=== PATIENT | female | born 1985 | race African-American/Black ===

== ENCOUNTER 2020-02-13 15:55 | Outpatient (REF) | payer BC, SELFPAY | END 2020-02-13 15:56 | disposition home or self-care (01) | LOC: HO.LAB 15:55 | PROVIDERS: Visit Provider Internal Medicine | DX: Z20.828 Contact with and (suspected) exposure to other viral communicable diseases (principal) | CPT/HCPCS: C9803; U0003 ==

== ENCOUNTER 2020-09-21 18:53 | Emergency (ER) | payer BC, SELFPAY ==
[2020-09-21 18:55] VITALS: BP 145/87; PULSE 104; RESP 18; TEMP 36.9; O2SAT 98; BMI 28.7
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
== END 2020-09-21 21:15 | disposition left against medical advice (07) ==
PROVIDERS: Emergency Provider Emergency Medicine; PCP Internal Medicine
DX: T78.40XA Allergy, unspecified, initial encounter (principal); X58.XXXA Exposure to other specified factors, initial encounter
CPT/HCPCS: 99281; 99284

== ENCOUNTER 2021-01-03 14:56 | Outpatient (REF) | payer BC, SELFPAY ==
[2021-01-03 15:38] LABS: COVID-19 Test Negative (Negative)
== END 2021-01-03 14:57 | disposition home or self-care (01) ==
LOC: HO.LAB 14:56
PROVIDERS: Visit Provider Internal Medicine
DX: Z20.822 Contact with and (suspected) exposure to COVID-19 (principal)
CPT/HCPCS: 36415; 87635; C9803

== ENCOUNTER 2021-01-09 11:21 | Outpatient (REF) | payer OTHER, BC, SELFPAY ==
--- NOTE | ~2021-01-09 | XR_ITS ---
EXAMINATION: XR LUMBOSACRAL SPINE CLINICAL INFORMATION: Lower back pain. COMPARISON: None TECHNIQUE: AP and lateral views of the lumbar spine and lateral view of the lumbosacral junction. FINDINGS: Vertebral body heights are normal. There is a mild thoracolumbar levoscoliosis. At L2-3, there is mild disc space narrowing. At L3-4, there is mild disc space narrowing and a 5 mm retrolisthesis. The remaining disc spaces are relatively well-maintained. No acute fracture or spondylolisthesis is seen. There is multi-level lumbar spondylosis. The posterior elements are intact. The paravertebral soft tissues are unremarkable. XR/XR lumbar spine 2-3V IMPRESSION: 1. There is mild degenerative disc disease at L2-3 and L3-4. 2. There is multi-level lumbar spondylosis. 3. There is a mild thoracolumbar levoscoliosis.
--- NOTE | ~2021-01-09 | XR_ITS ---
EXAMINATION: CERVICAL SPINE 3 VIEWS CLINICAL INFORMATION: Cervicalgia. COMPARISON: None. TECHNIQUE: Frontal, odontoid, bilateral oblique and lateral views of the cervical spine are obtained. FINDINGS: Vertebral body heights and alignment are normal. The disc spaces are well-maintained. No acute fracture or spondylolisthesis is seen. The posterior elements are intact. The bilateral neural foramina appear patent on the oblique views. There is no prevertebral soft tissue swelling. The dens and C7-T1 interface are normal. XR/XR cervical spine min 6V IMPRESSION: Negative examination.
== END 2021-01-09 11:22 | disposition home or self-care (01) ==
LOC: HO.XRAY 11:21
PROVIDERS: PCP Internal Medicine; Visit Provider Internal Medicine Geriatric Medicine
DX: M54.2 Cervicalgia (principal); M54.50 Low back pain, unspecified
CPT/HCPCS: 72052; 72100

== ENCOUNTER 2021-01-17 10:26 | Emergency (ER) | payer OTHER, BC, SELFPAY ==
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
[2021-01-17 10:57] VITALS: BP 131/74; PULSE 89; RESP 18; TEMP 36.6; O2SAT 98; BMI 30.7
== END 2021-01-17 12:22 | disposition home or self-care (01) ==
PROVIDERS: Emergency Provider Emergency Medicine; PCP Internal Medicine
DX: M54.32 Sciatica, left side (principal); M25.552 Pain in left hip
CPT/HCPCS: 73502; 99283

== ENCOUNTER 2021-04-12 07:33 | Outpatient (REF) | payer OTHER, BC, SELFPAY | END 2021-04-12 07:34 | disposition home or self-care (01) | LOC: HO.HOSX 07:33 | PROVIDERS: Visit Provider Physician Assistant | DX: Z13.89 Encounter for screening for other disorder (principal) ==

== ENCOUNTER 2021-07-15 08:01 | Inpatient (IN) | payer BC, SELFPAY ==
[2021-07-15] VITALS (7 sets, daily range): BP systolic 99–130; BP diastolic 37–76; PULSE 57–109; RESP 14–20; TEMP 36.8–37.1; O2SAT 98–100; BMI 29.2
--- NOTE | ~2021-07-15 | CT_ITS ---
EXAMINATION: CT GI BLEED ABDOMEN PELVIS WITHOUT AND WITH CONTRAST. CLINICAL INFORMATION: Hematochezia. Abdominal pain. History of Marfan's COMPARISON: None TECHNIQUE: 3 minutes thin axial images of abdomen pelvis were obtained without contrast. Subsequently 80 mL Omnipaque 350 was injected intravenously and repeat imaging of abdomen pelvis were obtained with 5 mm thin axial cuts. DLP 1274 FINDINGS: There is dependent left basilar atelectasis. The heart size is normal. There are median sternotomy sutures from previous intervention. The liver is homogeneous in density without focal lesions or intrahepatic ductal dilatation. It is normal size and contour. The gallbladder appears unremarkable. Visualized spleen, pancreas and bilateral adrenal glands unremarkable. Both kidneys are normal size, shape and position postcontrast there is normal symmetrical cortical nephrograms. No radiopaque renal calculi or hydronephrosis seen. The abdominal aorta is of normal caliber. No aneurysm or dissection seen. No retrobulbar lymph nodes or mass seen. There is scattered stool and gas seen throughout the colon without distention. There is mild mural thickening involving the ascending colon with mild pericolic fat stranding. The transverse and ascending colon appears unremarkable. However the ascending colon is in midline and cecum lies in the lower pelvis appendix is not visualized with certainty however no inflammatory changes seen in the right lower quadrant. There are a few scattered diverticula in the sigmoid colon. No free air or free fluid seen. There is no extravasation of contrast to suspect any source of GI bleed. The abdominal wall appears unremarkable. Imaging to the pelvis reveals mild mural thickening involving the sigmoid colon.. No abnormal pelvic or inguinal lymphadenopathy. The uterus is to the left of midline minutes several at least 3 hypodense lesions in the fundal fibroid suggestive of fibroid disease. The largest lesion is left fundus measuring approximately 4.4 x 4.5 cm. Bone windows reveal mild posterior listhesis L3 over L4 and L4-L5. No aggressive lytic or sclerotic process seen. CT/CT gi bleed abd pel wo/w con IMPRESSION: Malpositioned ascending colon and cecum with cecum lying in the right lower pelvis. There is diffuse mural thickening involving descending and sigmoid colon suggestive colitis. Acute scattered diverticula are seen in the sigmoid colon. There is mild pericolic fat stranding. No obstruction seen.
[2021-07-15 08:23] LABS: MANUAL DIFF FLAG NO
--- NOTE | 2021-07-15 08:25 | ED_ITS ---
HPI - GI Bleed General Chief complaint: Abdominal Pain Stated complaint: blood in stools and vomiting blood Time Seen by Provider: 07/15/21 08:02 Source: patient Mode of arrival: ambulatory Limitations: no limitations History of Present Illness MD complaint: gross hematemesis and gross hematochezia Onset (ago): day(s) (last night) Pain Consistency: constant Severity: moderate Relieving factors: none Exacerbating factors: eating Context: history of GI bleed and other (hx of colitis in the past, notes she was treated for sinusitis a few weeks ago since then poor appetite, family hx of rectal cancer) Associated symptoms: abdominal pain, nausea, vomiting, loss of appetite, malaise, easy bruising and rash (noted some scant hives on her forearms) Treatments Prior to Arrival: none Related Data Previous Rx's Medication Instructions Recorded cyclobenzaprine 10 mg tablet 10 mg PO DAILY PRN #10 tab 01/17/21 diazepam 5 mg tablet (Valium) 5 mg PO BEDTIME PRN #5 tab 01/17/21 Allergies Allergy/AdvReac Type Severity Reaction Status Date / Time No Known Allergies Allergy Unverified 12/22/19 15:45 [No Known Allergies*] Review of Systems Review of Systems: Constitutional : No Weight loss, No Fever, No Chills ENT/Mouth : No sore throat, No Rhinorrhea Eyes: No Swelling, No Redness Cardiovascular : No Chest Pain, No SOB, NoEdema Respiratory : No Cough, No Sputum, No Wheezing Gastrointestinal : Positive Nausea, Positive Vomiting, positive Diarrhea, positive abdominal Pain, pos Hematochezia, No Melena, pos hematemesis Genitourinary : No Dysuria, No Urinary Frequency, No Hematuria, No Urgency Musculoskeletal : No joint pain, No Myalgias, No Joint Swelling Skin : No Skin Lesions, No rash Neuro : No Weakness, No Numbness, No Dizziness, No Headache Psych : No Anxiety/Panic, No Depression Heme/Lymph: No Bruising, No Lymphadenopathy Endocrine : No Polyuria, No Polydipsia All other systems reviewed and are negative. [facility] Past Medical History Attestation statement: The following information was validated with the patient. Medical History Colitis GERD (gastroesophageal reflux disease) Marfan syndrome Sinusitis Social History Social History (Updated 07/15/21 @ 08:33 by Ene Swartz DO) Patient Tobacco Use Status: Current everyday Tobacco user Advance Directives: No Advance Directives Information Provided: No Patient : No Physical Exam Vital Signs: Vital Signs: Last Vital Signs Temp 98.3 F 07/15/21 08:10 Pulse 95 07/15/21 10:02 Resp 18 07/15/21 10:02 BP 124/76 07/15/21 09:45 Pulse Ox 99 07/15/21 08:10 BMI result Body Mass Index 29.2 Appearance: Alert. Oriented X3. No acute distress. Eyes: Pupils equal, round and reactive to light. ENT: Pharynx normal. Neck: Normal inspection. Neck supple. CVS: tachycardic heart rate and rhythm. Pulses normal. Respiratory: No respiratory distress. Breath sounds normal. Abdomen: Soft and mild diffuse ttp Rectal: brown stool Skin: Skin warm and dry. Normal skin color. Normal skin turgor. Extremities: No lower extremity edema. No calf ttp Neuro: Oriented X 3. No motor deficit. No sensory deficit. Course Course Course Narrative: no aspirin or NSAID use stool blood negative, H/H stable Dr. Epperson to see patient - given colitis infection suspected 1201pm will order antibiotics and likely keep overnight MDM - GI Bleed MDM Narrative Medical decision making narrative: 35 yo female with hx of Marfans, colitis, GERD (not treated) no NSAID, AC therapy use - at this time c/o having abdominal pain diffuse, n/v/d noted after 4th bout hematemesis that then became darker and then brb per rectum. At this time will need labs type and screen, IV morphine for pain, IV protonix. Given her marfan status and hx of colitis and recent abx use will obtain CT scan GI bleed protocol. Dispo per results and findings. Lab Data Result diagrams: 07/15/21 08:19 07/15/21 08:19 Labs: Lab Results 07/15/21 07/15/21 07/15/21 Range/Units 08:19 08:19 08:51 WBC 13.4 H (4.8-10.8) X10*3/uL RBC 4.90 (4.20-5.50) X10*6/uL Hgb 15.0 (12.0-16.0) g/dl Hct 43.6 (37.0-47.0) % MCV 89.0 (80.0-98.0) fL MCH 30.6 (27.0-33.0) pg MCHC 34.4 (31.0-35.0) g/dl RDW 13.3 (11.0-16.0) % Plt Count 367 (160-400) X10*3/uL MPV 9.5 (9.4-12.3) fL Immature Gran % (Auto) 0.4 (0.0-0.4) % Neut % (Auto) 76.6 H (45-73) % Lymph % (Auto) 15.5 L (20-40) % Haakon % (Auto) 6.4 (2-11) % Eos % (Auto) 1.0 (0-4) % Baso % (Auto) 0.1 (0-2) % Lymph # (Auto) 2.1 (1.2-4.9) X10*3/uL Haakon # (Auto) 0.9 (0.1-1.2) X10*3/uL Eos # (Auto) 0.1 (0.0-0.4) X10*3/uL Baso # (Auto) 0.0 (0.0-0.2) X10*3/uL Abs Immat Gran (auto) 0.05 H (0.00-0.03) X10*3/uL Absolute Neuts (auto) 10.2 H (2.0-8.3) x10*3/uL Absolute Nucleated RBC 0.000 (0.0-0.012) X10*3/uL Nucleated RBC % (auto) 0.0 (0.0-0.2) /100WBC Sodium 138 (135-145) mmol/L Potassium 4.4 (3.3-5.1) mmol/L Chloride 107 (96-108) mmol/L Carbon Dioxide 21 L (22-29) mmol/L Anion Gap 14 (12-20) BUN 7 L (9-16) mg/dL Creatinine 0.73 (0.5-1.4) mg/dL Estim Creat Clear Calc 138.1 Estimated GFR > 60 Random Glucose 100 (60-115) mg/dL Lactic Acid 1.5 (0.5-2.0) mmol/L Calcium 9.4 (8.4-10.2) mg/dL Total Bilirubin 0.6 (0.0-1.0) mg/dL AST 20 (5-31) U/L ALT 23 (0-31) U/L Alkaline Phosphatase 68 (39-117) U/L Total Protein 6.9 (6.5-8.0) g/dL Albumin 4.2 (3.5-5.0) g/dL Lipase 20 (8-78) U/L Urine Color Urine Appearance Urine pH (5.0-8.0) Ur Specific [place] (1.005-1.025) Urine Protein (NEG-TRACE) MG/DL Urine Glucose (UA) (NEG) MG/DL Urine Ketones (NEG) MG/DL Urine Blood (NEG) Urine Nitrite (NEG) Ur Leukocyte Esterase (NEG) Urine RBC (0) /HPF Urine WBC (0-4) /HPF Ur Squamous Epith Cells /LPF Urine Bacteria /LPF Urine Mucus /LPF Urine Test (NEGATIVE) Stool Occult Blood (NEGATIVE) Blood Type Antibody Screen 07/15/21 07/15/21 07/15/21 Range/Units 09:32 09:46 10:28 WBC (4.8-10.8) X10*3/uL RBC (4.20-5.50) X10*6/uL Hgb (12.0-16.0) g/dl Hct (37.0-47.0) % MCV (80.0-98.0) fL MCH (27.0-33.0) pg MCHC (31.0-35.0) g/dl RDW (11.0-16.0) % Plt Count (160-400) X10*3/uL MPV (9.4-12.3) fL Immature Gran % (Auto) (0.0-0.4) % Neut % (Auto) (45-73) % Lymph % (Auto) (20-40) % Haakon % (Auto) (2-11) % Eos % (Auto) (0-4) % Baso % (Auto) (0-2) % Lymph # (Auto) (1.2-4.9) X10*3/uL Haakon # (Auto) (0.1-1.2) X10*3/uL Eos # (Auto) (0.0-0.4) X10*3/uL Baso # (Auto) (0.0-0.2) X10*3/uL Abs Immat Gran (auto) (0.00-0.03) X10*3/uL Absolute Neuts (auto) (2.0-8.3) x10*3/uL Absolute Nucleated RBC (0.0-0.012) X10*3/uL Nucleated RBC % (auto) (0.0-0.2) /100WBC Sodium (135-145) mmol/L Potassium (3.3-5.1) mmol/L Chloride (96-108) mmol/L Carbon Dioxide (22-29) mmol/L Anion Gap (12-20) BUN (9-16) mg/dL Creatinine (0.5-1.4) mg/dL Estim Creat Clear Calc Estimated GFR Random Glucose (60-115) mg/dL Lactic Acid (0.5-2.0) mmol/L Calcium (8.4-10.2) mg/dL Total Bilirubin (0.0-1.0) mg/dL AST (5-31) U/L ALT (0-31) U/L Alkaline Phosphatase (39-117) U/L Total Protein (6.5-8.0) g/dL Albumin (3.5-5.0) g/dL Lipase (8-78) U/L Urine Color YELLOW Urine Appearance HAZY Urine pH 6.0 (5.0-8.0) Ur Specific [place] 1.025 (1.005-1.025) Urine Protein TRACE (NEG-TRACE) MG/DL Urine Glucose (UA) NEG (NEG) MG/DL Urine Ketones NEG (NEG) MG/DL Urine Blood TRACE (NEG) Urine Nitrite NEG (NEG) Ur Leukocyte Esterase NEG (NEG) Urine RBC 1-4 (0) /HPF Urine WBC 0-2 (0-4) /HPF Ur Squamous Epith Cells 2+ /LPF Urine Bacteria 1+ /LPF Urine Mucus 2+ /LPF Urine Test (NEGATIVE) Stool Occult Blood NEGATIVE (NEGATIVE) Blood Type O Positive Antibody Screen NEGATIVE 07/15/21 Range/Units 10:28 WBC (4.8-10.8) X10*3/uL RBC (4.20-5.50) X10*6/uL Hgb (12.0-16.0) g/dl Hct (37.0-47.0) % MCV (80.0-98.0) fL MCH (27.0-33.0) pg MCHC (31.0-35.0) g/dl RDW (11.0-16.0) % Plt Count (160-400) X10*3/uL MPV (9.4-12.3) fL Immature Gran % (Auto) (0.0-0.4) % Neut % (Auto) (45-73) % Lymph % (Auto) (20-40) % Haak[place] % (Auto) (2-11) % Eos % (Auto) (0-4) % Baso % (Auto) (0-2) % Lymph # (Auto) (1.2-4.9) X10*3/uL Haakon # (Auto) (0.1-1.2) X10*3/uL Eos # (Auto) (0.0-0.4) X10*3/uL Baso # (Auto) (0.0-0.2) X10*3/uL Abs Immat Gran (auto) (0.00-0.03) X10*3/uL Absolute Neuts (auto) (2.0-8.3) x10*3/uL Absolute Nucleated RBC (0.0-0.012) X10*3/uL Nucleated RBC % (auto) (0.0-0.2) /100WBC Sodium (135-145) mmol/L Potassium (3.3-5.1) mmol/L Chloride (96-108) mmol/L Carbon Dioxide (22-29) mmol/L Anion Gap (12-20) BUN (9-16) mg/dL Creatinine (0.5-1.4) mg/dL Estim Creat Clear Calc Estimated GFR Random Glucose (60-115) mg/dL Lactic Acid (0.5-2.0) mmol/L Calcium (8.4-10.2) mg/dL Total Bilirubin (0.0-1.0) mg/dL AST (5-31) U/L ALT (0-31) U/L Alkaline Phosphatase (39-117) U/L Total Protein (6.5-8.0) g/dL Albumin (3.5-5.0) g/dL Lipase (8-78) U/L Urine Color Urine Appearance Urine pH (5.0-8.0) Ur Specific [place] (1.005-1.025) Urine Protein (NEG-TRACE) MG/DL Urine Glucose (UA) (NEG) MG/DL Urine Ketones (NEG) MG/DL Urine Blood (NEG) Urine Nitrite (NEG) Ur Leukocyte Esterase (NEG) Urine RBC (0) /HPF Urine WBC (0-4) /HPF Ur Squamous Epith Cells /LPF Urine Bacteria /LPF Urine Mucus /LPF Urine Test NEGATIVE (NEGATIVE) Stool Occult Blood (NEGATIVE) Blood Type Antibody Screen Discharge Plan Discharge Clinical Impression: Abdominal pain, Colitis, Bright red rectal bleeding, Nausea Patient Disposition: Admitted As Inpatient
[2021-07-15 08:29] LABS: Basophils Percent Auto 0.1 % (0-2); Eosinophils Absolute Auto 0.1 X10*3/uL (0.0-0.4); Hematocrit 43.6 % (37.0-47.0); Imm Gran Abs Auto 0.05 X10*3/uL (0.00-0.03); Imm Gran Pct Auto 0.4 % (0.0-0.4); Lymphocytes Absolute Auto 2.1 X10*3/uL (1.2-4.9); Lymphocytes Percent Auto 15.5 % (20-40); Mean Corpuscular HGB Conc 34.4 g/dl (31.0-35.0); Mean Corpuscular Hemoglobin 30.6 pg (27.0-33.0); Mean Platelet Volume 9.5 fL (9.4-12.3); Monocytes Absolute Auto 0.9 X10*3/uL (0.1-1.2); Monocytes Percent Auto 6.4 % (2-11); Neutrophils Absolute Auto 10.2 x10*3/uL (2.0-8.3); Neutrophils Percent Auto 76.6 % (45-73); Platelet Count 367 X10*3/uL (160-400); Red Cell Distribution Width 13.3 % (11.0-16.0); White Blood Count 13.4 X10*3/uL (4.8-10.8)
[2021-07-15 08:47] LABS: Anion Gap 14 (12-20); Blood Urea Nitrogen 7 mg/dL (9-16); Carbon Dioxide 21 mmol/L (22-29); Chloride 107 mmol/L (96-108); Potassium 4.4 mmol/L (3.3-5.1); Sodium 138 mmol/L (135-145)
[2021-07-15 08:48] LABS: Alanine Aminotransferase 23 U/L (0-31); Albumin Level 4.2 g/dL (3.5-5.0); Alkaline Phosphatase 68 U/L (39-117); Aspartate Amino Transferase 20 U/L (5-31); Bilirubin Total 0.6 mg/dL (0.0-1.0); Calcium 9.4 mg/dL (8.4-10.2); Creatinine Clr Calc Pharmacy 138.1; Estimated Glomerular Filt Rate > 60; Glucose Random 100 mg/dL (60-115); Lipase 20 U/L (8-78); Total Protein 6.9 g/dL (6.5-8.0)
[2021-07-15] MEDS: 0.9 % Sodium Chloride 1,000 ML 999 ML IV (08:58)
[2021-07-15] MEDS: Pantoprazole Sodium 40 MG/10 ML VIAL IVPUSH ×2 (08:59→17:38)
[2021-07-15] MEDS: Morphine Sulfate 4 MG/ML CARTRIDGE IVPUSH (08:59)
[2021-07-15] MEDS: ondansetron HCL 4 MG/2 ML VIAL IVPUSH ×2 (08:59→23:50)
[2021-07-15 09:05] LABS: Lactic Acid 1.5 mmol/L (0.5-2.0)
[2021-07-15 09:58] LABS: OBS Int Ctl Valid YES; OBS1 NEGATIVE (NEGATIVE)
[2021-07-15 10:34] LABS: Appearance Urine HAZY; Color Urine YELLOW; Glucose Urine UA NEG (NEG); Leukocyte Esterase Urine NEG (NEG); Nitrite Urine NEG (NEG); Specific Gravity - Urine 1.025 (1.005-1.025); UACC Culture Trigger NO; Urine Blood TRACE (NEG); Urine Ketones NEG (NEG); Urine Protein TRACE MG/DL (NEG-TRACE)
[2021-07-15 10:38] LABS: UPreg QC Valid YES; Urine Pregnancy NEGATIVE (NEGATIVE)
[2021-07-15 11:00] LABS: Squamous Epithelial Cell Urine 2+ /LPF; WBC Urine 0-2 /HPF (0-4)
[2021-07-15] MEDS: iohexoL 350 MG/ML 100 ML INFUS..BTL 80 ML IV (11:00)
[2021-07-15 11:01] LABS: Bacteria Urine 1+ /LPF; Mucus Urine 2+ /LPF
[2021-07-15] MEDS: diphenhydrAMINE HCL 50 MG/ML VIAL 25 MG IVPUSH (12:22)
[2021-07-15] MEDS: Metoclopramide HCl 10 MG/2 ML VIAL 5 MG IVPUSH (12:24)
[2021-07-15 12:36] LABS: IDNOW Serial# 55D5AD1C
[2021-07-15 12:37] LABS: COVID-19 Test Negative (Negative)
[2021-07-15] MEDS: Piperacillin Sodium/Tazobactam 3.375 GM in 0.9 % Sodium Chloride 50 ML IV (12:46)
--- NOTE | 2021-07-15 13:08 | PHA.MEDREC ---
Pharmacy Consult ? Medication Reconciliation Pharmacy has completed the medication reconciliation. Patient only takes an allergy medication, which she ran out of about a week ago. Patient also states she is allergic to Ibuprofen, her reaction was hives and itching.
--- NOTE | 2021-07-15 14:19 | P.HPGS_ITS ---
History of Present Illness History of Present Illness Date of Service: 07/15/21 <Sweetie Darling PA-C - Last Filed: 07/15/21 15:00> 07/15/21 <Amando Epperson MD - Last Filed: 07/15/21 16:02> Chief complaint: COLITIS <Sweetie Darling PA-C - Last Filed: 07/15/21 15:00> Narrative: Mayra Alonzo is a 35 year old female who presented to the ED with complaints of diffuse abdominal pain and BRBPR. She reports she developed diffuse abdominal pain yesterday. It was most significant periumbilically but now more severe in the lower abdomen. She had multiple episodes of loose stool with bright red blood. Prior to this, she was having dark tarry stools for about a week. She was seen at this time for cold symptoms as well and was diagnosed with a sinus infection and treated with Augmentin. She also reports nausea and vomiting. After a few episodes of emesis, she began to notice bright red blood in the vomit as well. She denies taking NSAIDs, significant ETOH use. She denies fever, chills, recent travel, sick contacts. She does endorse a 15lb intentional weight loss over the past two months. Work up in the ED included CT scan which showed diffuse mural thickening involving descending and sigmoid colon suggestive colitis with mild pericolic fat stranding. She had a mild leukocytosis of 13.4. H/H was WNL. Patient reports this has happened multiple times prior dating back to a few years after her aortic root surgery. She also has a history of GERD/gastritis which she saw a GI doctor for once and was told to make lifestyle modifications. <Sweetie Darling PA-C - Last Filed: 07/15/21 15:00> Review of Systems Constitutional: Constitutional: Denies fever(s) and Denies malaise <Sweetie Darling PA-C - Last Filed: 07/15/21 15:00> Cardiovascular: Cardiovascular: Denies chest pain and Denies dyspnea <Sweetie Darling PA-C - Last Filed: 07/15/21 15:00> Respiratory: Respiratory: Denies dyspnea <Sweetie Darling PA-C - Last Filed: 07/15/21 15:00> Gastrointestinal: Gastrointestinal: Reports as per HPI <Sweetie Darling PA-C - Last Filed: 07/15/21 15:00> Genitourinary: Genitourinary: Denies hematuria and Denies dysuria <Sweetie Darling PA-C - Last Filed: 07/15/21 15:00> Integumentary/Breasts: Skin/Breast: Denies rash <Sweetie Darling PA-C - Last Filed: 07/15/21 15:00> Neurologic: Denies focal weakness <KALLIE Lawson Last Filed: 07/15/21 15:00> [facility] Past Medical History Medical History: Medical History (Updated 07/15/21 @ 12:05 by Ene Swartz DO) Colitis GERD (gastroesophageal reflux disease) Marfan syndrome Sinusitis <KALLIE Lawson Last Filed: 07/15/21 15:00> Surgical History Surgical History: Surgical History (Updated 07/15/21 @ 14:28 by Sweetie Darling PA-C) H/O aortic root repair <Sweetie Darling PA-C - Last Filed: 07/15/21 15:00> Social History Social History: Social History (Updated 07/15/21 @ 08:33 by Ene Swartz DO) Patient Tobacco Use Status: Current everyday Tobacco user Advance Directives: No Advance Directives Information Provided: No Patient : No <Sweetie Darling PA-C - Last Filed: 07/15/21 15:00> Meds Allergies/Adverse reactions: Allergies Allergy/AdvReac Type Severity Reaction Status Date / Time ibuprofen Allergy Hives Verified 07/15/21 13:13 <KALLIE Lawson Last Filed: 07/15/21 15:00> Active Medications: Current Medications Sodium Chloride (Ns) 1,000 mls @ 100 mls/hr IVCONT .Q10H [facility] Metronidazole (Flagyl) 500 mg in 100 mls @ 100 mls/hr IV Q6H [facility] Morphine Sulfate (Morphine Sulfate 2 Mg/Ml Cartridge) 2 mg IVPUSH Q3H PRN; Protocol PRN Reason: Pain, Moderate (Pain Scale 4-6 Ondansetron HCl (Ondansetron Hcl 4 Mg/2 Ml Vial) 4 mg IVPUSH Q8H PRN PRN Reason: nausea Pharmacy Consult (Consult Rx Perform Med Rec) 1 each MISCELLANE ONCE PRN PRN Reason: Consult order Sodium Chloride (0.9 % Sodium Chloride Flush 3 Ml Syringe) 3 ml IVFLUSH QSHIFT [facility] <KALLIE Lawson Last Filed: 07/15/21 15:00> Home medications: Home Medications Medication Instructions Recorded Confirmed Last Taken Type levocetirizine 5 mg tablet 1 tab PO BID 07/15/21 07/15/21 07/08/21 History <KALLIE Lawson Last Filed: 07/15/21 15:00> Physical Exam Vital Signs: Vital Signs: Last Vital Signs Temp 98.3 F 07/15/21 12:11 Pulse 71 07/15/21 12:11 Resp 14 07/15/21 12:11 BP 112/61 07/15/21 12:11 Pulse Ox 100 07/15/21 12:11 BMI result Body Mass Index 29.2 <KALLIE Lawson Last Filed: 07/15/21 15:00> Const: General: comfortable, no acute distress, well developed and alert <KALLIE Lawson Last Filed: 07/15/21 15:00> Orientation/consciousness: patient oriented x3 <KALLIE Lawson Last Filed: 07/15/21 15:00> Resp: Effort & Inspection: normal respiratory effort <KALLIE Lawson Last Filed: 07/15/21 15:00> GI: Inspection: No distended and Yes scar (midline 3-4cm above umbilicus) <KALLIE Lawson Last Filed: 07/15/21 15:00> Palpation (GI): Soft to palpation and Tenderness to palpation present (GI) in the LLQ and in the LUQ <KALLIE Lawson Last Filed: 07/15/21 15:00> Percussion: Yes normal to percussion <KALLIE Lawson Last Filed: 07/15/21 15:00> Abdomen image: 1. 2. 3. <Sweetie Darling PA-C - Last Filed: 07/15/21 15:00> Skin: General skin exam: no rashes or lesions noted <Sweetie Darling PA-C - Last Filed: 07/15/21 15:00> Neuro: General: patient oriented x3 <KALLIE Lawson Last Filed: 07/15/21 15:00> Extrem: General: Yes no clubbing, cyanosis or edema <KALLIE Lawson Last Filed: 07/15/21 15:00> Results Results Labs: Short CBC 07/15/21 Range/Units 08:19 WBC 13.4 H (4.8-10.8) X10*3/uL Hgb 15.0 (12.0-16.0) g/dl Hct 43.6 (37.0-47.0) % Plt Count 367 (160-400) X10*3/uL BMP 07/15/21 08:19 Sodium 138 Potassium 4.4 Chloride 107 Carbon Dioxide 21 L BUN 7 L Creatinine 0.73 Calcium 9.4 Liver Function 07/15/21 Range/Units 08:19 Total Bilirubin 0.6 (0.0-1.0) mg/dL AST 20 (5-31) U/L ALT 23 (0-31) U/L Alkaline Phosphatase 68 (39-117) U/L Albumin 4.2 (3.5-5.0) g/dL Urine 07/15/21 07/15/21 Range/Units 10:28 10:28 Urine Color YELLOW Urine Appearance HAZY Urine pH 6.0 (5.0-8.0) Ur Specific [place] 1.025 (1.005-1.025) Urine Protein TRACE (NEG-TRACE) MG/DL Urine Glucose (UA) NEG (NEG) MG/DL Urine Test NEGATIVE (NEGATIVE) <KALLIE Lawson Last Filed: 07/15/21 15:00> Assessment and Plan (1) Colitis: Status: Acute <KALLIE Lawson Last Filed: 07/15/21 15:00> She was admitted for lower abdominal pain Her CAT scan shows being of the sigmoid colon consistent with colitis Etiology uncertain Incidental finding of mild position of the right colon No obstructive symptoms Treat for colitis for now Clear liquids Start Flagyl Exam otherwise soft, benign and distended Seen and examined independently - agree with RIC Darling <Amando Epperson MD - Last Filed: 07/15/21 16:02> Plan 35 year old female admitted with c/o abdominal pain and BRBPR for [address] scan demonstrating wall thickening of the descending and sigmoid colon. She is being admitted for treatment of the sigmoid colitis. Her abdominal exam is very benign at this time. Will start on IVF and IV flagyl given leukocytosis. Can begin clear liquids, analgesics as needed for pain. If she does not improve fairly quickly, will obtain GI consult. Plan discussed with patient. Repeat labs in morning. Hematemesis likely from gastritis vs small shahram barber tear from vomiting. Started on protonix. 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 <Sweetie Darling PA-C - Last Filed: 07/15/21 15:00> Quality Stroke Does the patient have a stroke diagnosis?: No <Sweetie Darling PA-C - Last Filed: 07/15/21 15:00> VTE Prior VTE?: No <Sweetie Darling PA-C - Last Filed: 07/15/21 15:00> VTE Risk Level:: Medical - low <Sweetie Darling PA-C - Last Filed: 07/15/21 15:00> VTE Device Contraindication: N/A - Device Ordered <Sweetie Darling PA-C - Last Filed: 07/15/21 15: 00> VTE Drug Contraindication: Treatment Not Indicated <Sweetie Darling PA-C - Last Filed: 07/15/21 15:00> Procedures Date of Service Date of Service: 07/15/21 <Sweetie Darling PA-C - Last Filed: 07/15/21 15:00>
[2021-07-15] MEDS: metroNIDAZOLE/NS 500 MG/100 ML PIGGYBACK 100 MG IV (14:48)
--- NOTE | 2021-07-15 15:13 | PC.NURSE ---
Assumed care of patient in overflow at this time
[2021-07-15] MEDS: 0.9 % Sodium Chloride 1,000 ML 100 ML IVCONT (15:27)
[2021-07-15] MEDS: Morphine Sulfate 2 MG/ML CARTRIDGE IVPUSH ×2 (17:53→23:50)
[2021-07-15] MEDS: metroNIDAZOLE/NS 500 MG/100 ML PIGGYBACK IV (20:54)
[2021-07-15] MEDS: Acetaminophen 325 MG TABLET 650 MG PO (22:15)
[2021-07-15] MEDS: 0.9 % Sodium Chloride Flush 3 ML SYRINGE IVFLUSH (23:51)
[2021-07-16] MEDS: 0.9 % Sodium Chloride 1,000 ML 100 ML IVCONT (01:30)
[2021-07-16] MEDS: metroNIDAZOLE/NS 500 MG/100 ML PIGGYBACK 100 MG IV ×2 (02:26→09:19)
[2021-07-16] MEDS: Pantoprazole Sodium 40 MG/10 ML VIAL IVPUSH (05:45)
[2021-07-16 06:17] LABS: MANUAL DIFF FLAG NO
[2021-07-16 06:19] LABS: Basophils Percent Auto 0.1 % (0-2); Eosinophils Absolute Auto 0.3 X10*3/uL (0.0-0.4); Eosinophils Percent Auto 3.3 % (0-4); Hematocrit 37.1 % (37.0-47.0); Hemoglobin 12.5 g/dl (12.0-16.0); Imm Gran Abs Auto 0.03 X10*3/uL (0.00-0.03); Imm Gran Pct Auto 0.4 % (0.0-0.4); Lymphocytes Absolute Auto 2.9 X10*3/uL (1.2-4.9); Lymphocytes Percent Auto 37.8 % (20-40); Mean Corpuscular HGB Conc 33.7 g/dl (31.0-35.0); Mean Corpuscular Hemoglobin 30.5 pg (27.0-33.0); Mean Corpuscular Volume 90.5 fL (80.0-98.0); Mean Platelet Volume 9.7 fL (9.4-12.3); Monocytes Absolute Auto 0.7 X10*3/uL (0.1-1.2); Monocytes Percent Auto 9.3 % (2-11); Neutrophils Absolute Auto 3.8 x10*3/uL (2.0-8.3); Neutrophils Percent Auto 49.1 % (45-73); Platelet Count 297 X10*3/uL (160-400); Red Cell Distribution Width 13.3 % (11.0-16.0); White Blood Count 7.7 X10*3/uL (4.8-10.8)
[2021-07-16 06:42] LABS: Anion Gap 11 (12-20); Blood Urea Nitrogen 5 mg/dL (9-16); Calcium 8.4 mg/dL (8.4-10.2); Carbon Dioxide 20 mmol/L (22-29); Chloride 111 mmol/L (96-108); Creatinine Clr Calc Pharmacy 162.6; Estimated Glomerular Filt Rate > 60; Glucose Random 85 mg/dL (60-115); Potassium 3.8 mmol/L (3.3-5.1); Sodium 138 mmol/L (135-145)
[2021-07-16 08:00] VITALS: BP 129/63; PULSE 68; RESP 20; TEMP 36.6; O2SAT 98
--- NOTE | 2021-07-16 08:43 | P.PNGS_ITS ---
Subjective Subjective Date of Service: 07/16/21 <Sweetie Darling PA-C - Last Filed: 07/16/21 09:34> 07/16/21 <Amando Epperson MD - Last Filed: 07/16/21 12:13> Interval history: Feels well this morning. Denies any abdominal pain. She did start her menses and is having some mild cramping. Tolerating clear liquids. Denies further nausea or vomiting or loose stools. No further BRBPR or hematemesis. Wants to eat and go home. <Sweetie Darling PA-C - Last Filed: 07/16/21 09:34> Physical Exam Vital Signs: Vital Signs: Last Vital Signs Temp 97.8 F 07/16/21 08:00 Pulse 68 07/16/21 08:00 Resp 20 07/16/21 08:00 BP 129/63 07/16/21 08:00 Pulse Ox 98 07/16/21 08:00 BMI result Body Mass Index 29.2 <Sweetie Darling PA-C - Last Filed: 07/16/21 09:34> Const: General: no acute distress and alert <Sweetie Darling PA-C - Last Filed: 07/16/21 09:34> Orientation/consciousness: patient oriented x3 <KALLIE Lawson Last Filed: 07/16/21 09:34> Resp: Effort & Inspection: normal respiratory effort <Sweetie Darling PA-C - Last Filed: 07/16/21 09:34> GI: Inspection: No distended <KALLIE Lawson Last Filed: 07/16/21 09:34> Palpation (GI): Soft to palpation and Tenderness to palpation present (GI) (very mild LLQ tenderness) <KALLIE Lawson Last Filed: 07/16/21 09:34> Percussion: Yes normal to percussion <KALLIE Lawson Last Filed: 07/16/21 09:34> Skin: General skin exam: no rashes or lesions noted <KALLIE Lawson Last Filed: 07/16/21 09:34> Neuro: General: patient oriented x3 <Sweetie Darling PA-C - Last Filed: 07/16/21 09:34> Extrem: General: Yes no clubbing, cyanosis or edema <Sweetie Darling PA-C - Last Filed: 07/16/21 09:34> Objective Data Active Medications Sodium Chloride (Ns) 1,000 mls @ 100 mls/hr IVCONT .Q10H [facility] Last Admin: 07/16/21 01:30 Dose: 100 mls/hr Documented by: CHELSIE Metronidazole (Flagyl) 500 mg in 100 mls @ 100 mls/hr IV Q6H [facility] Last Infusion: 07/16/21 03:27 Dose: 0 mls/hr Documented by: CHELSIE Morphine Sulfate (Morphine Sulfate 2 Mg/Ml Cartridge) 2 mg IVPUSH Q3H PRN; Protocol PRN Reason: Pain, Moderate (Pain Scale 4-6 Last Admin: 07/15/21 23:50 Dose: 2 mg Documented by: HARSHIL Ondansetron HCl (Ondansetron Hcl 4 Mg/2 Ml Vial) 4 mg IVPUSH Q8H PRN PRN Reason: nausea Last Admin: 07/15/21 23:50 Dose: 4 mg Documented by: HARSHIL Pantoprazole Sodium (Pantoprazole Sodium 40 Mg/10 Ml Vial) 40 mg IVPUSH BID@0630,1630 [facility] Last Admin: 07/16/21 05:45 Dose: 40 mg Documented by: CHELSIE Pharmacy Consult (Consult Rx Perform Med Rec) 1 each MISCELLANE ONCE PRN PRN Reason: Consult order Sodium Chloride (0.9 % Sodium Chloride Flush 3 Ml Syringe) 3 ml IVFLUSH QSHIFT [facility] Last Admin: 07/15/21 23:51 Dose: 3 ml Documented by: HARSHIL <Sweetie Darling PA-C - Last Filed: 07/16/21 09:34> Labs CBC & Chem 7: : 07/16/21 06:01 07/16/21 06:01 <Sweetie Darling PA-C - Last Filed: 07/16/21 09:34> Labs: Laboratory Results - last 24 hr 07/15/21 07/15/21 07/15/21 08:19 08:51 09:32 MCV MCH MCHC RDW Plt Count MPV Immature Gran % (Auto) Neut % (Auto) Lymph % (Auto) Jay % (Auto) Eos % (Auto) Baso % (Auto) Lymph # (Auto) Jay # (Auto) Eos # (Auto) Baso # (Auto) Abs Immat Gran (auto) Absolute Neuts (auto) Absolute Nucleated RBC Nucleated RBC % (auto) Anion Gap 14 Estim Creat Clear Calc 138.1 Estimated GFR > 60 Random Glucose 100 Lactic Acid 1.5 Calcium 9.4 Total Bilirubin 0.6 AST 20 ALT 23 Alkaline Phosphatase 68 Total Protein 6.9 Albumin 4.2 Lipase 20 Urine Color Urine Appearance Urine pH Ur Specific [place] Urine Protein Urine Glucose (UA) Urine Ketones Urine Blood Urine Nitrite Ur Leukocyte Esterase Urine RBC Urine WBC Ur Squamous Epith Cells Urine Bacteria Urine Mucus Urine Test Stool Occult Blood NEGATIVE COVID-19 ([facility]) COVID-[facility] Com Blood Type Antibody Screen 07/15/21 07/15/21 07/15/21 09:46 10:28 10:28 MCV MCH MCHC RDW Plt Count MPV Immature Gran % (Auto) Neut % (Auto) Lymph % (Auto) Jay % (Auto) Eos % (Auto) Baso % (Auto) Lymph # (Auto) Jay # (Auto) Eos # (Auto) Baso # (Auto) Abs Immat Gran (auto) Absolute Neuts (auto) Absolute Nucleated RBC Nucleated RBC % (auto) Anion Gap Estim Creat Clear Calc Estimated GFR Random Glucose Lactic Acid Calcium Total Bilirubin AST ALT Alkaline Phosphatase Total Protein Albumin Lipase Urine Color YELLOW Urine Appearance HAZY Urine pH 6.0 Ur Specific [place] 1.025 Urine Protein TRACE Urine Glucose (UA) NEG Urine Ketones NEG Urine Blood TRACE Urine Nitrite NEG Ur Leukocyte Esterase NEG Urine RBC 1-4 Urine WBC 0-2 Ur Squamous Epith Cells 2+ Urine Bacteria 1+ Urine Mucus 2+ Urine Test NEGATIVE Stool Occult Blood COVID-19 ([facility]) COVID-[facility] Com Blood Type O Positive Antibody Screen NEGATIVE 07/15/21 07/16/21 07/16/21 12:10 06:01 06:01 MCV 90.5 MCH 30.5 MCHC 33.7 RDW 13.3 Plt Count 297 MPV 9.7 Immature Gran % (Auto) 0.4 Neut % (Auto) 49.1 Lymph % (Auto) 37.8 Jay % (Auto) 9.3 Eos % (Auto) 3.3 Baso % (Auto) 0.1 Lymph # (Auto) 2.9 Jay # (Auto) 0.7 Eos # (Auto) 0.3 Baso # (Auto) 0.0 Abs Immat Gran (auto) 0.03 Absolute Neuts (auto) 3.8 Absolute Nucleated RBC 0.000 Nucleated RBC % (auto) 0.0 Anion Gap 11 L Estim Creat Clear Calc 162.6 Estimated GFR > 60 Random Glucose 85 Lactic Acid Calcium 8.4 D Total Bilirubin AST ALT Alkaline Phosphatase Total Protein Albumin Lipase Urine Color Urine Appearance Urine pH Ur Specific [place] Urine Protein Urine Glucose (UA) Urine Ketones Urine Blood Urine Nitrite Ur Leukocyte Esterase Urine RBC Urine WBC Ur Squamous Epith Cells Urine Bacteria Urine Mucus Urine Test Stool Occult Blood COVID-19 ([facility]) Negative COVID-19 Clin Com See Note Blood Type Antibody Screen <Sweetie Darling PA-C - Last Filed: 07/16/21 09:34> Procedures Date of Service Date of Service: 07/16/21 <Sweetie Darling PA-C - Last Filed: 07/16/21 09:34> Progress Note: A&P Assessment and plan (1) Colitis: Status: Acute <Sweetie Darling PA-C - Last Filed: 07/16/21 09:34> Assessment and Plan: feels much better denies diarrhea no rectal bleed abd soft, nontender ok to advance diet she is extremely anxious and wants to go home will reevaluate later today seen and examined independently - agree with RIC Darling <Amando Epperson MD - Last Filed: 07/16/21 12:13> Plan 35 year old female who presented with abdominal pain and BRBPR found to have sigmoid colitis on CT scan. She is improving with supportive measures. WBC count now normal. Drift in H/H but no evidence of ongoing bleed. Will advance to solid diet. Cont IV flagyl for now, IVF. <Sweetie Darling PA-C - Last Filed: 07/16/21 09:34> Fall Risk Details Current Medications: Current Medications Sodium Chloride (Ns) 1,000 mls @ 100 mls/hr IVCONT .Q10H [facility] Last Admin: 07/16/21 01:30 Dose: 100 mls/hr Documented by: Metronidazole (Flagyl) 500 mg in 100 mls @ 100 mls/hr IV Q6H [facility] Last Infusion: 07/16/21 03:27 Dose: Infused Documented by: Morphine Sulfate (Morphine Sulfate 2 Mg/Ml Cartridge) 2 mg IVPUSH Q3H PRN; Protocol PRN Reason: Pain, Moderate (Pain Scale 4-6 Last Admin: 07/15/21 23:50 Dose: 2 mg Documented by: Ondansetron HCl (Ondansetron Hcl 4 Mg/2 Ml Vial) 4 mg IVPUSH Q8H PRN PRN Reason: nausea Last Admin: 07/15/21 23:50 Dose: 4 mg Documented by: Pantoprazole Sodium (Pantoprazole Sodium 40 Mg/10 Ml Vial) 40 mg IVPUSH BID@0630,1630 [facility] Last Admin: 07/16/21 05:45 Dose: 40 mg Documented by: Pharmacy Consult (Consult Rx Perform Med Rec) 1 each MISCELLANE ONCE PRN PRN Reason: Consult order Sodium Chloride (0.9 % Sodium Chloride Flush 3 Ml Syringe) 3 ml IVFLUSH QSHIFT [facility] Last Admin: 07/15/21 23:51 Dose: 3 ml Documented by: <Sweetie Darling PA-C - Last Filed: 07/16/21 09:34> Time Spent With Patient Time: Total time spent is greater than 50% in coordination of care (as documented) at patient's floor/unit and/or counseling patient: <Sweetie Darling PA-C - Last Filed: 07/16/21 09:34> Quality Stroke Does the patient have a stroke diagnosis?: No <Sweetie Darling PA-C - Last Filed: 07/16/21 09:34> VTE Prior VTE?: No <Sweetie Darling PA-C - Last Filed: 07/16/21 09:34> VTE Risk Level:: Medical - low <Sweetie Darling PA-C - Last Filed: 07/16/21 09:34> VTE Device Contraindication: N/A - Device Ordered <Sweetie Darling PA-C - Last Filed: 07/16/21 09:34> VTE Drug Contraindication: Treatment Not Indicated <Sweetie Darling PA-C - Last Filed: 07/16/21 09:34>
[2021-07-16] MEDS: 0.9 % Sodium Chloride Flush 3 ML SYRINGE IVFLUSH (09:19)
--- NOTE | 2021-07-16 10:18 | MHC.CM.PN ---
EMR REVIEWED, PT ADMITTED W/COLITIS, PT REPORTS SHE LIVES IN [place] W/HER SISTER MARIE, PT IS INDEPENDENT W/ALL CARE, DENIES USE OF DME AND HOME SERVICES, PT VERIFIES PCP IS [facility], HER SISTER MARIE IS HER HCP AND COPY HAS BEEN REQUESTED, PT REPORTS SHE RECEIVED [facility] VACCINE X2. PT MAY NEED RETURN TO WORK NOTE AND IS ANXIOUS TO LEAVE TODAY HOWEVER WILL NOT LEAVE AMA. D/C PLAN: HOME SELF-CARE, PT'S [facility] AND SHE WILL SELF TRANSPORT
--- NOTE | 2021-07-16 12:09 | P.PNGS_ITS ---
Subjective Subjective Date of Service: 07/16/21 Interval history: feels much better says pain had resolved no more diarrhea extremely anxious and wants to go home Physical Exam Vital Signs: Vital Signs: Last Vital Signs Temp 97.8 F 07/16/21 08:00 Pulse 68 07/16/21 08:00 Resp 20 07/16/21 08:00 BP 129/63 07/16/21 08:00 Pulse Ox 98 07/16/21 08:00 BMI result Body Mass Index 29.2 Objective Data Active Medications Sodium Chloride (Ns) 1,000 mls @ 100 mls/hr IVCONT .Q10H [facility] Last Admin: 07/16/21 01:30 Dose: 100 mls/hr Documented by: CHELSIE Metronidazole (Flagyl) 500 mg in 100 mls @ 100 mls/hr IV Q6H [facility] Last Infusion: 07/16/21 10:42 Dose: 0 mls/hr Documented by: VIKTORIYA Morphine Sulfate (Morphine Sulfate 2 Mg/Ml Cartridge) 2 mg IVPUSH Q3H PRN; Protocol PRN Reason: Pain, Moderate (Pain Scale 4-6 Last Admin: 07/15/21 23:50 Dose: 2 mg Documented by: HARSHIL Ondansetron HCl (Ondansetron Hcl 4 Mg/2 Ml Vial) 4 mg IVPUSH Q8H PRN PRN Reason: nausea Last Admin: 07/15/21 23:50 Dose: 4 mg Documented by: HARSHIL Pantoprazole Sodium (Pantoprazole Sodium 40 Mg/10 Ml Vial) 40 mg IVPUSH BID@0630,1630 [facility] Last Admin: 07/16/21 05:45 Dose: 40 mg Documented by: CHELSIE Pharmacy Consult (Consult Rx Perform Med Rec) 1 each MISCELLANE ONCE PRN PRN Reason: Consult order Sodium Chloride (0.9 % Sodium Chloride Flush 3 Ml Syringe) 3 ml IVFLUSH QSHIFT [facility] Last Admin: 07/16/21 09:19 Dose: 3 ml Documented by: VIKTORIYA Labs CBC & Chem 7: 07/16/21 06:01 07/16/21 06:01 Labs: Laboratory Results - last 24 hr 07/15/21 07/16/21 07/16/21 12:10 06:01 06:01 MCV 90.5 MCH 30.5 MCHC 33.7 RDW 13.3 Plt Count 297 MPV 9.7 Immature Gran % (Auto) 0.4 Neut % (Auto) 49.1 Lymph % (Auto) 37.8 [place] % (Auto) 9.3 Eos % (Auto) 3.3 Baso % (Auto) 0.1 Lymph # (Auto) 2.9 [place] # (Auto) 0.7 Eos # (Auto) 0.3 Baso # (Auto) 0.0 Abs Immat Gran (auto) 0.03 Absolute Neuts (auto) 3.8 Absolute Nucleated RBC 0.000 Nucleated RBC % (auto) 0.0 Anion Gap 11 L Estim Creat Clear Calc 162.6 Estimated GFR > 60 Random Glucose 85 Calcium 8.4 D COVID-19 ([facility]) Negative COVID-19 Clin Com See Note Microbiology Microbiology Results: Microbiology 07/15/21 09:46 Blood Culture - Preliminary Blood - Venous No growth after 24 hours. 07/15/21 08:51 Blood Culture - Preliminary Blood - Venous No growth after 24 hours. Progress Note: A&P Fall Risk Details Current Medications: Current Medications Sodium Chloride (Ns) 1,000 mls @ 100 mls/hr IVCONT .Q10H [facility] Last Admin: 07/16/21 01:30 Dose: 100 mls/hr Documented by: Metronidazole (Flagyl) 500 mg in 100 mls @ 100 mls/hr IV Q6H [facility] Last Infusion: 07/16/21 10:42 Dose: Infused Documented by: Morphine Sulfate (Morphine Sulfate 2 Mg/Ml Cartridge) 2 mg IVPUSH Q3H PRN; Protocol PRN Reason: Pain, Moderate (Pain Scale 4-6 Last Admin: 07/15/21 23:50 Dose: 2 mg Documented by: Ondansetron HCl (Ondansetron Hcl 4 Mg/2 Ml Vial) 4 mg IVPUSH Q8H PRN PRN Reason: nausea Last Admin: 07/15/21 23:50 Dose: 4 mg Documented by: Pantoprazole Sodium (Pantoprazole Sodium 40 Mg/10 Ml Vial) 40 mg IVPUSH BID@0630,1630 [facility] Last Admin: 07/16/21 05:45 Dose: 40 mg Documented by: Pharmacy Consult (Consult Rx Perform Med Rec) 1 each MISCELLANE ONCE PRN PRN Reason: Consult order Sodium Chloride (0.9 % Sodium Chloride Flush 3 Ml Syringe) 3 ml IVFLUSH QSHIFT [facility] Last Admin: 07/16/21 09:19 Dose: 3 ml Documented by: Time Spent With Patient Time: Total time spent is greater than 50% in coordination of care (as documented) at patient's floor/unit and/or counseling patient: Quality Stroke Does the patient have a stroke diagnosis?: No VTE Prior VTE?: No VTE Risk Level:: Medical - low VTE Device Contraindication: N/A - Device Ordered VTE Drug Contraindication: Treatment Not Indicated
--- NOTE | 2021-07-16 14:55 | PM.EVENT ---
Event Note Date of Service: 07/16/21 Event Note: Patient insisting that she is ready to go home Tolerated lunch Denies abdominal pain Denies diarrhea Abdomen remains soft, nondistended, no tenderness at this time She says she gets extremely anxious in the hospital and says she is going home now Clinically looks well Will DC home on Flagyl Advised her to discuss colonoscopy down the line with primary care physician
--- NOTE | 2021-07-16 15:58 | MHC.CM.PN ---
PT MEDICALLY CLEARED FOR D/C HOME SELF-CARE, PT'S CAR IN [facility] [place] [facility] AND SHE WILL SELF TRANSPORT
--- NOTE | 2021-07-18 15:51 | PM.DS ---
DS: Providers Provider Date of Service: 07/16/21 Date of admission: 07/15/21 13:10 Date of discharge: 07/16/21 Primary care physician: Nayely Quiros MD Admitting clinician: Amando Epperson Consults: 07/15/21 12:03 Consult to General Surgery Routine Consulting Provider: Amando Epperson Reason for consultation: colitis Has provider been notified: Yes DS: Diagnosis Discharge Diagnosis (1) Colitis: Start date: 07/15/21 Status: Acute DS: Summary Hospital Course Hospital Course: [age] year old female with severe anxiety, admitted for lower abdominal pain and blood per rectum on 07/15/2021. She had some leukocytosis. A CT scan showed thickening of the sigmoid colon with mild yenni colonic stranding consistent with colitis. 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 She was not obstructed from this. She was kept on clear liquids. Her white count improved significantly on her 2nd hospital day. She says that her pain had resolved. She said that she initially had diarrhea but this had resolved as well and she did not have any passage of blood per rectum. She insisted on being discharged. I did advise her diet and she continued tolerate this. She was therefore discharged on July 16, 2021. Status at Discharge Functional status at discharge: independent ambulation Time Spent with Patient Time attestation: Total time spent providing and/or coordinating discharge services: Discharge coordination time: Less than 30 minutes Quality: Safe Use of Opioids Does Pt have an Active Cancer Diagnosis on the Problem List?: No Quality: Stroke Does the patient have a stroke diagnosis?: No Physical Exam Vital Signs: Vital Signs: Last Vital Signs Temp 97.8 F 07/16/21 08:00 Pulse 68 07/16/21 08:00 Resp 20 07/16/21 08:00 BP 129/63 07/16/21 08:00 Pulse Ox 98 07/16/21 08:00 BMI result Body Mass Index 29.2 Const: General: comfortable and no acute distress Orientation/consciousness: patient oriented x3 Neck: Neck: Yes no lymphadenopathy Resp: Auscultation: clear to auscultation bilaterally Cardio: Rhythm: regular rhythm GI: Palpation (GI): Soft to palpation, nontender and no guarding Neuro: General: patient oriented x3 DS: Data Data Completed and Pending Completed studies during hospitalization [Text1]: Laboratory Results WBC 7.7 X10*3/uL (4.8-10.8) 07/16/21 06:01 RBC 4.10 X10*6/uL (4.20-5.50) L 07/16/21 06:01 Hgb 12.5 g/dl (12.0-16.0) 07/16/21 06:01 Hct 37.1 % (37.0-47.0) 07/16/21 06:01 MCV 90.5 fL (80.0-98.0) 07/16/21 06:01 MCH 30.5 pg (27.0-33.0) 07/16/21 06:01 MCHC 33.7 g/dl (31.0-35.0) 07/16/21 06:01 RDW 13.3 % (11.0-16.0) 07/16/21 06:01 Plt Count 297 X10*3/uL (160-400) 07/16/21 06:01 MPV 9.7 fL (9.4-12.3) 07/16/21 06:01 Immature Gran % (Auto) 0.4 % (0.0-0.4) 07/16/21 06:01 Neut % (Auto) 49.1 % (45-73) 07/16/21 06:01 Lymph % (Auto) 37.8 % (20-40) 07/16/21 06:01 [place] % (Auto) 9.3 % (2-11) 07/16/21 06:01 Eos % (Auto) 3.3 % (0-4) 07/16/21 06:01 Baso % (Auto) 0.1 % (0-2) 07/16/21 06:01 Lymph # (Auto) 2.9 X10*3/uL (1.2-4.9) 07/16/21 06:01 [place] # (Auto) 0.7 X10*3/uL (0.1-1.2) 07/16/21 06:01 Eos # (Auto) 0.3 X10*3/uL (0.0-0.4) 07/16/21 06:01 Baso # (Auto) 0.0 X10*3/uL (0.0-0.2) 07/16/21 06:01 Abs Immat Gran (auto) 0.03 X10*3/uL (0.00-0.03) 07/16/21 06:01 Absolute Neuts (auto) 3.8 x10*3/uL (2.0-8.3) 07/16/21 06:01 Absolute Nucleated RBC 0.000 X10*3/uL (0.0-0.012) 07/16/21 06:01 Nucleated RBC % (auto) 0.0 /100WBC (0.0-0.2) 07/16/21 06:01 Sodium 138 mmol/L (135-145) 07/16/21 06:01 Potassium 3.8 mmol/L (3.3-5.1) 07/16/21 06:01 Chloride 111 mmol/L (96-108) H 07/16/21 06:01 Carbon Dioxide 20 mmol/L (22-29) L 07/16/21 06:01 Anion Gap 11 (12-20) L 07/16/21 06:01 BUN 5 mg/dL (9-16) L 07/16/21 06:01 Creatinine 0.62 mg/dL (0.5-1.4) 07/16/21 06:01 Estim Creat Clear Calc 162.6 07/16/21 06:01 Estimated GFR > 60 07/16/21 06:01 Random Glucose 85 mg/dL (60-115) 07/16/21 06:01 Lactic Acid 1.5 mmol/L (0.5-2.0) 07/15/21 08:51 Calcium 8.4 mg/dL (8.4-10.2) D 07/16/21 06:01 Total Bilirubin 0.6 mg/dL (0.0-1.0) 07/15/21 08:19 AST 20 U/L (5-31) 07/15/21 08:19 ALT 23 U/L (0-31) 07/15/21 08:19 Alkaline Phosphatase 68 U/L (39-117) 07/15/21 08:19 Total Protein 6.9 g/dL (6.5-8.0) 07/15/21 08:19 Albumin 4.2 g/dL (3.5-5.0) 07/15/21 08:19 Lipase 20 U/L (8-78) 07/15/21 08:19 Urine Color YELLOW 07/15/21 10:28 Urine Appearance HAZY 07/15/21 10:28 Urine pH 6.0 (5.0-8.0) 07/15/21 10:28 Ur Specific Longs 1.025 (1.005-1.025) 07/15/21 10:28 Urine Protein TRACE MG/DL (NEG-TRACE) 07/15/21 10:28 Urine Glucose (UA) NEG MG/DL (NEG) 07/15/21 10:28 Urine Ketones NEG MG/DL (NEG) 07/15/21 10:28 Urine Blood TRACE (NEG) 07/15/21 10:28 Urine Nitrite NEG (NEG) 07/15/21 10:28 Ur Leukocyte Esterase NEG (NEG) 07/15/21 10:28 Urine RBC 1-4 /HPF (0) 07/15/21 10:28 Urine WBC 0-2 /HPF (0-4) 07/15/21 10:28 Ur Squamous Epith Cells 2+ /LPF 07/15/21 10:28 Urine Bacteria 1+ /LPF 07/15/21 10:28 Urine Mucus 2+ /LPF 07/15/21 10:28 Urine Test NEGATIVE (NEGATIVE) 07/15/21 10:28 Stool Occult Blood NEGATIVE (NEGATIVE) 07/15/21 09:32 COVID-19 ([facility]) Negative (Negative) 07/15/21 12:10 COVID-19 Clin Com See Note 07/15/21 12:10 Blood Type O Positive 07/15/21 09:46 Antibody Screen NEGATIVE 07/15/21 09:46 Impressions Abdomen/Pelvis CT 07/15/21 11:06 IMPRESSION: Malpositioned ascending colon and cecum with cecum lying in the right lower pelvis. There is diffuse mural thickening involving descending and sigmoid colon suggestive colitis. Acute scattered diverticula are seen in the sigmoid colon. There is mild pericolic fat stranding. No obstruction seen. Labs on day of discharge: Preliminary micro results at discharge 07/15/21 09:46 Blood Culture - Preliminary Blood - Venous No growth after 48 hours. 07/15/21 08:51 Blood Culture - Preliminary Blood - Venous No growth after 48 hours. Discharge Plan Discharge Patient Disposition: Home, Self-Care Discharge Diagnosis: colitis Referrals: Nayely Coffman MD [Primary Care Provider] - 1 Week Discharge Medications: New metronidazole 500 mg tablet 500 mg PO BID Qty: 10 0RF Continued levocetirizine 5 mg tablet 1 tab PO BID 0RF Discharge Orders: Discharge Order (Routine); Ordered 07/16/21 Ordered By: Amando Epperson Diet: advance to usual diet Activity on Discharge: As tolerated Stand Alone Forms: Patient Portal Discharge page Activity Restrictions/Additional Instructions: Call Your Doctor If: ? ? -Your temperature exceeds 101.5? F? ? ? -You experience excessive pain or swelling ? ? -You have an unexpected reaction to medication ? ? -You experience continued vomiting/nausea, recurrent abdominal pain Care Plan Goals: Return to baseline health and gradual return to activity. Health Concerns: Colitis Plan of Treatment: Supportive measures, antibiotics Assessment: Improved Discharge Date/Time: 07/16/21 15:55
== END 2021-07-16 15:55 | disposition home or self-care (01) | DRG 249 ==
LOC: HO.ED 12:05 → HO.EDOVER 14:12 → HO.IMC 22:27
PROVIDERS: Admitting Provider Surgery; Emergency Provider Emergency Medicine; PCP Internal Medicine; Visit Provider Surgery
DX: K52.9 Noninfective gastroenteritis and colitis, unspecified (principal); Q87.40 Marfan syndrome, unspecified; K62.5 Hemorrhage of anus and rectum; D72.829 Elevated white blood cell count, unspecified; K21.9 Gastro-esophageal reflux disease without esophagitis; Z20.822 Contact with and (suspected) exposure to COVID-19; F17.219 Nicotine dependence, cigarettes, with unspecified nicotine-induced disorders; Z71.6 Tobacco abuse counseling; Z88.6 Allergy status to analgesic agent; Z79.899 Other long term (current) drug therapy
CPT/HCPCS: 36415; 74178; 80048; 80053; 81001; 81025; 82272; 83605; 83690; 85025; 85027; 86850; 86900; 86901; 87040; 87635; 96361; 96365; 96375; 99285; J1200; J2270; J2405; J2543; J2765; Q9967

== ENCOUNTER 2021-10-02 14:46 | Emergency (ER) | payer BC, SELFPAY ==
[2021-10-02 15:36] VITALS: BP 130/88; PULSE 73; RESP 20; TEMP 36.1; O2SAT 99; BMI 25.1
[2021-10-02 17:09] LABS: MANUAL DIFF FLAG NO
[2021-10-02 17:14] LABS: Appearance Urine CLEAR; Color Urine YELLOW; Glucose Urine UA NEG (NEG); Leukocyte Esterase Urine NEG (NEG); Nitrite Urine NEG (NEG); PH 5.5 (5.0-8.0); Specific Gravity - Urine >= 1.030 (1.005-1.025); Urine Blood TRACE (NEG); Urine Ketones NEG (NEG); Urine Protein TRACE MG/DL (NEG-TRACE)
[2021-10-02 17:15] LABS: Basophils Percent Auto 0.1 % (0-2); Eosinophils Absolute Auto 0.1 X10*3/uL (0.0-0.4); Eosinophils Percent Auto 1.1 % (0-4); Hematocrit 38.2 % (37.0-47.0); Hemoglobin 13.2 g/dl (12.0-16.0); Imm Gran Abs Auto 0.04 X10*3/uL (0.00-0.03); Imm Gran Pct Auto 0.4 % (0.0-0.4); Lymphocytes Absolute Auto 2.6 X10*3/uL (1.2-4.9); Lymphocytes Percent Auto 25.8 % (20-40); Mean Corpuscular HGB Conc 34.6 g/dl (31.0-35.0); Mean Corpuscular Volume 89.7 fL (80.0-98.0); Mean Platelet Volume 9.6 fL (9.4-12.3); Monocytes Absolute Auto 0.5 X10*3/uL (0.1-1.2); Monocytes Percent Auto 5.2 % (2-11); Neutrophils Absolute Auto 6.8 x10*3/uL (2.0-8.3); Neutrophils Percent Auto 67.4 % (45-73); Platelet Count 367 X10*3/uL (160-400); Red Blood Count 4.26 X10*6/uL (4.20-5.50); Red Cell Distribution Width 13.7 % (11.0-16.0); White Blood Count 10.1 X10*3/uL (4.8-10.8)
[2021-10-02 17:22] LABS: UPreg QC Valid YES; Urine Pregnancy NEGATIVE (NEGATIVE)
[2021-10-02 17:36] LABS: Alanine Aminotransferase 10 U/L (0-31); Albumin Level 4.3 g/dL (3.5-5.0); Alkaline Phosphatase 71 U/L (39-117); Anion Gap 12 (12-20); Aspartate Amino Transferase 9 U/L (5-31); Bilirubin Total 0.4 mg/dL (0.0-1.0); Blood Urea Nitrogen 6 mg/dL (9-16); Calcium 9.4 mg/dL (8.4-10.2); Carbon Dioxide 22 mmol/L (22-29); Chloride 108 mmol/L (96-108); Estimated Glomerular Filt Rate > 60; Glucose Random 118 mg/dL (60-115); Potassium 3.7 mmol/L (3.3-5.1); Sodium 138 mmol/L (135-145); Total Protein 6.6 g/dL (6.5-8.0)
[2021-10-02 17:41] LABS: Bacteria Urine TRACE /LPF; Mucus Urine 2+ /LPF; Squamous Epithelial Cell Urine TRACE /LPF
[2021-10-02 18:30] LABS: UACC Culture Trigger NO
== END 2021-10-02 23:31 | disposition left against medical advice (07) ==
LOC: HO.ED 23:25
PROVIDERS: Emergency Provider Emergency Medicine; PCP Internal Medicine
DX: N94.6 Dysmenorrhea, unspecified (principal); R20.0 Anesthesia of skin; F17.200 Nicotine dependence, unspecified, uncomplicated; F12.90 Cannabis use, unspecified, uncomplicated
CPT/HCPCS: 36415; 80053; 81001; 81025; 85025; 99282; 99283

== ENCOUNTER 2022-02-15 12:25 | Emergency (ER) | payer BC, SELFPAY ==
--- NOTE | ~2022-02-15 | CT_ITS ---
EXAMINATION: CT ABDOMEN AND PELVIS WITHOUT CONTRAST CLINICAL INFORMATION: 36-year-old female with lower abdominal pain, nausea and diarrhea for 4 days COMPARISON: 07/15/2021 TECHNIQUE: Multidetector volumetric imaging was performed from the superior aspect of the liver through the pubic symphysis. Sagittal and coronal reformatted images were obtained on the technologist's workstation. This CT examination was performed using dose optimization techniques as appropriate, variously including the following: *Automated exposure control *Adjustment of mA and/or kV according to patient size (this includes techniques or standardized protocols for targeted exams where dose is matched to indication/reason for exam; i.e. extremities or head) *Use of iterative reconstruction technique DLP: 629 mGy-cm FINDINGS: LUNG BASES: The visualized lung bases are unremarkable. LIVER, GALLBLADDER, AND BILIARY TREE: The liver is normal in size, shape, and attenuation. No focal hepatic lesion or biliary ductal dilatation is present. The gallbladder is unremarkable with no evidence of radiopaque gallstones, gallbladder wall thickening, or obvious pericholecystic inflammatory changes. PANCREAS: Unremarkable. SPLEEN: Unremarkable. ADRENAL GLANDS: Unremarkable. KIDNEYS AND URETERS: The kidneys are normal in size, shape, and attenuation. No hydronephrosis, hydroureter, or calculi seen. No perinephric stranding. BLADDER: Unremarkable. GASTROINTESTINAL TRACT: The small and large bowel are unremarkable. Cecum is malpositioned in the pelvis, limited for evaluation due to noncontrast study. The appendix is not identified. There are changes of sigmoid colon diverticulosis without diverticulitis. ABDOMINAL WALL: No significant hernia is appreciated. LYMPH NODES: Normal. VASCULAR: Unremarkable. PELVIC VISCERA: Uterus is bulky and enlarged due to uterine fibroids. OSSEOUS STRUCTURES: Unremarkable. CT/CT abdomen pelvis wo IV con IMPRESSION: 1. No explanation for abdominal pain. 2. Fibroid uterus. 3. Diverticulosis without diverticulitis. Fleischner guidelines were followed.
[2022-02-15 13:43] VITALS: BP 127/60; PULSE 64; RESP 16; TEMP 36.6; O2SAT 100; BMI 24.4
--- NOTE | 2022-02-15 13:49 | ED.ABDPAIN ---
HPI - Abdominal Pain General Chief Complaint: Abdominal Pain <RIC Newton - Last Filed: 02/15/22 13:50> Stated Complaint: Abd pain <RIC Newton - Last Filed: 02/15/22 13:50> Time Seen by Provider: 02/15/22 14:31 <RIC Newton Last Filed: 02/15/22 13:50> Source: patient <RIC Finnegan Last Filed: 02/15/22 17:15> Mode of arrival: ambulatory <RIC Finnegan Last Filed: 02/15/22 17:15> Limitations: no limitations <RIC Finnegan Last Filed: 02/15/22 17:15> History of Present Illness HPI narrative: 36-year-old female with history of Marfan syndrome, AAA s/p open repair 10 years ago, and colitis who presents to the ER for evaluation of lower abdominal pain and nausea for the last 4 days. He states pain came on gradually and is located in her lower belly, left more than right. She states that often radiates into her upper abdomen and sometimes sore left lower back. She has had decreased p.o. intake and ongoing nausea. She has not vomited. She did have loose stool this morning. It was nonbloody. No fevers but she does have chills and is cold which is abnormal for her. She denies any urinary symptoms or vaginal discharge. She has the urge to urinate but has not been able to go due to her decreased p.o. intake. She feels dehydrated. <RIC Finnegan - Last Filed: 02/15/22 17:15> MD elicited complaint: abdominal pain <RIC Finnegan Last Filed: 02/15/22 17:15> Pertinent past history: other ( History of colitis) <RIC Finnegan Last Filed: 02/15/22 17:15> Onset (ago): day(s) (4) <RIC Finnegan Last Filed: 02/15/22 17:15> Pain Consistency: constant <RIC Finnegan Last Filed: 02/15/22 17:15> Location: RLQ and LLQ <RIC Finnegan Last Filed: 02/15/22 17:15> Severity: moderate <RIC Finnegan Last Filed: 02/15/22 17:15> Quality: aching <RIC Finnegan Last Filed: 02/15/22 17:15> Radiation: epigastric, L flank and back <RIC Finnegan Last Filed: 02/15/22 17:15> Exacerbating factors: nothing <RIC Finnegan Last Filed: 02/15/22 17:15> Relieving factors: nothing <RIC Finnegan Last Filed: 02/15/22 17:15> Associated symptoms: nausea and chills <RIC Finnegan Last Filed: 02/15/22 17:15> Related Data Home Medications: Home Medications Medication Instructions Recorded Confirmed levocetirizine 5 mg tablet 1 tab PO BID allergies 07/15/21 07/15/21 Previous Rx's Medication Instructions Recorded metronidazole 500 mg tablet 500 mg PO BID #10 tabs 07/16/21 ondansetron 4 mg disintegrating 4 mg PO Q8H PRN nausea and 02/15/22 tablet vomiting #10 tabs <RIC Newton Last Filed: 02/15/22 13:50> Allergies/Adverse Reactions: Allergies Allergy/AdvReac Type Severity Reaction Status Date / Time ibuprofen Allergy Hives Verified 02/15/22 13:47 <RIC Newton Last Filed: 02/15/22 13:50> Review of Systems Review of Systems Constitutional: No Fever, No Chills ENT/Mouth: No sore throat, No Rhinorrhea, No Swallowing Difficulty Eyes: No Eye Pain, No Swelling, No Redness Cardiovascular: No Chest Pain, No SOB, No Orthopnea, No Edema Respiratory: No Cough, No Sputum, No Wheezing, No dyspnea Gastrointestinal: + Nausea, No Vomiting, + Diarrhea, + abdominal Pain, No Hematochezia, No Melena Genitourinary: No Dysuria, No Urinary Frequency, +Urinary urgency, No Hematuria Musculoskeletal: No joint pain, No Myalgias Skin: No Skin Lesions, No rash Neuro: + Weakness, No Numbness, No Dizziness, + Headache Psych: No Anxiety/Panic, No Depression Heme/Lymph: No Bruising, No Lymphadenopathy Endocrine: No Polyuria, No Polydipsia <RIC Finnegan - Last Filed: 02/15/22 17:15> [facility] Past Medical History Medical History: Medical History (Updated 02/15/22 @ 17:11 by RIC Finnegan) Colitis GERD (gastroesophageal reflux disease) Marfan syndrome Sinusitis <RIC Newton - Last Filed: 02/15/22 13:50> Surgical History: Surgical History (Updated 07/15/21 @ 14:28 by Sweetie Darling PA-C) H/O aortic root repair <RIC Newton - Last Filed: 02/15/22 13:50> Social History Social History: Social History (Updated 07/15/21 @ 08:33 by Sherrell Swartz DO) Household Members: Family Housing: Apartment Do you presently have visiting nurse or other home services: No Patient Tobacco Use Status: Current everyday Tobacco user Tobacco use type: Cigarette Cigarettes Per Day: 3 Years Smoked: 20 Smoked in Last 30 Days: Yes Use of substances other than those prescribed or required for medical reasons: No Substance Use Type: Marijuana Advance Directives: No Advance Directives Information Provided: No Patient : No service: No Current occupational status: employed <RIC Newton - Last Filed: 02/15/22 13:50> Physical Exam ED Vital Signs: Vital Signs - 24 hr 02/15/22 13:43 02/15/22 16:00 Temperature 97.8 F 98.1 F Pulse Rate 64 51 Respiratory Rate 16 16 Blood Pressure 127/60 105/60 Pulse Oximetry 100 98 Oxygen Delivery Method Room Air Room Air BMI result Body Mass Index 24.4 <RIC Newton - Last Filed: 02/15/22 13:50> Vital Signs - 24 hr 02/15/22 13:43 02/15/22 16:00 Temperature 97.8 F 98.1 F Pulse Rate 64 51 Respiratory Rate 16 16 Blood Pressure 127/60 105/60 Pulse Oximetry 100 98 Oxygen Delivery Method Room Air Room Air BMI result Body Mass Index 24.4 <RIC Finnegan - Last Filed: 02/15/22 17:15> Appearance: Alert. Oriented X3. No acute distress. marfanoid appearance. Eyes: Pupils equal, round and reactive to light. ENT: Pharynx normal. Neck: Normal inspection. Neck supple. CVS: Normal heart rate and rhythm. Pulses normal. Respiratory: No respiratory distress. Breath sounds normal. Abdomen: Well-healed longitudinal surgical scar of the chest and abdomen consistent with previous AAA repair. Soft With left lower quadrant tenderness without rebound or guarding. Normal +BS x4 Skin: Skin warm and dry. Normal skin color. Normal skin turgor. No rashes. Extremities: No lower extremity edema. Neuro: Oriented X 3. No motor deficit. No sensory deficit. grossly normal, nonfocal. Cranial nerves intact. <RIC Finnegan - Last Filed: 02/15/22 17:15> Course Reevaluation(s) Reevaluation #1: 36yoF presenting c c/o of Nausea, lower abd pain and 2 episodes of diarrhea x 4 days. Plan: labs, UA and dry CT abd/pelvis ordered at this ttime. Pt back to . She is stable. <RIC Newton - Last Filed: 02/15/22 13:50> Time: 13:49 <RIC Newton - Last Filed: 02/15/22 13:50> Reevaluation #2: Patient seen and examined. She has left lower quadrant tenderness and some left lower back and left flank tenderness. she feels dehydrated. She has the urge to urinate but has decreased p.o. intake and is unable to provide a urine sample. She reports ongoing lower abdominal discomfort. Her beta hCG is negative. Will place an IV, hydrate with IV fluids, give dose of morphine and Zofran while awaiting CT scan results. The rest of her lab work is unremarkable, no leukocytosis. Will reassess. <RIC Finnegan - Last Filed: 02/15/22 17:15> Time: 15:38 <RIC Finnegan - Last Filed: 02/15/22 17:15> Reevaluation #3: CT scan is unremarkable. UA negative. Patient feeling much better. She is tolerating PO. She is stable for d/c home with PRN zofran, bland diet, advance as tolerated. Patient agrees with plan. <RIC Finnegan - Last Filed: 02/15/22 17:15> Time: 17:12 <Janessa Renschler, PA - Last Filed: 02/15/22 17:15> Medications Administered Discontinued Medications Generic Name Dose Route Start Last Admin Trade Name Freq PRN Reason Stop Dose Admin Sodium Chloride 1,000 mls @ 999 mls/hr 02/15/22 15:45 02/15/22 15:57 Ns IVCONT 02/15/22 16:45 999 mls/hr .Q1H1M GIFTY Administration Morphine Sulfate 4 mg 02/15/22 15:33 02/15/22 15:57 Morphine Sulfate 4 Mg/Ml Cartridge IVPUSH 02/15/22 15:34 4 mg ONCE ONE Administration Protocol Ondansetron HCl 4 mg 02/15/22 15:33 02/15/22 15:57 Ondansetron Hcl 4 Mg/2 Ml Vial IVPUSH 02/15/22 15:34 4 mg ONCE ONE Administration <RIC Newton - Last Filed: 02/15/22 13:50> Medications Administered Discontinued Medications Generic Name Dose Route Start Last Admin Trade Name Freq PRN Reason Stop Dose Admin Sodium Chloride 1,000 mls @ 999 mls/hr 02/15/22 15:45 02/15/22 15:57 Ns IVCONT 02/15/22 16:45 999 mls/hr .Q1H1M GIFTY Administration Morphine Sulfate 4 mg 02/15/22 15:33 02/15/22 15:57 Morphine Sulfate 4 Mg/Ml Cartridge IVPUSH 02/15/22 15:34 4 mg ONCE ONE Administration Protocol Ondansetron HCl 4 mg 02/15/22 15:33 02/15/22 15:57 Ondansetron Hcl 4 Mg/2 Ml Vial IVPUSH 02/15/22 15:34 4 mg ONCE ONE Administration <RIC Finnegan - Last Filed: 02/15/22 17:15> MDM - Abdominal Pain Lab Data Result diagrams: : 02/15/22 14:00 02/15/22 14:00 <RIC Newton - Last Filed: 02/15/22 13:50> Labs: Lab Results 02/15/22 02/15/22 02/15/22 Range/Units 14:00 14:00 14:00 WBC 9.3 (4.8-10.8) X10*3/uL RBC 4.71 (4.20-5.50) X10*6/uL Hgb 14.5 (12.0-16.0) g/dl Hct 42.5 (37.0-47.0) % MCV 90.2 (80.0-98.0) fL MCH 30.8 (27.0-33.0) pg MCHC 34.1 (31.0-35.0) g/dl RDW 13.1 (11.0-16.0) % Plt Count 390 (160-400) X10*3/uL MPV 9.6 (9.4-12.3) fL Immature Gran % (Auto) 0.2 (0.0-0.4) % Neut % (Auto) 60.6 (45-73) % Lymph % (Auto) 31.3 (20-40) % [place] % (Auto) 6.2 (2-11) % Eos % (Auto) 1.6 (0-4) % Baso % (Auto) 0.1 (0-2) % Lymph # (Auto) 2.9 (1.2-4.9) X10*3/uL [place] # (Auto) 0.6 (0.1-1.2) X10*3/uL Eos # (Auto) 0.2 (0.0-0.4) X10*3/uL Baso # (Auto) 0.0 (0.0-0.2) X10*3/uL Abs Immat Gran (auto) 0.02 (0.00-0.03) X10*3/uL Absolute Neuts (auto) 5.6 (2.0-8.3) x10*3/uL Absolute Nucleated RBC 0.000 (0.0-0.012) X10*3/uL Nucleated RBC % (auto) 0.0 (0.0-0.2) /100WBC PT 12.4 (10.0-13.1) SEC INR 1.1 (0.9-1.1) Sodium 139 (135-145) mmol/L Potassium 4.0 (3.3-5.1) mmol/L Chloride 107 (96-108) mmol/L Carbon Dioxide 19 L (22-29) mmol/L Anion Gap 17 (12-20) BUN 7 L (9-16) mg/dL Creatinine 0.61 (0.5-1.4) mg/dL Estim Creat Clear Calc 143.8 Estimated GFR > 60 Random Glucose 83 (60-115) mg/dL Calcium 9.7 (8.4-10.2) mg/dL Magnesium 1.8 (1.6-2.6) mg/dL Total Bilirubin 0.4 (0.0-1.0) mg/dL AST 10 (5-31) U/L ALT 10 (0-31) U/L Alkaline Phosphatase 60 (39-117) U/L Total Protein 7.1 (6.5-8.0) g/dL Albumin 4.4 (3.5-5.0) g/dL Beta HCG, Quant mIU/mL Urine Color Urine Appearance Urine pH (5.0-9.0) Ur Specific [place] (1.005-1.025) Urine Protein (Neg-Trace) mg/dL Urine Glucose (UA) (Negative) mg/dL Urine Ketones (Negative) mg/dL Urine Blood (Negative) Urine Nitrite (Negative) Ur Leukocyte Esterase (Negative) COVID-19 (PAOOL) (Negative) COVID-19 Clin Com Influenza Type A (PREMA) (Negative) Influenza Type B (PREMA) (Negative) Influenza A & B Note 02/15/22 02/15/22 02/15/22 Range/Units 14:00 14:00 15:59 WBC (4.8-10.8) X10*3/uL RBC (4.20-5.50) X10*6/uL Hgb (12.0-16.0) g/dl Hct (37.0-47.0) % MCV (80.0-98.0) fL MCH (27.0-33.0) pg MCHC (31.0-35.0) g/dl RDW (11.0-16.0) % Plt Count (160-400) X10*3/uL MPV (9.4-12.3) fL Immature Gran % (Auto) (0.0-0.4) % Neut % (Auto) (45-73) % Lymph % (Auto) (20-40) % [place] % (Auto) (2-11) % Eos % (Auto) (0-4) % Baso % (Auto) (0-2) % Lymph # (Auto) (1.2-4.9) X10*3/uL [place] # (Auto) (0.1-1.2) X10*3/uL Eos # (Auto) (0.0-0.4) X10*3/uL Baso # (Auto) (0.0-0.2) X10*3/uL Abs Immat Gran (auto) (0.00-0.03) X10*3/uL Absolute Neuts (auto) (2.0-8.3) x10*3/uL Absolute Nucleated RBC (0.0-0.012) X10*3/uL Nucleated RBC % (auto) (0.0-0.2) /100WBC PT (10.0-13.1) SEC INR (0.9-1.1) Sodium (135-145) mmol/L Potassium (3.3-5.1) mmol/L Chloride (96-108) mmol/L Carbon Dioxide (22-29) mmol/L Anion Gap (12-20) BUN (9-16) mg/dL Creatinine (0.5-1.4) mg/dL Estim Creat Clear Calc Estimated GFR Random Glucose (60-115) mg/dL Calcium (8.4-10.2) mg/dL Magnesium (1.6-2.6) mg/dL Total Bilirubin (0.0-1.0) mg/dL AST (5-31) U/L ALT (0-31) U/L Alkaline Phosphatase (39-117) U/L Total Protein (6.5-8.0) g/dL Albumin (3.5-5.0) g/dL Beta HCG, Quant < 2 mIU/mL Urine Color Yellow Urine Appearance Clear Urine pH 6.0 (5.0-9.0) Ur Specific [place] 1.025 (1.005-1.025) Urine Protein Negative (Neg-Trace) mg/dL Urine Glucose (UA) Negative (Negative) mg/dL Urine Ketones Trace (Negative) mg/dL Urine Blood Negative (Negative) Urine Nitrite Negative (Negative) Ur Leukocyte Esterase Negative (Negative) COVID-19 (PAOLO) Negative (Negative) COVID-19 Clin Com See Note Influenza Type A (PREMA) (Negative) Influenza Type B (PREMA) (Negative) Influenza A & B Note 02/15/22 Range/Units 16:06 WBC (4.8-10.8) X10*3/uL RBC (4.20-5.50) X10*6/uL Hgb (12.0-16.0) g/dl Hct (37.0-47.0) % MCV (80.0-98.0) fL MCH (27.0-33.0) pg MCHC (31.0-35.0) g/dl RDW (11.0-16.0) % Plt Count (160-400) X10*3/uL MPV (9.4-12.3) fL Immature Gran % (Auto) (0.0-0.4) % Neut % (Auto) (45-73) % Lymph % (Auto) (20-40) % [place] % (Auto) (2-11) % Eos % (Auto) (0-4) % Baso % (Auto) (0-2) % Lymph # (Auto) (1.2-4.9) X10*3/uL [place] # (Auto) (0.1-1.2) X10*3/uL Eos # (Auto) (0.0-0.4) X10*3/uL Baso # (Auto) (0.0-0.2) X10*3/uL Abs Immat Gran (auto) (0.00-0.03) X10*3/uL Absolute Neuts (auto) (2.0-8.3) x10*3/uL Absolute Nucleated RBC (0.0-0.012) X10*3/uL Nucleated RBC % (auto) (0.0-0.2) /100WBC PT (10.0-13.1) SEC INR (0.9-1.1) Sodium (135-145) mmol/L Potassium (3.3-5.1) mmol/L Chloride (96-108) mmol/L Carbon Dioxide (22-29) mmol/L Anion Gap (12-20) BUN (9-16) mg/dL Creatinine (0.5-1.4) mg/dL Estim Creat Clear Calc Estimated GFR Random Glucose (60-115) mg/dL Calcium (8.4-10.2) mg/dL Magnesium (1.6-2.6) mg/dL Total Bilirubin (0.0-1.0) mg/dL AST (5-31) U/L ALT (0-31) U/L Alkaline Phosphatase (39-117) U/L Total Protein (6.5-8.0) g/dL Albumin (3.5-5.0) g/dL Beta HCG, Quant mIU/mL Urine Color Urine Appearance Urine pH (5.0-9.0) Ur Specific [place] (1.005-1.025) Urine Protein (Neg-Trace) mg/dL Urine Glucose (UA) (Negative) mg/dL Urine Ketones (Negative) mg/dL Urine Blood (Negative) Urine Nitrite (Negative) Ur Leukocyte Esterase (Negative) COVID-19 (PAOLO) (Negative) COVID-19 Clin Com Influenza Type A (PREMA) Negative (Negative) Influenza Type B (PREMA) Negative (Negative) Influenza A & B Note See Note <RIC eNwton - Last Filed: 02/15/22 13:50> Lab Results 02/15/22 02/15/22 02/15/22 Range/Units 14:00 14:00 14:00 WBC 9.3 (4.8-10.8) X10*3/uL RBC 4.71 (4.20-5.50) X10*6/uL Hgb 14.5 (12.0-16.0) g/dl Hct 42.5 (37.0-47.0) % MCV 90.2 (80.0-98.0) fL MCH 30.8 (27.0-33.0) pg MCHC 34.1 (31.0-35.0) g/dl RDW 13.1 (11.0-16.0) % Plt Count 390 (160-400) X10*3/uL MPV 9.6 (9.4-12.3) fL Immature Gran % (Auto) 0.2 (0.0-0.4) % Neut % (Auto) 60.6 (45-73) % Lymph % (Auto) 31.3 (20-40) % [place] % (Auto) 6.2 (2-11) % Eos % (Auto) 1.6 (0-4) % Baso % (Auto) 0.1 (0-2) % Lymph # (Auto) 2.9 (1.2-4.9) X10*3/uL [place] # (Auto) 0.6 (0.1-1.2) X10*3/uL Eos # (Auto) 0.2 (0.0-0.4) X10*3/uL Baso # (Auto) 0.0 (0.0-0.2) X10*3/uL Abs Immat Gran (auto) 0.02 (0.00-0.03) X10*3/uL Absolute Neuts (auto) 5.6 (2.0-8.3) x10*3/uL Absolute Nucleated RBC 0.000 (0.0-0.012) X10*3/uL Nucleated RBC % (auto) 0.0 (0.0-0.2) /100WBC PT 12.4 (10.0-13.1) SEC INR 1.1 (0.9-1.1) Sodium 139 (135-145) mmol/L Potassium 4.0 (3.3-5.1) mmol/L Chloride 107 (96-108) mmol/L Carbon Dioxide 19 L (22-29) mmol/L Anion Gap 17 (12-20) BUN 7 L (9-16) mg/dL Creatinine 0.61 (0.5-1.4) mg/dL Estim Creat Clear Calc 143.8 Estimated GFR > 60 Random Glucose 83 (60-115) mg/dL Calcium 9.7 (8.4-10.2) mg/dL Magnesium 1.8 (1.6-2.6) mg/dL Total Bilirubin 0.4 (0.0-1.0) mg/dL AST 10 (5-31) U/L ALT 10 (0-31) U/L Alkaline Phosphatase 60 (39-117) U/L Total Protein 7.1 (6.5-8.0) g/dL Albumin 4.4 (3.5-5.0) g/dL Beta HCG, Quant mIU/mL Urine Color Urine Appearance Urine pH (5.0-9.0) Ur Specific [place] (1.005-1.025) Urine Protein (Neg-Trace) mg/dL Urine Glucose (UA) (Negative) mg/dL Urine Ketones (Negative) mg/dL Urine Blood (Negative) Urine Nitrite (Negative) Ur Leukocyte Esterase (Negative) COVID-19 (PAOLO) (Negative) COVID-19 Clin Com Influenza Type A (PREMA) (Negative) Influenza Type B (PREMA) (Negative) Influenza A & B Note 02/15/22 02/15/22 02/15/22 Range/Units 14:00 14:00 15:59 WBC (4.8-10.8) X10*3/uL RBC (4.20-5.50) X10*6/uL Hgb (12.0-16.0) g/dl Hct (37.0-47.0) % MCV (80.0-98.0) fL MCH (27.0-33.0) pg MCHC (31.0-35.0) g/dl RDW (11.0-16.0) % Plt Count (160-400) X10*3/uL MPV (9.4-12.3) fL Immature Gran % (Auto) (0.0-0.4) % Neut % (Auto) (45-73) % Lymph % (Auto) (20-40) % [place] % (Auto) (2-11) % Eos % (Auto) (0-4) % Baso % (Auto) (0-2) % Lymph # (Auto) (1.2-4.9) X10*3/uL [place] # (Auto) (0.1-1.2) X10*3/uL Eos # (Auto) (0.0-0.4) X10*3/uL Baso # (Auto) (0.0-0.2) X10*3/uL Abs Immat Gran (auto) (0.00-0.03) X10*3/uL Absolute Neuts (auto) (2.0-8.3) x10*3/uL Absolute Nucleated RBC (0.0-0.012) X10*3/uL Nucleated RBC % (auto) (0.0-0.2) /100WBC PT (10.0-13.1) SEC INR (0.9-1.1) Sodium (135-145) mmol/L Potassium (3.3-5.1) mmol/L Chloride (96-108) mmol/L Carbon Dioxide (22-29) mmol/L Anion Gap (12-20) BUN (9-16) mg/dL Creatinine (0.5-1.4) mg/dL Estim Creat Clear Calc Estimated GFR Random Glucose (60-115) mg/dL Calcium (8.4-10.2) mg/dL Magnesium (1.6-2.6) mg/dL Total Bilirubin (0.0-1.0) mg/dL AST (5-31) U/L ALT (0-31) U/L Alkaline Phosphatase (39-117) U/L Total Protein (6.5-8.0) g/dL Albumin (3.5-5.0) g/dL Beta HCG, Quant < 2 mIU/mL Urine Color Yellow Urine Appearance Clear Urine pH 6.0 (5.0-9.0) Ur Specific [place] 1.025 (1.005-1.025) Urine Protein Negative (Neg-Trace) mg/dL Urine Glucose (UA) Negative (Negative) mg/dL Urine Ketones Trace (Negative) mg/dL Urine Blood Negative (Negative) Urine Nitrite Negative (Negative) Ur Leukocyte Esterase Negative (Negative) COVID-19 (PAOLO) Negative (Negative) COVID-19 Clin Com See Note Influenza Type A (PREMA) (Negative) Influenza Type B (PREMA) (Negative) Influenza A & B Note 02/15/22 Range/Units 16:06 WBC (4.8-10.8) X10*3/uL RBC (4.20-5.50) X10*6/uL Hgb (12.0-16.0) g/dl Hct (37.0-47.0) % MCV (80.0-98.0) fL MCH (27.0-33.0) pg MCHC (31.0-35.0) g/dl RDW (11.0-16.0) % Plt Count (160-400) X10*3/uL MPV (9.4-12.3) fL Immature Gran % (Auto) (0.0-0.4) % Neut % (Auto) (45-73) % Lymph % (Auto) (20-40) % [place] % (Auto) (2-11) % Eos % (Auto) (0-4) % Baso % (Auto) (0-2) % Lymph # (Auto) (1.2-4.9) X10*3/uL [place] # (Auto) (0.1-1.2) X10*3/uL Eos # (Auto) (0.0-0.4) X10*3/uL Baso # (Auto) (0.0-0.2) X10*3/uL Abs Immat Gran (auto) (0.00-0.03) X10*3/uL Absolute Neuts (auto) (2.0-8.3) x10*3/uL Absolute Nucleated RBC (0.0-0.012) X10*3/uL Nucleated RBC % (auto) (0.0-0.2) /100WBC PT (10.0-13.1) SEC INR (0.9-1.1) Sodium (135-145) mmol/L Potassium (3.3-5.1) mmol/L Chloride (96-108) mmol/L Carbon Dioxide (22-29) mmol/L Anion Gap (12-20) BUN (9-16) mg/dL Creatinine (0.5-1.4) mg/dL Estim Creat Clear Calc Estimated GFR Random Glucose (60-115) mg/dL Calcium (8.4-10.2) mg/dL Magnesium (1.6-2.6) mg/dL Total Bilirubin (0.0-1.0) mg/dL AST (5-31) U/L ALT (0-31) U/L Alkaline Phosphatase (39-117) U/L Total Protein (6.5-8.0) g/dL Albumin (3.5-5.0) g/dL Beta HCG, Quant mIU/mL Urine Color Urine Appearance Urine pH (5.0-9.0) Ur Specific [place] (1.005-1.025) Urine Protein (Neg-Trace) mg/dL Urine Glucose (UA) (Negative) mg/dL Urine Ketones (Negative) mg/dL Urine Blood (Negative) Urine Nitrite (Negative) Ur Leukocyte Esterase (Negative) COVID-19 (PAOLO) (Negative) COVID-19 Clin Com Influenza Type A (PREMA) Negative (Negative) Influenza Type B (PREMA) Negative (Negative) Influenza A & B Note See Note <RIC Finnegan - Last Filed: 02/15/22 17:15> Discharge Plan Discharge Clinical Impression: Gastroenteritis <RIC Newton - Last Filed: 02/15/22 13:50> Patient Disposition: Home, Self-Care <RIC Newton - Last Filed: 02/15/22 13:50> Instructions: Gastroenteritis (ED) <RIC Newton - Last Filed: 02/15/22 13:50> Additional Instructions: You lab workup today was unremarkable. Your urine test was negative for infection and . You most likely have a viral GI bug also known as gastroenteritis. Treatment is supportive care, symptoms usually resolve on their own in 48-72 hours. Recommend rest and plenty of oral hydration. Stick to a bland diet like soup and toast while you are not feeling well. Take the prescribed medication as needed for nausea. Recommend over the counter Pepto Bismol or Imodium for upset stomach and diarrhea. Follow up with your doctor as needed. If you develop new or worsening symptoms call 911 or come back to the ER for further evaluation. <RIC Newton - Last Filed: 02/15/22 13:50> Prescriptions: New ondansetron 4 mg tablet,disintegrating 4 mg PO Q8H PRN (Reason: nausea and vomiting) Qty: 10 0RF No Action levocetirizine 5 mg tablet 1 tab PO BID metronidazole 500 mg tablet 500 mg PO BID Qty: 10 0RF <RIC Newton - Last Filed: 02/15/22 13:50> Referrals: Nayely Coffman MD [Primary Care Provider] - <RIC Newton - Last Filed: 02/15/22 13:50> Stand Alone Forms: Work/School Release <RIC Newton - Last Filed: 02/15/22 13:50>
[2022-02-15 14:07] LABS: MANUAL DIFF FLAG NO
[2022-02-15 14:14] LABS: Basophils Percent Auto 0.1 % (0-2); Eosinophils Absolute Auto 0.2 X10*3/uL (0.0-0.4); Eosinophils Percent Auto 1.6 % (0-4); Hematocrit 42.5 % (37.0-47.0); Hemoglobin 14.5 g/dl (12.0-16.0); Imm Gran Abs Auto 0.02 X10*3/uL (0.00-0.03); Imm Gran Pct Auto 0.2 % (0.0-0.4); Lymphocytes Absolute Auto 2.9 X10*3/uL (1.2-4.9); Lymphocytes Percent Auto 31.3 % (20-40); Mean Corpuscular HGB Conc 34.1 g/dl (31.0-35.0); Mean Corpuscular Hemoglobin 30.8 pg (27.0-33.0); Mean Corpuscular Volume 90.2 fL (80.0-98.0); Mean Platelet Volume 9.6 fL (9.4-12.3); Monocytes Absolute Auto 0.6 X10*3/uL (0.1-1.2); Monocytes Percent Auto 6.2 % (2-11); Neutrophils Absolute Auto 5.6 x10*3/uL (2.0-8.3); Neutrophils Percent Auto 60.6 % (45-73); Platelet Count 390 X10*3/uL (160-400); Red Blood Count 4.71 X10*6/uL (4.20-5.50); Red Cell Distribution Width 13.1 % (11.0-16.0); White Blood Count 9.3 X10*3/uL (4.8-10.8)
[2022-02-15 14:15] LABS: INTERNATIONAL NORM RATIO 1.1 (0.9-1.1); Prothrombin Time 12.4 SEC (10.0-13.1)
[2022-02-15 14:28] LABS: COVID-19 Test Negative (Negative); IDNOW Serial# 55D5AD1C
[2022-02-15 14:31] LABS: Alanine Aminotransferase 10 U/L (0-31); Albumin Level 4.4 g/dL (3.5-5.0); Alkaline Phosphatase 60 U/L (39-117); Anion Gap 17 (12-20); Aspartate Amino Transferase 10 U/L (5-31); Bilirubin Total 0.4 mg/dL (0.0-1.0); Blood Urea Nitrogen 7 mg/dL (9-16); Calcium 9.7 mg/dL (8.4-10.2); Carbon Dioxide 19 mmol/L (22-29); Chloride 107 mmol/L (96-108); Creatinine Clr Calc Pharmacy 143.8; Estimated Glomerular Filt Rate > 60; Glucose Random 83 mg/dL (60-115); Magnesium 1.8 mg/dL (1.6-2.6); Sodium 139 mmol/L (135-145); Total Protein 7.1 g/dL (6.5-8.0)
[2022-02-15 14:39] LABS: HCG Quantitative < 2 mIU/mL
[2022-02-15] MEDS: 0.9 % Sodium Chloride 1,000 ML 999 ML IVCONT (15:57)
[2022-02-15] MEDS: Morphine Sulfate 4 MG/ML CARTRIDGE IVPUSH (15:57)
[2022-02-15] MEDS: ondansetron HCL 4 MG/2 ML VIAL IVPUSH (15:57)
[2022-02-15 16:00] VITALS: BP 105/60; PULSE 51; RESP 16; TEMP 36.7; O2SAT 98
--- NOTE | 2022-02-15 16:09 | PC.NURSE ---
this pct assumed care of pt at 1500 ,vs taken and flu swab send to lab ,patient was given warm blanket ,pt watching television ,call araujo within reach .
[2022-02-15 16:16] LABS: Appearance Urine Clear; Color Urine Yellow; Glucose Urine UA Negative (Negative)
[2022-02-15 16:17] LABS: Leukocyte Esterase Urine Negative (Negative); Nitrite Urine Negative (Negative); Specific Gravity - Urine 1.025 (1.005-1.025); Urine Blood Negative (Negative); Urine Ketones Trace mg/dL (Negative); Urine Protein Negative (Neg-Trace)
[2022-02-15 16:28] LABS: IDNOW Serial# 55D5AD1C; Influenza A Negative (Negative); Influenza B2 Negative (Negative)
[2022-02-15 17:51] VITALS: BP 106/70; PULSE 64; RESP 16; TEMP 36.7; O2SAT 98
--- NOTE | 2022-02-15 18:32 | PC.NURSE ---
Discharge instructions reviewed with pt. Pt verbalizes understanding.
== END 2022-02-15 18:34 | disposition home or self-care (01) ==
PROVIDERS: Physician Assistant; Physician Assistant Medical; Emergency Provider Emergency Medicine; PCP Internal Medicine
DX: K52.9 Noninfective gastroenteritis and colitis, unspecified (principal); F17.210 Nicotine dependence, cigarettes, uncomplicated; F12.90 Cannabis use, unspecified, uncomplicated; Z20.822 Contact with and (suspected) exposure to COVID-19
CPT/HCPCS: 36415; 74176; 80053; 81003; 83735; 84702; 85025; 85610; 87502; 87635; 96361; 96374; 96375; 99284; J2270; J2405

== ENCOUNTER 2022-03-26 10:50 | Emergency (ER) | payer OTHER, BC, SELFPAY ==
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
[2022-03-26 10:52] VITALS: BP 128/77; PULSE 75; RESP 18; TEMP 36.4; O2SAT 100; BMI 25.7
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
== END 2022-03-26 12:55 | disposition home or self-care (01) ==
PROVIDERS: Emergency Provider Student in an Organized Health Care Education/Training Program; PCP Internal Medicine
DX: S13.4XXA Sprain of ligaments of cervical spine, initial encounter (principal); S39.012A Strain of muscle, fascia and tendon of lower back, initial encounter; S76.012A Strain of muscle, fascia and tendon of left hip, initial encounter; S86.912A Strain of unspecified muscle(s) and tendon(s) at lower leg level, left leg, initial encounter; V43.52XA Car driver injured in collision with other type car in traffic accident, initial encounter; Y93.89 Activity, other specified; Y92.414 Local residential or business street as the place of occurrence of the external cause; Y99.9 Unspecified external cause status
CPT/HCPCS: 72040; 72100; 73502; 73564; 99283

== ENCOUNTER 2022-04-28 08:47 | Emergency (ER) | payer BC, SELFPAY ==
[2022-04-28 08:50] VITALS: BP 127/76; PULSE 100; RESP 16; TEMP 36.9; O2SAT 100; BMI 25.7
--- NOTE | 2022-04-28 09:02 | ED_ITS ---
HPI - General Adult General Chief complaint: General Medical Stated complaint: Tingling in both legs/Period started T-1 Time Seen by Provider: 04/28/22 09:01 Source: patient Mode of arrival: ambulatory Limitations: no limitations History of Present Illness HPI narrative: Heavy period with passing a lot of blood and tingling, started yesterday. changed pads three times. Patient has had multiple US, has fibroids Onset (ago): hour(s) Radiation: back Severity: mild Quality: burning Related Data Home Medications Medication Instructions Recorded Confirmed levocetirizine 5 mg tablet 1 tab PO BID allergies 07/15/21 07/15/21 Previous Rx's Medication Instructions Recorded metronidazole 500 mg tablet 500 mg PO BID #10 tabs 07/16/21 ondansetron 4 mg disintegrating 4 mg PO Q8H PRN nausea and 02/15/22 tablet vomiting #10 tabs acetaminophen 300 mg-codeine 30 mg 1 tab PO Q8H PRN pain #14 tabs 03/26/22 tablet cyclobenzaprine 10 mg tablet 10 mg PO Q8H #14 tabs 03/26/22 Allergies Allergy/AdvReac Type Severity Reaction Status Date / Time ibuprofen Allergy Hives Verified 04/28/22 08:50 Review of Systems Review of Systems: Yes all other systems are reviewed and are negative Genitourinary: Genitourinary: Reports abnormal vaginal bleeding [facility] Past Medical History Medical History Colitis GERD (gastroesophageal reflux disease) Marfan syndrome Sinusitis Surgical History H/O aortic root repair Social History Social History Household Members: Family Housing: Apartment Do you presently have visiting nurse or other home services: No Alcohol intake: never Patient Tobacco Use Status: Current everyday Tobacco user Tobacco use type: Cigarette Cigarettes Per Day: 3 Years Smoked: 20 Smoked in Last 30 Days: Yes Use of substances other than those prescribed or required for medical reasons: Yes Substance Use Type: Marijuana Substance Use Frequency: Daily Last Used Substance: Just Prior to Admission Any prior treatment program specific to substance use: No Advance Directives: No Advance Directives Information Provided: No Patient : No service: No Current occupational status: employed Physical Exam ED Vital Signs: Vital Signs - 24 hr 04/28/22 08:50 Temperature 98.4 F Pulse Rate 100 Respiratory Rate 16 Blood Pressure 127/76 Pulse Oximetry 100 Oxygen Delivery Method Room Air BMI result Body Mass Index 25.7 Const General: healthy appearing Nutritional Appearance: average body habitus Orientation/consciousness: oriented to person and patient oriented x3 Limitations: no limitations HENMT Head: Yes normal to inspection Ears: external ears normal General nose exam: Normal external nose present Mouth: Normal oral and palatal mucosa present and oropharynx normal Throat: Yes posterior oropharynx normal Eyes General: appearance normal, both eyes and all related structures Neck Neck: Yes normal visual inspection Chest Chest palpation & inspection: normal inspection of the chest Resp Auscultation: clear to auscultation bilaterally Cardio Jugular venous distension: no JVD Rate: regular rate Rhythm: regular rhythm Heart sounds: S1 normal heart sound present and S2 normal heart sound present GI Inspection: Yes normal to inspection Palpation (GI): Soft to palpation, nontender and No hepatosplenomegaly present Auscultation: normal bowel sounds Other: normal vagina small blood in vault, os closed no active bleeding Skin General skin exam: no rashes or lesions noted Neuro General: oriented to person and patient oriented x3 Cranial nerves: Yes CN's II-XII intact bilaterally Motor exam (neuro): 5/5 motor strength present throughout Extrem General: Yes normal to inspection Psych Appearance: grossly normal Medications Administered Discontinued Medications Generic Name Dose Route Start Last Admin Trade Name Freq PRN Reason Stop Dose Admin Acetaminophen 975 mg 04/28/22 09:06 04/28/22 09:31 Acetaminophen 325 Mg Tablet PO 04/28/22 09:07 975 mg ONCE ONE Administration Medical Decision Making Differential Diagnosis dysfunctional uterine bleeding, , threatened , leiyomyoma, Lab Data Hematocrit is stable 04/28/22 09:26 04/28/22 09:26 Labs: Lab Results 04/28/22 04/28/22 04/28/22 Range/Units 09:26 09:26 10:46 WBC 11.0 H (4.8-10.8) X10*3/uL RBC 4.49 (4.20-5.50) X10*6/uL Hgb 14.0 (12.0-16.0) g/dl Hct 39.9 (37.0-47.0) % MCV 88.9 (80.0-98.0) fL MCH 31.2 (27.0-33.0) pg MCHC 35.1 H (31.0-35.0) g/dl RDW 12.7 (11.0-16.0) % Plt Count 320 (160-400) X10*3/uL MPV 9.1 L (9.4-12.3) fL Immature Gran % (Auto) 0.2 (0.0-0.4) % Neut % (Auto) 70.8 (45-73) % Lymph % (Auto) 20.3 (20-40) % [place] % (Auto) 5.9 (2-11) % Eos % (Auto) 2.6 (0-4) % Baso % (Auto) 0.2 (0-2) % Lymph # (Auto) 2.2 (1.2-4.9) X10*3/uL [place] # (Auto) 0.7 (0.1-1.2) X10*3/uL Eos # (Auto) 0.3 (0.0-0.4) X10*3/uL Baso # (Auto) 0.0 (0.0-0.2) X10*3/uL Abs Immat Gran (auto) 0.02 (0.00-0.03) X10*3/uL Absolute Neuts (auto) 7.8 (2.0-8.3) x10*3/uL Absolute Nucleated RBC 0.000 (0.0-0.012) X10*3/uL Nucleated RBC % (auto) 0.0 (0.0-0.2) /100WBC Sodium 140 (135-145) mmol/L Potassium 4.7 (3.3-5.1) mmol/L Chloride 109 H (96-108) mmol/L Carbon Dioxide 23 (22-29) mmol/L Anion Gap 13 (12-20) BUN 5 L (9-16) mg/dL Creatinine 0.58 (0.5-1.4) mg/dL Estim Creat Clear Calc 151.3 Estimated GFR > 60 Random Glucose 84 (60-115) mg/dL Calcium 9.1 D (8.4-10.2) mg/dL Urine Color Yellow Urine Appearance Clear Urine pH 7.0 (5.0-9.0) Ur Specific [place] <= 1.005 (1.005-1.025) Urine Protein Negative (Neg-Trace) mg/dL Urine Glucose (UA) Negative (Negative) mg/dL Urine Ketones Negative (Negative) mg/dL Urine Blood Large (3+) H (Negative) Urine Nitrite Negative (Negative) Ur Leukocyte Esterase Negative (Negative) Urine RBC 0-2 (0-2) /HPF Urine WBC 0-5 (0-5) /HPF Ur Squamous Epith Cells 0-2 (0-2) /HPF Urine Bacteria None Seen (None Seen) Hyaline Casts 0-2 (0-2) /LPF Urine Test (NEGATIVE) 04/28/22 Range/Units 10:46 WBC (4.8-10.8) X10*3/uL RBC (4.20-5.50) X10*6/uL Hgb (12.0-16.0) g/dl Hct (37.0-47.0) % MCV (80.0-98.0) fL MCH (27.0-33.0) pg MCHC (31.0-35.0) g/dl RDW (11.0-16.0) % Plt Count (160-400) X10*3/uL MPV (9.4-12.3) fL Immature Gran % (Auto) (0.0-0.4) % Neut % (Auto) (45-73) % Lymph % (Auto) (20-40) % [place] % (Auto) (2-11) % Eos % (Auto) (0-4) % Baso % (Auto) (0-2) % Lymph # (Auto) (1.2-4.9) X10*3/uL [place] # (Auto) (0.1-1.2) X10*3/uL Eos # (Auto) (0.0-0.4) X10*3/uL Baso # (Auto) (0.0-0.2) X10*3/uL Abs Immat Gran (auto) (0.00-0.03) X10*3/uL Absolute Neuts (auto) (2.0-8.3) x10*3/uL Absolute Nucleated RBC (0.0-0.012) X10*3/uL Nucleated RBC % (auto) (0.0-0.2) /100WBC Sodium (135-145) mmol/L Potassium (3.3-5.1) mmol/L Chloride (96-108) mmol/L Carbon Dioxide (22-29) mmol/L Anion Gap (12-20) BUN (9-16) mg/dL Creatinine (0.5-1.4) mg/dL Estim Creat Clear Calc Estimated GFR Random Glucose (60-115) mg/dL Calcium (8.4-10.2) mg/dL Urine Color Urine Appearance Urine pH (5.0-9.0) Ur Specific [place] (1.005-1.025) Urine Protein (Neg-Trace) mg/dL Urine Glucose (UA) (Negative) mg/dL Urine Ketones (Negative) mg/dL Urine Blood (Negative) Urine Nitrite (Negative) Ur Leukocyte Esterase (Negative) Urine RBC (0-2) /HPF Urine WBC (0-5) /HPF Ur Squamous Epith Cells (0-2) /HPF Urine Bacteria (None Seen) Hyaline Casts (0-2) /LPF Urine Test NEGATIVE (NEGATIVE) Tests considered The following testing was considered but not selected: ultrasound was considered but minimal bleeding on exam and stable hct Social Determinants Lost insurance Discharge Plan Discharge Clinical Impression: DUB (dysfunctional uterine bleeding) Patient Disposition: Home, Self-Care Instructions: Dysfunctional Uterine Bleeding (ED) Prescriptions: No Action levocetirizine 5 mg tablet 1 tab PO BID metronidazole 500 mg tablet 500 mg PO BID Qty: 10 0RF ondansetron 4 mg tablet,disintegrating 4 mg PO Q8H PRN (Reason: nausea and vomiting) Qty: 10 0RF cyclobenzaprine 10 mg tablet 10 mg PO Q8H Qty: 14 0RF acetaminophen-codeine 300-30 mg tablet 1 tab PO Q8H PRN (Reason: pain) Qty: 14 0RF Referrals: Luis Marsh MD [Physician] - 5 days
[2022-04-28 09:31] LABS: MANUAL DIFF FLAG NO
[2022-04-28] MEDS: Acetaminophen 325 MG TABLET 975 MG PO (09:31)
[2022-04-28 09:32] LABS: Basophils Percent Auto 0.2 % (0-2); Eosinophils Absolute Auto 0.3 X10*3/uL (0.0-0.4); Eosinophils Percent Auto 2.6 % (0-4); Hematocrit 39.9 % (37.0-47.0); Imm Gran Abs Auto 0.02 X10*3/uL (0.00-0.03); Imm Gran Pct Auto 0.2 % (0.0-0.4); Lymphocytes Absolute Auto 2.2 X10*3/uL (1.2-4.9); Lymphocytes Percent Auto 20.3 % (20-40); Mean Corpuscular HGB Conc 35.1 g/dl (31.0-35.0); Mean Corpuscular Hemoglobin 31.2 pg (27.0-33.0); Mean Corpuscular Volume 88.9 fL (80.0-98.0); Mean Platelet Volume 9.1 fL (9.4-12.3); Monocytes Absolute Auto 0.7 X10*3/uL (0.1-1.2); Monocytes Percent Auto 5.9 % (2-11); Neutrophils Absolute Auto 7.8 x10*3/uL (2.0-8.3); Neutrophils Percent Auto 70.8 % (45-73); Platelet Count 320 X10*3/uL (160-400); Red Blood Count 4.49 X10*6/uL (4.20-5.50); Red Cell Distribution Width 12.7 % (11.0-16.0)
[2022-04-28 10:09] LABS: Anion Gap 13 (12-20); Blood Urea Nitrogen 5 mg/dL (9-16); Calcium 9.1 mg/dL (8.4-10.2); Carbon Dioxide 23 mmol/L (22-29); Chloride 109 mmol/L (96-108); Creatinine Clr Calc Pharmacy 151.3; Estimated Glomerular Filt Rate > 60; Glucose Random 84 mg/dL (60-115); Potassium 4.7 mmol/L (3.3-5.1); Sodium 140 mmol/L (135-145)
[2022-04-28 11:05] LABS: Appearance Urine Clear; Color Urine Yellow; Glucose Urine UA Negative (Negative); Leukocyte Esterase Urine Negative (Negative); Nitrite Urine Negative (Negative); Specific Gravity - Urine <= 1.005 (1.005-1.025); UMIC TRIGGER UACC YES; Urine Blood Large (3+) (Negative); Urine Ketones Negative (Negative); Urine Protein Negative (Neg-Trace)
[2022-04-28 11:08] LABS: UPreg QC Valid YES; Urine Pregnancy NEGATIVE (NEGATIVE)
[2022-04-28 11:24] LABS: Bacteria Urine None Seen (None Seen); Hyaline Casts Urine 0-2 /LPF (0-2); RBC Urine 0-2 /HPF (0-2); Squamous Epithelial Cell Urine 0-2 /HPF (0-2); WBC Urine 0-5 /HPF (0-5)
[2022-04-28 11:38] VITALS: BP 103/54; PULSE 69; RESP 15; TEMP 36.5; O2SAT 99
[2022-04-28] MEDS: Ondansetron ODT 4 MG TAB.RAPDIS TRANSLINGU (11:52)
== END 2022-04-28 12:04 | disposition home or self-care (01) ==
PROVIDERS: Emergency Provider Emergency Medicine; PCP Internal Medicine
DX: N93.8 Other specified abnormal uterine and vaginal bleeding (principal); F17.210 Nicotine dependence, cigarettes, uncomplicated; F12.90 Cannabis use, unspecified, uncomplicated; Z79.899 Other long term (current) drug therapy
CPT/HCPCS: 36415; 80048; 81001; 81003; 81025; 85025; 99283; 99284

== ENCOUNTER 2022-05-22 10:32 | Outpatient (REF) | payer BC, SELFPAY ==
[2022-05-22 16:52] LABS: CT PCR NOT DETECTED (Not Detect.); NG PCR NOT DETECTED (Not Detect.)
[2022-05-23 13:15] LABS: BV Int Neg Control Negative (Negative); BV Int Pos Control Positive (Positive)
[2022-05-24 03:48] LABS: HPV mRNA E6/E7 rflx Not Detected (Not Detected)
== END 2022-05-22 10:33 | disposition home or self-care (01) ==
LOC: HO.LNP 10:32
PROVIDERS: PCP Internal Medicine; Visit Provider Advanced Practice Midwife
DX: Z12.4 Encounter for screening for malignant neoplasm of cervix (principal); Z11.51 Encounter for screening for human papillomavirus (HPV); Z11.3 Encounter for screening for infections with a predominantly sexual mode of transmission; N94.4 Primary dysmenorrhea; Q87.40 Marfan syndrome, unspecified; R39.15 Urgency of urination; B36.0 Pityriasis versicolor; Z87.42 Personal history of other diseases of the female genital tract; Z86.73 Personal history of transient ischemic attack (TIA), and cerebral infarction without residual deficits; Z98.890 Other specified postprocedural states
CPT/HCPCS: 0353U; 81003; 87086; 87480; 87510; 87624; 87660; 88142

== ENCOUNTER 2022-05-30 10:10 | Emergency (ER) | payer BC, SELFPAY ==
--- NOTE | ~2022-05-30 | CT_ITS ---
EXAMINATION: CT HEAD WITHOUT CONTRAST CLINICAL INFORMATION: Headache COMPARISON: MRI brain dated 05/27/2018 TECHNIQUE: Contiguous axial imaging was performed from the skull base to vertex without intravenous administration of contrast. This CT examination was performed using dose optimization techniques as appropriate, variously including the following: *Automated exposure control *Adjustment of mA and/or kV according to patient size (this includes techniques or standardized protocols for targeted exams where dose is matched to indication/reason for exam; i.e. extremities or head) *Use of iterative reconstruction technique DLP: 580 mGy-cm FINDINGS: There is no evidence of acute intracranial hemorrhage or territorial infarction. No abnormal mass effect or midline shift is seen. [place] to white matter differentiation is well preserved. No extra-axial fluid collections are identified. No hydrocephalus. No significant volume loss. There is no abnormal attenuation within the brain parenchyma. No acute osseous or soft tissue abnormality. The mastoid air cells and visualized portions of the paranasal sinuses are well aerated. CT/CT head/brain wo IV con IMPRESSION: No acute intracranial pathology.
--- NOTE | ~2022-05-30 | CT_ITS ---
EXAMINATION: CT ANGIOGRAM CHEST CLINICAL INFORMATION: History of aortic root surgery with chest pain, tingling. Marfan syndrome. COMPARISON: CT chest 12/04/2016. TECHNIQUE: Multiple axial images were obtained through the chest after the administration of 70 mL of Omnipaque 350 intravenous contrast. 3D POSTPROCESSING: Multiple 3-D angiographic images were processed from the initial data set by the chemical engineering technologist at the modality workstation under concurrent physician supervision. This CT examination was performed using dose optimization techniques as appropriate, variously including the following: *Automated exposure control *Adjustment of mA and/or kV according to patient size (this includes techniques or standardized protocols for targeted exams where dose is matched to indication/reason for exam; i.e. extremities or head) *Use of iterative reconstruction technique DLP: 477 mGy-cm FINDINGS: Surgical repair aortic root. There is no thoracic aortic aneurysm. The ascending aorta is normal in caliber. No dissection. The aortic arch is normal in caliber. No dissection. Three-vessel branching pattern. Great vessels are normal in caliber and widely patent. The descending aorta is normal in caliber. No dissection. The upper abdominal aorta is normal in caliber. No dissection. The infrarenal aorta is aneurysmal measuring 2.9 x 2.0 cm, stable compared to prior CT abdomen and pelvis. No dissection. The celiac, superior mesenteric, inferior mesenteric, two right renal, and single left renal arteries are patent. Mild centrilobular emphysema. Thick-walled airways with scattered secretions. No consolidation. No pleural effusion. No adenopathy. Stable 3 mm nodule right middle lobe. Stable 3 mm nodule right major fissure. Median sternotomy. No acute osseous abnormalities. CT/CT angio chest aorta IMPRESSION: Status post aortic root repair. No evidence of recurrent thoracic aortic aneurysm. No aortic dissection. 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 Recommend continued surveillance by her vascular specialist. Fleischner guidelines were followed.
--- NOTE | 2022-05-30 10:25 | ECG_ITS ---
Test Reason : CHEST PAIN Blood Pressure : / mmHG Vent. Rate : 064 BPM Atrial Rate : 064 BPM P-R Int : 148 ms QRS Dur : 096 ms QT Int : 446 ms P-R-T Axes : 022 079 042 degrees QTc Int : 460 ms Normal sinus rhythm Normal ECG No previous ECGs available Referred By: Generic ED Physician Electronically Signed By:JEREMY MCCARTHY
[2022-05-30 10:30] VITALS: BP 122/75; PULSE 66; RESP 12; TEMP 36.5; O2SAT 99
[2022-05-30 10:36] VITALS: BP 122/75; BP 148/96; PULSE 66; PULSE 71; RESP 3; TEMP 36.5; O2SAT 100; O2SAT 96; BMI 25.7
--- NOTE | 2022-05-30 11:14 | ED.GENADULT ---
HPI - General Adult General Chief complaint: General Medical Stated complaint: Chest pain, L side face tingling per EMS Time Seen by Provider: 05/30/22 10:57 Source: patient Mode of arrival: ambulatory History of Present Illness HPI narrative: 36 year old female with Marfan's syndrome history of aortic narrowing after aortic procedure then had two TIA x 2. She states she was on warfarin for two years has not been on it since 2013. Woke up today with tingling to the right side and right sided chest pain. She states she feels like her right side of her face is drooping though it is not visualized. She was given a asprin. She takes no medications. She smokes marijuana daily. She denies any other new or different substances. Related Data Home Medications Medication Instructions Recorded Confirmed lidocaine 5 % topical patch 1 patch topical DAILY 05/22/22 05/22/22 Previous Rx's Medication Instructions Recorded acetaminophen 300 mg-codeine 30 mg 1 tab PO Q8H PRN pain #14 tabs 03/26/22 tablet Allergies Allergy/AdvReac Type Severity Reaction Status Date / Time ibuprofen Allergy Hives Verified 05/22/22 10:41 COUNTS INCLUDE 234 BEDS AT THE [facility] Past Medical History Medical History (Updated 05/30/22 @ 14:48 by Nabeel Garcia DO) Colitis GERD (gastroesophageal reflux disease) Marfan syndrome Sinusitis Surgical History (Updated 05/22/22 @ 11:53 by Marily Morales CNM) H/O aortic root repair Hx of eye surgery Family History Family History (Updated 05/22/22 @ 10:43 by ARTEM Barker) Father Cancer Social History Social History Household Members: Family Housing: Apartment Do you presently have visiting nurse or other home services: No Alcohol intake: never Patient Tobacco Use Status: Current everyday Tobacco user Tobacco use type: Cigarette Cigarettes Per Day: 3 Years Smoked: 20 Smoked in Last 30 Days: Yes Use of substances other than those prescribed or required for medical reasons: No Substance Use Type: Marijuana Advance Directives: No Advance Directives Information Provided: Yes Patient : No service: No Current occupational status: employed Physical Exam ED Vital Signs: Vital Signs - 24 hr 05/30/22 10:30 05/30/22 10:36 05/30/22 11:46 Temperature 97.7 F 97.7 F 97.5 F Pulse Rate 66 66 60 Respiratory Rate 12 3 L 11 L Blood Pressure 122/75 122/75 136/75 Pulse Oximetry 99 96 100 Oxygen Delivery Method Room Air Room Air Room Air BMI result Body Mass Index 25.7 Medications Administered Discontinued Medications Generic Name Dose Route Start Last Admin Trade Name Fabiana PRN Reason Stop Dose Admin Acetaminophen 650 mg 05/30/22 11:34 05/30/22 12:25 Acetaminophen 325 Mg Tablet PO 05/30/22 11:35 650 mg ONCE ONE Administration Diphenhydramine HCl 25 mg 05/30/22 11:34 05/30/22 12:26 Diphenhydramine Hcl 50 Mg/Ml Vial IVPUSH 05/30/22 11:35 25 mg ONCE ONE Administration Sodium Chloride 1,000 mls @ 999 mls/hr 05/30/22 11:45 05/30/22 14:36 Ns IV 05/30/22 12:45 Infused .Q1H1M GIFTY Infusion Iohexol 100 ml 05/30/22 13:00 05/30/22 13:00 Iohexol 350 Mg/Ml 100 Ml Infus..Btl IV 05/30/22 13:01 70 ml ONCE ONE Administration Metoclopramide HCl 10 mg 05/30/22 11:34 05/30/22 12:29 Metoclopramide Hcl 10 Mg/2 Ml Vial IVPUSH 05/30/22 11:35 10 mg ONCE ONE Administration Medical Decision Making Medical Decision Making [facility] Narrative: patient here with headache and tingling to her left arm. She only tingling to her face previously when she had a TIA she has no deficits from her previous TIAs and 1 today not appear to be disabling anyway treat the patient's headache Reglan Benadryl and fluids. Patient is allergic to ibuprofen so stay with Toradol I will give her Tylenol as well for her pain I will get a CTA to rule out aortic dissection. I will get CT scan of her head as well. 1300 Labs look normal had CT she is feeling much better sleeping in the bed 1446 CT's are normal I will send home with PCP follow up. Differential Diagnosis Differential Diagnoses: The differential diagnosis associated with the presentation includes aortic dissection complication of the aortic repair as well as migraine anxiety Lab Data 05/30/22 11:52 05/30/22 11:52 Labs: Lab Results 05/30/22 05/30/22 05/30/22 Range/Units 11:52 11:52 11:52 WBC 8.6 (4.8-10.8) X10*3/uL RBC 4.21 (4.20-5.50) X10*6/uL Hgb 13.2 (12.0-16.0) g/dl Hct 37.7 (37.0-47.0) % MCV 89.5 (80.0-98.0) fL MCH 31.4 (27.0-33.0) pg MCHC 35.0 (31.0-35.0) g/dl RDW 12.8 (11.0-16.0) % Plt Count 351 (160-400) X10*3/uL MPV 9.2 L (9.4-12.3) fL Immature Gran % (Auto) 0.2 (0.0-0.4) % Neut % (Auto) 53.8 (45-73) % Lymph % (Auto) 37.1 (20-40) % [place] % (Auto) 6.8 (2-11) % Eos % (Auto) 2.0 (0-4) % Baso % (Auto) 0.1 (0-2) % Lymph # (Auto) 3.2 (1.2-4.9) X10*3/uL [place] # (Auto) 0.6 (0.1-1.2) X10*3/uL Eos # (Auto) 0.2 (0.0-0.4) X10*3/uL Baso # (Auto) 0.0 (0.0-0.2) X10*3/uL Abs Immat Gran (auto) 0.02 (0.00-0.03) X10*3/uL Absolute Neuts (auto) 4.6 (2.0-8.3) x10*3/uL Absolute Nucleated RBC 0.000 (0.0-0.012) X10*3/uL Nucleated RBC % (auto) 0.0 (0.0-0.2) /100WBC Sodium 140 (135-145) mmol/L Potassium 3.8 (3.3-5.1) mmol/L Chloride 108 (96-108) mmol/L Carbon Dioxide 24 (22-29) mmol/L Anion Gap 12 (12-20) BUN 7 L (9-16) mg/dL Creatinine 0.64 (0.5-1.4) mg/dL Estim Creat Clear Calc 137.1 Estimated GFR > 60 Random Glucose 90 (60-115) mg/dL Calcium 9.3 (8.4-10.2) mg/dL Troponin I High Sens < 3.5 (<3.5-17.0) ng/L Discharge Plan Discharge Clinical Impression: Headache, Paresthesia and pain of left extremity Patient Disposition: Home, Self-Care Instructions: Acute Headache (ED), Paresthesia (ED) Additional Instructions: please call follow-up with the doctor if you have any other concerns please do not hesitate to come back to emergency department. Prescriptions: No Action acetaminophen-codeine 300-30 mg tablet 1 tab PO Q8H PRN (Reason: pain) Qty: 14 0RF lidocaine 5 % adhesive patch,medicated 1 patch topical DAILY Stand Alone Forms: Work/School Release
[2022-05-30 11:46] VITALS: BP 136/75; PULSE 60; RESP 11; TEMP 36.4; O2SAT 100
[2022-05-30 11:57] LABS: MANUAL DIFF FLAG NO
[2022-05-30 11:59] LABS: Basophils Percent Auto 0.1 % (0-2); Eosinophils Absolute Auto 0.2 X10*3/uL (0.0-0.4); Hematocrit 37.7 % (37.0-47.0); Hemoglobin 13.2 g/dl (12.0-16.0); Imm Gran Abs Auto 0.02 X10*3/uL (0.00-0.03); Imm Gran Pct Auto 0.2 % (0.0-0.4); Lymphocytes Absolute Auto 3.2 X10*3/uL (1.2-4.9); Lymphocytes Percent Auto 37.1 % (20-40); Mean Corpuscular Hemoglobin 31.4 pg (27.0-33.0); Mean Corpuscular Volume 89.5 fL (80.0-98.0); Mean Platelet Volume 9.2 fL (9.4-12.3); Monocytes Absolute Auto 0.6 X10*3/uL (0.1-1.2); Monocytes Percent Auto 6.8 % (2-11); Neutrophils Absolute Auto 4.6 x10*3/uL (2.0-8.3); Neutrophils Percent Auto 53.8 % (45-73); Platelet Count 351 X10*3/uL (160-400); Red Blood Count 4.21 X10*6/uL (4.20-5.50); Red Cell Distribution Width 12.8 % (11.0-16.0); White Blood Count 8.6 X10*3/uL (4.8-10.8)
[2022-05-30 12:11] LABS: Anion Gap 12 (12-20); Blood Urea Nitrogen 7 mg/dL (9-16); Calcium 9.3 mg/dL (8.4-10.2); Carbon Dioxide 24 mmol/L (22-29); Chloride 108 mmol/L (96-108); Creatinine Clr Calc Pharmacy 137.1; Estimated Glomerular Filt Rate > 60; Glucose Random 90 mg/dL (60-115); Potassium 3.8 mmol/L (3.3-5.1); Sodium 140 mmol/L (135-145)
[2022-05-30] MEDS: Acetaminophen 325 MG TABLET 650 MG PO (12:25)
[2022-05-30] MEDS: diphenhydrAMINE HCL 50 MG/ML VIAL 25 MG IVPUSH (12:26)
[2022-05-30 12:27] LABS: Troponin-I High Sensitivity < 3.5 ng/L (<3.5-17.0)
[2022-05-30] MEDS: Metoclopramide HCl 10 MG/2 ML VIAL IVPUSH (12:29)
[2022-05-30] MEDS: iohexoL 350 MG/ML 100 ML INFUS..BTL IV (13:00)
[2022-05-30] MEDS: 0.9 % Sodium Chloride 1,000 ML 999 ML IV (13:02)
== END 2022-05-30 15:20 | disposition home or self-care (01) ==
PROVIDERS: Emergency Provider Student in an Organized Health Care Education/Training Program; PCP Internal Medicine
DX: R07.89 Other chest pain (principal); R51.9 Headache, unspecified; M79.601 Pain in right arm; F17.210 Nicotine dependence, cigarettes, uncomplicated; Z71.6 Tobacco abuse counseling; Z79.899 Other long term (current) drug therapy
CPT/HCPCS: 36415; 70450; 71275; 80048; 84484; 85025; 93005; 96361; 96374; 96375; 99284; 99285; J1200; J2765; Q9967

== ENCOUNTER → 2022-06-24 14:53 | Outpatient (REF) | payer BC, SELFPAY ==
--- NOTE | 2022-06-24 14:57 | CA_ITS ---
Transthoracic Echocardiogram Patient (Last, First, Middle): Mayra Alonzo, Gender: Female Date of : 1985 Age: 36 Procedure Date: 06/24/2022 Procedure Type: Transthoracic Echocardiogram Location: OP Height: 180.34 cm Weight: 83.92 kg BSA: 2.04 m2 Heart Rate: bpm BP: 110 / 60 mmHg Drop Hammer Mechanic: TO Referring MD: Jillian Justice DO Flat Spring Assembler: Vasu Santos MD Symptoms: CHEST PAIN, H/O OF THORACIC ANEURYSM REPAIR Study Quality: Fair ECG Rhythm: Sinus Conclusions: - 1. Normal LV systolic function with normal filling pattern 2. Normal cardiac valvular Doppler 3. Normal RV systolic pressure 4. Normal measured ascending aortic size 5. No gross pericardial effusion Findings Left Ventricle Normal left ventricular size, thickness, and systolic function. The visually estimated ejection fraction is between 55-60%. There is paradoxical septal motion consistent with post-operative status. Spectral Doppler is indicative of a normal filling pattern. Possible septal hypokinesis, postoperative changes cannot be entirely ruled out Right Ventricle Normal right ventricular cavity size. There is moderately decreased right ventricular systolic function. Atria The left atrium is normal in size. There is no evidence of interatrial shunt. The right atrium is normal in size. Aortic Valve The aortic valve structure and function is likely normal. There is no aortic valve stenosis. There is no aortic valve regurgitation. Mitral Valve There is mild anterior and posterior mitral leaflet thickening. There is trace mitral valve regurgitation. There is no mitral valve stenosis. Pulmonic Valve The pulmonic valve is likely normal. Tricuspid Valve Normal tricuspid valve structure. There is trace tricuspid valve regurgitation. There is no evidence of pulmonary hypertension. Great Vessels The pulmonary artery was not well visualized. The asc aorta is normal in size. Venous The inferior vena cava is normal in size and collapses greater than 50% with inspiration. Pericardium/Pleural There is no evidence of pericardial effusion. Prior Study Comparison Changes noted compared to prior study dated: 01/16/2017. possible septal wall motion abnormality Measurements 2D Linear Measurements IVSd: 1.09 0.6-0.9/0.6-1.0 cm LVIDd: 4.75 3.9-5.3/4.2-5.9 cm LVIDd Index: 2.33 2.4-3.2/2.2-3.1 cm/m2 LVIDs: 3.48 2.0-3.6 cm LVPWd: 1.04 0.7-1.1 cm LA Diam: 3.20 2.7-3.8/3.0-4.0 cm LAIDs Index: 1.57 1.5-2.3 cm/m2 LV Mass: 227.23 67-162/88-224 g LV Mass Index: 111.39 43-95/49-115 g/m2 LVOT Diam: 2.10 3.0+(-)1.3 cm 2D Systolic Function EF 4C: 52.10 >55% EF 2C: 67.70 >55% EF BiP: 60.00 >55% Mitral Valve MV Pk E: 0.83 MV PK A: 0.33 MV Decel Time: 168.00 E/A: 2.50 E'Lateral: 11.20 E'Medial: 7.40 E/E' Med: 11.20 E/E' Lat: 7.40 PHT: 49.00 MVA PHT: 4.49 Decel [place]: 4.92 Aortic Valve AoV Pk [place]: 1.29 AoV Mn [place]: 0.98 AoV VTI: 0.28 AoV Pk Grad: 7.00 Aov Mn Grad: 4.00 AYAZ Cont.VTI: 2.34 LVOT LVOT Pk [place]: 0.84 LVOT Mn [place]: 0.59 LVOT VTI: 0.19 LVOT Pk Grad: 3.00 LVOT Mn Grad: 2.00 LVOT Diam: 2.10 LVOT Area: 3.46 Diastolic Function MV Pk E: 0.83 MV Pk A: 0.33 E/A: 2.50 E'Medial: 7.40 E/E' Med: 11.20 E' Laterial: 11.20 E/E' Lat: 7.40 Right Ventricle TAPSE (mm): 11.60 TVS' [place]: 5.00 Tricuspid Valve TR Pk [place]: 1.72 TR Pk Grad: 12.00 RA Press: 3.00 RVSP: 15.00 Great Vessels Aorta Sinus of Valsalva: 3.20 2.0-3.5 cm Ao Asc: 3.30 2.1-3.4 cm Updated in Other Vendor System with Status of Final Vsau Santos MD electronically signed on 06/25/2022 9:21:17 AM with status of Final
== END ==
LOC: HO.CARD 14:53
PROVIDERS: Visit Provider Family Medicine
DX: R07.9 Chest pain, unspecified (principal)
CPT/HCPCS: 93306

== ENCOUNTER 2022-06-27 07:22 | Outpatient (REF) | payer BC, SELFPAY ==
--- NOTE | ~2022-06-27 | XR_ITS ---
EXAMINATION: XR knee LT 1V, XR knee standing BI CLINICAL INFORMATION: Reason for Exam M25.562 - Pain in left knee COMPARISON: None. TECHNIQUE: [place] view of the left knee and standing view of the bilateral knees XR/XR knee LT 1V FINDINGS/IMPRESSION: * No acute fracture or dislocation. * Joint spaces are maintained without significant degenerative change. * No soft tissue abnormality.
--- NOTE | ~2022-06-27 | XR_ITS ---
EXAMINATION: XR knee LT 1V, XR knee standing BI CLINICAL INFORMATION: Reason for Exam M25.562 - Pain in left knee COMPARISON: None. TECHNIQUE: [place] view of the left knee and standing view of the bilateral knees XR/XR knee standing BI FINDINGS/IMPRESSION: * No acute fracture or dislocation. * Joint spaces are maintained without significant degenerative change. * No soft tissue abnormality.
== END 2022-06-27 07:23 | disposition home or self-care (01) ==
LOC: HO.HOSX 07:22
PROVIDERS: Visit Provider Physician Assistant
DX: M22.42 Chondromalacia patellae, left knee (principal); S80.02XA Contusion of left knee, initial encounter; M25.561 Pain in right knee
CPT/HCPCS: 20610; 73560; 73565; J1040

== ENCOUNTER → 2022-08-21 14:41 | Outpatient (BNVA) | payer OTHER, BC, SELFPAY | PROVIDERS: PCP Internal Medicine; Referring Provider Internal Medicine; Visit Provider Internal Medicine Cardiovascular Disease ==

== ENCOUNTER 2022-09-15 14:09 | Emergency (ER) | payer BC, SELFPAY ==
[2022-09-15 14:12] VITALS: BP 130/70; PULSE 77; RESP 18; TEMP 36.6; O2SAT 98; BMI 25.8
--- NOTE | 2022-09-15 14:12 | ED_ITS ---
HPI - General Adult General Chief complaint: Nausea/Vomiting/Diarrhea Stated complaint: N/V/D BACK PAIN Related Data Home Medications Medication Instructions Recorded Confirmed clindamycin HCl 300 mg capsule 300 mg PO BID 08/21/22 08/21/22 Allergies Allergy/AdvReac Type Severity Reaction Status Date / Time ibuprofen Allergy Hives Verified 09/15/22 14:12 [facility] Past Medical History Medical History (Updated 09/16/22 @ 13:06 by RIC Plasencia) Colitis GERD (gastroesophageal reflux disease) Marfan syndrome Sinusitis Surgical History (Updated 08/21/22 @ 20:09 by Karthikeyan Tapia MD) Hx of eye surgery Family History Family History Father Cancer Social History Social History (Updated 08/21/22 @ 14:56 by ARTEM Oscar) Household Members: Family Housing: Apartment Do you presently have visiting nurse or other home services: No Alcohol intake: former Patient Tobacco Use Status: Current everyday Tobacco user Tobacco use type: Cigarette Cigarettes Per Day: 3 Years Smoked: 20 +/- Substance Use Type: Marijuana Advance Directives: No Advance Directives Information Provided: No service: No Current occupational status: employed Physical Exam ED Vital Signs: Vital Signs - 24 hr 09/15/22 14:12 Temperature 98 F Pulse Rate 77 Respiratory Rate 18 Blood Pressure 130/70 Pulse Oximetry 98 Oxygen Delivery Method Room Air BMI result Body Mass Index 25.8 Course Course Course Narrative: RME: 37yo F w/PMHx TIA, Marfan's syndrome, c/o diarrhea, nausea, vomiting x2 days & mid/low back pain. currently on menses. denies CP abdomen soft diffusely ttp, +b/l CVAT labs, UA, CTAP ordered Full HPI, ROS and PE to be performed by primary ED provider. Medical Decision Making Lab Data 09/15/22 14:23 09/15/22 14:23 Labs: Lab Results 09/15/22 09/15/22 Range/Units 14:23 14:23 WBC 9.1 (4.8-10.8) X10*3/uL RBC 4.28 (4.20-5.50) X10*6/uL Hgb 13.1 (12.0-16.0) g/dl Hct 38.9 (37.0-47.0) % MCV 90.9 (80.0-98.0) fL MCH 30.6 (27.0-33.0) pg MCHC 33.7 (31.0-35.0) g/dl RDW 13.3 (11.0-16.0) % Plt Count 323 (160-400) X10*3/uL MPV 8.9 L (9.4-12.3) fL Immature Gran % (Auto) 0.3 (0.0-0.4) % Neut % (Auto) 64.2 (45-73) % Lymph % (Auto) 27.2 (20-40) % [place] % (Auto) 6.0 (2-11) % Eos % (Auto) 1.9 (0-4) % Baso % (Auto) 0.4 (0-2) % Lymph # (Auto) 2.5 (1.2-4.9) X10*3/uL [place] # (Auto) 0.5 (0.1-1.2) X10*3/uL Eos # (Auto) 0.2 (0.0-0.4) X10*3/uL Baso # (Auto) 0.0 (0.0-0.2) X10*3/uL Abs Immat Gran (auto) 0.03 (0.00-0.03) X10*3/uL Absolute Neuts (auto) 5.8 (2.0-8.3) x10*3/uL Absolute Nucleated RBC 0.000 (0.0-0.012) X10*3/uL Nucleated RBC % (auto) 0.0 (0.0-0.2) /100WBC Sodium 141 (135-145) mmol/L Potassium 4.2 (3.3-5.1) mmol/L Chloride 110 H (96-108) mmol/L Carbon Dioxide 24 (22-29) mmol/L Anion Gap 11 L (12-20) BUN 5 L (9-16) mg/dL Creatinine 0.65 (0.5-1.4) mg/dL Estim Creat Clear Calc 133.7 Estimated GFR > 60 Random Glucose 84 (60-115) mg/dL Calcium 9.5 (8.4-10.2) mg/dL Magnesium 1.9 (1.6-2.6) mg/dL Total Bilirubin 0.2 (0.0-1.0) mg/dL Direct Bilirubin < 0.2 (0.0-0.5) mg/dL AST 10 (5-31) U/L ALT 8 (0-31) U/L Alkaline Phosphatase 53 (39-117) U/L Total Protein 6.3 L (6.5-8.0) g/dL Albumin 4.0 (3.5-5.0) g/dL Lipase 17 (8-78) U/L Discharge Plan Discharge Clinical Impression: Nausea & vomiting Patient Disposition: [facility]op[facility] Prescriptions: No Action clindamycin HCl 300 mg capsule 300 mg PO BID Discharge Date/Time: 09/15/22 18:22
--- NOTE | 2022-09-15 14:25 | MHC.EDTECH ---
Labs collected and sent
[2022-09-15 14:29] LABS: MANUAL DIFF FLAG NO
[2022-09-15 14:31] LABS: Basophils Percent Auto 0.4 % (0-2); Eosinophils Absolute Auto 0.2 X10*3/uL (0.0-0.4); Eosinophils Percent Auto 1.9 % (0-4); Hematocrit 38.9 % (37.0-47.0); Hemoglobin 13.1 g/dl (12.0-16.0); Imm Gran Abs Auto 0.03 X10*3/uL (0.00-0.03); Imm Gran Pct Auto 0.3 % (0.0-0.4); Lymphocytes Absolute Auto 2.5 X10*3/uL (1.2-4.9); Lymphocytes Percent Auto 27.2 % (20-40); Mean Corpuscular HGB Conc 33.7 g/dl (31.0-35.0); Mean Corpuscular Hemoglobin 30.6 pg (27.0-33.0); Mean Corpuscular Volume 90.9 fL (80.0-98.0); Mean Platelet Volume 8.9 fL (9.4-12.3); Monocytes Absolute Auto 0.5 X10*3/uL (0.1-1.2); Neutrophils Absolute Auto 5.8 x10*3/uL (2.0-8.3); Neutrophils Percent Auto 64.2 % (45-73); Platelet Count 323 X10*3/uL (160-400); Red Blood Count 4.28 X10*6/uL (4.20-5.50); Red Cell Distribution Width 13.3 % (11.0-16.0); White Blood Count 9.1 X10*3/uL (4.8-10.8)
[2022-09-15 14:44] LABS: Alanine Aminotransferase 8 U/L (0-31); Alkaline Phosphatase 53 U/L (39-117); Anion Gap 11 (12-20); Aspartate Amino Transferase 10 U/L (5-31); Bilirubin Direct < 0.2 mg/dL (0.0-0.5); Bilirubin Total 0.2 mg/dL (0.0-1.0); Blood Urea Nitrogen 5 mg/dL (9-16); Calcium 9.5 mg/dL (8.4-10.2); Carbon Dioxide 24 mmol/L (22-29); Chloride 110 mmol/L (96-108); Creatinine Clr Calc Pharmacy 133.7; Estimated Glomerular Filt Rate > 60; Glucose Random 84 mg/dL (60-115); Lipase 17 U/L (8-78); Magnesium 1.9 mg/dL (1.6-2.6); Potassium 4.2 mmol/L (3.3-5.1); Sodium 141 mmol/L (135-145); Total Protein 6.3 g/dL (6.5-8.0)
== END 2022-09-15 18:22 | disposition left against medical advice (07) ==
PROVIDERS: Physician Assistant; Emergency Provider Emergency Medicine; PCP Internal Medicine
DX: R11.2 Nausea with vomiting, unspecified (principal); M54.50 Low back pain, unspecified; F17.210 Nicotine dependence, cigarettes, uncomplicated
CPT/HCPCS: 36415; 80048; 80076; 83690; 83735; 85025; 99281; 99283

== ENCOUNTER 2022-09-17 11:37 | Emergency (ER) | payer BC, SELFPAY ==
--- NOTE | ~2022-09-17 | CT_ITS ---
EXAMINATION: CT ABDOMEN AND PELVIS WITHOUT CONTRAST CLINICAL INFORMATION: Bloody stool. Abdominal pain. History of colitis. COMPARISON: None available. TECHNIQUE: Multidetector volumetric imaging was performed from the superior aspect of the liver through the pubic symphysis. Sagittal and coronal reformatted images were obtained on the technologist's workstation. This CT examination was performed using dose optimization techniques as appropriate, variously including the following: *Automated exposure control *Adjustment of mA and/or kV according to patient size (this includes techniques or standardized protocols for targeted exams where dose is matched to indication/reason for exam; i.e. extremities or head) *Use of iterative reconstruction technique DLP: 544 mGy-cm FINDINGS: LUNG BASES: The visualized lung bases are unremarkable. LIVER, GALLBLADDER, AND BILIARY TREE: The liver is normal in size, shape, and attenuation. No focal hepatic lesion or biliary ductal dilatation is present. The gallbladder is unremarkable with no evidence of radiopaque gallstones, gallbladder wall thickening, or obvious pericholecystic inflammatory changes. PANCREAS: Unremarkable. SPLEEN: Unremarkable. ADRENAL GLANDS: Unremarkable. KIDNEYS AND URETERS: The kidneys are normal in size, shape, and attenuation. No hydronephrosis, hydroureter, or calculi seen. No perinephric stranding. BLADDER: Unremarkable. GASTROINTESTINAL TRACT: Diverticulosis of the colon. Long segment wall thickening of the left colon and sigmoid colon. Long segment distribution favors colitis over diverticulitis. No evidence of obstruction, perforation or abscess. Abnormal bowel rotation with the right colon central to the small bowel. Small and large bowel are otherwise normal. The appendix is not seen. No ascites ABDOMINAL WALL: No significant hernia is appreciated. LYMPH NODES: Normal. VASCULAR: Unremarkable. PELVIC VISCERA: Prominent fibroid uterus. Adnexa appear unremarkable. OSSEOUS STRUCTURES: Median sternotomy. Mild spondylosis of the spine. CT/CT abdomen pelvis wo IV con IMPRESSION: Diverticulosis of the colon. Long wall thickening of the left colon and sigmoid colon. Long segment distribution favors colitis or diverticulitis. No evidence of obstruction, perforation or abscess. Fleischner guidelines were followed.
[2022-09-17 12:00] VITALS: BP 110/79; PULSE 66; RESP 18; TEMP 36.6; O2SAT 100; BMI 25.9
--- NOTE | 2022-09-17 12:00 | ED_ITS ---
HPI - GI Bleed General Chief complaint: Abdominal Pain Stated complaint: bloody stool Time Seen by Provider: 09/17/22 15:35 Source: patient Mode of arrival: ambulatory Limitations: no limitations History of Present Illness HPI Narrative: Patient comes to the emergency room complaining of abdominal pain for 3-4 days. Patient also reports rectal bleeding. Patient states that she has had this before, has history of colitis. Patient states that initially she was not sure if she was having abdominal pain from cramping from being on her period and was unsure if she was having rectal bleeding or vaginal bleeding. Today, it became evident that it was rectal bleeding. Patient initially had significant abdominal pain but self subsided Related Data Home Medications Medication Instructions Recorded Confirmed clindamycin HCl 300 mg capsule 300 mg PO BID 08/21/22 08/21/22 Previous Rx's Medication Instructions Recorded amoxicillin 500 mg-potassium 1 tab PO BID #20 tabs 09/17/22 clavulanate 125 mg tablet (Augmentin) tramadol 50 mg tablet 50 mg PO BID PRN pain #6 tabs 09/17/22 Allergies Allergy/AdvReac Type Severity Reaction Status Date / Time ibuprofen Allergy Hives Verified 09/15/22 14:12 Review of Systems Review of Systems: Constitutional : No Weight loss, No Fever, No Chills, No Night Sweats, No Fatigue, No Malaise ENT/Mouth : No Hearing loss, No Ear Pain, No Nasal Congestion, No Sinus Pain, No Hoarseness, No sore throat, No Rhinorrhea, No Swallowing Difficulty Eyes: No Eye Pain, No Swelling, No Redness, No Foreign Body, No Discharge, No Vision Changes Cardiovascular : No Chest Pain, No SOB, No Dyspnea on Exertion, No Orthopnea, No Edema, No Palpitations Respiratory : No Cough, No Sputum, No Wheezing, No Smoke Exposure, No Dyspnea Gastrointestinal : No Nausea, No Vomiting, No Diarrhea, no constipation, complaining of abdominal cramping/bilateral lower quadrant pain which self subsided, at this time no pain, complaining of rectal bleeding intermittently fo r 3-4 days Genitourinary : no irregular bleeding, No Dysuria, No Urinary Frequency, No Hematuria, No Urinary Incontinence, No Urgency, No Flank Pain, No Urinary Flow Changes, No Hesitancy Musculoskeletal : No joint pain, No Myalgias, No Joint Swelling Skin : No Skin Lesions, No rash Neuro : No Weakness, No Numbness, No Paresthesias, No Loss of Consciousness, No Dizziness, No Headache Psych : No Anxiety/Panic, No Depression, No SI/HI/AH/VH, No Social Issues, Heme/Lymph: No Bruising, No Bleeding,No Lymphadenopathy Endocrine : No Polyuria, No Polydipsia, No Temperature Intolerance [facility] Past Medical History Medical History Colitis GERD (gastroesophageal reflux disease) Marfan syndrome Sinusitis Surgical History Hx of eye surgery Family History Family History Father Cancer Social History Social History (Updated 08/21/22 @ 14:56 by ARTEM Oscar) Household Members: Family Housing: Apartment Do you presently have visiting nurse or other home services: No Alcohol intake: former Patient Tobacco Use Status: Current everyday Tobacco user Tobacco use type: Cigarette Cigarettes Per Day: 3 Years Smoked: 20 +/- Substance Use Type: Marijuana Advance Directives: Yes Advance Directives on File: Yes Advance Directives Date on File: 05/30/22 service: No Current occupational status: employed Physical Exam Vital Signs: Vital Signs: Last Vital Signs Temp 97.8 F 09/17/22 14:46 Pulse 59 09/17/22 14:46 Resp 18 09/17/22 14:46 BP 122/55 L 09/17/22 14:46 Pulse Ox 100 09/17/22 14:46 O2 Del Method Room Air 09/17/22 14:46 BMI result Body Mass Index 25.9 Const: Other: Appearance: Alert. Oriented X3. No acute distress. Well-appearing Eyes: Pupils equal, round and reactive to light. ENT: Pharynx normal. Neck: Normal inspection. Neck supple. No lymph nodes noted. No crepitus CVS: Normal heart rate and rhythm. Pulses normal. Normal S1 and S2 Respiratory: No respiratory distress. Breath sounds normal. No Wheezing. No rales Abdomen: Soft and nontender. No rigidity. No distention. Digital rectal exam shows brown stool Skin: Skin warm and dry. Normal skin color. Normal skin turgor. Extremities: No lower extremity edema. No Lacerations. No Rash Neuro: Oriented X 3. No motor deficit. No sensory deficit. Moving all extremities. No slurred speech. CN 2 through 12 grossly intact Psych: calm, cooperative, normal affect Course Course Course Narrative: RME - 37 yo female with history of TIA, Marfan's syndrome, history of colitis 2016 presents to the ER for evaluation of bloody stools, upper abdominal pain, nausea, vomiting, back pain for the last 3-4 days. Seen here 2 days ago but left without being seen in the main ER. Diffusely tender on exam in triage. VSS. Plan: labs, CT scan abd/pelvis Medical Decision Making Medical Decision Making [facility] Narrative: -negative occult blood -admission was considered for IV antibiotics, pain relief. However, patient st ates that she feels well and would prefer to continue treatment home and then follow up with Gastroenterology -CT scan showed diverticulitis versus colitis. Patient has had history of colitis in the past, more likely to be colitis. No perforations visualized. -white blood cell count 13.1, vital stable, no fever, sepsis not suspect -patient was given the 1st dose of Augmentin in the emergency room -patient has an appointment pending with Gastroenterology Admission/Observation Consideration of admission/observation: Escalation of care including admission/observation considered Lab Data [facility] Lab Attestation statement: I reviewed the patient's lab results. 09/17/22 12:20 09/17/22 12:20 Labs: Lab Results 09/17/22 09/17/22 09/17/22 Range/Units 12:20 12:20 12:20 WBC 13.1 H (4.8-10.8) X10*3/uL RBC 4.50 (4.20-5.50) X10*6/uL Hgb 13.7 (12.0-16.0) g/dl Hct 41.0 (37.0-47.0) % MCV 91.1 (80.0-98.0) fL MCH 30.4 (27.0-33.0) pg MCHC 33.4 (31.0-35.0) g/dl RDW 13.1 (11.0-16.0) % Plt Count 342 (160-400) X10*3/uL MPV 9.0 L (9.4-12.3) fL Immature Gran % (Auto) 0.3 (0.0-0.4) % Neut % (Auto) 74.6 H (45-73) % Lymph % (Auto) 19.8 L (20-40) % [place] % (Auto) 4.1 (2-11) % Eos % (Auto) 0.9 (0-4) % Baso % (Auto) 0.3 (0-2) % Lymph # (Auto) 2.6 (1.2-4.9) X10*3/uL [place] # (Auto) 0.5 (0.1-1.2) X10*3/uL Eos # (Auto) 0.1 (0.0-0.4) X10*3/uL Baso # (Auto) 0.0 (0.0-0.2) X10*3/uL Abs Immat Gran (auto) 0.04 H (0.00-0.03) X10*3/uL Absolute Neuts (auto) 9.8 H (2.0-8.3) x10*3/uL Absolute Nucleated RBC 0.000 (0.0-0.012) X10*3/uL Nucleated RBC % (auto) 0.0 (0.0-0.2) /100WBC Sodium 141 (135-145) mmol/L Potassium 4.8 (3.3-5.1) mmol/L Chloride 108 (96-108) mmol/L Carbon Dioxide 27 (22-29) mmol/L Anion Gap 11 L (12-20) BUN 7 L (9-16) mg/dL Creatinine 0.69 (0.5-1.4) mg/dL Estim Creat Clear Calc 126.0 Estimated GFR > 60 Random Glucose 93 (60-115) mg/dL Calcium 10.0 (8.4-10.2) mg/dL Magnesium 1.8 (1.6-2.6) mg/dL Total Bilirubin 0.3 (0.0-1.0) mg/dL Direct Bilirubin 0.1 (0.0-0.5) mg/dL AST 12 (5-31) U/L ALT 13 (0-31) U/L Alkaline Phosphatase 50 (39-117) U/L Total Protein 7.0 (6.5-8.0) g/dL Albumin 4.2 (3.5-5.0) g/dL Lipase 20 (8-78) U/L Beta HCG, Quant < 2 mIU/mL Urine Color Urine Appearance Urine pH (5.0-9.0) Ur Specific [place] (1.005-1.025) Urine Protein (Neg-Trace) mg/dL Urine Glucose (UA) (Negative) mg/dL Urine Ketones (Negative) mg/dL Urine Blood (Negative) Urine Nitrite (Negative) Ur Leukocyte Esterase (Negative) Urine RBC (0-2) /HPF Urine WBC (0-5) /HPF Ur Squamous Epith Cells (0-2) /HPF Urine Bacteria (None Seen) Hyaline Casts (0-2) /LPF 09/17/22 Range/Units 14:52 WBC (4.8-10.8) X10*3/uL RBC (4.20-5.50) X10*6/uL Hgb (12.0-16.0) g/dl Hct (37.0-47.0) % MCV (80.0-98.0) fL MCH (27.0-33.0) pg MCHC (31.0-35.0) g/dl RDW (11.0-16.0) % Plt Count (160-400) X10*3/uL MPV (9.4-12.3) fL Immature Gran % (Auto) (0.0-0.4) % Neut % (Auto) (45-73) % Lymph % (Auto) (20-40) % [place] % (Auto) (2-11) % Eos % (Auto) (0-4) % Baso % (Auto) (0-2) % Lymph # (Auto) (1.2-4.9) X10*3/uL [place] # (Auto) (0.1-1.2) X10*3/uL Eos # (Auto) (0.0-0.4) X10*3/uL Baso # (Auto) (0.0-0.2) X10*3/uL Abs Immat Gran (auto) (0.00-0.03) X10*3/uL Absolute Neuts (auto) (2.0-8.3) x10*3/uL Absolute Nucleated RBC (0.0-0.012) X10*3/uL Nucleated RBC % (auto) (0.0-0.2) /100WBC Sodium (135-145) mmol/L Potassium (3.3-5.1) mmol/L Chloride (96-108) mmol/L Carbon Dioxide (22-29) mmol/L Anion Gap (12-20) BUN (9-16) mg/dL Creatinine (0.5-1.4) mg/dL Estim Creat Clear Calc Estimated GFR Random Glucose (60-115) mg/dL Calcium (8.4-10.2) mg/dL Magnesium (1.6-2.6) mg/dL Total Bilirubin (0.0-1.0) mg/dL Direct Bilirubin (0.0-0.5) mg/dL AST (5-31) U/L ALT (0-31) U/L Alkaline Phosphatase (39-117) U/L Total Protein (6.5-8.0) g/dL Albumin (3.5-5.0) g/dL Lipase (8-78) U/L Beta HCG, Quant mIU/mL Urine Color Yellow Urine Appearance Clear Urine pH 7.0 (5.0-9.0) Ur Specific [place] 1.010 (1.005-1.025) Urine Protein Negative (Neg-Trace) mg/dL Urine Glucose (UA) Negative (Negative) mg/dL Urine Ketones Negative (Negative) mg/dL Urine Blood Moderate (2+) H (Negative) Urine Nitrite Negative (Negative) Ur Leukocyte Esterase Negative (Negative) Urine RBC 3-5 H (0-2) /HPF Urine WBC 0-5 (0-5) /HPF Ur Squamous Epith Cells 0-2 (0-2) /HPF Urine Bacteria None Seen (None Seen) Hyaline Casts 0-2 (0-2) /LPF Radiology Impression Discussion of test interpretation with radiology: I have reviewed the radiologist's reading. Radiologist Impression: FINDINGS: LUNG BASES: The visualized lung bases are unremarkable.? LIVER, GALLBLADDER, AND BILIARY TREE: The liver is normal in size, shape, and attenuation. No focal hepatic lesion or biliary ductal dilatation is present. The gallbladder is unremarkable with no evidence of radiopaque gallstones, gallbladder wall thickening, or obvious pericholecystic inflammatory changes.? PANCREAS: Unremarkable.? SPLEEN: Unremarkable.? ADRENAL GLANDS: Unremarkable.? KIDNEYS AND URETERS: The kidneys are normal in size, shape, and attenuation. No hydronephrosis, hydroureter, or calculi seen. No perinephric stranding. ? BLADDER: Unremarkable.? GASTROINTESTINAL TRACT: Diverticulosis of the colon. Long segment wall thickening of the left colon and sigmoid colon. Long segment distribution favors colitis over diverticulitis. No evidence of obstruction, perforation or abscess. Abnormal bowel rotation with the right colon central to the small bowel. Small and large bowel are otherwise normal. The appendix is not seen. No ascites ABDOMINAL WALL: No significant hernia is appreciated.? LYMPH NODES: Normal. VASCULAR: Unremarkable. PELVIC VISCERA: Prominent fibroid uterus. Adnexa appear unremarkable. OSSEOUS STRUCTURES: Median sternotomy. Mild spondylosis of the spine. CT/CT abdomen pelvis wo IV con IMPRESSION: Diverticulosis of the colon. Long wall thickening of the left colon and sigmoid colon. Long segment distribution favors colitis or diverticulitis. No evidence of obstruction, perforation or abscess. ? Fleischner guidelines were followed. Discharge Plan Discharge Clinical Impression: Colitis Patient Disposition: Home, Self-Care Instructions: Colitis (ED) Additional Instructions: Please follow-up with your primary care physician tomorrow. If you have any worsening or new symptoms, please return to the emergency room or call 911 Prescriptions: New amoxicillin-pot clavulanate [Augmentin] 500-125 mg tablet 1 tab PO BID Qty: 20 0RF tramadol 50 mg tablet 50 mg PO BID PRN (Reason: pain) Qty: 6 0RF No Action clindamycin HCl 300 mg capsule 300 mg PO BID Referrals: Gio Fry [Physician] - 09/22/22
[2022-09-17 12:26] LABS: MANUAL DIFF FLAG NO
[2022-09-17 12:30] LABS: Basophils Percent Auto 0.3 % (0-2); Eosinophils Absolute Auto 0.1 X10*3/uL (0.0-0.4); Eosinophils Percent Auto 0.9 % (0-4); Hemoglobin 13.7 g/dl (12.0-16.0); Imm Gran Abs Auto 0.04 X10*3/uL (0.00-0.03); Imm Gran Pct Auto 0.3 % (0.0-0.4); Lymphocytes Absolute Auto 2.6 X10*3/uL (1.2-4.9); Lymphocytes Percent Auto 19.8 % (20-40); Mean Corpuscular HGB Conc 33.4 g/dl (31.0-35.0); Mean Corpuscular Hemoglobin 30.4 pg (27.0-33.0); Mean Corpuscular Volume 91.1 fL (80.0-98.0); Monocytes Absolute Auto 0.5 X10*3/uL (0.1-1.2); Monocytes Percent Auto 4.1 % (2-11); Neutrophils Absolute Auto 9.8 x10*3/uL (2.0-8.3); Neutrophils Percent Auto 74.6 % (45-73); Platelet Count 342 X10*3/uL (160-400); Red Cell Distribution Width 13.1 % (11.0-16.0); White Blood Count 13.1 X10*3/uL (4.8-10.8)
[2022-09-17 12:50] LABS: Alanine Aminotransferase 13 U/L (0-31); Albumin Level 4.2 g/dL (3.5-5.0); Alkaline Phosphatase 50 U/L (39-117); Anion Gap 11 (12-20); Aspartate Amino Transferase 12 U/L (5-31); Bilirubin Direct 0.1 mg/dL (0.0-0.5); Bilirubin Total 0.3 mg/dL (0.0-1.0); Blood Urea Nitrogen 7 mg/dL (9-16); Carbon Dioxide 27 mmol/L (22-29); Chloride 108 mmol/L (96-108); Estimated Glomerular Filt Rate > 60; Glucose Random 93 mg/dL (60-115); Lipase 20 U/L (8-78); Magnesium 1.8 mg/dL (1.6-2.6); Potassium 4.8 mmol/L (3.3-5.1); Sodium 141 mmol/L (135-145)
[2022-09-17 12:54] LABS: HCG Quantitative < 2 mIU/mL
[2022-09-17 14:46] VITALS: BP 122/55; PULSE 59; RESP 18; TEMP 36.6; O2SAT 100
[2022-09-17 14:59] LABS: Appearance Urine Clear; Color Urine Yellow; Glucose Urine UA Negative (Negative); Leukocyte Esterase Urine Negative (Negative); Nitrite Urine Negative (Negative); UMIC TRIGGER UACC YES; Urine Blood Moderate (2+) (Negative); Urine Ketones Negative (Negative); Urine Protein Negative (Neg-Trace)
[2022-09-17 15:06] LABS: Bacteria Urine None Seen (None Seen); Hyaline Casts Urine 0-2 /LPF (0-2); Squamous Epithelial Cell Urine 0-2 /HPF (0-2); WBC Urine 0-5 /HPF (0-5)
[2022-09-17] MEDS: Acetaminophen 325 MG TABLET 975 MG PO (16:33)
[2022-09-17] MEDS: Amoxicillin/Potassium Clav 875 MG TABLET PO (16:34)
[2022-09-17 16:35] LABS: OBS Int Ctl Valid YES; OBS1 NEGATIVE (NEGATIVE)
== END 2022-09-17 16:51 | disposition home or self-care (01) ==
PROVIDERS: Physician Assistant; Emergency Provider Emergency Medicine; PCP Internal Medicine
DX: K52.9 Noninfective gastroenteritis and colitis, unspecified (principal); K62.5 Hemorrhage of anus and rectum; R10.9 Unspecified abdominal pain; F17.210 Nicotine dependence, cigarettes, uncomplicated; F12.90 Cannabis use, unspecified, uncomplicated
CPT/HCPCS: 36415; 74176; 80048; 80076; 81001; 82272; 83690; 83735; 84702; 85025; 99284

== ENCOUNTER 2022-12-01 13:22 | Outpatient (REF) | payer OTHER, SELFPAY ==
--- NOTE | 2022-12-01 14:10 | PFT_ITS ---
FLOWS: 1. FEV1 103% of predicted at 3.98 L. 2. FVC 111% of predicted at 5.06 L. 3. FEV1 to FVC ratio of 0.79. 4. No bronchodilator response except in small to medium airways. LUNG VOLUMES: 1. Total lung capacity 101% of predicted at 6.18 L. 2. Residual volume 54% of predicted at 1.01 L. 3. Slow vital capacity 122% of predicted at 5.18 L. 4. Expiratory reserve volume 136% of predicted at 2.13 L. 5. Diffusion capacity is mildly decreased. IMPRESSION: No obstructive or restrictive ventilatory defect. No bronchodilator response except in small to medium airways. Isolated defect in diffusion capacity, suggests underlying emphysema or pulmonary parenchymal disease. Clinical correlation is advised. Dave Schmid MD AP/MODL / [id number]
== END 2022-12-01 13:23 | disposition home or self-care (01) ==
LOC: HO.RESP 13:22
PROVIDERS: PCP Internal Medicine; Visit Provider Internal Medicine Cardiovascular Disease
DX: R07.89 Other chest pain (principal)
CPT/HCPCS: 94010; 94727; 94729

== ENCOUNTER → 2022-12-01 14:10 | Outpatient (BNV) | payer OTHER, SELFPAY | PROVIDERS: PCP Internal Medicine; Visit Provider Internal Medicine Pulmonary Disease | DX: R07.89 Other chest pain (principal) | CPT/HCPCS: 94060; 94727; 94729 ==

== ENCOUNTER 2022-12-15 15:33 | Outpatient (AMB) | payer OTHER, SELFPAY ==
[2022-12-15 15:37] VITALS: BP 94/60; PULSE 80; O2SAT 98; BMI 25.1
--- NOTE | 2022-12-15 15:37 | A.OFFVIS_ITS ---
Intake Vital Signs 12/15/22 15:37 Height 5 ft 11 in Weight 179 lb 10.828 oz BMI 25.1 BP 94/60 Blood Pressure Location Rt brachial Position Sitting Pulse 80 Pulse Source Doppler Pulse Oximetry (%) 98 Oxygen Delivery Method Room Air Intake Visit Reasons: Shortness of breath Allergies ibuprofen Allergy (Verified 12/15/22 15:39) Hives HPI Shortness of breath HPI Details 37-year-old lady with underlying Marfan syndrome, active 20 pack-year smoker who has had pulmonary function test that showed decrease in diffusion capacity, but now obstructive ventilatory defect referred for pulmonary evaluation. Patient denies any pulmonary related concerns or complaints at this time. She is interested in smoking. She denies family history of lung disease. She denies an acute exacerbation at this time. Results of PFT reviewed, mildly decreased diffusion capacity, but no fixed obstruction or significant bronchodilator response, except in small to medium airways. [facility] Medical History (Updated 12/15/22 @ 16:02 by Dave Schmid MD) CENTENO (dyspnea on exertion) Sinusitis GERD (gastroesophageal reflux disease) Colitis Marfan syndrome Surgical History Hx of eye surgery Family History Father Cancer Social History (Updated 08/21/22 @ 14:56 by ARTEM Oscar) Household Members: Family Housing: Apartment Do you presently have visiting nurse or other home services: No Alcohol intake: former Patient Tobacco Use Status: Current everyday Tobacco user Tobacco use type: Cigarette Cigarettes Per Day: 3 Years Smoked: 20 +/- Substance Use Type: Marijuana Advance Directives Date on File: 05/30/22 service: No Current occupational status: employed Female Reproductive History Menstrual Age of Menarche: 10 Review of Systems Const Denies daytime sleepiness, Denies excessive sweating, Denies fatigue, Denies fever(s), Denies lethargy, Denies malaise, Denies night sweats, Denies snoring and Denies weight loss Eyes Denies blurry vision and Denies itchy eyes ENT Denies nasal congestion, Denies post nasal drip, Denies sinus pain, Denies sinus pressure and Denies other ( Thrush) Card Denies chest pain, Denies pedal edema, Denies dyspnea, Denies orthopnea and Denies paroxysmal nocturnal dyspnea Resp Denies cough, Denies hemoptysis, Denies excessive phlegm production, Denies dyspnea, Denies snoring and Denies wheezing GI Denies abdominal pain and Denies heartburn Musc Denies myalgias, Denies arthralgias and Denies joint swelling Skin/Breast Denies rash Neuro Denies memory loss and Denies seizure-like activity Psych Denies abnormal sleep pattern, Denies anxiety and Denies memory loss Endo Denies excessive sweating, Denies fatigue and Denies heat intolerance Maldonado/Lymph Denies easy bruising Aller/Immun Denies itchy eyes, Denies seasonal rhinorrhea and Denies wheezing Physical Exam Vital Signs: Last Vital Signs Pulse 80 12/15/22 15:37 BP 94/60 12/15/22 15:37 Pulse Ox 98 12/15/22 15:37 Oxygen Delivery Method Room Air 12/15/22 15:37 BMI result Body Mass Index 25.1 Const General: no acute distress and alert Nutritional Appearance: not obese Orientation/consciousness: Other orientation findings ( oriented) HEENT Head: Yes atraumatic Eyes General: appearance normal, both eyes and all related structures Sclerae: sclerae normal EOM: EOMs intact bilaterally Neck Neck: Yes supple Lymphatic: no lymphadenopathy noted Resp Effort & Inspection: normal respiratory effort and no use of accessory muscles Auscultation: clear to auscultation bilaterally Cardio Rate: regular rate Rhythm: regular rhythm Heart sounds: no gallops, no murmurs and no rubs Skin General skin exam: other ( warm) Extrem General: No clubbing, No cyanosis and No edema Assessment & Plan Assessment & Plan (1) Pulmonary emphysema: Code(s): J43.9 - Emphysema, unspecified (2) Marfan syndrome: Code(s): Q87.40 - Marfan's syndrome, unspecified Plan Underlying pulmonary emphysema, patient is likely most susceptible to cigarette smoke effect secondary to underlying morphine syndrome. Results of CT chest and pulmonary function test reviewed. Patient has been advised on smoking cessation and started on nicotine replacement. At this time patient denies significant pulmonary related concerns or complaints. Will start on empiric as needed albuterol MDI. Medications: New nicotine (polacrilex) 4 mg buccal Q1H 220 ea 3RF 30 days nicotine (polacrilex) 4 mg buccal Q2-4H PRN 162 ea 6RF nicotine cravings 30 days albuterol sulfate 90 mcg/actuation 2 puffs inhalation Q4-6H PRN 1 ea 6RF shortness of breath or wheezing 30 days Coding Level of Care Code New Pt Level 4 (56619) Diagnoses Pulmonary emphysema J43.9 Marfan syndrome Q87.40
== END 2022-12-15 16:00 | disposition home or self-care (01) ==
PROVIDERS: PCP Internal Medicine; Visit Provider Internal Medicine Pulmonary Disease
DX: J43.9 Emphysema, unspecified (principal); Q87.40 Marfan syndrome, unspecified
CPT/HCPCS: 99214

== ENCOUNTER → 2022-12-15 15:33 | Outpatient (BNVA) | payer OTHER, SELFPAY | PROVIDERS: PCP Internal Medicine; Visit Provider Internal Medicine Pulmonary Disease ==

== ENCOUNTER 2023-01-26 | Outpatient (REF) | payer MEDICAID, SELFPAY ==
[2023-01-27 13:23] LABS: Influenza A PCR NEGATIVE (Negative); Influenza B PCR NEGATIVE (Negative); Resp Syncy Virus RNA Qual PCR NEGATIVE (Negative); SARS COV2 PCR INHOUSE NEGATIVE (Negative)
== END 2023-01-26 00:01 | disposition home or self-care (01) ==
LOC: HO.HHCLNP
PROVIDERS: Visit Provider Nurse Practitioner Primary Care
DX: Z11.52 Encounter for screening for COVID-19 (principal); Z20.822 Contact with and (suspected) exposure to COVID-19; J06.9 Acute upper respiratory infection, unspecified
CPT/HCPCS: 0241U

== ENCOUNTER 2023-03-04 13:42 | Outpatient (AMB) | payer MEDICAID, SELFPAY ==
--- NOTE | 2023-03-04 13:45 | MHC.OFFVIS ---
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 She has a history of TIA, aortic root repair and Marfan syndrome. She has been working on quitting smoking and has reduced the amount she smokes greatly. She reports the same chest discomfort she had in the past but with less in frequency. She thinks this is due to a reduction of stress. She denies shortness of breath. COUNTS INCLUDE 234 BEDS AT THE [facility] Medical History CENTENO (dyspnea on exertion) Sinusitis GERD (gastroesophageal reflux disease) Colitis Marfan syndrome Surgical History Hx of eye surgery Family History Father Cancer Social History Household Members: Family Housing: Apartment Do you presently have visiting nurse or other home services: No Alcohol intake: former Patient Tobacco Use Status: Current everyday Tobacco user Tobacco use type: Cigarette Cigarettes Per Day: 3 Years Smoked: 20 +/- Substance Use Type: Marijuana Advance Directives Date on File: 05/30/22 service: No Current occupational status: employed Female Reproductive History Menstrual Age of Menarche: 10 Review of Systems Const Denies chills, Denies fatigue, Denies fever(s), Denies frequent falls, Denies weakness, Denies weight gain and Denies weight loss ENT Denies dizziness Card Denies chest pain, Denies leg edema, Denies lightheadedness, Denies palpitations, Denies dyspnea, Denies dyspnea on exertion, Denies orthopnea and Denies other (loss of consciousness) Resp Denies cough, Denies dyspnea and Denies dyspnea on exertion GI Denies hematochezia and Denies change in stool character Musc Denies abnormal gait, Denies muscle weakness, Denies numbness, Denies radiating pain into limb and Denies tingling Neuro Denies abnormal gait, Denies dizziness, Denies frequent falls, Denies numbness, Denies tingling and Denies weakness Endo Denies fatigue and Denies palpitations Physical Exam Vital Signs: Last Vital Signs Pulse 86 03/04/23 13:49 BP 128/84 03/04/23 13:49 BMI result Body Mass Index 25.5 Assessment & Plan Assessment & Plan (1) Marfan syndrome: Code(s): Q87.40 - Marfan syndrome, unspecified (2) H/O aortic root repair: Code(s): Z98.890 - Other specified postprocedural states Plan Report any new or worsening symptoms. Continue to reduce smoking until complete cessation. Will return in [address] Charles Sooner if needed. Coding Level of Care Code Est Pt Level 3 (80671) Diagnoses Marfan syndrome Q87.40 H/O aortic root repair Z98.890
[2023-03-04 13:49] VITALS: BP 128/84; PULSE 86; BMI 25.5
== END 2023-03-04 14:13 | disposition home or self-care (01) ==
PROVIDERS: PCP Internal Medicine; Visit Provider Nurse Practitioner
DX: Q87.40 Marfan syndrome, unspecified (principal); Z98.890 Other specified postprocedural states
CPT/HCPCS: 99213

== ENCOUNTER → 2023-03-04 13:42 | Outpatient (BNVA) | payer MEDICAID, SELFPAY | PROVIDERS: PCP Internal Medicine; Visit Provider Nurse Practitioner | DX: Q87.40 Marfan syndrome, unspecified (principal); Z98.890 Other specified postprocedural states | CPT/HCPCS: 99212 ==

== ENCOUNTER 2023-03-27 10:20 | Outpatient (AMB) | payer MEDICAID, SELFPAY ==
[2023-03-27 10:26] VITALS: BP 134/75; PULSE 85; BMI 26.1
--- NOTE | 2023-03-27 10:26 | MHC.OFFVIS ---
Intake Vital Signs 03/27/23 10:26 Height 5 ft 11 in Weight 186 lb 15.232 oz BMI 26.1 BP 134/75 Blood Pressure Location Lt brachial Position Sitting Pulse 85 Pulse Source Pulse Oximeter Intake Visit Reasons: IBS with diarrhea Intake Note: Pt presents to the office today for IBS with diarrhea. Pt states she is feeling okay but states she has really bad nausea everyday at random times of the day. Pt states she get diarrhea off and on but states she does get stomach pain. Pt states she does vomit when the nausea gets really bad. Allergies ibuprofen Allergy (Verified 03/27/23 10:28) Hives HPI IBS with diarrhea HPI Details 37 years old female with past medical history of pulmonary emphysema, Marfan syndrome, history of aortic root repair, dysmenorrhea is here today for initial consultation. Patient reports that she has been having GI symptoms for the last several months. Patient was seen twice in September in the ER for nausea and vomiting and then abdominal pain and discomfort with cramping and diarrhea. Patient had mild leukocytosis most likely related to her vomiting and CT scan showed diverticulosis versus colitis. Patient was sent home with Augmentin for 10 days, completed the course. GASTROINTESTINAL TRACT: Diverticulosis of the colon. Long segment wall thickening of the left colon and sigmoid colon. Long segment distribution favors colitis over diverticulitis. No evidence of obstruction, perforation or abscess. Abnormal bowel rotation with the right colon central to the small bowel. Small and large bowel are otherwise normal. The appendix is not seen. No ascites Patient reports postprandial epigastric discomfort, abdominal bloating, occasional loose stools. Patient denies melena, hematochezia, unintentional weight loss or ribbon like stools. Patient does admit to be constipated as well. Occasionally patient will have constipation followed by diarrhea. Patient reports that she does not have a normal bowel movements. Patient also reports dyspepsia without dysphagia or odynophagia. Patient reports that sometimes her nausea is so severe that she will feel like she needs to vomit. Patient reports that that usually happens randomly. Patient reports that she tries to avoid eating certain food. Patient continues to smoke few cigarettes a day. No family history of IBD [facility] Medical History CENTENO (dyspnea on exertion) Sinusitis GERD (gastroesophageal reflux disease) Colitis Marfan syndrome Surgical History Hx of eye surgery Family History Father Cancer Social History (Updated 03/27/23 @ 10:28 by Yani Cowan MA) Household Members: Family Housing: Apartment Do you presently have visiting nurse or other home services: No Alcohol intake: former Patient Tobacco Use Status: Former Tobacco user Tobacco use type: Cigarette Years Smoked: 20 +/- Substance Use Type: Marijuana Advance Directives Date on File: 05/30/22 service: No Current occupational status: employed Female Reproductive History Menstrual Age of Menarche: 10 Review of Systems Const Denies weight gain and Denies weight loss ENT Reports no additional complaints, Denies dysphagia and Denies odynophagia Card Reports no additional complaints Resp Reports no additional complaints GI Reports abdominal pain, Denies belching, Denies melena, Reports bloating, Denies dysphagia, Denies excessive flatus, Reports dyspepsia, Reports heartburn, Denies diarrhea, Reports loose stools, Reports nausea, Denies odynophagia and Reports vomiting (Occasional) Reports no additional complaints Musc Reports no additional complaints Neuro Reports no additional complaints Psych Reports no additional complaints Endo Reports no additional complaints Physical Exam Vital Signs: Last Vital Signs Pulse 85 03/27/23 10:26 BP 134/75 03/27/23 10:26 BMI result Body Mass Index 26.1 Const General: healthy appearing, no acute distress and well developed Nutritional Appearance: well nourished Orientation/consciousness: patient oriented x3 HEENT Head: Yes normal to inspection, Yes normocephalic and Yes atraumatic Face and sinus: Yes normal facial exam Mouth: Normal oral and palatal mucosa present Throat: Yes posterior oropharynx normal, Yes tonsils normal and Yes uvula midline Eyes General: appearance normal, both eyes and all related structures Neck Neck: Yes normal visual inspection, Yes full ROM and Yes trachea midline Thyroid: Thyroid normal Resp Effort & Inspection: normal respiratory effort, able to speak in complete sentences, no tracheal deviation and symmetric chest movement Auscultation: clear to auscultation bilaterally Cardio Rate: regular rate GI Inspection: Yes normal to inspection and No distended Palpation (GI): Soft to palpation, not firm, nontender and No hepatosplenomegaly present Auscultation: normal bowel sounds General: Yes no CVA tenderness Back/Spine/Pelvis Back: no CVA tenderness Skin General skin exam: elasticity normal, turgor normal and dry skin Neuro General: patient oriented x3 Psych Appearance: grossly normal Mental Status: mental status grossly normal Results Reviewed Results Reviewed: CT SCAN OF ABDOMEN AND PELVIS 09/17/2022 (ED VISIT) FINDINGS: LUNG BASES: The visualized lung bases are unremarkable. LIVER, GALLBLADDER, AND BILIARY TREE: The liver is normal in size, shape, and attenuation. No focal hepatic lesion or biliary ductal dilatation is present. The gallbladder is unremarkable with no evidence of radiopaque gallstones, gallbladder wall thickening, or obvious pericholecystic inflammatory changes. PANCREAS: Unremarkable. SPLEEN: Unremarkable. ADRENAL GLANDS: Unremarkable. KIDNEYS AND URETERS: The kidneys are normal in size, shape, and attenuation. No hydronephrosis, hydroureter, or calculi seen. No perinephric stranding. BLADDER: Unremarkable. GASTROINTESTINAL TRACT: Diverticulosis of the colon. Long segment wall thickening of the left colon and sigmoid colon. Long segment distribution favors colitis over diverticulitis. No evidence of obstruction, perforation or abscess. Abnormal bowel rotation with the right colon central to the small bowel. Small and large bowel are otherwise normal. The appendix is not seen. No ascites ABDOMINAL WALL: No significant hernia is appreciated. LYMPH NODES: Normal. VASCULAR: Unremarkable. PELVIC VISCERA: Prominent fibroid uterus. Adnexa appear unremarkable. OSSEOUS STRUCTURES: Median sternotomy. Mild spondylosis of the spine. CT/CT abdomen pelvis wo IV con IMPRESSION: Diverticulosis of the colon. Long wall thickening of the left colon and sigmoid colon. Long segment distribution favors colitis or diverticulitis. No evidence of obstruction, perforation or abscess. Assessment & Plan Assessment & Plan (1) Epigastric abdominal pain: Code(s): R10.13 - Epigastric pain (2) History of colitis: Code(s): Z87.19 - Personal history of other diseases of the digestive system (3) History of diverticulitis: Code(s): Z87.19 - Personal history of other diseases of the digestive system (4) Postprandial abdominal bloating: Code(s): R14.0 - Abdominal distension (gaseous) (5) IBS (irritable bowel syndrome): Code(s): K58.9 - Irritable bowel syndrome without diarrhea Qualifiers: Irritable bowel syndrome type: with both diarrhea and constipation Qualified Code(s): K58.2 - Mixed irritable bowel syndrome (6) GERD (gastroesophageal reflux disease): Code(s): K21.9 - Gastro-esophageal reflux disease without esophagitis Qualifiers: Esophagitis presence: esophagitis presence not specified Qualified Code(s): K21.9 - Gastro-esophageal reflux disease without esophagitis Plan Will rule out IBD, checked CRP, calprotectin. Patient reports epigastric discomfort postprandially we will check transglutaminase to rule out celiac. Will check thyroid study, lipase, liver panel. Will check for H pylori and treat empirically if positive. Check vitamin B12, folate, vitamin-D level. Discussed with patient also avoiding certain food. Avoiding lactose and gluten for now. Low FODMAP diet discussed with patient. List of food recommended as well as list of food to avoid given to patient. Patient most likely has IBS with both diarrhea and constipation component. Patient does not empty completely hands diarrhea. Will try to bulk her stools with Citrucel. Patient can take it daily and increase the dose if needed. Patient will start taking Senokot in the evening to help her eliminate her bowels better. I will start her on pantoprazole for acid reflux. Discussed with patient avoiding dietary triggers late night snacking. Staying upright for minimal 3 hours after meals discussed with patient. Patient will return in 2 months, sooner on as needed basis. Patient is agreeable to this plan and verbalizes understanding of instructions. She was given the opportunity to ask questions and all questions answered. Thank you for allowing me to participate in her care Orders: Orders C Reactive Protein 04/03/23 K58.9 - Irritable bowel syndrome without diarrhea Calprotectin, Fecal 03/27/23 R15.9 - Full incontinence of feces Transglutaminase Ab IgG 04/03/23 R10.9 - Unspecified abdominal pain Transglutaminase IgA 04/03/23 R10.9 - Unspecified abdominal pain TSH reflex Free T4 04/03/23 K59.00 - Constipation, unspecified Pancreatic Elastase-1 03/27/23 R10.9 - Unspecified abdominal pain Lipase 04/03/23 R10.9 - Unspecified abdominal pain Liver Panel 04/03/23 R10.9 - Unspecified abdominal pain Vitamin B12 and Folate 04/03/23 R19.7 - Diarrhea, unspecified Vitamin D 25-OH (D2 and D3) 04/03/23 E55.9 - Vitamin D deficiency, unspecified H Pylori Breath Test 03/31/23 R10.13 - Epigastric pain Medications: New methylcellulose (laxative) (Citrucel) 500 mg PO DAILY 30 tabs 2RF K59.00 - Constipation, unspecified sennosides (Natural Senna Laxative) 17.2 mg (2 x 8.6 mg) PO BEDTIME 60 tabs 1RF constipation K59.00 - Constipation, unspecified pantoprazole take one tablet half an hour before breakfast 40 mg PO DAILY 30 tabs 2RF K21.9 - Gastro-esophageal reflux disease without esophagitis Coding Level of Care Code New Pt Level 4 (69475) Diagnoses Epigastric abdominal pain R10.13 History of colitis Z87.19 History of diverticulitis Z87.19 Postprandial abdominal bloating R14.0 Irritable bowel syndrome with both constipation and diarrhea K58.2 Irritable bowel syndrome type: with both diarrhea and constipation Gastroesophageal reflux disease, unspecified whether esophagitis present K21.9 Esophagitis presence: esophagitis presence not specified Time Spent (min) 45 Comment 30 minutes spent with patient and additional 15 minutes spent reviewing her records
== END 2023-03-27 12:17 | disposition home or self-care (01) ==
PROVIDERS: PCP Internal Medicine; Visit Provider Nurse Practitioner Family
DX: R10.13 Epigastric pain (principal); Z87.19 Personal history of other diseases of the digestive system; R14.0 Abdominal distension (gaseous); K58.2 Mixed irritable bowel syndrome; K21.9 Gastro-esophageal reflux disease without esophagitis
CPT/HCPCS: 99204

== ENCOUNTER 2023-03-27 10:20 | Outpatient (REF) | payer MEDICAID, SELFPAY ==
[2023-04-02 11:45] LABS: H Pylori Breath Test Negative (Negative)
== END 2023-03-27 10:21 | disposition home or self-care (01) ==
LOC: HO.LAB 10:20
PROVIDERS: PCP Internal Medicine; Visit Provider Nurse Practitioner Family
DX: R10.13 Epigastric pain (principal); R14.0 Abdominal distension (gaseous); K58.2 Mixed irritable bowel syndrome; K21.9 Gastro-esophageal reflux disease without esophagitis; R15.9 Full incontinence of feces; Z87.19 Personal history of other diseases of the digestive system
CPT/HCPCS: 83013; 99212

== ENCOUNTER 2023-04-03 14:31 | Outpatient (REF) | payer MEDICAID, SELFPAY ==
[2023-04-03 14:56] LABS: MANUAL DIFF FLAG NO
[2023-04-03 15:05] LABS: Basophils Percent Auto 0.4 % (0-2); Eosinophils Absolute Auto 0.2 X10*3/uL (0.0-0.4); Eosinophils Percent Auto 1.9 % (0-4); Hematocrit 42.1 % (37.0-47.0); Hemoglobin 14.4 g/dl (12.0-16.0); Imm Gran Abs Auto 0.02 X10*3/uL (0.00-0.03); Imm Gran Pct Auto 0.2 % (0.0-0.4); Lymphocytes Absolute Auto 2.8 X10*3/uL (1.2-4.9); Mean Corpuscular HGB Conc 34.2 g/dl (31.0-35.0); Mean Corpuscular Hemoglobin 30.9 pg (27.0-33.0); Mean Corpuscular Volume 90.3 fL (80.0-98.0); Mean Platelet Volume 9.4 fL (9.4-12.3); Monocytes Absolute Auto 0.6 X10*3/uL (0.1-1.2); Monocytes Percent Auto 6.8 % (2-11); Neutrophils Absolute Auto 5.7 x10*3/uL (2.0-8.3); Neutrophils Percent Auto 60.7 % (45-73); Platelet Count 346 X10*3/uL (160-400); Red Blood Count 4.66 X10*6/uL (4.20-5.50); White Blood Count 9.4 X10*3/uL (4.8-10.8)
[2023-04-03 15:10] LABS: Estimated Average Glucose 88 mg/dL; Hemoglobin A1c % 4.7 % (<6.0)
[2023-04-03 15:41] LABS: Alanine Aminotransferase 10 U/L (0-31); Albumin Level 4.4 g/dL (3.5-5.0); Alkaline Phosphatase 61 U/L (39-117); Anion Gap 12 (12-20); Aspartate Amino Transferase 12 U/L (5-31); Bilirubin Direct 0.1 mg/dL (0.0-0.5); Bilirubin Total 0.3 mg/dL (0.0-1.0); Blood Urea Nitrogen 7 mg/dL (9-16); Calcium 9.6 mg/dL (8.4-10.2); Carbon Dioxide 26 mmol/L (22-29); Chloride 105 mmol/L (96-108); Estimated Glomerular Filt Rate > 60; Glucose Random 107 mg/dL (60-115); Lipase 37 U/L (8-78); Potassium 3.8 mmol/L (3.3-5.1); Sodium 139 mmol/L (135-145); Total Protein 7.3 g/dL (6.5-8.0)
[2023-04-03 15:50] LABS: TSH reflex Free T4 0.58 uIU/mL (0.32-4.0)
[2023-04-03 15:55] LABS: TSH reflex Free T4 0.67 uIU/mL (0.32-4.0)
[2023-04-03 16:07] LABS: Folate 8.8 ng/mL (> or = 4.0); Vitamin B12 279 pg/mL (200-900)
[2023-04-03 16:32] LABS: CT PCR NOT DETECTED (Not Detect.); NG PCR NOT DETECTED (Not Detect.)
[2023-04-06 03:55] LABS: HIV AB/AG Nonreactive (Nonreactive); HIV Num 1 0.06 S/CO (0.00-0.99); ~HepC Num1 0.14 S/CO (0.00-0.79); ~Hepatitis C Antibody Nonreactive (Nonreactive)
[2023-04-08 13:13] LABS: Vitamin D 25-OH, D2 <4 ng/mL; Vitamin D 25-OH, D3 13 ng/mL; Vitamin D 25-OH, Total 13 ng/mL (30-100)
[2023-04-08 22:03] LABS: Transglutaminase Ab IgG <1.0 U/mL; Transglutaminase IgA <1.0 U/mL
== END 2023-04-03 14:32 | disposition home or self-care (01) ==
LOC: HO.LAB 14:31
PROVIDERS: PCP Internal Medicine; Visit Provider Nurse Practitioner Family
DX: Z00.00 Encounter for general adult medical examination without abnormal findings (principal); K58.2 Mixed irritable bowel syndrome; R10.9 Unspecified abdominal pain; E55.9 Vitamin D deficiency, unspecified
CPT/HCPCS: 0353U; 36415; 80048; 80076; 82306; 82607; 82746; 83036; 83690; 84443; 85025; 86140; 86364; 86803; 87389

== ENCOUNTER 2023-04-29 14:00 | Outpatient (RCR) | payer MEDICAID, SELFPAY | END 2023-04-29 15:04 | disposition home or self-care (01) | LOC: HO.PT 14:00 | PROVIDERS: PCP Internal Medicine; Visit Provider Internal Medicine | DX: M54.50 Low back pain, unspecified (principal) | CPT/HCPCS: 97110; 97161; 97530 ==

== ENCOUNTER 2023-04-30 15:37 | Outpatient (REF) | payer MEDICAID, SELFPAY ==
[2023-05-05 22:12] LABS: Calprotectin, Fecal 5 mcg/g
[2023-05-08 18:59] LABS: Pancreatic Elastase-1 >500 mcg/g
== END 2023-04-30 15:38 | disposition home or self-care (01) ==
LOC: HO.LNP 15:37
PROVIDERS: Visit Provider Nurse Practitioner Family
DX: R15.9 Full incontinence of feces (principal); R10.9 Unspecified abdominal pain
CPT/HCPCS: 82656; 83993

== ENCOUNTER 2023-05-27 14:55 | Outpatient (AMB) | payer MEDICAID, SELFPAY ==
[2023-05-27 14:56] VITALS: BP 127/68; PULSE 94; BMI 26.4
--- NOTE | 2023-05-27 14:56 | A.OFFVIS_ITS ---
Intake Vital Signs 05/27/23 14:56 Height 5 ft 11 in Weight 189 lb 9.561 oz BMI 26.4 BP 127/68 Blood Pressure Location Lt brachial Position Sitting Pulse 94 Pulse Source Pulse Oximeter Intake Visit Reasons: 2 months follow up Intake Note: Pt presents to the office today for a 2 month follow up for epigastric abdominal pain. Pt states she does still get some abdominal pain but not as painful and doesn't happen as often. Pt states she believes her pain is more towards her menstrual cycle time. She also states she has cut jose on caffeine and oily foods which she believes has helped some. Pt denies any V/D. Pt states she does get nauseous often at random times of the day. Allergies ibuprofen Allergy (Verified 05/27/23 14:58) Hives HPI 2 months follow up HPI Details LAST VISIT Epigastric abdominal pain History of colitis History of diverticulitis Postprandial abdominal bloating IBS (irritable bowel syndrome) GERD (gastroesophageal reflux disease) Plan Will rule out IBD, checked CRP, calprotectin. Patient reports epigastric discomfort postprandially we will check transglutaminase to rule out celiac. Will check thyroid study, lipase, liver panel. Will check for H pylori and treat empirically if positive. Check vitamin B12, folate, vitamin-D level. Discussed with patient also avoiding certain food. Avoiding lactose and gluten for now. Low FODMAP diet discussed with patient. List of food recommended as well as list of food to avoid given to patient. Patient most likely has IBS with both diarrhea and constipation component. Patient does not empty completely hands diarrhea. Will try to bulk her stools with Citrucel. Patient can take it daily and increase the dose if needed. Patient will start taking Senokot in the evening to help her eliminate her bowels better. I will start her on pa ntoprazole for acid reflux. Discussed with patient avoiding dietary triggers late night snacking. Staying upright for minimal 3 hours after meals discussed with patient. Patient will return in 2 months, sooner on as needed basis. Patient is agreeable to this plan and verbalizes understanding of instructions. She was given the opportunity to ask questions and all questions answered. ? Thank you for allowing me to participate in her care Orders Orders C Reactive Protein 04/03/23 K58.9 Calprotectin, Fecal 03/27/23 R15.9 Transglutaminase Ab IgG 04/03/23 R10.9 Transglutaminase IgA 04/03/23 R10.9 TSH reflex Free T4 04/03/23 K59.00 Pancreatic Elastase-1 03/27/23 R10.9 Lipase 04/03/23 R10.9 Liver Panel 04/03/23 R10.9 Vitamin B12 and Folate 04/03/23 R19.7 Vitamin D 25-OH (D2 and D3) 04/03/23 E55.9 H Pylori Breath Test 03/31/23 R10.13 Medications New methylcellulose (laxative) (Citrucel) 500 mg PO DAILY 30 tabs 2RF K59.00 sennosides (Natural Senna Laxative) 17.2 mg (2 x 8.6 mg) PO BEDTIME 60 tabs 1RF constipation K59.00 pantoprazole take one tablet half an hour before breakfast 40 mg PO DAILY 30 tabs 2RF K21.9 TODAY'S VISIT Patient is here today for follow-up. Patient reports she continues to have epigastric discomfort with occasional nausea. States the pantoprazole helps. Patient tried to cut down some of the dietary triggers/caffeine and soda. Patient continues with occasional postprandial loose stools. CRP negative as well as normal calprotectin. Patient denies melena, hematochezia, unintentional weight loss or ribbon like stools. Patient denies any family history IBD. [facility] Medical History CENTENO (dyspnea on exertion) Sinusitis GERD (gastroesophageal reflux disease) Colitis Marfan syndrome Surgical History Hx of eye surgery Family History Father Cancer Social History Household Members: Family Housing: Apartment Do you presently have visiting nurse or other home services: No Alcohol intake: former Patient Tobacco Use Status: Former Tobacco user Tobacco use type: Cigarette Years Smoked: 20 +/- Substance Use Type: Marijuana Advance Directives Date on File: 05/30/22 service: No Current occupational status: employed Female Reproductive History Menstrual Age of Menarche: 10 Review of Systems Const Denies weight gain and Denies weight loss ENT Reports no additional complaints, Denies dysphagia and Denies odynophagia Card Reports no additional complaints Resp Reports no additional complaints GI Reports abdominal pain (Epigastric), Denies belching, Denies melena, Reports bloating, Denies change in bowel habits, Denies dysphagia, Denies excessive flatus, Denies dyspepsia, Reports heartburn, Denies diarrhea, Denies loose stools, Reports nausea, Denies odynophagia and Denies vomiting Reports no additional complaints Musc Reports no additional complaints Neuro Reports no additional complaints Psych Reports no additional complaints Endo Reports no additional complaints Physical Exam Vital Signs: Last Vital Signs Pulse 94 05/27/23 14:56 BP 127/68 05/27/23 14:56 BMI result Body Mass Index 26.4 Const General: healthy appearing, no acute distress and well developed Nutritional Appearance: well nourished Orientation/consciousness: patient oriented x3 Resp Effort & Inspection: normal respiratory effort, able to speak in complete sentences, no tracheal deviation and symmetric chest movement Auscultation: clear to auscultation bilaterally Cardio Rate: regular rate GI Inspection: Yes normal to inspection and No distended Palpation (GI): Soft to palpation, not firm, nontender and No hepatosplenomegaly present Auscultation: normal bowel sounds General: Yes no CVA tenderness Back/Spine/Pelvis Back: no CVA tenderness Skin General skin exam: elasticity normal, turgor normal and dry skin Neuro General: patient oriented x3 Psych Appearance: grossly normal Mental Status: mental status grossly normal Results Reviewed Results Reviewed: Laboratory Tests 03/27/23 04/03/23 04/03/23 11:48 14:36 14:52 Hgb Hct MCV Hemoglobin A1c % Total Bilirubin Direct Bilirubin AST ALT C-Reactive Protein Lipase 25-OH Vitamin D Total 25-Hydroxy Vitamin D3 Folate 8.8 TSH Stool Calprotectin Stool Pancreat Elastase Tiss Transglutamin IgG <1.0 Tiss Transglutamin IgA <1.0 H. pylori Breath Test Negative 04/03/23 04/03/23 04/30/23 14:52 14:52 14:50 Hgb 14.4 Hct 42.1 MCV 90.3 Hemoglobin A1c % 4.7 Total Bilirubin 0.3 Direct Bilirubin 0.1 AST 12 ALT 10 C-Reactive Protein 0.30 Lipase 37 25-OH Vitamin D Total 13 L 25-Hydroxy Vitamin D3 13 Folate TSH 0.58 Stool Calprotectin 5 Stool Pancreat Elastase >500 Tiss Transglutamin IgG Tiss Transglutamin IgA H. pylori Breath Test Assessment & Plan Assessment & Plan (1) Epigastric abdominal pain: Code(s): R10.13 - Epigastric pain (2) History of colitis: Code(s): Z87.19 - Personal history of other diseases of the digestive system (3) History of diverticulitis: Code(s): Z87.19 - Personal history of other diseases of the digestive system (4) Postprandial abdominal bloating: Code(s): R14.0 - Abdominal distension (gaseous) (5) IBS (irritable bowel syndrome): Code(s): K58.9 - Irritable bowel syndrome without diarrhea Qualifiers: Irritable bowel syndrome type: with both diarrhea and constipation Qualified Code(s): K58.2 - Mixed irritable bowel syndrome (6) GERD (gastroesophageal reflux disease): Code(s): K21.9 - Gastro-esophageal reflux disease without esophagitis Qualifiers: Esophagitis presence: esophagitis presence not specified Qualified Code(s): K21.9 - Gastro-esophageal reflux disease without esophagitis Plan History of diverticulitis in the past, inflammatory markers and calprotectin normal. Unlikely IBD. Patient will be sent for diagnostic colonoscopy due to continue with abnormal bowel habits. Most likely patient does have IBS, would both diarrhea and constipation. Patient will be sent for upper endoscopy to rule out gastritis, esophagitis, duodenitis, gastric or peptic ulcers, Sprague's, H pylori. Patient can continue taking pantoprazole every morning. Continue avoiding dietary triggers. What to expect before during and after the procedure discussed with patient. The importance of good bowel prep and clear liquid diet day before procedure discussed with patient. Patient denies any issues with anesthesia in the past. No history of sleep apnea. Not on any anticoagulation medication. Patient is agreeable to this plan and verbalizes understanding of instructions. She was given the opportunity to ask questions questions answered. Thank you for allowing me to participate in her care Medications: New bisacodyl (Dulcolax (bisacodyl)) take 4 tabs at noon the day before your colonoscopy 20 mg (4 x 5 mg) PO ONCE 1 day 4 tabs 0RF Z12.11 - Encounter for screening for malignant neoplasm of colon polyethylene glycol 3350 (Miralax) As directed by gastroenterology department at [facility] 238 grams PO ONCE 238 grams 0RF Z12.11 - Encounter for screening for malignant neoplasm of colon Coding Level of Care Code Est Pt Level 4 (24783) Diagnoses Epigastric abdominal pain R10.13 History of colitis Z87.19 History of diverticulitis Z87.19 Postprandial abdominal bloating R14.0 Irritable bowel syndrome with both constipation and diarrhea K58.2 Irritable bowel syndrome type: with both diarrhea and constipation Gastroesophageal reflux disease, unspecified whether esophagitis present K21.9 Esophagitis presence: esophagitis presence not specified Time Spent (min) 35 Comment 20 minutes spent with patient and additional 15 minutes spent reviewing her records
== END 2023-05-27 15:31 | disposition home or self-care (01) ==
PROVIDERS: PCP Internal Medicine; Visit Provider Nurse Practitioner Family
DX: R10.13 Epigastric pain (principal); Z87.19 Personal history of other diseases of the digestive system; R14.0 Abdominal distension (gaseous); K58.2 Mixed irritable bowel syndrome; K21.9 Gastro-esophageal reflux disease without esophagitis
CPT/HCPCS: 99214

== ENCOUNTER → 2023-05-27 14:55 | Outpatient (BNVA) | payer MEDICAID, SELFPAY | PROVIDERS: PCP Internal Medicine; Visit Provider Nurse Practitioner Family | DX: R10.13 Epigastric pain (principal); R14.0 Abdominal distension (gaseous); K58.2 Mixed irritable bowel syndrome; K21.9 Gastro-esophageal reflux disease without esophagitis; Z87.19 Personal history of other diseases of the digestive system | CPT/HCPCS: 99212 ==

== ENCOUNTER 2023-06-18 07:23 | Day surgery (SDC) | payer MEDICAID, SELFPAY ==
[2023-06-16 13:52] VITALS: BMI 26.4
[2023-06-18 07:51] LABS: UPreg QC Valid YES; Urine Pregnancy NEGATIVE (NEGATIVE)
--- NOTE | 2023-06-18 07:59 | P.CONAN_ITS ---
HPI - Anesthesia Eval Consult details Narrative: for EGD and colonoscopy [facility] Active Problems Active Problems: All Active Problems (Updated 12/15/22 @ 16:02 by Dave Schmid MD) Pulmonary emphysema (Acute) CENTENO (dyspnea on exertion) (Acute) Chest tightness (Acute) Contusion of knee, left (Acute) Chondromalacia patellae, left knee (Acute) Hx of abnormal cervical Pap smear (Acute) Tinea versicolor (Acute) Urinary urgency (Acute) Hx-TIA (transient ischemic attack) (Acute) H/O aortic root repair (Acute) Marfan syndrome (Acute) Primary dysmenorrhea (Acute) Past Medical History Medical History CENTENO (dyspnea on exertion) Sinusitis GERD (gastroesophageal reflux disease) Colitis Marfan syndrome Patient : No Family History Family History Father Cancer Family history of problems with anesthesia: No Surgical History Surgical History Hx of eye surgery History of Problems with Anesthesia: No Social History Social History Household Members: Family Housing: Apartment Do you presently have visiting nurse or other home services: No Alcohol intake: former Patient Tobacco Use Status: Former Tobacco user Tobacco use type: Cigarette Years Smoked: 20 +/- Substance Use Type: Marijuana Advance Directives: No Advance Directives Information Provided: Yes Advance Directives Date on File: 05/30/22 service: No Current occupational status: employed Meds Allergies Allergy/AdvReac Type Severity Reaction Status Date / Time ibuprofen Allergy Hives Verified 05/27/23 14:58 Home Medications Medication Instructions Recorded Confirmed Last Taken Type ondansetron HCl 4 mg tablet 4 mg PO Q6H 12/15/22 03/04/23 Unknown History duloxetine 30 mg capsule,delayed 30 mg PO DAILY 03/04/23 03/04/23 Unknown History release (Cymbalta) epinephrine 0.3 mg/0.3 mL 0.3 mg IM Q4H PRN 03/04/23 03/04/23 Unknown History injection, auto-injector (EpiPen) Exam Height,Weight and Vital Signs: Height 5 ft 11 in Weight 85.998 kg Pertinent Lab Results Pertinent Lab Results: Laboratory Tests 06/18/23 07:37 Urine Test NEGATIVE Airway Mallampati Class: I TM Dist: >3cm Neck ROM: Full Loose/Missing/Broken Teeth: No Heart: ok Lungs: ok Assessment and Plan Assessment Anesthesia Assessment: Anesthesia Plan Discussed and Chart Reviewed Final Anesthetic Review Family History of Problems with Anesthesia: No History of Problems with Anesthesia: No NPO: Yes ASA Class: III Final Preanesthetic Review: No Changes in Pt Med Stat, Meds/Allgs Chart Reviewed, Consent Obtained/Reviewed and Anes Risks/Benef Reviewed Patient Risk: Intermediate Procedure Risk: Intermediate Anesthetic Plan Anesthetic Plan: Agree w/ Assess. and Plan and TIVA Disposition: Standard PACU
[2023-06-18 08:16] VITALS: BP 124/70; PULSE 69; RESP 16; TEMP 36.6; O2SAT 99
--- NOTE | 2023-06-18 08:42 | MHC.SHP ---
Pre-Procedural Eval Section A - 24 Hr Update-Section A only Date of Service: 06/18/23 The patient is an INPATIENT: No The patient has been examined within 24 hours of the surgical procedure. The History & Physical has been completed within 30 days and I have reviewed it.: Yes Section B - Complete if H&P > 30 days Chief Complaint: Abdominal distension (gaseous),Epigastric pain Allergies: Allergies Allergy/AdvReac Type Severity Reaction Status Date / Time ibuprofen Allergy Hives Verified 05/27/23 14:58 Plan Diagnosis/Plan: Unchanged I have reviewed the history and physical and performed a pertinent physical examination on my patient. No changes have occurred unless specified. Time Spent With Patient Time: Total time managing care of this patient today ____ minutes.
--- NOTE | 2023-06-18 09:55 | P.OP_ITS ---
Operative Note Operative Note Date of Service: 06/18/23 Narrative: Procedure: Upper endoscopy and colonoscopy Indication: Epigastric pain, changes in bowel habits Endoscopist: Nelia Ward MD Anesthesia Provider: Dr Rober Pitts Anesthesia type: MAC Instrument: Olympus [id number] ?? EGD Procedure:?? The procedure, indications, preparation and potential complications were reviewed with the patient, who indicated understanding and gave written informed consent to proceed. A physical exam was performed. The endoscope was introduced through the mouth, and advanced to the duodenum. The mucosa was carefully examined on slow withdrawal of the endoscope. The patient tolerated the procedure well. There were no immediate complications.? ? EGD Findings:? * Esophagus:? Normal esophageal mucosa. The Z line was at 42 cm. There is a large paraesophageal hernia. * Stomach:? Scattered erosions in the body of the stomach. Retroflexion was performed in the cardia that shows large paraesophageal hernia. Random cold forceps biopsies were taken to rule out H Pylori. * Duodenum: Normal duodenal mucosa to the extent visualised. Cold forceps biopsies were taken from the duodenal bulb and 2nd portion of the duodenal to rule out celiac sprue. Colonoscopy Procedure: The patient was then turned for the colonoscopy. A digital rectal exam was performed which was normal. A distal attachemnt cap was affixed to the tip of the scope which was then inserted through the anus and advanced through the colon to the sigmoid colon. Mucosa was carefully examined under high definition white light as the instrument was slowly withdrawn in a retrograde panoramic fashion. Retroflexion was not performed. The procedure was not difficult. There were no immediate obvious complications. The quality of the prep was BBPS: N/A + N/A +0 = Poor Limitations: Poor prep Colonoscopy Findings: Mucosa: Semi solid stool was noted throughout the rectum and sigmoid colon. Protruding lesions: * 1 sessile polyp of size 5 mm was noted in the dsital sigmoid colon. Cold snare polypectomy was performed and the polyp was removed and retrieved. Excavated lesions: * Severe diverticulosis of sigmoid colon. Impressions:? * Normal esophagus * Gastritis (biopsy) * Normal duodenum (biopsy) * Poor prep * Sigmoid colon polyp * Diverticulosis Recommendations: - Follow path results - Avoid NSAIDs - [place] could not be completed due to poor prep - This is to be rebooked with emphasis on completing prep as instructed
[2023-06-18 10:05] VITALS: BP 119/64; PULSE 83; RESP 18; TEMP 36.1; O2SAT 95
[2023-06-18 10:20] VITALS: BP 131/73; PULSE 68; RESP 18; TEMP 36.1; O2SAT 100
== END 2023-06-18 10:46 | disposition home or self-care (01) ==
PROVIDERS: Anesthesiology; PCP Internal Medicine; Visit Provider Internal Medicine
PROC: (CPT 45338; principal; 2023-06-18 08:50)
DX: R19.4 Change in bowel habit (principal); K63.5 Polyp of colon; K57.30 Diverticulosis of large intestine without perforation or abscess without bleeding; R10.13 Epigastric pain; R14.0 Abdominal distension (gaseous); Z87.19 Personal history of other diseases of the digestive system; K29.80 Duodenitis without bleeding; K29.50 Unspecified chronic gastritis without bleeding; K44.9 Diaphragmatic hernia without obstruction or gangrene; K21.9 Gastro-esophageal reflux disease without esophagitis; J32.9 Chronic sinusitis, unspecified; R06.00 Dyspnea, unspecified; Z87.891 Personal history of nicotine dependence; Q87.40 Marfan syndrome, unspecified; Z79.899 Other long term (current) drug therapy; Z88.8 Allergy status to other drugs, medicaments and biological substances
CPT/HCPCS: 45338; 43239; 81025; 88305; 88313; 88342; J2704

== ENCOUNTER → 2023-06-18 07:23 | Outpatient (BNV) | payer MEDICAID, SELFPAY | PROVIDERS: PCP Internal Medicine; Visit Provider Internal Medicine | DX: R19.4 Change in bowel habit (principal); K63.5 Polyp of colon; K57.30 Diverticulosis of large intestine without perforation or abscess without bleeding; Z91.199 Patient's noncompliance with other medical treatment and regimen due to unspecified reason; R10.13 Epigastric pain; K29.80 Duodenitis without bleeding; K29.70 Gastritis, unspecified, without bleeding | CPT/HCPCS: 43239; 45385 ==

== ENCOUNTER 2023-06-29 12:26 | Emergency (ER) | payer MEDICAID, SELFPAY ==
[2023-06-29 12:32] VITALS: BP 128/78; PULSE 81; RESP 17; TEMP 36.4; O2SAT 100; BMI 26.4
--- NOTE | 2023-06-29 12:33 | ED_ITS ---
HPI - General Adult General Chief complaint: Abdominal Pain Stated complaint: stomach issues Source: patient Mode of arrival: ambulatory Limitations: no limitations History of Present Illness HPI narrative: Patient is a 37 year old assigned female at with a history of marfan syndrome presenting to the emergency department today with abdominal pain, nausea, and vomiting. Patient states that approximately a week ago she had an endoscopy and colonoscopy and ever since, she has been having nausea, vomiting, diarrhea, and abdominal pain. Patient denies any dizziness, lightheadedness, fever, chills, blurry vision, double vision, loss of vision, chest pain, difficulty breathing, shortness of breath, back pain, night sweats, pain with urination, increased urinary frequency, increased urinary urgency, blood in her urine or stool, syncope or a near syncopal episode, recent trauma or falls, bowel incontinence, bladder incontinence, bowel retention, bladder retention, or any other complaints at this time. Onset (ago): week(s) (1) Location: abdomen Relieving factors: none Exacerbating factors: none Associated symptoms: nausea/vomiting Treatments prior to arrival: none Related Data Home Medications Medication Instructions Recorded Confirmed ondansetron HCl 4 mg tablet 4 mg PO Q6H 12/15/22 06/18/23 duloxetine 30 mg capsule,delayed 30 mg PO DAILY 03/04/23 06/18/23 release (Cymbalta) epinephrine 0.3 mg/0.3 mL 0.3 mg IM Q4H PRN severe allergy 03/04/23 06/18/23 injection, auto-injector (EpiPen) reaction Previous Rx's Medication Instructions Recorded albuterol sulfate 90 mcg/actuation 2 puff inhalation Q4-6H PRN 12/15/22 aerosol inhaler shortness of breath or wheezing 30 days #1 ea pantoprazole 40 mg tablet,delayed 40 mg PO DAILY #30 tabs 03/27/23 release sennosides 8.6 mg tablet (Natural 17.2 mg (2 x 8.6 mg) PO BEDTIME 03/27/23 Senna Laxative) constipation #60 tabs cholecalciferol (vitamin D3) 50 50 mcg PO DAILY #90 caps 04/08/23 mcg (2,000 unit) capsule Allergies Allergy/AdvReac Type Severity Reaction Status Date / Time ibuprofen Allergy Severe Anaphylaxis Verified 06/18/23 09:13 Review of Systems 2 Constitutional: Constitutional: Reports no additional constitutional complaints, Denies chills, Denies fever(s) and Denies night sweats Eyes: Eyes: Reports no additional eye complaints, Denies blurry vision, Denies change in vision, Denies diplopia, Denies eye discharge, Denies loss of vision and Denies eye pain ENT: Denies dizziness Cardiovascular: Cardiovascular: Reports no additional cardiovascular complaints, Denies chest pain, Denies lightheadedness, Denies Loss of Consciousness and Denies dyspnea Respiratory: Respiratory: Reports no additional respiratory complaints and Denies dyspnea Gastrointestinal: Gastrointestinal: Reports no additional gastrointestinal complaints, Reports abdominal pain, Denies melena, Denies hematochezia, Denies change in bowel habits, Reports change in stool character, Reports diarrhea, Reports nausea and Reports vomiting Genitourinary: Genitourinary: Denies hematuria, Denies urinary frequency, Denies dysuria, Denies urinary incontinence, Denies urinary hesitancy and Denies urinary urgency Musculoskeletal: Musculoskeletal: Reports no additional musculoskeletal complaints, Denies numbness and Denies tingling Neurologic: Denies dizziness, Denies loss of vision, Denies numbness and Denies tingling Psychiatric: Psychiatric: Reports no additional psychiatric complaints Endocrine: Endocrine: Reports no additional endocrine complaints Hematologic/Lymphatic: Hematologic/Lymphatic: Reports no additional hematologic/lymphatic complaints Allergic/Immunologic: Allergic/Immunologic: Reports no additional allergic/immunologic complaints PMFSH Past Medical History Attestation statement: The following information was validated with the patient. Source: old records reviewed and nursing notes reviewed Medical History CENTENO (dyspnea on exertion) Sinusitis GERD (gastroesophageal reflux disease) Colitis Marfan syndrome Surgical History Hx of dissecting abdominal aortic aneurysm repair Hx of eye surgery Family History Family History Father Cancer Social History Social History Household Members: Family Housing: Apartment Do you presently have visiting nurse or other home services: No Alcohol intake: former Patient Tobacco Use Status: Current someday Tobacco user Tobacco use type: Cigarette Years Smoked: 20 +/- Substance Use Type: Marijuana Advance Directives: Yes Advance Directives on File: Yes Advance Directives Date on File: 05/30/22 service: No Current occupational status: employed Physical Exam ED Vital Signs: Vital Signs - 24 hr 06/29/23 12:32 Temperature 97.5 F Pulse Rate 81 Respiratory Rate 17 Blood Pressure 128/78 Pulse Oximetry 100 Oxygen Delivery Method Room Air BMI result Body Mass Index 26.4 Const General: cooperative, no acute distress, alert and awake Nutritional Appearance: well nourished Orientation/consciousness: patient oriented x3 Limitations: no limitations HENMT Head: Yes normal to inspection and Yes atraumatic Ears: hearing grossly normal bilaterally and external ears normal General nose exam: Normal external nose present, no nasal discharge noted and no epistaxis Face and sinus: Yes normal facial exam, No abrasion and No laceration Mouth: Normal oral and palatal mucosa present, no drooling and no muffled voice Eyes General: appearance normal, both eyes and all related structures Periorbital: periorbital findings normal Eyelids: Yes eyelids normal Conjunctivae: conjunctivae normal Pupils: Equal, round and reactive pupils present EOM: EOMs intact bilaterally Neck Neck: Yes normal visual inspection, Yes full ROM and Yes no lymphadenopathy Chest Chest palpation & inspection: normal inspection of the chest Resp Effort & Inspection: normal respiratory effort and able to speak in complete sentences GI Inspection: Yes normal to inspection Neuro General: patient oriented x3 and moves all extremities Cranial nerves: Yes Equal, round and reactive pupils present Cognition (Neuro): normal cognition Motor exam (neuro): 5/5 motor strength present throughout Sensory Exam: Normal double simultaneous stimulation for sensation Coordination: [id number] test normal Extrem General: Yes normal to inspection, Yes full ROM and Yes capillary refill normal Psych Appearance: grossly normal Mental Status: mental status grossly normal Affect: normal affect Attitude: cooperative Thought process: Normal thought process present Thought content: Normal thought content present Insight: Good insight present (Psych) Course Course Course Narrative: RME performed by Yesenia Garcia PA-C. Patient is a 37 year old assigned female at presenting to the emergency department with nausea, vomiting, and diarrhea since having an endoscopy + colonoscopy. Detailed physical exam and review of systems are deferred to the ssrs report developer. Labs and swabs ordered. Patient placed back in the waiting room pending room availability and results. Medical Decision Making Medical Decision Making MDM Narrative: Patient is a 37 year old assigned female at with a history of marfan syndrome presenting to the emergency department today with nausea, vomiting, diarrhea, and abdominal pain. Patient's limited physical exam performed in triage was unremarkable. Patient's blood work was showed a slightly elevated WBC count of 12.3. This is consistent with vomiting. The rest of the patient's labs were unremarkable. Patient left the department without completing treatment. Patient left the department before myself or any of the other emergency department clinicians could explain to or review with the patient; physical exam findings, test results, need or lack there of for additional testing, need or lack there of to perform a procedure, need or lack there of for hospital admission / transfer, need or lack there of for prescription medication, treatment options, or a treatment plan. Differential Diagnosis Differential Diagnoses: The differential diagnosis associated with the presentation includes Nausea Vomiting Diarrhea Gastroenteritis Admission/Observation Consideration of admission/observation: Escalation of care including admission/observation considered Patient would have been admitted to the hospital had she completed her work up and it had any findings where hospital admission was appropriate, her clinical presentation warranted hospital admission, had myself or any other emergency psychology department chair had the ability to discuss need or lack there of for hospital admission, and the patient hadn't left the department without completing treatment. Lab Data [facility] Lab Attestation statement: I reviewed the patient's lab results. My interpretation of these results are in the [facility] Rationale portion of this note. 06/29/23 12:50 06/29/23 12:50 Labs: Lab Results 06/29/23 06/29/23 Range/Units 12:50 12:51 WBC 12.3 H (4.8-10.8) X10*3/uL RBC 4.47 (4.20-5.50) X10*6/uL Hgb 14.0 (12.0-16.0) g/dl Hct 40.5 (37.0-47.0) % MCV 90.6 (80.0-98.0) fL MCH 31.3 (27.0-33.0) pg MCHC 34.6 (31.0-35.0) g/dl RDW 13.2 (11.0-16.0) % Plt Count 381 (160-400) X10*3/uL MPV 8.9 L (9.4-12.3) fL Immature Gran % (Auto) 0.2 (0.0-0.4) % Neut % (Auto) 67.5 (45-73) % Lymph % (Auto) 25.5 (20-40) % Dickinson % (Auto) 5.6 (2-11) % Eos % (Auto) 0.8 (0-4) % Baso % (Auto) 0.4 (0-2) % Lymph # (Auto) 3.1 (1.2-4.9) X10*3/uL Dickinson # (Auto) 0.7 (0.1-1.2) X10*3/uL Eos # (Auto) 0.1 (0.0-0.4) X10*3/uL Baso # (Auto) 0.1 (0.0-0.2) X10*3/uL Abs Immat Gran (auto) 0.03 (0.00-0.03) X10*3/uL Absolute Neuts (auto) 8.3 (2.0-8.3) x10*3/uL Absolute Nucleated RBC 0.000 (0.0-0.012) X10*3/uL Nucleated RBC % (auto) 0.0 (0.0-0.2) /100WBC Sodium 138 (135-145) mmol/L Potassium 3.6 (3.3-5.1) mmol/L Chloride 106 (96-108) mmol/L Carbon Dioxide 24 (22-29) mmol/L Anion Gap 12 (12-20) BUN 5 L (9-16) mg/dL Creatinine 0.63 (0.5-1.4) mg/dL Estim Creat Clear Calc 149.8 Estimated GFR > 60 Random Glucose 98 (60-115) mg/dL Calcium 9.4 (8.4-10.2) mg/dL Magnesium 1.7 (1.6-2.6) mg/dL Total Bilirubin 0.5 (0.0-1.0) mg/dL AST 12 (5-31) U/L ALT 11 (0-31) U/L Alkaline Phosphatase 69 (39-117) U/L Total Protein 7.0 (6.5-8.0) g/dL Albumin 4.2 (3.5-5.0) g/dL Urine Color Yellow Urine Appearance Clear Urine pH 6.5 (5.0-9.0) Ur Specific [place] <= 1.005 (1.005-1.025) Urine Protein Negative (Neg-Trace) mg/dL Urine Glucose (UA) Negative (Negative) mg/dL Urine Ketones Negative (Negative) mg/dL Urine Blood Negative (Negative) Urine Nitrite Negative (Negative) Ur Leukocyte Esterase Negative (Negative) Influenza Type A (PCR) NEGATIVE (Negative) Influenza Type B (PCR) NEGATIVE (Negative) RSV RNA Qual (PCR) NEGATIVE (Negative) SARS-CoV-2 RNA (RT-PCR) NEGATIVE (Negative) Discharge Plan Discharge Clinical Impression: Abdominal pain, Nausea & vomiting Patient Disposition: Left W/O Completing Treatment Prescriptions: No Action cholecalciferol (vitamin D3) 50 mcg (2,000 unit) capsule 50 mcg PO DAILY Qty: 90 3RF duloxetine [Cymbalta] 30 mg capsule,delayed release(DR/EC) 30 mg PO DAILY epinephrine [EpiPen] 0.3 mg/0.3 mL auto-injector 0.3 mg IM Q4H PRN (Reason: severe allergy reaction) ondansetron HCl 4 mg tablet 4 mg PO Q6H albuterol sulfate 90 mcg/actuation HFA aerosol inhaler 2 puff inhalation Q4-6H PRN (Reason: shortness of breath or wheezing) 30 Days Qty: 1 6RF sennosides [Natural Senna Laxative] 8.6 mg tablet 17.2 mg PO BEDTIME Qty: 60 1RF pantoprazole 40 mg tablet,delayed release (DR/EC) 40 mg PO DAILY Qty: 30 2RF Rx Instructions: take one tablet half an hour before breakfast Discharge Date/Time: 06/29/23 22:46
[2023-06-29 12:56] LABS: MANUAL DIFF FLAG NO
[2023-06-29 13:01] LABS: Appearance Urine Clear; Color Urine Yellow; Glucose Urine UA Negative (Negative); Leukocyte Esterase Urine Negative (Negative); Nitrite Urine Negative (Negative); PH 6.5 (5.0-9.0); Specific Gravity - Urine <= 1.005 (1.005-1.025); Urine Blood Negative (Negative); Urine Ketones Negative (Negative); Urine Protein Negative (Neg-Trace)
[2023-06-29 13:04] LABS: Basophils Absolute Auto 0.1 X10*3/uL (0.0-0.2); Basophils Percent Auto 0.4 % (0-2); Eosinophils Absolute Auto 0.1 X10*3/uL (0.0-0.4); Eosinophils Percent Auto 0.8 % (0-4); Hematocrit 40.5 % (37.0-47.0); Imm Gran Abs Auto 0.03 X10*3/uL (0.00-0.03); Imm Gran Pct Auto 0.2 % (0.0-0.4); Lymphocytes Absolute Auto 3.1 X10*3/uL (1.2-4.9); Lymphocytes Percent Auto 25.5 % (20-40); Mean Corpuscular HGB Conc 34.6 g/dl (31.0-35.0); Mean Corpuscular Hemoglobin 31.3 pg (27.0-33.0); Mean Corpuscular Volume 90.6 fL (80.0-98.0); Mean Platelet Volume 8.9 fL (9.4-12.3); Monocytes Absolute Auto 0.7 X10*3/uL (0.1-1.2); Monocytes Percent Auto 5.6 % (2-11); Neutrophils Absolute Auto 8.3 x10*3/uL (2.0-8.3); Neutrophils Percent Auto 67.5 % (45-73); Platelet Count 381 X10*3/uL (160-400); Red Blood Count 4.47 X10*6/uL (4.20-5.50); Red Cell Distribution Width 13.2 % (11.0-16.0); White Blood Count 12.3 X10*3/uL (4.8-10.8)
[2023-06-29 13:19] LABS: Alanine Aminotransferase 11 U/L (0-31); Albumin Level 4.2 g/dL (3.5-5.0); Alkaline Phosphatase 69 U/L (39-117); Anion Gap 12 (12-20); Aspartate Amino Transferase 12 U/L (5-31); Bilirubin Total 0.5 mg/dL (0.0-1.0); Blood Urea Nitrogen 5 mg/dL (9-16); Calcium 9.4 mg/dL (8.4-10.2); Carbon Dioxide 24 mmol/L (22-29); Chloride 106 mmol/L (96-108); Creatinine Clr Calc Pharmacy 149.8; Estimated Glomerular Filt Rate > 60; Glucose Random 98 mg/dL (60-115); Magnesium 1.7 mg/dL (1.6-2.6); Potassium 3.6 mmol/L (3.3-5.1); Sodium 138 mmol/L (135-145)
[2023-06-29 13:34] LABS: Influenza A PCR NEGATIVE (Negative); Influenza B PCR NEGATIVE (Negative); Resp Syncy Virus RNA Qual PCR NEGATIVE (Negative); SARS COV2 PCR INHOUSE NEGATIVE (Negative)
== END 2023-06-29 22:46 | disposition left against medical advice (07) ==
LOC: HO.ED 22:33
PROVIDERS: Physician Assistant Medical; Emergency Provider Emergency Medicine; PCP Internal Medicine
DX: R10.9 Unspecified abdominal pain (principal); R11.2 Nausea with vomiting, unspecified; Q87.40 Marfan syndrome, unspecified; Z11.52 Encounter for screening for COVID-19; Z20.828 Contact with and (suspected) exposure to other viral communicable diseases
CPT/HCPCS: 0241U; 80053; 81003; 83735; 85025; 99282; 99283

== ENCOUNTER 2023-07-15 11:23 | Outpatient (AMB) | payer MEDICAID, SELFPAY ==
--- NOTE | 2023-07-15 11:31 | A.OFFVIS_ITS ---
Vital Signs 07/15/23 11:34 Height 5 ft 11 in Weight 190 lb 7.67 oz BMI 26.6 BP 111/62 Blood Pressure Location Rt brachial Position Sitting Pulse 70 Intake Visit Reasons: s/p egd/colon Intake Note: Mayra presents to in office follow up s/p EGD and colonoscopy. CC: Patient c/o epigastric pain, abdominal pain, nausea, and vomiting for a week after taking the prep. She also c/o diarrhea, constipation, and abdominal bloating. P Supervisor Operations Required: No Accompanied by: Self / Same As Patient Allergies ibuprofen Allergy (Severe, Verified 07/15/23 11:37) Anaphylaxis HPI HPI s/p egd/colon: Details: LAST VISIT: Epigastric abdominal pain History of colitis History of diverticulitis Postprandial abdominal bloating IBS (irritable bowel syndrome) GERD (gastroesophageal reflux disease) Plan History of diverticulitis in the past, inflammatory markers and calprotectin normal. Unlikely IBD. Patient will be sent for diagnostic colonoscopy due to continue with abnormal bowel habits. Most likely patient does have IBS, would both diarrhea and constipation. Patient will be sent for upper endoscopy to rule out gastritis, esophagitis, duodenitis, gastric or peptic ulcers, Sprague's, H pylori. Patient can continue taking pantoprazole every morning. Continue avoiding dietary triggers. What to expect before during and after the procedure discussed with patient. The importance of good bowel prep and clear liquid diet day before procedure discussed with patient. Patient denies any issues with anesthesia in the past. No history of sleep apnea. Not on any anticoagulation medication. Patient is agreeable to this plan and verbalizes understanding of instructions. She was given the opportunity to ask questions questions answered. ? Thank you for allowing me to participate in her care Medications New bisacodyl (Dulcolax (bisacodyl)) take 4 tabs at noon the day before your colonoscopy 20 mg (4 x 5 mg) PO ONCE 1 day 4 tabs 0RF Z12.11 polyethylene glycol 3350 (Miralax) As directed by gastroenterology department at [facility] 238 grams PO ONCE 238 grams 0RF Z12.11 UPPER ENDOSCOPY AND COLONOSCOPY EGD Findings:? * Esophagus:? Normal esophageal mucosa. The Z line was at 42 cm. There is a large paraesophageal hernia. * Stomach:? Scattered erosions in the body of the stomach. Retroflexion was performed in the cardia that shows large paraesophageal hernia. Random cold forceps biopsies were taken to rule out H Pylori. * Duodenum: Normal duodenal mucosa to the extent visualised. Cold forceps biopsies were taken from the duodenal bulb and 2nd portion of the duodenal to rule out celiac sprue. Colonoscopy Findings: Mucosa: Semi solid stool was noted throughout the rectum and sigmoid colon. Protruding lesions: * 1 sessile polyp of size 5 mm was noted in the dsital sigmoid colon. Cold snare polypectomy was performed and the polyp was removed and retrieved. Excavated lesions: * Severe diverticulosis of sigmoid colon. Impressions:? * Normal esophagus * Gastritis (biopsy) * Normal duodenum (biopsy) * Poor prep * Sigmoid colon polyp * Diverticulosis Recommendations: - Follow path results - Avoid NSAIDs - [place] could not be completed due to poor prep - This is to be rebooked with emphasis on completing prep as instructed PATHOLOGY RESULTS Diagnosis A. Duodenum, biopsy: Chronic inactive duodenitis. B. Stomach, biopsy: - Antral-type and oxyntic mucosa with mild chronic inactive inflammation; no Helicobacter organisms seen. - Duodenal mucosa within normal limits. C. Colon, sigmoid, polypectomy: Hyperplastic mucosal polyp TODAY'S VISIT Patient is here today for follow-up and to discuss colonoscopy and upper endoscopy results. Patient denies any ill effects from the anesthesia or procedure itself. Patient reports that after taking the prep she was having nausea and was vomiting. She did had suboptimal prep and was probably unable to drink as much fluids. Patient states that she does not like to drink that much fluid and would like to get a different prep. Patient denies melena, hematochezia, unintentional weight loss or ribbon like stools. Denies any other GI concerning symptoms except for constipation. Denies any dyspepsia, dysphagia or odynophagia. Upper endoscopy showed no esophagitis, mild chronic gastritis without H pylori patient is currently on pantoprazole daily. And reports that her symptoms are suppressed for the most part. [facility] Medical History CENTENO (dyspnea on exertion) Sinusitis GERD (gastroesophageal reflux disease) Colitis Marfan syndrome Surgical History H/O colonoscopy History of esophagogastroduodenoscopy (EGD) Hx of dissecting abdominal aortic aneurysm repair Hx of eye surgery Family History Father Cancer Social History Household Members: Family Housing: Apartment Do you presently have visiting nurse or other home services: No Alcohol intake: former Patient Tobacco Use Status: Current someday Tobacco user Tobacco use type: Cigarette Years Smoked: 20 +/- Substance Use Type: Marijuana Advance Directives Date on File: 05/30/22 service: No Current occupational status: employed Female Reproductive History Menstrual Age of Menarche: 10 Review of Systems Const Denies weight gain and Denies weight loss ENT Reports no additional complaints, Denies dysphagia and Denies odynophagia Card Reports no additional complaints Resp Reports no additional complaints GI Denies abdominal pain, Denies belching, Denies melena, Denies bloating, Denies change in bowel habits, Reports constipation, Denies dysphagia, Denies excessive flatus, Denies dyspepsia, Denies heartburn, Denies diarrhea, Denies loose stools, Denies nausea, Denies odynophagia and Denies vomiting Reports no additional complaints Musc Reports no additional complaints Neuro Reports no additional complaints Psych Reports no additional complaints Endo Reports no additional complaints Physical Exam Vital Signs: Last Vital Signs Pulse 70 07/15/23 11:34 BP 111/62 07/15/23 11:34 BMI result Body Mass Index 26.6 Const General: healthy appearing, no acute distress and well developed Nutritional Appearance: well nourished Orientation/consciousness: patient oriented x3 Resp Effort & Inspection: normal respiratory effort, able to speak in complete sentences, no tracheal deviation and symmetric chest movement Auscultation: clear to auscultation bilaterally Cardio Rate: regular rate GI Inspection: Yes normal to inspection and No distended Palpation (GI): Soft to palpation, not firm, nontender and No hepatosplenomegaly present Auscultation: normal bowel sounds General: Yes no CVA tenderness Back/Spine/Pelvis Back: no CVA tenderness Skin General skin exam: elasticity normal, turgor normal and dry skin Neuro General: patient oriented x3 Psych Appearance: grossly normal Mental Status: mental status grossly normal Assessment & Plan Assessment & Plan (1) Epigastric abdominal pain: Code(s): R10.13 - Epigastric pain (2) History of colitis: Code(s): Z87.19 - Personal history of other diseases of the digestive system (3) History of diverticulitis: Code(s): Z87.19 - Personal history of other diseases of the digestive system (4) Postprandial abdominal bloating: Code(s): R14.0 - Abdominal distension (gaseous) (5) IBS (irritable bowel syndrome): Code(s): K58.9 - Irritable bowel syndrome without diarrhea Qualifiers: Irritable bowel syndrome type: without diarrhea Qualified Code(s): K58.9 - Irritable bowel syndrome without diarrhea (6) GERD (gastroesophageal reflux disease): Code(s): K21.9 - Gastro-esophageal reflux disease without esophagitis Qualifiers: Esophagitis presence: without esophagitis Qualified Code(s): K21.9 - Gastro-esophageal reflux disease without esophagitis Plan Suboptimal prep on colonoscopy. Patient will do different prep. She currently is taking Senokot. I will change that to Dulcolax tablets. Patient will do different prep. Will do Dulcolax tablets at noon day before procedure and magnesium citrate 1 bottle at 5 and 2nd bottle at 22:00. Patient will be book for colonoscopy today. Continue pantoprazole. Continue avoiding dietary triggers and late night snacking. Staying upright for minimum 3 hours after meals discussed with patient. Patient will be seen after the procedure, sooner on as needed basis. She is agreeable to this plan and verbalizes understanding of instructions. She was given the opportunity to ask questions and all questions answered. Thank you for allowing me to participate in her care Medications: New bisacodyl (Dulcolax (bisacodyl)) 10 mg (2 x 5 mg) PO BEDTIME 180 tabs 4RF magnesium citrate Drink one bottle at 17:00 and 2nd bottle at 22:00 296 mL PO ONCE 296 mL 1RF Z12.11 - Encounter for screening for malignant neoplasm of colon
[2023-07-15 11:34] VITALS: BP 111/62; PULSE 70; BMI 26.6
== END 2023-07-15 12:17 | disposition home or self-care (01) ==
PROVIDERS: PCP Internal Medicine; Visit Provider Nurse Practitioner Family
DX: R10.13 Epigastric pain (principal); Z87.19 Personal history of other diseases of the digestive system; R14.0 Abdominal distension (gaseous); K58.9 Irritable bowel syndrome, unspecified; K21.9 Gastro-esophageal reflux disease without esophagitis
CPT/HCPCS: 99214

== ENCOUNTER → 2023-07-15 11:23 | Outpatient (BNVA) | payer MEDICAID, SELFPAY | PROVIDERS: PCP Internal Medicine; Visit Provider Nurse Practitioner Family | DX: K58.9 Irritable bowel syndrome, unspecified (principal); K21.9 Gastro-esophageal reflux disease without esophagitis; R14.0 Abdominal distension (gaseous); R10.13 Epigastric pain; Z87.19 Personal history of other diseases of the digestive system; Z79.899 Other long term (current) drug therapy | CPT/HCPCS: 99212 ==

== ENCOUNTER 2023-09-16 09:31 | Outpatient (AMB) | payer MEDICAID, SELFPAY ==
[2023-09-16 09:33] VITALS: BP 110/64; PULSE 85; O2SAT 97; BMI 25.9
--- NOTE | 2023-09-16 09:33 | MHC.OFFVIS ---
Vital Signs 09/16/23 09:33 Height 5 ft 11 in Weight 185 lb 10.067 oz BMI 25.9 BP 110/64 Blood Pressure Location Lt brachial Position Sitting Pulse 85 Pulse Source Pulse Oximeter Pulse Oximetry (%) 97 Intake Visit Reasons: 6 mth fu Intake Note: pt states that she is doing fine Knockup Worker Required: No Accompanied by: Self / Same As Patient Allergies ibuprofen Allergy (Severe, Verified 07/15/23 11:37) Anaphylaxis Medication List - Last Reconciled 09/16/23 by Karthikeyan Tapia MD albuterol sulfate 90 mcg/actuation 2 puffs inhalation Q4-6H PRN 30 days bisacodyl (Dulcolax (bisacodyl)) 10 mg (2 x 5 mg) PO BEDTIME cholecalciferol (vitamin D3) 50 mcg PO DAILY duloxetine (Cymbalta) 30 mg PO DAILY epinephrine (EpiPen) 0.3 mg IM Q4H PRN ondansetron HCl 4 mg PO Q6H sucralfate 1 g PO QIDACHS HPI Comments Details: 38-year-old female who is here for follow-up. She was last seen in 2019. At that time she was planning to get . She has background history of Marfan syndrome and previous aortic repair. Previously had echocardiography was normal. She is now returning because she had episode in June when she went to the hospital with chest pain. She is saying that she had random chest discomfort the left side of the chest. She was getting chest pains even from young age which were reproducible on the chest wall. She said this chest pain was also reproducible. She went to the emergency department and was ruled out and also had a chest CTA which showed no evidence of recurrence thoracic aneurysm but showed small aneurysm in the infrarenal aorta. She is a current smoker. She has not had any exertional symptoms but randomly gets some chest pains he had there. She also gets some chest tightness randomly at rest. She is a smoker and has never had any lung testing previously. 09/16/23: She returns for follow-up. No symptoms to report. She continues to smoke unfortunately. Previously there was some plan of and she has not been on medications. We discussed about starting beta-juan. We also had detailed discussion about smoking cessation. [facility] Medical History CENTENO (dyspnea on exertion) Sinusitis GERD (gastroesophageal reflux disease) Colitis Marfan syndrome Surgical History H/O colonoscopy History of esophagogastroduodenoscopy (EGD) Hx of dissecting abdominal aortic aneurysm repair Hx of eye surgery Family History Father Cancer Social History Household Members: Family Housing: Apartment Do you presently have visiting nurse or other home services: No Alcohol intake: former Patient Tobacco Use Status: Current someday Tobacco user Tobacco use type: Cigarette Years Smoked: 20 +/- Substance Use Type: Marijuana Advance Directives Date on File: 05/30/22 service: No Current occupational status: employed Female Reproductive History Menstrual Age of Menarche: 10 Review of Systems Const Denies chills, Denies fatigue, Denies fever(s), Denies frequent falls, Denies weakness, Denies weight gain and Denies weight loss ENT Denies dizziness Card Denies chest pain, Denies leg edema, Denies lightheadedness, Denies palpitations, Denies dyspnea and Denies dyspnea on exertion Resp Denies cough, Denies dyspnea and Denies dyspnea on exertion GI Denies hematochezia Musc Denies abnormal gait, Denies muscle weakness, Denies numbness, Denies radiating pain into limb and Denies tingling Neuro Denies abnormal gait, Denies dizziness, Denies frequent falls, Denies numbness, Denies tingling and Denies weakness Endo Denies fatigue and Denies palpitations Physical Exam Vital Signs: Last Vital Signs Pulse 85 09/16/23 09:33 BP 110/64 09/16/23 09:33 Pulse Ox 97 09/16/23 09:33 BMI result Body Mass Index 25.9 GENERAL APPEARANCE: in no acute distress, pleasant. NECK: no carotid bruit, no jugular venous distention. SKIN: no suspicious lesions, warm and dry. HEART: no murmurs, regular rate and rhythm. LUNGS: clear to auscultation bilaterally. ABDOMEN: soft, nontender. EXTREMITIES: no edema. PERIPHERAL PULSES: equal. NEUROLOGIC: No gross deficits, AAO X 3 Assessment & Plan Assessment & Plan (1) Marfan syndrome: Code(s): Q87.40 - Marfan syndrome, unspecified Category: Medical (2) H/O aortic root repair: Code(s): Z98.890 - Other specified postprocedural states Category: Surgical Plan 38-year-old female with known history of Marfan syndrome who underwent surgery in the past with aortic root repair. Clinically she has been stable. She has been smoking and we discussed in detail about smoking cessation. She appears to be motivated to quit. Adding metoprolol succinate 25 mg daily. We will do CTA angio of the abdomen and chest to assess aortic size and to make sure there is no aneurysmal change. Previously there was small infrarenal aneurysm seen. Smoking cessation is critical for her and she understands this. Follow-up with us in 6 months. Thank you for allowing me to participate in the care of your patient. Please feel free to contact me if you have any questions. Orders: Orders CT angio abd aorta runoff Today Z98.890 - Other specified postprocedural states CT angio chest aorta Today Z98.890 - Other specified postprocedural states Coding Level of Care Code Est Pt Level 4 (44402) Diagnoses Marfan syndrome Q87.40 H/O aortic root repair Z98.890
== END 2023-09-16 10:46 | disposition home or self-care (01) ==
PROVIDERS: PCP Internal Medicine; Referring Provider Internal Medicine; Visit Provider Internal Medicine Cardiovascular Disease
DX: Q87.40 Marfan syndrome, unspecified (principal); Z98.890 Other specified postprocedural states
CPT/HCPCS: 99214

== ENCOUNTER → 2023-09-16 09:31 | Outpatient (BNVA) | payer MEDICAID, SELFPAY | PROVIDERS: PCP Internal Medicine; Visit Provider Internal Medicine Cardiovascular Disease | DX: Q87.40 Marfan syndrome, unspecified (principal); F17.210 Nicotine dependence, cigarettes, uncomplicated; Z98.890 Other specified postprocedural states | CPT/HCPCS: 99212 ==

== ENCOUNTER 2023-11-12 15:09 | Outpatient (REF) | payer MEDICAID, SELFPAY ==
--- NOTE | ~2023-11-12 | XR_ITS ---
EXAMINATION: XR SINUSES CLINICAL INFORMATION: Migraine. Patient states headache for 3 days. COMPARISON: CT scan of the head dated 05/30/2022. TECHNIQUE: 4 views of the sinuses were obtained. FINDINGS: Paranasal sinuses appear clear without air-fluid levels. No fractures are identified. No radiodense foreign bodies. XR/XR sinus min 3V IMPRESSION: Unremarkable examination.
== END 2023-11-12 15:10 | disposition home or self-care (01) ==
LOC: HO.HHCX 15:09
PROVIDERS: Visit Provider Internal Medicine
DX: G43.909 Migraine, unspecified, not intractable, without status migrainosus (principal)
CPT/HCPCS: 70220

== ENCOUNTER 2023-12-03 10:21 | Day surgery (SDC) | payer MEDICAID, SELFPAY ==
[2023-12-03 10:47] VITALS: BP 103/69; PULSE 72; RESP 18; TEMP 36.7; O2SAT 98; BMI 25.1
[2023-12-03 11:04] LABS: UPreg QC Valid YES; Urine Pregnancy NEGATIVE (NEGATIVE)
--- NOTE | 2023-12-03 11:42 | P.CONAN_ITS ---
HPI - Anesthesia Eval Consult details Narrative: for colonoscopy [facility] Active Problems Active Problems: All Active Problems Pulmonary emphysema (Acute) Chest tightness (Acute) Contusion of knee, left (Acute) Chondromalacia patellae, left knee (Acute) Hx of abnormal cervical Pap smear (Acute) Tinea versicolor (Acute) Urinary urgency (Acute) Hx-TIA (transient ischemic attack) (Acute) Primary dysmenorrhea (Acute) H/O aortic root repair (Acute) CENTENO (dyspnea on exertion) (Acute) Marfan syndrome (Acute) Past Medical History Medical History CENTENO (dyspnea on exertion) Sinusitis GERD (gastroesophageal reflux disease) Colitis Marfan syndrome Patient : No Family History Family History Father Cancer Family history of problems with anesthesia: No Surgical History Surgical History H/O colonoscopy History of esophagogastroduodenoscopy (EGD) Hx of dissecting abdominal aortic aneurysm repair Hx of eye surgery History of Problems with Anesthesia: No Social History Social History Household Members: Family Housing: Apartment Are you a primary long term acute care registered nurse to a significant other at home: No Do you presently have visiting nurse or other home services: No Alcohol intake: former Patient Tobacco Use Status: Current someday Tobacco user Tobacco use type: Cigarette Cigarettes Per Day: 2 Years Smoked: 20 +/- Substance Use Type: Marijuana Advance Directives Date on File: 05/30/22 service: No Current occupational status: employed Meds Allergies Allergy/AdvReac Type Severity Reaction Status Date / Time ibuprofen Allergy Severe Anaphylaxis Verified 07/15/23 11:37 Home Medications ?Medication ?Instructions ?Recorded ?Confirmed ?Last Taken ?Type ondansetron HCl 4 mg tablet 4 mg PO Q6H 12/15/22 09/16/23 Unknown History duloxetine 30 mg capsule,delayed 30 mg PO DAILY 03/04/23 09/16/23 06/18/23 06:00 History release (Cymbalta) epinephrine 0.3 mg/0.3 mL 0.3 mg IM Q4H PRN severe allergy 03/04/23 09/16/23 Unknown History injection, auto-injector (EpiPen) reaction sucralfate 1 gram tablet 1 g PO QIDACHS 07/15/23 09/16/23 Unknown History Exam Height,Weight and Vital Signs: Height 5 ft 11 in Weight 81.647 kg Last Vital Signs Temp 98.1 F 12/03/23 10:47 Pulse 72 12/03/23 10:47 Resp 18 12/03/23 10:47 BP 103/69 12/03/23 10:47 Pulse Ox 98 12/03/23 10:47 O2 Del Method Room Air 12/03/23 10:47 Pertinent Lab Results Pertinent Lab Results: Laboratory Tests 12/03/23 10:30 Urine Test NEGATIVE Airway Mallampati Class: I TM Dist: >3cm Neck ROM: Full Loose/Missing/Broken Teeth: No Heart: ok Lungs: ok Assessment and Plan Assessment Anesthesia Assessment: Anesthesia Plan Discussed and Chart Reviewed Final Anesthetic Review Family History of Problems with Anesthesia: No History of Problems with Anesthesia: No NPO: Yes ASA Class: III Final Preanesthetic Review: No Changes in Pt Med Stat, Meds/Allgs Chart Reviewed, Consent Obtained/Reviewed and Anes Risks/Benef Reviewed Patient Risk: Low Procedure Risk: Low Anesthetic Plan Anesthetic Plan: MAC: and Agree w/ Assess. and Plan Disposition: Standard PACU
[2023-12-03] MEDS: Lactated Ringers 1,000 ML 100 ML IVCONT (11:54)
--- NOTE | 2023-12-03 11:57 | MHC.SHP ---
Pre-Procedural Eval Section A - 24 Hr Update-Section A only Date of Service: 12/03/23 Section B - Complete if H&P > 30 days Chief Complaint: Hx of polyps Details of Present Illness: CENTENO (dyspnea on exertion) Sinusitis GERD (gastroesophageal reflux disease) Colitis Marfan syndrome Surgical History H/O colonoscopy History of esophagogastroduodenoscopy (EGD) Hx of dissecting abdominal aortic aneurysm repair Hx of eye surgery Allergies: Allergies Allergy/AdvReac Type Severity Reaction Status Date / Time ibuprofen Allergy Severe Anaphylaxis Verified 07/15/23 11:37 Review of Systems Review of Systems Comment: Ten point ROS negative Exam Exam Comment: Gen appear: No acute distress HEENT: no icterus Chest: No overt resp distress Abd: soft, nontender, nondistended Psych: Stable affect, answering questions appropriately Neuro: A/Ox3 noted to move all extremities spontaneously Ext: no peripheral edema Plan Diagnosis/Plan: Unchanged I have reviewed the history and physical and performed a pertinent physical examination on my patient. No changes have occurred unless specified. Time Spent With Patient Time: Total time managing care of this patient today ____ minutes.
--- NOTE | 2023-12-03 12:01 | P.OPN-COLO_ITS ---
Colonoscopy Operative Note Operative Note Date of Service: 12/03/23 Narrative: Procedure: Colonoscopy Indication: Chronic diarrhea Endoscopist: Nelia Ward MD Anesthesia Provider: Dr Moisés Ochoa Anesthesia type: MAC Instrument: Olympus [id number]-H190L Consent: Indication, risks vs benefits, and alternatives were discussed with the patient who gave written informed consent to proceed. EKG, pulse, pulse oximetry and blood pressure were monitored throughout the procedure. Please see anesthesia flowsheet. Procedure: The patient was brought to the procedure room and placed in the left lateral decubitus position. IV medications were administered by the anesthesia provider in attendance. A digital rectal exam was performed which was normal. A distal attachment cap was affixed to the tip of the colonoscope which was then inserted through the anus and advanced through the colon to the cecum at 75 cm,and terminal ileum. Appendiceal orifice and ileocecal valve were identified. Mucosa was carefully examined under high definition white light as the instrument was slowly withdrawn in a retrograde panoramic fashion. Retroflexion was performed in rectum. The procedure was not difficult. There were no immediate obvious complications. The quality of the prep was BBPS: 3+2+2 = adequate Withdrawal time minutes. Limitations: No limitations. Findings: Mucosa: Normal to cecum and terminal ileum. Random cold forceps biopsies were taken from right and left side of the colon and sent for histology to rule out microscopic colitis. Protruding lesions: * Medium internal hemorrhoids without stigmata of recent bleeding. Excavated lesions: * Moderate to severe diverticulosis of sigmoid colon. Impression: 1. Normal colon and terminal ileum mucosa (biopsy) 2. Diverticulosis 3. Internal hemorrhoids 4. Fair prep Recommendations: - Follow path results. - Colonoscopy for asymptomatic colorectal ca screening to resume at age 46.
[2023-12-03 12:40] VITALS: BP 113/71; PULSE 82; RESP 18; TEMP 36.1; O2SAT 100
[2023-12-03 12:55] VITALS: BP 128/74; PULSE 79; RESP 20; TEMP 36.2; O2SAT 99
== END 2023-12-03 13:20 | disposition home or self-care (01) ==
PROVIDERS: Anesthesiology; PCP Internal Medicine; Visit Provider Internal Medicine
PROC: 0DJD8ZZ Inspection of Lower Intestinal Tract, Via Natural or Artificial Opening Endoscopic (ICD-10-PCS; CPT 45378; principal; 2023-12-03 11:30)
DX: K52.9 Noninfective gastroenteritis and colitis, unspecified (principal); Z86.010 Personal history of colon polyps; Z87.19 Personal history of other diseases of the digestive system; R14.0 Abdominal distension (gaseous); K57.30 Diverticulosis of large intestine without perforation or abscess without bleeding; K64.8 Other hemorrhoids; K21.9 Gastro-esophageal reflux disease without esophagitis; R06.09 Other forms of dyspnea; Q87.40 Marfan syndrome, unspecified; J32.9 Chronic sinusitis, unspecified; F17.210 Nicotine dependence, cigarettes, uncomplicated; Z98.890 Other specified postprocedural states; Z88.6 Allergy status to analgesic agent; Z79.899 Other long term (current) drug therapy
CPT/HCPCS: 45380; 81025; 88305; J2704

== ENCOUNTER → 2023-12-03 10:21 | Outpatient (BNV) | payer MEDICAID, SELFPAY | PROVIDERS: PCP Internal Medicine; Visit Provider Internal Medicine | DX: K52.9 Noninfective gastroenteritis and colitis, unspecified (principal); K64.8 Other hemorrhoids; K57.30 Diverticulosis of large intestine without perforation or abscess without bleeding | CPT/HCPCS: 45380 ==

== ENCOUNTER 2023-12-16 13:56 | Outpatient (REF) | payer MEDICAID, SELFPAY ==
[2023-12-17 07:10] LABS: CT PCR NOT DETECTED (Not Detect.); NG PCR NOT DETECTED (Not Detect.)
== END 2023-12-16 13:57 | disposition home or self-care (01) ==
LOC: HO.LNP 13:56
PROVIDERS: PCP Internal Medicine; Visit Provider Obstetrics & Gynecology
DX: N93.9 Abnormal uterine and vaginal bleeding, unspecified (principal); N92.1 Excessive and frequent menstruation with irregular cycle; R10.9 Unspecified abdominal pain
CPT/HCPCS: 81025; 87491; 87591; 99202

== ENCOUNTER 2023-12-16 13:56 | Outpatient (AMB) | payer MEDICAID, SELFPAY ==
--- NOTE | 2023-12-16 14:04 | MHC.OFFVIS ---
Vital Signs 12/16/23 14:08 Height 5 ft 11 in Weight 188 lb BMI 26.2 BP 120/80 Intake Visit Reasons: New patient Metrorrhagia Condenser Tester: Condenser Tester Present (Maira) Allergies ibuprofen Allergy (Severe, Verified 12/16/23 14:04) Anaphylaxis Is last menstrual period known: Yes Last menstrual period: 11/30/23 HPI Comments Details: The patient is presenting c/o irregular bleeding associated with passage of blood clots and abdominal cramping. it started few months ago and is getting worse no other associated symptoms. Last co testing was in 05/29 was negative [facility] Medical History CENTENO (dyspnea on exertion) Sinusitis GERD (gastroesophageal reflux disease) Colitis Marfan syndrome Surgical History H/O colonoscopy History of esophagogastroduodenoscopy (EGD) Hx of dissecting abdominal aortic aneurysm repair Hx of eye surgery Family History Father Cancer Colon cancer Social History Household Members: Family Housing: Apartment Are you a primary healthcare insurance sales agent to a significant other at home: No Do you presently have visiting nurse or other home services: No Alcohol intake: former Patient Tobacco Use Status: Current someday Tobacco user Tobacco use type: Cigarette Cigarettes Per Day: 2 Years Smoked: 20 +/- Substance Use Type: Marijuana Advance Directives Date on File: 05/30/22 service: No Current occupational status: employed Female Reproductive History Menstrual Age of Menarche: 10 Duration of menses: 6-7 days Date of last menstrual period: 11/30/23 control method: none Total pregnancies: 2 Number of Living Children: 0 Ab spontaneous: 2 Review of Systems Const All systems reviewed & are unremarkable except as noted in HPI and below Card Reports as per HPI Resp Reports as per HPI GI Reports as per HPI and Reports no additional complaints Reports as per HPI Physical Exam Vital Signs: Last Vital Signs BP 120/80 12/16/23 14:08 BMI result Body Mass Index 26.2 Const General: cooperative, healthy appearing and comfortable Chest Chest palpation & inspection: normal inspection of the chest and normal palpation of entire chest wall Breast/axilla inspection: normal inspection of the breasts and normal inspection of the axillae Breast/axilla palpation: normal palpation of the breasts, normal palpation of the axillae and no axillary lymphadenopathy Resp Effort & Inspection: normal respiratory effort Auscultation: clear to auscultation bilaterally Percussion: percussion normal Cardio Palpation: normal PMI Rate: regular rate Rhythm: regular rhythm Heart sounds: no murmurs and no rubs Peripheral pulses: Peripheral pulses 2+ throughout GI Inspection: Yes normal to inspection Palpation (GI): Soft to palpation, nontender, no guarding, not rigid and No hepatosplenomegaly present Percussion: Yes normal to percussion Auscultation: normal bowel sounds Rectal Exam - Female: deferred General: Yes bladder normal to palpation External Female Exam: No lesion Speculum Exam - Vagina: normal appearance of the vagina, normal palpation, normal vaginal discharge and not erythematous Speculum Exam - Cervix: normal appearance of the cervix and normal palpation Bimanual exam- vagina & uterus: normal bimanual exam, normal palpation, uterine size normal, bladder normal to palpation, consistency normal and normal palpation Bimanual Exam- Adnexa, other: normal adnexae, no masses and no tenderness Results AMB Test Urine AMB Test Urine Negative Last Edit by ARTEM Whitaker on 12/16/23 14:09 Results Reviewed Results Reviewed: Laboratory Last Values Tst Clinic Negative 12/16/23 14:08 Assessment & Plan Assessment & Plan (1) Abnormal uterine bleeding (AUB): Comment: History of TIA History of aortic root repair Marfan syndrome Code(s): N93.9 - Abnormal uterine and vaginal bleeding, unspecified Category: Medical Plan: GC and chlamydia taken CBC, TSH, prolactin, HCG, and pelvic ultrasound ordered. Discussed with the patient the different causes of abnormal bleeding including thyroid disorders, uterine and ovarian pathology, endometrial hyperplasia, carcinoma and other potential causes. Discussed with the patient the work up including CBC (to r/o anemia), TSH, prolactin, pelvic Ultrasound, endometrial biopsy to r/o endometrial pathology. All questions answered and the patient verbalized understanding. Instructed the patient to schedule an appointment for an endometrial biopsy in 2 weeks. Orders: Orders AMB HCG Urine Test Today N92.1 - Excessive and frequent menstruation with irregular cycle US pelvic and transvaginal Today N93.9 - Abnormal uterine and vaginal bleeding, unspecified Prolactin Today N93.9 - Abnormal uterine and vaginal bleeding, unspecified CT NG by PCR Today N93.9 - Abnormal uterine and vaginal bleeding, unspecified Complete Blood Count no Diff Today N93.9 - Abnormal uterine and vaginal bleeding, unspecified TSH reflex Free T4 Today N93.9 - Abnormal uterine and vaginal bleeding, unspecified HCG Quantitative Today N93.9 - Abnormal uterine and vaginal bleeding, unspecified Coding Level of Care Code New Pt Level 3 (34027) Diagnoses Abnormal uterine bleeding (AUB) N93.9
[2023-12-16 14:08] VITALS: BP 120/80; BMI 26.2
== END 2023-12-16 14:36 | disposition home or self-care (01) ==
PROVIDERS: PCP Internal Medicine; Visit Provider Obstetrics & Gynecology
DX: N93.9 Abnormal uterine and vaginal bleeding, unspecified (principal); N92.1 Excessive and frequent menstruation with irregular cycle
CPT/HCPCS: 99203

== ENCOUNTER 2023-12-16 14:40 | Outpatient (REF) | payer MEDICAID, SELFPAY ==
[2023-12-16 15:56] LABS: Hematocrit 41.5 % (37.0-47.0); Hemoglobin 14.2 g/dl (12.0-16.0); Mean Corpuscular HGB Conc 34.2 g/dl (31.0-35.0); Mean Corpuscular Volume 90.6 fL (80.0-98.0); Mean Platelet Volume 9.7 fL (9.4-12.3); Platelet Count 361 X10*3/uL (160-400); Red Blood Count 4.58 X10*6/uL (4.20-5.50); Red Cell Distribution Width 13.5 % (11.0-16.0); White Blood Count 10.7 X10*3/uL (4.8-10.8)
[2023-12-16 16:38] LABS: Cholesterol 247 mg/dL (<200); HDL Cholesterol 49 mg/dL (>40); LDL Cholesterol Calculated 153 mg/dL (<100); Triglycerides 226 mg/dL (<150)
[2023-12-16 17:02] LABS: HCG Quantitative < 2 mIU/mL; TSH reflex Free T4 1.23 uIU/mL (0.32-4.0)
[2023-12-17 13:23] LABS: Prolactin 11.9 ng/mL
== END 2023-12-16 14:41 | disposition home or self-care (01) ==
LOC: HO.LAB 14:40
PROVIDERS: PCP Internal Medicine; Visit Provider Obstetrics & Gynecology
DX: Z00.00 Encounter for general adult medical examination without abnormal findings (principal); N93.9 Abnormal uterine and vaginal bleeding, unspecified
CPT/HCPCS: 36415; 80061; 81025; 84146; 84443; 84702; 85027; 87491; 87591; 99202

== ENCOUNTER 2023-12-23 13:50 | Outpatient (AMB) | payer MEDICAID, SELFPAY ==
[2023-12-23 13:54] VITALS: BP 120/68; PULSE 70; O2SAT 98; BMI 26.2
--- NOTE | 2023-12-23 13:54 | MHC.OFFVIS ---
Vital Signs 12/23/23 13:54 Height 5 ft 11 in Weight 187 lb 13.341 oz BMI 26.2 BP 120/68 Blood Pressure Location Rt brachial Position Sitting Pulse 70 Pulse Source Pulse Oximeter Pulse Oximetry (%) 98 Oxygen Delivery Method Room Air Intake Visit Reasons: S/P [place]; Dr. Ward Intake Note: Mayra presents in office today for a scheduled s/p FUV. CC; Pt reports that they are doing OK. Pt denies any post op complications. However, pt did have COVID shortly after their procedure. Pt is still recovering. Pt does report needing a refill of their sucralfate. Seed Specialist Required: No Allergies ibuprofen Allergy (Severe, Verified 12/23/23 13:55) Anaphylaxis HPI HPI S/P [place]; Dr. Ward: Details: LAST VISIT: Epigastric abdominal pain History of colitis History of diverticulitis Postprandial abdominal bloating IBS (irritable bowel syndrome) GERD (gastroesophageal reflux disease) Plan Suboptimal prep on colonoscopy. Patient will do different prep. She currently is taking Senokot. I will change that to Dulcolax tablets. Patient will do different prep. Will do Dulcolax tablets at noon day before procedure and magnesium citrate 1 bottle at 5 and 2nd bottle at 22:00. Patient will be book for colonoscopy today. Continue pantoprazole. Continue avoiding dietary triggers and late night snacking. Staying upright for minimum 3 hours after meals discussed with patient. Patient will be seen after the procedure, sooner on as needed basis. She is agreeable to this plan and verbalizes understanding of instructions. She was given the opportunity to ask questions and all questions answered. ? Thank you for allowing me to participate in her care Medications New bisacodyl (Dulcolax (bisacodyl)) 10 mg (2 x 5 mg) PO BEDTIME 180 tabs 4RF magnesium citrate Drink one bottle at 17:00 and 2nd bottle at 22:00 296 mL PO ONCE 296 mL 1RF Z12.11 COLONOSCOPY Findings: Mucosa: Normal to cecum and terminal ileum. Random cold forceps biopsies were taken from right and left side of the colon and sent for histology to rule out microscopic colitis. Protruding lesions: Medium internal hemorrhoids without stigmata of recent bleeding. Excavated lesions: Moderate to severe diverticulosis of sigmoid colon. Impression: 1. Normal colon and terminal ileum mucosa (biopsy) 2. Diverticulosis 3. Internal hemorrhoids 4. Fair prep Recommendations: - Follow path results. - Colonoscopy for asymptomatic colorectal ca screening to resume at age 46. PATHOLOGY RESULTS Diagnosis A. Colon, right, biopsy: Colonic mucosa within normal limits; negative for microscopic colitis. B. Colon, left, biopsy: Colonic mucosa within normal limits; negative for microscopic colitis TODAY'S VISIT: Patient is here today for follow-up and to discuss colonoscopy results. Patient denies any ill effects from the prep, anesthesia or procedure itself. Patient states that she has been feeling fairly well. Recommendation for colonoscopy at age 46. Normal colonic mucosa found, negative for microscopic colitis. Patient denies any melena, hematochezia, unintentional weight loss or ribbon like stools. Patient denies any dyspepsia, dysphagia or odynophagia. Patient does report occasional acid reflux. Patient continues to take Dulcolax at bedtime. Denies any nausea or vomiting. [facility] Medical History CENTENO (dyspnea on exertion) Sinusitis GERD (gastroesophageal reflux disease) Colitis Marfan syndrome Surgical History H/O colonoscopy History of esophagogastroduodenoscopy (EGD) Hx of dissecting abdominal aortic aneurysm repair Hx of eye surgery Family History Father Cancer Colon cancer Social History Household Members: Family Housing: Apartment Are you a primary respiratory care practitioner to a significant other at home: No Do you presently have visiting nurse or other home services: No Alcohol intake: former Patient Tobacco Use Status: Current someday Tobacco user Tobacco use type: Cigarette Cigarettes Per Day: 2 Years Smoked: 20 +/- Substance Use Type: Marijuana Advance Directives Date on File: 05/30/22 service: No Current occupational status: employed Female Reproductive History Menstrual Age of Menarche: 10 Review of Systems Const Denies weight gain and Denies weight loss ENT Reports no additional complaints, Denies dysphagia and Denies odynophagia Card Reports no additional complaints Resp Reports no additional complaints GI Denies abdominal pain, Denies belching, Denies melena, Denies bloating, Denies change in bowel habits, Denies dysphagia, Denies excessive flatus, Denies dyspepsia, Reports heartburn, Denies diarrhea, Denies loose stools, Denies nausea, Denies odynophagia and Denies vomiting Reports no additional complaints Musc Reports no additional complaints Neuro Reports no additional complaints Psych Reports no additional complaints Endo Reports no additional complaints Physical Exam Vital Signs: Last Vital Signs Pulse 70 12/23/23 13:54 BP 120/68 12/23/23 13:54 Pulse Ox 98 12/23/23 13:54 Oxygen Delivery Method Room Air 12/23/23 13:54 BMI result Body Mass Index 26.2 Const General: healthy appearing, no acute distress and well developed Nutritional Appearance: well nourished Orientation/consciousness: patient oriented x3 Resp Effort & Inspection: normal respiratory effort, able to speak in complete sentences, no tracheal deviation and symmetric chest movement Auscultation: clear to auscultation bilaterally Cardio Rate: regular rate GI Inspection: Yes normal to inspection and No distended Palpation (GI): Soft to palpation, not firm, nontender and No hepatosplenomegaly present Auscultation: normal bowel sounds General: Yes no CVA tenderness Back/Spine/Pelvis Back: no CVA tenderness Skin General skin exam: elasticity normal, turgor normal and dry skin Neuro General: patient oriented x3 Psych Appearance: grossly normal Mental Status: mental status grossly normal Assessment & Plan Assessment & Plan (1) Epigastric abdominal pain: Code(s): R10.13 - Epigastric pain (2) History of colitis: Code(s): Z87.19 - Personal history of other diseases of the digestive system (3) History of diverticulitis: Code(s): Z87.19 - Personal history of other diseases of the digestive system (4) Postprandial abdominal bloating: Code(s): R14.0 - Abdominal distension (gaseous) (5) IBS (irritable bowel syndrome): Code(s): K58.9 - Irritable bowel syndrome without diarrhea Qualifiers: Irritable bowel syndrome type: without diarrhea Qualified Code(s): K58.9 - Irritable bowel syndrome without diarrhea (6) GERD (gastroesophageal reflux disease): Code(s): K21.9 - Gastro-esophageal reflux disease without esophagitis Qualifiers: Esophagitis presence: without esophagitis Qualified Code(s): K21.9 - Gastro-esophageal reflux disease without esophagitis Plan Patient will start taking omeprazole. Pantoprazole is not effective. Patient was encouraged to avoid dietary triggers and late night snacking. Staying upright for minimum 3 hours after meals discussed with patient. Low FODMAP diet discussed with patient. List of food recommended as well as list of food to avoid given to patient. Patient will follow-up in the office in 3 months, sooner on as needed basis. She is agreeable to this plan and verbalizes understanding of instructions. She was given the opportunity to ask questions and all questions answered. Thank you for allowing me to participate in her care Medications: New omeprazole 20 mg PO DAILY 30 caps 2RF K21.9 - Gastro-esophageal reflux disease without esophagitis Coding Level of Care Code Est Pt Level 3 (37669) Diagnoses Epigastric abdominal pain R10.13 History of colitis Z87.19 History of diverticulitis Z87.19 Postprandial abdominal bloating R14.0 Irritable bowel syndrome without diarrhea K58.9 Irritable bowel syndrome type: without diarrhea Gastroesophageal reflux disease without esophagitis K21.9 Esophagitis presence: without esophagitis Time Spent (min) 30 Comment 20 minutes spent with patient and additional 10 minutes spent reviewing her records
== END 2023-12-23 14:41 | disposition home or self-care (01) ==
PROVIDERS: PCP Internal Medicine; Visit Provider Nurse Practitioner Family
DX: R10.13 Epigastric pain (principal); Z87.19 Personal history of other diseases of the digestive system; R14.0 Abdominal distension (gaseous); K58.9 Irritable bowel syndrome, unspecified; K21.9 Gastro-esophageal reflux disease without esophagitis
CPT/HCPCS: 99213

== ENCOUNTER → 2023-12-23 13:50 | Outpatient (BNVA) | payer MEDICAID, SELFPAY | PROVIDERS: PCP Internal Medicine; Visit Provider Nurse Practitioner Family | DX: R10.13 Epigastric pain (principal); R14.0 Abdominal distension (gaseous); K58.9 Irritable bowel syndrome, unspecified; K21.9 Gastro-esophageal reflux disease without esophagitis; Z87.19 Personal history of other diseases of the digestive system | CPT/HCPCS: 99212 ==

== ENCOUNTER 2023-12-25 10:38 | Outpatient (REF) | payer MEDICAID, SELFPAY ==
--- NOTE | ~2023-12-25 | US_ITS ---
EXAMINATION: US PELVIS CLINICAL INFORMATION: Abnormal uterine bleeding. COMPARISON: CT abdomen and pelvis 09/17/2022. TECHNIQUE: Ultrasound of the pelvis is performed using both transabdominal and transvaginal transducers along with Doppler. Transvaginal imaging is performed due to inadequate visualization transabdominally. FINDINGS: UTERUS: The uterus is anteverted and measures 9.4 x 6.4 x 7.4 cm. The double wall endometrial thickness is 11 mm. The uterus is smooth in contour and has normal myometrial echogenicity. Two fibroids are seen, one new on the right measuring 4.1 x 4.8 x 4.5 cm, with another fibroid on the left measuring 3.2 x 3.5 x 2.7 cm (previously 2.2 x 2.1 x 2.2 cm). ADNEXA: Only the right ovary could be seen, transvaginal imaging only. There is normal color flow to the adnexa. There is no right ovarian torsion. There is no pelvic ascites or fluid collection. Right ovary measures 3.3 x 2.4 x 2.1 cm for a volume of 8.7 mL, which includes a benign 1.6 cm cyst. Left ovary could not be seen. US/US pelvic and transvaginal IMPRESSION: 1. Uterine fibroids as described above. 2. Benign-appearing right ovarian cyst. 3. Left ovary could not be seen. Electronically signed by: Gray Ag MD 12/30/2023 05:06 PM EDT
== END 2023-12-25 10:39 | disposition home or self-care (01) ==
LOC: HO.US 10:38
PROVIDERS: PCP Internal Medicine; Visit Provider Obstetrics & Gynecology
DX: N93.9 Abnormal uterine and vaginal bleeding, unspecified (principal)
CPT/HCPCS: 76830; 76856

== ENCOUNTER 2024-02-29 12:02 | Outpatient (REF) | payer MEDICAID, SELFPAY | END 2024-02-29 12:03 | disposition home or self-care (01) | LOC: HO.LNP 12:02 | PROVIDERS: PCP Internal Medicine; Visit Provider Obstetrics & Gynecology | DX: N93.9 Abnormal uterine and vaginal bleeding, unspecified (principal) | CPT/HCPCS: 58100; 88305 ==

== ENCOUNTER 2024-02-29 12:02 | Outpatient (AMB) | payer MEDICAID, SELFPAY ==
--- NOTE | 2024-02-29 12:05 | A.OFFVIS_ITS ---
Vital Signs 02/29/24 12:23 Height 5 ft 11 in Weight 187 lb 6.287 oz BMI 26.1 Intake Visit Reasons: ultrasound follow up/EMB/DO NOT RS Marketing Analytics Specialist Required: No Information Interpreted: non-clinical & clinical Lock Up Worker: Lock Up Worker Present (Maira MCGILL) Accompanied by: Self / Same As Patient Allergies ibuprofen Allergy (Severe, Verified 02/29/24 12:25) Anaphylaxis HPI Comments Details: Presenting for EMB [facility] Medical History CENTENO (dyspnea on exertion) Sinusitis GERD (gastroesophageal reflux disease) Colitis Marfan syndrome Surgical History H/O colonoscopy History of esophagogastroduodenoscopy (EGD) Hx of dissecting abdominal aortic aneurysm repair Hx of eye surgery Family History Father Cancer Colon cancer Social History Household Members: Family Housing: Apartment Are you a primary home care companion to a significant other at home: No Do you presently have visiting nurse or other home services: No Alcohol intake: former Patient Tobacco Use Status: Current someday Tobacco user Tobacco use type: Cigarette Cigarettes Per Day: 2 Years Smoked: 20 +/- Substance Use Type: Marijuana Advance Directives Date on File: 05/30/22 service: No Current occupational status: employed Female Reproductive History Menstrual Age of Menarche: 10 Review of Systems Const All systems reviewed & are unremarkable except as noted in HPI and below Reports as per HPI and Reports no additional complaints GI Reports no additional complaints Reports no additional complaints Physical Exam Vital Signs: BMI result Body Mass Index 26.1 Office Procedures Endometrial Biopsy Details: The patient was counseled regarding the indication and benefits of endometrial sampling to rule out endometrial pathology including not limited to endometrial hyperplasia or endometrial cancer and others; The alternatives (Either do noth ing vs. hysteroscopy D&C) & the risks were discussed with the patient including but not limited: pain, uterine perforation, bleeding, infection, possible injury to bladder, bowel, ureter, possible need for blood transfusion with all its possible risks. The patient verbalized understanding all questions answered and signed consent. Urine test done in the office was negative The patient was placed into the dorsal lithotomy position; a speculum was inserted in the vagina. Using aseptic technique for the procedure, the cervix was cleansed with Betadine. The anterior lip of the cervix was grasped with a single tooth tenaculum. The uterus was sounded to 7 cm with a 4 mm Pipelle was used. Tissues samples were obtained and placed in formalin, in a patient labeled container and sent to the pathology department. At the end of the procedure, there was minimal bleeding noted The patient tolerated the procedure well and was discharged in good condition with the following instructions: Nothing in the vagina until the bleeding stops. No sex until the bleeding stops, to call if any of the following occurs: fever (>100.4), flu-like symptoms, abdominal pain, heavy bleeding, four smelling vaginal discharge. The patient was instructed to schedule a Follow up appointment in 2 weeks to discuss pathology results of the biopsy and treatment options. This note was generated with a voice recognition program. Some errors may have been overlooked during the review of this note. Sometimes these errors may affect the content or meaning of a given sentence. [id number] Biopsy Assessment & Plan Assessment & Plan (1) Abnormal uterine bleeding (AUB): Comment: History of TIA History of aortic root repair Marfan syndrome Code(s): N93.9 - Abnormal uterine and vaginal bleeding, unspecified Category: Medical Plan: EMB done, see procedure note Orders: Orders AMB Endometrial Biopsy Today N93.9 - Abnormal uterine and vaginal bleeding, unspecified Coding Level of Care Code Procedure Only Diagnoses Abnormal uterine bleeding (AUB) N93.9 CPT Codes Endometrial Biopsy - CPT: 74031-[id number] Biopsy ([id number])
[2024-02-29 12:23] VITALS: BMI 26.1
== END 2024-02-29 12:50 | disposition home or self-care (01) ==
LOC: HO.HWS 12:02
PROVIDERS: PCP Internal Medicine; Visit Provider Obstetrics & Gynecology
DX: N93.9 Abnormal uterine and vaginal bleeding, unspecified (principal)
CPT/HCPCS: 58100

== ENCOUNTER 2024-03-23 15:27 | Outpatient (AMB) | payer MEDICAID, SELFPAY ==
--- NOTE | 2024-03-23 15:33 | A.OFFVIS_ITS ---
Vital Signs 03/23/24 15:34 Height 5 ft 11 in Weight 194 lb 7.163 oz BMI 27.1 BP 108/72 Blood Pressure Location Lt brachial Position Sitting Pulse 66 Pulse Source Pulse Oximeter Pulse Oximetry (%) 99 Oxygen Delivery Method Room Air Intake Visit Reasons: 3 month follow up Intake Note: ESTABLISHED PATIENT Mayra presents in office today for a scheduled 3 mos FUV. Meds and Allergies reviewed? Y No recent or relevant surgeries? N Any significant concerns or new changes? No significant concerns or sx. Pharmacy verified? [facility]. Allergies ibuprofen Allergy (Severe, Verified 03/23/24 15:33) Anaphylaxis HPI HPI 3 month follow up: Details: LAST VISIT: Epigastric abdominal pain History of colitis History of diverticulitis Postprandial abdominal bloating IBS (irritable bowel syndrome) GERD (gastroesophageal reflux disease) Plan Patient will start taking omeprazole. Pantoprazole is not effective. Patient was encouraged to avoid dietary triggers and late night snacking. Staying upright for minimum 3 hours after meals discussed with patient. Low FODMAP diet discussed with patient. List of food recommended as well as list of food to avoid given to patient. Patient will follow-up in the office in 3 months, sooner on as needed basis. She is agreeable to this plan and verbalizes understanding of instructions. She was given the opportunity to ask questions and all questions answered. ? Thank you for allowing me to participate in her care Medications New omeprazole 20 mg PO DAILY 30 caps 2RF K21.9 TODAY'S VISIT Patient is here today for follow-up. Patient reports that she has been doing much better. Her symptoms of acid reflux are suppressed with omeprazole. Patient occasionally will feel nauseous depending on what she eats. Patient reports that cut down on coffee soda and chocolate. Patient reports that her sister change how she cooks. She is cooking more vegetables. Patient occasionally will have smoking. Reports that she is moving her bowels better now with the Dulcolax. Denies any abdominal pain or discomfort. Denies any abdominal bloating. Occasionally patient will feel like she does not empty her bowels completely but for the most part she has normal bowel movements after taking Dulcolax. Patient denies melena, hematochezia, unintentional weight loss or ribbon like stools. Patient denies any dyspepsia, dysphagia or odynophagia. [facility] Medical History CENTENO (dyspnea on exertion) Sinusitis GERD (gastroesophageal reflux disease) Colitis Marfan syndrome Surgical History H/O colonoscopy History of esophagogastroduodenoscopy (EGD) Hx of dissecting abdominal aortic aneurysm repair Hx of eye surgery Family History Father Cancer Colon cancer Social History Household Members: Family Housing: Apartment Are you a primary aged or disabled care worker to a significant other at home: No Do you presently have visiting nurse or other home services: No Alcohol intake: former Patient Tobacco Use Status: Current someday Tobacco user Tobacco use type: Cigarette Cigarettes Per Day: 2 Years Smoked: 20 +/- Substance Use Type: Marijuana Advance Directives Date on File: 05/30/22 service: No Current occupational status: employed Female Reproductive History Menstrual Age of Menarche: 10 Review of Systems Const Denies weight gain and Denies weight loss ENT Reports no additional complaints, Denies dysphagia and Denies odynophagia Card Reports no additional complaints Resp Reports no additional complaints GI Denies abdominal pain, Denies belching, Denies melena, Denies bloating, Denies change in bowel habits, Reports constipation (Occasional), Denies dysphagia, Denies excessive flatus, Denies dyspepsia, Reports heartburn (Suppressed with omeprazole), Denies diarrhea, Denies loose stools, Denies nausea, Denies odynophagia and Denies vomiting Reports no additional complaints Musc Reports no additional complaints Neuro Reports no additional complaints Psych Reports no additional complaints Endo Reports no additional complaints Physical Exam Vital Signs: Last Vital Signs Pulse 66 03/23/24 15:34 BP 108/72 03/23/24 15:34 Pulse Ox 99 03/23/24 15:34 Oxygen Delivery Method Room Air 03/23/24 15:34 BMI result Body Mass Index 27.1 Const General: healthy appearing, no acute distress and well developed Nutritional Appearance: well nourished Orientation/consciousness: patient oriented x3 Resp Effort & Inspection: normal respiratory effort, able to speak in complete sentences, no tracheal deviation and symmetric chest movement Auscultation: clear to auscultation bilaterally Cardio Rate: regular rate GI Inspection: Yes normal to inspection and No distended Palpation (GI): Soft to palpation, not firm, nontender and No hepatosplenomegaly present Auscultation: normal bowel sounds General: Yes no CVA tenderness Back/Spine/Pelvis Back: no CVA tenderness Skin General skin exam: elasticity normal, turgor normal and dry skin Neuro General: patient oriented x3 Psych Appearance: grossly normal Mental Status: mental status grossly normal Assessment & Plan Assessment & Plan (1) Epigastric abdominal pain: Code(s): R10.13 - Epigastric pain (2) History of colitis: Code(s): Z87.19 - Personal history of other diseases of the digestive system (3) History of diverticulitis: Code(s): Z87.19 - Personal history of other diseases of the digestive system (4) Postprandial abdominal bloating: Code(s): R14.0 - Abdominal distension (gaseous) (5) IBS (irritable bowel syndrome): Code(s): K58.9 - Irritable bowel syndrome, unspecified Qualifiers: Irritable bowel syndrome type: with constipation Qualified Code(s): K58.1 - Irritable bowel syndrome with constipation (6) GERD (gastroesophageal reflux disease): Code(s): K21.9 - Gastro-esophageal reflux disease without esophagitis Qualifiers: Esophagitis presence: esophagitis presence not specified Qualified Code(s): K21.9 - Gastro-esophageal reflux disease without esophagitis Plan Patient will continue omeprazole. May use famotidine on as needed basis at bedtime. Avoid dietary triggers and late night snacking. Staying upright for minimum 3 hours after meals discussed with patient. Continue Dulcolax at b edtime, may add docusate sodium if she will have trouble moving her bowels. Patient was encouraged to increase fluid intake and activity to promote better bowel motility. Continue avoiding dietary triggers, like high FODMAP food. No FODMAP recommended. Patient will follow-up in 6 months, sooner on as needed basis. She is agreeable to this plan and verbalizes understanding of instructions. She was given the opportunity to ask questions and all questions answered. Thank you for allowing me to participate in her care Medications: New docusate sodium 100 mg PO DAILY 30 caps 3RF K59.00 - Constipation, unspecified Coding Level of Care Code Est Pt Level 4 (35957) Complex EM visit Add On G2211 Diagnoses Epigastric abdominal pain R10.13 History of colitis Z87.19 History of diverticulitis Z87.19 Postprandial abdominal bloating R14.0 Irritable bowel syndrome with constipation K58.1 Irritable bowel syndrome type: with constipation Gastroesophageal reflux disease, unspecified whether esophagitis present K21.9 Esophagitis presence: esophagitis presence not specified Time Spent (min) 35 Comment 25 minutes spent with patient and additional 10 minutes spent reviewing her records
[2024-03-23 15:34] VITALS: BP 108/72; PULSE 66; O2SAT 99; BMI 27.1
== END 2024-03-23 16:23 | disposition home or self-care (01) ==
PROVIDERS: PCP Internal Medicine; Visit Provider Nurse Practitioner Family
DX: R10.13 Epigastric pain (principal); Z87.19 Personal history of other diseases of the digestive system; R14.0 Abdominal distension (gaseous); K58.1 Irritable bowel syndrome with constipation; K21.9 Gastro-esophageal reflux disease without esophagitis
CPT/HCPCS: 99214

== ENCOUNTER → 2024-03-23 15:27 | Outpatient (BNVA) | payer MEDICAID, SELFPAY | PROVIDERS: PCP Internal Medicine; Visit Provider Nurse Practitioner Family | DX: K58.1 Irritable bowel syndrome with constipation (principal); K21.9 Gastro-esophageal reflux disease without esophagitis; R10.13 Epigastric pain; R14.0 Abdominal distension (gaseous); Z87.19 Personal history of other diseases of the digestive system | CPT/HCPCS: 99212 ==

== ENCOUNTER 2024-05-03 13:34 | Outpatient (AMB) | payer MEDICAID, SELFPAY ==
--- NOTE | 2024-05-03 13:36 | A.OFFVIS_ITS ---
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 The following workup was done.: H&H= 14.2/41.5 TSH, prolactin, hCG, GC and chlamydia were negative. Endometrial biopsy pathology showed the following: Secretory endometrium with lytic changes; abundant blood; no atypia or hyperplasia identified Co testing was done in 05/29 was negative. Pelvic ultrasound showed the following: UTERUS: The uterus is anteverted and measures 9.4 x 6.4 x 7.4 cm. The double wall endometrial thickness is 11 mm. The uterus is smooth in contour and has normal myometrial echogenicity. Two fibroids are seen, one new on the right measuring 4.1 x 4.8 x 4.5 cm, with another fibroid on the left measuring 3.2 x 3.5 x 2.7 cm (previously 2.2 x 2.1 x 2.2 cm). ADNEXA: Only the right ovary could be seen, transvaginal imaging only. There is normal color flow to the adnexa. There is no right ovarian torsion. There is no pelvic ascites or fluid collection. Right ovary measures 3.3 x 2.4 x 2.1 cm for a volume of 8.7 mL, which includes a benign 1.6 cm cyst. Left ovary could not be seen. The patient states that she completed her family and is not interested in future fertility [facility] Medical History CENTENO (dyspnea on exertion) Sinusitis GERD (gastroesophageal reflux disease) Colitis Marfan syndrome Surgical History H/O colonoscopy History of esophagogastroduodenoscopy (EGD) Hx of dissecting abdominal aortic aneurysm repair Hx of eye surgery Family History Father Cancer Colon cancer Social History Household Members: Family Housing: Apartment Are you a primary congregational care pastor to a significant other at home: No Do you presently have visiting nurse or other home services: No Alcohol intake: former Patient Tobacco Use Status: Current someday Tobacco user Tobacco use type: Cigarette Cigarettes Per Day: 2 Years Smoked: 20 +/- Substance Use Type: Marijuana Advance Directives Date on File: 05/30/22 service: No Current occupational status: employed Female Reproductive History Menstrual Age of Menarche: 10 Review of Systems Const All systems reviewed & are unremarkable except as noted in HPI and below Reports as per HPI and Reports no additional complaints GI Reports no additional complaints Reports no additional complaints Assessment & Plan Assessment & Plan (1) Abnormal uterine bleeding (AUB): Comment: History of TIA History of aortic root repair Marfan syndrome Code(s): N93.9 - Abnormal uterine and vaginal bleeding, unspecified Category: Medical Plan: Discussed with the patient different options of treatment, medical , endometrial ablation, definitive surgical treatment. All pros and cons risks and benefits of each were discussed with the patient, the patient decided to proceed with hysterectomy, will refer the patient to [facility] for minimally invasive breaker hand hysterectomy. (2) Uterine myoma: Code(s): D25.9 - Leiomyoma of uterus, unspecified Category: Medical Plan: Discussed with the patient the results of the ultrasound and the size of the myomas. Discussed with the patient risk of myosarcoma and symptoms that are caused by myomas including but not limited to pelvic pain, pressure symptoms, abnormal uterine bleeding. In addition discussed with the patient options of treatment for myomas including: Serial ultrasounds periodically to follow-up on the size of the myoma while targeting the treatment against fibroids related symptoms (medical options, uterine artery embolization or endometrial ablation) versus definitive surgical treatment including hysterectomy. All pros and cons, risks and benefits of all options were discussed with the patient. The patient decided to proceed with hysterectomy. Will refer the patient to [facility] for minimally invasive breaker hand hysterectomy. Coding Level of Care Code Est Pt Level 3 (81284) Diagnoses Abnormal uterine bleeding (AUB) N93.9 Uterine myoma D25.9
--- OUTSIDE RECORDS SUMMARY | 2024-05-03 14:35 | XMS_ITS | Clinical Summary ---
Author Organization [employer] Address [address] [place] [address] [address] [place] [address] Care Team Providers Care Repairer Wood Furniture Name Role Phone Nayely Coffman MD Primary Care Provide r Allergies Active Allergy Reactions Criticality Noted Date Comments Amoxicillin 03/18/2022 Intolerance, GI upset Ibuprofen Hives Medium 01/07/2021 Other reaction(s): Hives / Skin Rash Maple Flavoring Agent (Non-Screening) 06/08/2023 Medications EPINEPHrine (Epipen) 0.3 MG/0.3ML injection syringeIndicati ons:Allergic reaction, initial encounter Inject 0.3 mL (0.3 mg) as directed 1 (one) time if needed for anaphylaxis for up to 1 dose. Inject into upper leg. Call 911 after use. 1 each 02/19/20 23 Active sucralfate (Carafate) 1 g tabletIndicatio ns:Other chronic gastritis without hemorrhage Take 1 tablet (1 g) by mouth before breakfast, before lunch, before evening meal, and at bedtime. 120 tablet 11 06/29/19 24 025 Active DULoxetine (Cymbalta) [address] capsuleIndicati ons:Anxiety with depression TAKE 1 CAPSULE BY MOUTH TWICE A DAY. DO NOT CRUSH OR CHEW 180 capsule 1 09/10/19 24 Active ondansetron (Zofran) 4 MG tablet TAKE 1 TABLET BY MOUTH EVERY 8 HOURS IF NEEDED FOR NAUSEA OR VOMITING FOR UP TO 13 DAYS. 20 tablet 1 12/25/19 24 Active SUMAtriptan (Imitrex) 50 MG tabletIndicatio ns:Migraine without status migrainosus, not intractable, unspecified migraine type TAKE 1 TABLET BY MOUTH NEEDED FOR MIGRAINE REPEAT ONCE IN 2 HOURS IF NEEDED 2 DOSES IN 24 HOURS. 6 tablet 02/29/20 24 Active cyclobenzaprine (Flexeril) 10 MG tabletIndicatio ns:Paraspinal muscle spasm TAKE ONE TABLET BY ORAL ROUTE UP TO THREE TIMES DAILY NEEDED FOR MUSCLE SPASM 30 tablet 2 04/05/20 24 Active cyclobenzaprine (Flexeril) 10 MG tabletIndicatio ns:Paraspinal muscle spasm Take one tablet by oral route up to three times daily as needed for muscle spasm 30 tablet 2 04/03/20 23 024 Discontinued Active Problems Problem Noted Date Diagnosed Date Migraine without status migrainosus, not intract able 11/12/2023 Assessment & Plan (11/12/2023 3:00 PM EDT): New onset of bilateral frontal headache intensity 9/10 associated with nausea, and sensitivity to light Vital signs and physical exam unremarkable Symptomatology and physical examination suggestive of a migrainous headache. She cannot take NSAIDS and has been taking Tylenol ATC without relief Plan: Imitrex 50 mg po x 1 may repeat in 2 hrs if no relief Plain film of sinuses. Pt c/o pressure rule out sinusitis, although no rhinorrhea Instructed to come back if symptoms do not improve or worsen Encounter for preventive health examination 08/05 Assessment & Plan (09/02/2023 12:50 PM EDT): See HPI Metrorrhagia 09/02/2023 Constipation 04/03/2023 Assessment & Plan (04/03/2023 12:26 PM EST): ik plenty of water and increase fiber on diet Senna prescription sent today Health care maintenance 04/03/2023 Anxiety with depression 02/18/2023 Assessment & Plan (09/02/2023 12:50 PM EDT): Counseling done Declines therapist referral I will increase duloxetin to 30mg BID RTC 4 weeks televisit Irritable bowel syndrome with diarrhea Assessment & Plan (09/02/2023 12:49 PM EDT): Continue to follow with GI Chronic bilateral low back pain 02/18/2023 Allergic reaction 02/18/2023 Routine adult health maintenance 07/02/2022 Assessment & Plan (07/02/2022 5:12 PM EDT): Due to time constraints and patients concern with recent echocardiogram, we were unable to conduct this patients PE today. F/up 2 months for PE. Chest pain 07/02/2022 Assessment & Plan (07/04/2022 12:58 PM EDT): See aortic aneurysm repair. Chronic pain of left knee 05/23/2022 Assessment & Plan (05/23/2022 5:11 PM EST): Conservative therapy is not working. Referral to ortho. Patient reports taking a lot of tylenol. 8+ 250mg a day . Refilled cyclobenzaprine and educated on hepatotoxicity of acetaminophen. Paraspinal muscle spasm 05/23/2022 Assessment & Plan (05/23/2022 5:19 PM EST): Patient states her back spasms have been coming back since she stopped taking the cyclobenzaprine. Marfan's syndrome 03/18/2022 H/O aortic aneurysm repair 03/18/2022 Assessment & Plan (07/02/2022 5:15 PM EDT): Patient stopped seeing cardiology in 2012. Recurrence of similar chest pain and recent transthoracic echocardiogram warrant a referral to cardiology. PMH of Marfan syndrome and an aortic valve sparing repair of an ascending aortic aneurysm Dec 22 2011. Her most recent echocardiogram 05/30/22 demonstrated paradoxical septal motion. Possible septal hypokinesis. Please evaluate. Her heart rate was not tachycardic during my cardiac assessment. Depressive disorder 03/18/2022 Allergic rhinitis 03/18/2022 Resolved Problems Problem Noted Date Diagnosed Date Resolved Date Dilatation of aorta 09/30/2011 06/02/19 23 Encounters Date Type Department Care Team Description 04/04/2024 Refill [facility] [address] [place] [address] Nayely Coffman MD Paraspinal muscle spasm 02/29/2024 Orders Only GENERIC EXTERNAL DATA DEPARTMENT Provider, Generic External Data 02/28/2024 Refill [facility] [address] [place] [phone] Nayely Coffman MD Migraine without status migrainosus, not intractable, unspecified migraine type from Last 3 Months Immunizations Name Administration Dates Next Due HPV, Quadrivalent 06/29/2006 Hep A, Adult 10/27/2016 Influenza injectable quadrivalent preservative f ree 02/20/2023,03/22/2022 Pfizer Covid-19 Vaccine 12+ 12/12/2020, Pfizer Covid-19 Vaccine 12+ Bivalent 03/22/2022 Pneumococcal Conjugate PCV 20 09/02/2023 Tdap 09/02/2023,06/10/2011 Social History Tobacco Use Types Packs/Day Years Used Date Smoking Tobacco: Former Cigarettes Passive Smoke Exposure: Past Smokeless Tobacco: Never Tobacco Cessation:Counseling Given: Not Answered Alcohol Use Standard Drinks/Week Comments Never 0 (1 standard drink = 0.6 oz pur e alcohol) Depression Answer Date Recorded Patient Health Questionnaire-9 Score 3 04/03/2023 Patient Health Questionnaire-9 Score 3 04/03/2023 Last PHQ-9: Questionnaire Data Not on file 1 Housing Stability Answer Date Recorded What is your housing situation today? I do not have housing (Staying with others, in a hotel, in a detention, living outside on the street, on a beach, in a car, or in a park 08/21/[address] you li ve. Do you have problems with any of the following? None of the above 08/21/2023 Food Insecurity Answer Date Recorded Within the past 12 months, y ou worried that your food would run out before you got money to buy more: Never True 01/26/2023 Within the past 12 months,th e food you bought just didn't last and you didn't have enough money to get more: Never True Transportation Answer Date Recorded In the past 12 months, has l ack of transportation kept you from medical appts, meetings, work or from getting things needed for daily living? No 01/26/2023 Utilities Answer Date Recorded In the past 12 months, has t he electric, gas, oil or water company threatened to shut off services in your home? No 01/26/2023 Depression Answer Date Recorded Patient Health Questionnaire-2 Score 2 04/03/2023 Comments Unknown Sex and Gender Information Value Date Recorded Sex Assigned at Female 02/03/2022 10:14 AM EDT Legal Sex Female 10:14 AM EDT Gender Identity Female 02/03/2022 10:14 AM EDT Sexual Orientation Choose not to disclose 2021 10:14 AM EDT Last Filed Vital Signs Vital Sign Reading Time Taken Comments Blood Pressure 136/81 11/12/2023 2:15 PM EDT Pulse 75 11/12/2023 2:15 PM EDT Temperature 36.7 ??C (98 ??F) 11/12/2023 2:15 PM EDT Respiratory Rate 18 11/12/2023 2:15 PM EDT Oxygen Saturation 98% 06/29/2023 5:27 PM EDT Inhaled Oxygen Concentration - - Weight 85.6 kg (188 lb 12.8 oz) 11/12/2023 2:15 PM EDT Height 180.3 cm (5' 11 ) 11/12/2023 2:15 PM EDT Body Mass Index 26.33 11/12/2023 2:15 PM EDT Plan of Treatment Health Maintenance Due Date Last Done Comments Alcohol/Substance Use Screening 1998 Family Planning (PISQ) 2001 Hepatitis B Vaccines (1 of 3 - 19+ 3-dose series) 2005 HPV Vaccines (2 - 3-dose series) 07/27/2006 06/29/2006 COVID-19 Vaccine ( season) 2023 02/20/2023, 03/22/2022, 12/12/2020, Additional history exists Influenza Vaccine (#1) 2023 02/20/2023, 2021 Depression Screening 04/03/2024 04/03/2023, 04/03/20 23 SDOH Screening 08/20/2024 08/21/2023 Tobacco Screening 11/11/2024 11/12/2023 Pap Smear 05/22/2025 05/22/2022 Cervical Cancer Screening 05/22/2027 HPV/Cotest 05/22/2027 05/22/2022 DTaP/Tdap/Td Vaccines (3 - Td or Tdap) 09/01/2033 09/02/2023, 06/10/2011 Zoster Vaccines (1 of 2) 2036 RSV Patients and Patients Aged 60 years or older (1 - 1-dose 75+ series) 2061 Hepatitis A Vaccines Aged Out 10/27/2016 No long er eligible based on patient's age to complete this topic HIV Screening Completed 04/03/2023, 11/04, 05/11/2019 Hepatitis C Screening Completed 04/03/2023 Pneumococcal Vaccine: Pediatrics (0 to 5 Years) and At-Risk Patients (6 to 64 Years) Completed 09/02/2023 HIB Vaccines Aged Out No longer eligi ble based on patient's age to complete this topic IPV Vaccines Aged Out No longer eligi ble based on patient's age to complete this topic Meningococcal Vaccine Aged Out No corky anibal eligible based on patient's age to complete this topic RSV under 20 months Aged Out No longe r eligible based on patient's age to complete this topic Rotavirus Vaccines Aged Out No longer eligible based on patient's age to complete this topic Procedures Procedure Name Priority Date/Time Associated Diagnosis Comments HEMATOXYLIN AND EOSIN STAIN Routine 02/29/2024 11:45 AM EST HEPATITIS C AB W/REFL TO HCV RNA, QN, PCR Routine 04/03/2023 2:52 PM EST Health care maintenance HIV 1/2 ANTIGEN/ANTIBODY, FOURTH GENERATION W/RFL Routine 04/03/2023 2:52 PM EST Health care maintenance HPV MRNA E6/E7 REFLEX TO HPV 16, 18/45 Routine 05/22/2022 11:48 AM EST PAP SMEAR Routine 05/22/2022 11:48 AM EST from Last 3 Months or Most Recently Relevant to Health Maintenance Results * Hematoxylin and Eosin Stain (02/29/2024 11:45 AM EST) 02/29/2024 11:4 5 AM EST 02/29/2024 1:23 PM EST [facility] - 03/02/2024 7:13 AM EST ----- ------- Name: Cheri,Mayra ?Age/Sex: 38/F ? : 1985 Unit#: [id number] ?? Attend Dr: Luis Marsh MD ?Re02/29/24 ?Status: DEP REF ? Location: HO.LNP ?Disch: ? ----- ------- SPEC : [id number] ? RECD: 02/29/24-3 ? STATUS: ??SOUT ? REQ NUM: [id number] ? MASOUD: 02/29/24-1145 ? SUBM DR: Luis Marsh MD ? ENTERED: ??02/29/24-1336 ?SP TYPE: Surgical ? OTHR DR: Nayely Coffman MD ? ORDERED: ??HE Stain/2, Gross Micro L4 ? Diagnosis ?? Endometrium, biopsy: ??Secretory endometrium with lytic changes; abundant blood; no atypia ?? or hyperplasia identified. ?Clinical History AUB ?Microscopic Description Microscopic sections reviewed. ? Material Received ?? EMB ? Gross Description Received in formalin labeled ?EMB? are fragments of red-pink soft tissue mixed with mucus and clotted blood forming in aggregate measuring 2.9 x 2.2 x 0.3 cm which is wrapped in lens paper and entirely submitted for microscopic examination, multiple pieces in cassettes A1 and A2. smc Copies To: ?? Nayely Coffman MD ?? [facility] ?? [address] ?? [place] [address] ?? [phone] ?? Luis Marsh MD ?? [facility] ?? [address] [place] [address] [address] ?? [place] [address] ?? [phone] ----- ------- Signed (signature on file) Bethel Gao MD 03/02/24 0713 ? ----- ------- ? END OF REPORT ? us Generic External Data Provider LAB BLOOD ORDERAB LES Final Result Performing Organization Address [facility] Co de Phone Number [facility] [address] [place] [phone] * Hepatitis C Antibody with Reflex to HCV, RNA, Quantitative, Real-Time PCR (04/03/2023 2:52 PM EST) [facility] Hepatitis C Antibody Nonreactive Nonreactive [facility] Comment:Antibodies to HCV no t detected; does not exclude early acuteHCV infection. Blood Venous blood specimen / Unknown 04/03/2023 2:52 PM EST 04/03/2023 2:54 PM EST us Nayely Quiros MD LAB BLOOD ORDERABLES Final Result Performing Organization Address [facility] Co de Phone Number [facility] [address] [place] [phone] * HIV-1/2 Antigen and Antibodies, Fourth Generation, with Reflexes (04/03/2023 2:52 PM EST) Pathologist [facility] HIV AB/AG Nonreactive Nonreactive [facility] Comment:HIV-1 p24 Ag and/or HIV-1/HIV-2 Ab not detected.A test result that is nonreactive does not exclude thepossibility of exposure to or infection with HIV-1 and/orHIV-2. Nonreactive results in this assay for individualswith prior exposure to HIV-1 and/or HIV-2 may be due toantigen and antibody levels that are below the limit ofdetection of this assay.The [employer] HIV Ag/Ab Combo assay result andsupplemental assay results should be interpreted inconjunction with the patient's clinical presentation,history and other laboratory results. If the results areinconsistent with clinical evidence, additional testing issuggested to confirm the result. Blood Venous blood specimen / Unknown 04/03/2023 2:52 PM EST 04/03/2023 2:54 PM EST Nayely Quiros MD LAB BLOOD ORDERABLES Final Result [facility] [address] [place] [address] [phone] * HPV mRNA E6/E7 w/Reflex to HPV Genotypes 16, 18/45 (05/22/2022 11:48 AM EST) HPV nRNA E6/E7 Not Detected Not Detected [facility] Comment:Methodology: Transcr iption-Mediated AmplificationThis assay detects E6/E7 viral messenger RNA (mRNA) from 14high-risk HPV types (16,18,31,33,35,39,45,51,52,56,58,59,66,68).Cervical sources are required for HPV testing.If a vaginal source from a patient who has had atotal hysterectomy with removal of cervix wassubmitted, please contact the testing laboratoryfor alternative testing options.For additional information, please refer tohttp://education.[place]/faq/YHV249q7(This link if provided for information/educational purposes only.)THIS TEST WAS PERFORMED AT:[facility] [place] [phone] JEFFRIES MD HPV mRNA E6/E7 [facility] HPV 16 RNA [facility] HPV 18/45 RNA [facility] 05/22/2022 11:4 8 AM EST 05/22/2022 12:00 PM EST us [facility] External Provider LAB CYT JOSE RAMON SUABLES Final Result [facility] [address] [place] [address] [phone] * Pap Smear (05/22/2022 11:48 AM EST) 05/22/2022 11:4 8 AM EST 05/22/2022 12:00 PM EST Narrative [facility] - 06/02/2022 12:55 PM EST ----- ------- Name: Mayra Alonzo ?Age/Sex: 36/F ? : 1985 Unit#: [id number] ?? Attend Dr: Marily Morales CNM ?Re05/22/22 ?Status: DEP REF ? Location: HO.LNP ?Disch: ? ----- ------- SPEC : [id number] ? RECD: 05/22/22-1200 ? STATUS: ??SOUT ? REQ NUM: [id number] ? MASOUD: 05/22/22-1148 ? SUBM DR: Marily Morales CNM ? ENTERED: ??05/22/22-1238 ?SP TYPE: Pap Smr ?OTHR DR: Nayely Coffman MD ? ORDERED: ??Pap Smear ? Interpretation ?? Satisfactory for evaluation. ?? Negative for intraepithelial lesion or malignancy. ?? Coccobacilli consistent with shift in vaginal queta. ? HPV mRNA E6/E7: ?NOT DETECTED ? This assay detects E6/E7 viral messenger RNA (mRNA) from 14 high-risk HPV types (16, 18, ?? 31, 33, 35, 39, 45, 51, 52, 56, 58, 59, 66, 68) ? HPV testing performed by [facility], [place], [place]. ??See reference laboratory ?? portion of the EMR for entire report. ?Clinical Information LMP: 05/18/22 Previous PAP test: 03/25/19, Abnormal Other history: +HPV ? Material Received ?? ThinPrep-Cervical Copies To: ?? Nayely Coffman MD ?? [address] ?? [place] [address] ?? [phone] ?? Marily Morales CNM ?? [address] [place] [address] [address] ?? [place] [address] ?? [phone] ----- ------- Signed (signature on file) Nicole Branch 06/02/22 1255 ? ----- ------- ? END OF REPORT ? [facility] External Provider LAB [facility] ORDERABLES Final Result [facility] [address] [place] [phone] [phone] from Last 3 Months or Most Recently Relevant to Health Maintenance Care Teams Repairer Wood Furniture Relationship Specialty Start Date End Date Nayely Coffman MD [address] [place] [phone] PCP - General Family Medicine 04/13/18
--- OUTSIDE RECORDS SUMMARY | 2024-05-03 14:35 | XMS_ITS | Encounter Summary ---
Author Organization [employer] Address [address] [facility] [address] [place] [address] Care Team Providers Care Tumbler Plater Name Role Phone Nayely Coffman MD Primary Care Provide r Reason for Visit * Reason Comments Med Refill Encounter Details Date Type Department Care Team ([facility] st Contact Info) Description 04/04/2024 Refill [facility] [address] [place], [place] [phone] Nayely Coffman MD [address] [place], [place] [phone] Paraspinal muscle spasm Social History Tobacco Use Types Packs/Day Years Used Date Smoking Tobacco: Former Cigarettes Passive Smoke Exposure: Past Smokeless Tobacco: Never Alcohol Use Standard Drinks/Week Comments Never 0 [...] with others, in a hotel, in a longterm, living outside on the street, on a [...] not to disclose 2021 10:14 AM EDT documented as of this encounter Plan of Treatment Not on file documented as of this encounter Visit Diagnoses Diagnosis Paraspinal muscle spasm documented in this encounter Additional Health Concerns Assessment Noted Time PHQ-9 Depression Total Score: 3 04/03/20 23 10:54 AM EST documented as of this encounter Care Teams Tumbler Plater Relationship Specialty Start Date End Date Nayely Coffman MD [address] [place] [phone] PCP - General Family Medicine 04/13/18 documented as of this encounter
--- OUTSIDE RECORDS SUMMARY | 2024-05-03 14:35 | XMS_ITS | Encounter Summary ---
Author Organization [employer] Address [address] [facility] [address] [place] [address] Care Team Providers Care Supplier Quality Engineer Name Role Phone Nayely Coffman MD Primary Care Provide r Reason for Visit * Reason Onset Date Comments Created In Error 12/08/2023 Encounter Details Date Type Department Care Team ([facility] st Contact Info) Description 12/08/2023 Telephone [facility] [address] [place] [address] Nayely Coffman MD [address] [place] [address] Created In Error Social History Tobacco Use Types Packs/Day Years [...] with others, in a hotel, in a half-way, living outside on the street, on a [...] documented as of this encounter Visit Diagnoses Not on filedocumented in this encounter Additional Health Concerns Assessment Noted Time PHQ-9 Depression Total Score: 3 04/03/20 23 10:54 AM EST documented as of this encounter Care Teams Supplier Quality Engineer Relationship Specialty Start Date End Date Nayely Coffman MD [address] [place] [address] PCP - General Family Medicine 04/13/18 documented as of this encounter
== END 2024-05-03 14:38 | disposition home or self-care (01) ==
LOC: HO.HWS 13:34
PROVIDERS: PCP Internal Medicine; Visit Provider Obstetrics & Gynecology
DX: N93.9 Abnormal uterine and vaginal bleeding, unspecified (principal); D25.9 Leiomyoma of uterus, unspecified
CPT/HCPCS: 99213

== ENCOUNTER → 2024-05-03 13:34 | Outpatient (BNVA) | payer MEDICAID, SELFPAY | PROVIDERS: PCP Internal Medicine; Visit Provider Obstetrics & Gynecology | DX: N93.9 Abnormal uterine and vaginal bleeding, unspecified (principal); D25.9 Leiomyoma of uterus, unspecified | CPT/HCPCS: 99212 ==

== ENCOUNTER 2024-05-05 07:53 | Outpatient (REF) | payer MEDICAID, SELFPAY ==
--- NOTE | ~2024-05-05 | CT_ITS ---
CLINICAL HISTORY: Z98.890 - Other specified postprocedural states CT angiography thoracic aorta with contrast. 3D Postprocessing. CT angiography of the abdomen and pelvis with contrast. 3D post-processing. Comparison: None Findings: Vascular: Normal size heart. Maximum aortic diameters: Annulus - 2.9 cm. Sinuses of Valsalva - 3.2 cm. Sinotubular junction - 2.8 cm. Ascending aorta - 2.3 cm. Arch - 2.3 cm. Descending aorta - 2.0 cm. The abdominal aorta demonstrates no dissection or aneurysms. The maximum transverse dimension is 2 cm distally. The pelvic vasculature is widely patent. There is mild ectasia of the common iliac arteries measuring up to 12 mm bilaterally. The mesenteric and renal arteries are widely patent. Nonvascular: Chest: No mediastinal adenopathy or pericardial effusion. No thyroid lesion. Lungs demonstrate no suspicious lesion. There is faint patchy ground-glass density bilaterally most pronounced within the right upper lobe. No effusion. No pneumothorax. No suspicious bone lesion within the thorax. Abdomen and pelvis: The liver, gallbladder, spleen, adrenal glands and pancreas are unremarkable. Kidneys, ureters and bladder are within normal limits. There is no bowel obstruction or free air. The appendix is normal. There is diverticulosis without evidence of diverticulitis. The uterus is bulky, lobular and heterogeneous consistent with multiple fibroids. No suspicious bone lesion. Impression: There is no aneurysms or dissection involving the thoracic or abdominal aorta. There is the suggestion of multifocal pneumonia within the right lung. Clinical correlation follow-up recommended. Bulky lobular uterus consistent with multiple fibroids. This document has been electronically signed by: Darien Salcedo MD on 05/05/2024 12:04:54
[2024-05-05] MEDS: iohexoL 350 MG/ML 100 ML INFUS..BTL IV (08:39)
--- OUTSIDE RECORDS SUMMARY | 2024-05-05 10:48 | XMS_ITS | Encounter Summary ---
Author Organization [employer] Address [address] [facility] [address] [place] [address] Care Team Providers Care Time Lock Expert Name Role Phone Nayely Coffman MD Primary Care Provide r Reason for Visit * Reason Onset Date Comments Created In Error 12/08/2023 Encounter Details Date Type Department Care Team ([facility] st Contact Info) Description 12/08/2023 Telephone [facility] MEDICINE [address] [place] [address] Nayely Coffman MD [address] [place] [address] Created In Error Social History Tobacco Use [...] with others, in a hotel, in a usp, living outside on the street, on a [...] documented as of this encounter Care Teams Time Lock Expert Relationship Specialty Start Date End Date Nayely Coffman MD [address] [place] [address] PCP - General Family Medicine 04/13/18 documented as of this encounter
--- OUTSIDE RECORDS SUMMARY | 2024-05-05 10:48 | XMS_ITS | Encounter Summary ---
Author Organization [employer] Address [address] [facility] [address] [place] [address] Care Team Providers Care Tile Helper Name Role Phone Nayely Coffman MD Primary Care Provide r Reason for Visit * Reason Comments Med Refill Encounter Details Date Type Department Care Team ([facility] st Contact Info) Description 04/04/2024 Refill [facility] MEDICINE [address] [place], [place] [phone] Nayely Coffman MD [address] [place], [place] [phone] Paraspinal muscle spasm Social History Tobacco Use [...] with others, in a hotel, in a fci, living outside on the street, on a [...] documented as of this encounter Care Teams Tile Helper Relationship Specialty Start Date End Date Nayely Coffman MD [address] [place] [phone] PCP - General Family Medicine 04/13/18 documented as of this encounter"
--- OUTSIDE RECORDS SUMMARY | 2024-05-05 10:48 | XMS_ITS | Clinical Summary ---
Author Organization [employer] Address [address] [place] [address] [address] [place] [address] Care Team Providers Care Cargo Bracer Name Role Phone Nayely Coffman MD Primary Care Provide r Allergies Active Allergy Reactions Criticality Noted Date Comments Amoxicillin 03/18/2022 Intolerance, GI upset Ibuprofen Hives Medium 01/07/2021 Other reaction(s): Hives / Skin Rash Maple Flavoring Agent (Non-Screening) 06/08/2023 Medications EPINEPHrine (Epipen) 0.3 MG/0.3ML injection syringeIndicatio ns:Allergic reaction, initial encounter Inject 0.3 mL (0.3 mg) as directed 1 (one) time if needed for anaphylaxis for up to 1 dose. Inject into upper leg. Call 911 after use. 1 each 3 Active sucralfate (Carafate) 1 g tabletIndication s:Other chronic gastritis without hemorrhage Take 1 tablet (1 g) by mouth before breakfast, before lunch, before evening meal, and at bedtime. 120 tablet 11 4 06/29/19 25 Active DULoxetine (Cymbalta) [address] capsuleIndicatio ns:Anxiety with depression TAKE 1 CAPSULE BY MOUTH TWICE A DAY. DO NOT CRUSH OR CHEW 180 capsule 1 4 Active ondansetron (Zofran) 4 MG tablet TAKE 1 TABLET BY MOUTH EVERY 8 HOURS IF NEEDED FOR NAUSEA OR VOMITING FOR UP TO 13 DAYS. 20 tablet 1 4 Active SUMAtriptan (Imitrex) 50 MG tabletIndication s:Migraine without status migrainosus, not intractable, unspecified migraine type TAKE 1 TABLET BY MOUTH NEEDED FOR MIGRAINE REPEAT ONCE IN 2 HOURS IF NEEDED 2 DOSES IN 24 HOURS. 6 tablet 4 Active cyclobenzaprine (Flexeril) 10 MG tabletIndication s:Paraspinal muscle spasm TAKE ONE TABLET BY ORAL ROUTE UP TO THREE TIMES DAILY NEEDED FOR MUSCLE SPASM 30 tablet 2 4 Active Active Problems Problem Noted Date Diagnosed Date Migraine without status migrainosus, not intract able 11/12/2023 Assessment & Plan (11/12/2023 3:00 PM EDT): New onset of bilateral frontal headache intensity 12/14 associated with nausea, and sensitivity to light [...] Encounters Date Type Department Care Team Description 05/05/2024 Telephone [facility] MEDICINE [address] [place] [address] Nayely Coffman MD Nurse Triage (/) 04/04/2024 Refill [facility] MEDICINE [address] [place] [address] Nayely Coffman MD Paraspinal muscle spasm 02/29/2024 Orders Only GENERIC EXTERNAL DATA DEPARTMENT Provider, Generic External Data 02/28/2024 Refill [facility] [address] [address] Nayely Coffman MD Migraine without status migrainosus, [...] with others, in a hotel, in a alf, living outside on the street, on a [...] 5 Years) and At-Risk Patients (6 to 49) Years) Completed 09/02/2023 HIB Vaccines Aged Out [...] 5 AM EST 02/29/2024 1:23 PM EST Narrative [facility] - 03/02/2024 7:13 AM EST ----- ------- Name: CheriMayra ?Age/Sex: 38/F ? : 1985 Unit#: [id number] ?? Attend Dr: Luis Marsh MD ?Re02/29/24 ?Status: DEP REF ? Location: HO.LNP ?Disch: ? ----- ------- SPEC : [id number] ? RECD: 02/29/24-1322 ? STATUS: ??SOUT ? REQ NUM: [id number] ? MASOUD: 02/29/24-1145 ? SUBM DR: Luis [...] multiple pieces in cassettes A1 and A2. [facility] Copies To: ?? Nayely Coffman MD ?? [facility] ?? [address] ?? [place] [address] ?? [phone] ?? Luis Marsh MD ?? [facility] ?? [address] ?? [place] [address] ?? [phone] ----- ------- Signed (signature on file) Bethel Gao MD 03/02/24 0713 ? ----- ------- ? END OF REPORT ? us Generic External Data Provider LAB BLOOD ORDERAB LES Final Result Performing Organization Address [facility] Co de Phone Number [facility] [address] [place] [phone] * Hepatitis C Antibody with Reflex to HCV, RNA, Quantitative, Real-Time PCR (04/03/2023 2:52 PM EST) Hepatitis C Antibody Nonreactive Nonreactive [facility] Comment:Antibodies to HCV no t detected; does not exclude early acuteHCV infection. Blood Venous blood specimen / Unknown 04/03/2023 2:52 PM EST 04/03/2023 2:54 PM EST us Nayely Quiros MD LAB BLOOD ORDERABLES Final Result Performing Organization Address [facility] Co de Phone Number [facility] [address] [place] [phone] * HIV-1/2 Antigen and Antibodies, Fourth Generation, with Reflexes (04/03/2023 2:52 PM EST) HIV AB/AG Nonreactive Nonreactive [facility] Comment:HIV-1 p24 Ag and/or HIV-1/HIV-2 Ab not detected.A test result that is nonreactive does not exclude thepossibility of exposure to or infection with HIV-1 and/orHIV-2. Nonreactive results in this assay for individualswith prior exposure to HIV-1 and/or HIV-2 may be due toantigen and antibody levels that are below the limit ofdetection of this assay.The Activity [employer] HIV Ag/Ab Combo assay result andsupplemental assay results should be interpreted inconjunction with the patient's clinical presentation,history and other laboratory results. If the results areinconsistent with clinical evidence, additional testing issuggested to confirm the result. Blood Venous blood specimen / Unknown 04/03/2023 2:52 PM EST 04/03/2023 2:54 PM EST Nayely Quiros MD LAB BLOOD ORDERABLES Final Result [facility] [address] [place] [address] [phone] * HPV mRNA E6/E7 w/Reflex to HPV Genotypes 16, 18/45 (05/22/2022 11:48 AM EST) HPV nRNA E6/E7 Not Detected Not Detected [facility] Comment:Methodology: Transcr iption-Mediated AmplificationThis assay detects E6/E7 viral messenger RNA (mRNA) from 14high-risk HPV types (16,18,31,33,35,39,45,51,52,56,58,59,66,68).Cervical sources are required for HPV testing.If a vaginal source from a patient who has had atotal hysterectomy with removal of cervix wassubmitted, please contact the testing laboratoryfor alternative testing options.For additional information, please refer tohttp://education.1spire/faq/PAF659d6(This link if provided for information/educational purposes only.)THIS TEST WAS PERFORMED AT:[facility] [place] [phone] JEFFRIES MD HPV mRNA E6/E7 [facility] HPV [address] [facility] HPV 18/45 RNA [facility] 05/22/2022 11:4 8 AM EST 05/22/2022 12:00 PM EST [facility] External Provider LAB CYT OLOGY ORDERABLES Final Result [facility] [address] [place] [address] [phone] * Pap Smear (05/22/2022 11:48 AM EST) 05/22/2022 11:4 8 AM EST 05/22/2022 12:00 PM EST Narrative [facility] - 06/02/2022 12:55 PM EST ----- ------- Name: Mayra Alonzo ?Age/Sex: 36/F ? : 1985 Unit#: [id number] ?? Attend Dr: Marily Morales CNM ?Re05/22/22 ?Status: DEP REF ? Location: HO.LNP ?Disch: ? ----- ------- SPEC : [id number] ? RECD: 05/22/22-1200 ? STATUS: ??SOUT ? REQ NUM: [id number] ? MASOUD: 05/22/22-1148 ? SUBM DR: Marily [...] 66, 68) ? HPV testing performed by [employer], [place], MD. ??See reference laboratory ?? portion of the EMR for entire report. ?Clinical Information LMP: 05/18/22 Previous PAP test: 03/25/19, Abnormal Other history: +HPV ? Material Received ?? ThinPrep-Cervical Copies To: ?? Nayely Coffman MD ?? [address] ?? [place] [address] ?? [phone] ?? Marily Morales CNM ?? [address] ?? [place] [address] ?? [phone] ----- ------- Signed (signature on file) Nicole Branch 06/02/22 1255 ? ----- ------- ? END OF REPORT ? [facility] External Provider LAB CYT OLOGY ORDERABLES Final Result [facility] [address] [place] [address] [phone] from Last 3 Months or Most Recently Relevant to Health Maintenance Care Teams Cargo Bracer Relationship Specialty Start Date End Date Nayely Coffman MD [address] [place] [address] PCP - General Family Medicine 04/13/18
== END 2024-05-05 07:54 | disposition home or self-care (01) ==
LOC: HO.CT 07:53
PROVIDERS: PCP Internal Medicine; Visit Provider Internal Medicine Cardiovascular Disease
DX: Q87.40 Marfan syndrome, unspecified (principal); Z98.890 Other specified postprocedural states
CPT/HCPCS: 71275; 74174; Q9967

== ENCOUNTER → 2024-05-05 07:54 | Outpatient (BNV) | payer MEDICAID, SELFPAY | PROVIDERS: PCP Internal Medicine; Visit Provider Radiology Vascular & Interventional Radiology | DX: N85.2 Hypertrophy of uterus (principal) | CPT/HCPCS: 71275; 74174 ==

== ENCOUNTER 2024-06-24 11:18 | Outpatient (REF) | payer MEDICAID, SELFPAY ==
[2024-06-24 14:09] LABS: HBS Num1 664.32 mIU/mL (0-7.99); ~Hepatitis B Surface Antibody REACTIVE (Nonreactive)
== END 2024-06-24 11:19 | disposition home or self-care (01) ==
LOC: HO.HHCL 11:18
PROVIDERS: Visit Provider Internal Medicine
DX: Z20.1 Contact with and (suspected) exposure to tuberculosis (principal); Z02.1 Encounter for pre-employment examination
CPT/HCPCS: 36415; 86706; 86735; 86762; 86765; 86787

== ENCOUNTER 2024-08-31 15:00 | Emergency (ER) | payer OTHER, SELFPAY ==
[2024-08-31 15:22] VITALS: BP 135/78; PULSE 75; RESP 16; TEMP 36.4; O2SAT 100; BMI 27.1
--- NOTE | 2024-08-31 15:25 | ED_ITS ---
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 Very small red dot. She notes it is used to clean out inside of tooth. No other injuries. No concerns for patient or known hx of HIV, hepatitis. MD complaint: other (puncture wound) Onset (ago): hour(s) (few) Location: R hand Severity: mild Relieving factors: none Exacerbating factors: none Context: none Associated symptoms: denies other symptoms Treatments prior to arrival: none Related Data Home Medications ?Medication ?Instructions ?Recorded ?Confirmed duloxetine 30 mg capsule,delayed 30 mg PO DAILY 03/04/23 09/16/23 release (Cymbalta) epinephrine 0.3 mg/0.3 mL 0.3 mg IM Q4H PRN severe allergy 03/04/23 09/16/23 injection, auto-injector (EpiPen) reaction famotidine 20 mg tablet mg PO 12/23/23 omalizumab 300 mg/2 mL 300 mg subcut Q4W 12/23/23 subcutaneous auto-injector (Xolair) sumatriptan succinate 50 mg tablet mg PO 12/23/23 ondansetron HCl 4 mg tablet 4 mg PO Q8H PRN nausea/vomiting 03/23/24 Previous Rx's ?Medication ?Instructions ?Recorded albuterol sulfate 90 mcg/actuation 2 puff inhalation Q4-6H PRN 12/15/22 aerosol inhaler shortness of breath or wheezing 30 days #1 ea cholecalciferol (vitamin D3) 50 50 mcg PO DAILY #90 caps 04/08/23 mcg (2,000 unit) capsule bisacodyl 5 mg tablet,delayed 10 mg (2 x 5 mg) PO BEDTIME #180 07/15/23 release (Dulcolax (bisacodyl)) tabs docusate sodium 100 mg capsule 100 mg PO DAILY #30 caps 03/23/24 metoprolol succinate 25 mg 25 mg PO DAILY #90 tabs 05/09/24 tablet,extended release 24 hr omeprazole 20 mg capsule,delayed 20 mg PO DAILY #90 caps 06/27/24 release doxycycline hyclate 100 mg capsule 100 mg PO BID 7 days #14 caps 08/31/24 Allergies Allergy/AdvReac Type Severity Reaction Status Date / Time ibuprofen Allergy Severe Anaphylaxis Verified 08/31/24 15:26 Review of Systems Review of Systems: Constitutional : No Fever, No Chills, Cardiovascular : No Chest Pain, No SOB Respiratory : No Dyspnea Gastrointestinal : No abdominal pain Musculoskeletal : No Joint Swelling Skin : No rash, positive skin puncture Neuro : No Weakness, No Numbness all other systems reviewed and are negative [facility] Past Medical History Medical History CENTENO (dyspnea on exertion) Sinusitis GERD (gastroesophageal reflux disease) Colitis Marfan syndrome Surgical History H/O colonoscopy History of esophagogastroduodenoscopy (EGD) Hx of dissecting abdominal aortic aneurysm repair Hx of eye surgery Family History Family History Father Cancer Colon cancer Social History Social History Household Members: Family Housing: Apartment Are you a primary patient care technician instructor to a significant other at home: No Do you presently have visiting nurse or other home services: No Alcohol intake: former Patient Tobacco Use Status: Current someday Tobacco user Tobacco use type: Cigarette Cigarettes Per Day: 2 Years Smoked: 20 +/- Substance Use Type: Marijuana Advance Directives: Yes Advance Directives on File: Yes Advance Directives Date on File: 05/30/22 Do you have a plan to hurt others: No Plan service: No Current occupational status: employed Physical Exam Vital Signs: Vital Signs: Last Vital Signs Temp 97.5 F 08/31/24 15:22 Pulse 75 08/31/24 15:22 Resp 16 08/31/24 15:22 BP 135/78 08/31/24 15:22 Pulse Ox 100 08/31/24 15:22 O2 Del Method Room Air 08/31/24 15:22 BMI result Body Mass Index 27.1 Appearance: Alert. Oriented X3. No acute distress. Eyes: Pupils equal, round and reactive to light. ENT: Pharynx normal. Neck: Normal inspection. Neck supple. CVS: Pulses normal. Respiratory: No respiratory distress. Abdomen: Soft and nontender. Skin: Skin warm and dry. Normal skin color. Extremities: No lower extremity edema. R middle finger on middle phalanx small red dot distal NV intact Neuro: Oriented X 3. No motor deficit. No sensory deficit. 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 She has no concern for FB, UTD on vaccines, will start on doxy for wound prophylaxis. Differential Diagnosis Differential Diagnoses: The differential diagnosis associated with the presentation includes puncture wound External Record Review External record reviewed: Outpatient record Prescription Management I considered prescription management with: Antibiotic Discharge Plan Discharge Clinical Impression: Puncture wound Patient Disposition: Home, Self-Care Instructions: Puncture Wound (ED) Additional Instructions: as discussed post exposure or transmission is less than 0.001% finish and take all antibiotics On doxycycline, do not take pills immediately before going to bed and swallow pills with plenty of water. Avoid direct sunlight, iron, antacids, and Pepto Bismol. Call your provider if you develop new ringing in your ears, new problems hearing, dizziness, difficulty swallowing, rash, abdominal discomfort, nausea, or diarrhea.? Prescriptions: New doxycycline hyclate 100 mg capsule 100 mg PO BID 7 Days Qty: 14 0RF No Action cholecalciferol (vitamin D3) 50 mcg (2,000 unit) capsule 50 mcg PO DAILY Qty: 90 3RF metoprolol succinate 25 mg tablet extended release 24 hr 25 mg PO DAILY Qty: 90 3RF omeprazole 20 mg capsule,delayed release(DR/EC) 20 mg PO DAILY Qty: 90 0RF duloxetine [Cymbalta] 30 mg capsule,delayed release(DR/EC) 30 mg PO DAILY epinephrine [EpiPen] 0.3 mg/0.3 mL auto-injector 0.3 mg IM Q4H PRN (Reason: severe allergy reaction) sumatriptan succinate 50 mg tablet PO famotidine 20 mg tablet PO Xolair 300 mg/2 mL auto-injector 300 mg subcut Q4W ondansetron HCl 4 mg tablet 4 mg PO Q8H PRN (Reason: nausea/vomiting) docusate sodium 100 mg capsule 100 mg PO DAILY Qty: 30 3RF albuterol sulfate 90 mcg/actuation HFA aerosol inhaler 2 puff inhalation Q4-6H PRN (Reason: shortness of breath or wheezing) 30 Days Qty: 1 6RF bisacodyl [Dulcolax (bisacodyl)] 5 mg tablet,delayed release (DR/EC) 10 mg PO BEDTIME Qty: 180 4RF Interventions: ED Discharge Assessment Last Done: 08/31/24 15:34 Print Language: Belarusian
[2024-08-31 15:34] VITALS: BP 135/78; PULSE 75; RESP 16; TEMP 36.4; O2SAT 100
--- OUTSIDE RECORDS SUMMARY | 2024-08-31 16:04 | XMS_ITS | Clinical Summary ---
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 1 each 3 Active ondansetron (Zofran) 4 MG tablet TAKE 1 TABLET BY MOUTH EVERY 8 HOURS IF NEEDED FOR NAUSEA OR VOMITING FOR UP TO 13 DAYS. 20 tablet 1 4 Active cyclobenzaprine (Flexeril) 10 MG tabletIndication s:Paraspinal muscle spasm TAKE ONE TABLET BY ORAL ROUTE UP TO THREE TIMES DAILY NEEDED FOR MUSCLE SPASM 30 tablet 2 4 Active azithromycin (Zithromax) 250 MG tabletIndication s:Community acquired pneumonia of right lung, unspecified part of lung Two tabs once on day 1, then one tab daily days 2-5 6 tablet 5 Active DULoxetine (Cymbalta) [address] capsuleIndicatio ns:Anxiety with depression TAKE 1 CAPSULE BY MOUTH TWICE A DAY. DO NOT CRUSH OR CHEW 180 capsule 5 Active SUMAtriptan (Imitrex) 50 MG tabletIndication s:Migraine without status migrainosus, not intractable, unspecified migraine type TAKE 1 TABLET BY MOUTH NEEDED FOR MIGRAINE REPEAT ONCE IN 2 HOURS IF NEEDED 2 DOSES IN 24 HOURS. 6 tablet 5 Active Active Problems Problem Noted Date Diagnosed Date Community acquired pneumonia of right lung 05/06 Assessment & Plan (05/06/2024 12:18 PM EST): Given pt physical exam findings, hx and imaging will start antibiotic treatment. Given amoxicillin intolerance will send a 3rd generation cephalosporin for 7 days of treatment in combination with a zpak x 5 days per uptodate guidelines, patient agreeable to plan. Message sent to blue team RN's to follow up in 1 week for status check and to ensure symptoms are improving. Advised pt to RTC if symptoms worsen or do not improve. Migraine without status migrainosus, not intract able [...] Encounters Date Type Department Care Team Description 08/22/2024 Patient Outreach [facility] [address] [place] [phone] Nayely Coffman MD Pre-visit Planning (SDOH screening negative and tobacco screening negative) 07/27/2024 Refill [facility] [address] [place] [phone] Nayely Coffman MD Migraine without status migrainosus, not intractable, unspecified migraine type 06/24/2024 Orders Only [facility] [address] [place] [phone] Nayely Coffman MD 06/16/2024 Telephone [facility] [address] [place] [address] [phone] Norah Beauchamp RN Lab Orders from Last 3 Months Immunizations Immunization Administration Dates Next Due HPV, Quadrivalent 06/29/2006 [...] What is your housing situation today? I have jin castillo 08/22/[address] you li ve. Do you have problems with any of the following? None of the above 08/22/2024 Food Insecurity Answer Date Recorded Within the past 12 months, y ou worried that your food would run out before you got money to buy more: Never True 08/22/2024 Within the past 12 months,th e food you bought just didn't last and you didn't have enough money to get more: Never True Transportation Answer Date Recorded In the past 12 months, has l ack of transportation kept you from medical appts, meetings, work or from getting things needed for daily living? No 08/22/2024 Utilities Answer Date Recorded In the past 12 months, has t he electric, gas, oil or water company threatened to shut off services in your home? No 08/22/2024 Depression Answer Date Recorded Patient Health Questionnaire-2 Score 2 04/03/2023 Internet Access Answer Date Recorded Internet Access Q1 Yes 08/22/2024 Internet Access Q2 Not on file 08/22/2024 Comments Unknown Sex and Gender Information Value Date Recorded Sex Assigned at Female 02/03/2022 10:14 AM EDT Legal Sex Female 10:14 AM EDT Gender Identity Female 02/03/2022 10:14 AM EDT Sexual Orientation Choose not to disclose 2021 10:14 AM EDT Last Filed Vital Signs Vital Sign Reading Time Taken Comments Blood Pressure 128/82 05/06/2024 11:43 AM EST Pulse 72 05/06/2024 11:43 AM EST Temperature 37.8 ??C (100.1 ??F) 05/06/2024 11:43 AM EST Respiratory Rate 16 05/06/2024 11:43 AM EST Oxygen Saturation 97% 05/06/2024 11:43 AM EST Inhaled Oxygen Concentration - - Weight 89.2 kg (196 lb 9.6 oz) 05/06/2024 11:43 AM EST Height 180.3 cm (5' 11 ) 11/12/2023 2:15 PM EDT Body Mass Index 27.42 11/12/2023 2:15 PM EDT Plan of Treatment Upcoming Encounters Date Type Department Care Team (Late st Contact Info) Description 09/02/2024 9:00 AM EDT Office Visit [facility] [address] [place], [place] [phone] Nayely Coffman MD [address] [place], [place] [phone] Health Maintenance Due Date Last Done Comments Disability Screening 1985 Alcohol/Substance Use Screening 1998 Family Planning (PISQ) 2001 Hepatitis B Vaccines (1 of 3 - 19+ 3-dose series) 2005 HPV Vaccines (2 - 3-dose series) 07/27/2006 06/29/2006 COVID-19 Vaccine ( season) 2023 02/20/2023, 03/22/2022, 12/12/2020, Additional history exists Influenza Vaccine (#1) 2023 02/20/2023, 2021 Depression Screening 04/03/2024 04/03/2023, 04/03/20 23 Tobacco Screening 11/11/2024 11/12/2023 Pap Smear 05/22/2025 05/22/2022 SDOH Screening 08/22/2025 08/22/2024 Cervical Cancer Screening 05/22/2027 HPV/Cotest 05/22/2027 05/22/2022 [...] patient's age to complete this topic Meningococcal B Vaccine Aged Out No l onger eligible based on patient's age to complete [...] Procedure Name Priority Date/Time Associated Diagnosis Comments MEASLES, MUMPS, AND RUBELLA (MMR) AB (IGG) PANEL, IMMUNE STATUS Routine 06/24/2024 11:20 AM EDT VARICELLA ZOSTER ANTIBODY, IGG Routine 06/24/2024 11:20 AM EDT HEPATITIS B SURFACE ANTIBODY, QUALITATIVE Routine 06/24/2024 11:20 AM EDT HEPATITIS C AB W/REFL TO HCV RNA, [...] Recently Relevant to Health Maintenance Results * Measles, Mumps, and Rubella (MMR) Antibodies??(IgG) Panel, Immune Status (06/24/2024 11:20 AM EDT) Mumps Virus IgG Antibody 23.00 AU/mL [facility] Comment:AU/mL Interpretation ------- <9.00 Not consistent with immunity9.00-10.99 Equivocal>10.99 Consistent with immunityThe presence of mumps IgG antibody suggests immunizationor past or current infection with mumps virus. Rubella IgG Antibody 14.20 Index [facility] Comment:Index Interpretation ----- <0.90 Not consistent with immunity 0.90-0.99 Equivocal > or = 1.00 Consistent with immunityThe presence of rubella IgG antibody suggestsimmunization or past or current infection withrubella virus.THIS TEST WAS PERFORMED AT:[employer] [place] [id number] Edwin PRADO IgG (Measles) 272.00 AU/mL [facility] Comment:AU/mL Interpretation ----- <13.50 Not consistent with .50-16.49 Equivocal>16.49 Consistent with immunityThe presence of measles IgG suggests immunization orpast or current infection with measles virus.For additional information, please refer tohttp://education.Layer/faq/IRT693(This link is being provided for informational/educational purposes only.) 06/24/2024 11:2 0 AM EDT 06/24/2024 1:13 PM EDT Nayely Quiros MD LAB BLOOD ORDERABLES Final Result Performing Organization Address [facility] Co de Phone Number [facility] [address] [place] [phone] * Hepatitis B Surface Antibody, Qualitative (06/24/2024 11:20 AM EDT) Pathologist [facility] ~Hepatitis B Surface Antibody REACTIVE Nonreactive [facility] Comment:REACTIVE: > 11.99 mI U/mL 06/24/2024 11:2 0 AM EDT 06/24/2024 1:13 PM EDT Nayely Quiros MD LAB BLOOD ORDERABLES Final Result Performing Organization Address [facility]/ZIP Co de Phone Number [facility] [address] [place] [phone] * Varicella zoster antibody, IgG (06/24/2024 11:20 AM EDT) Varicella IgG Antibody 15.80 S/CO [facility] Comment:Signal to Cut-off S/ CO Interpretation --------- <1.00 Negative - Antibody not detected > or = 1.00 Positive - Antibody detected A positive result indicates that the patient has antibody to VZV but does not differentiate between an active or past infection. The clinical diagnosis must be interpreted in conjunction with the clinical signs and symptoms of the patient. This assay reliably measures immunity due to previous infection but may not be sensitive enough to detect antibodies induced by vaccination. Thus, a negative result in a vaccinated individual does not necessarily indicate susceptibility to VZV infection. A more sensitive test for vaccination-induced immunity is Varicella Zoster Virus Antibody Immunity Screen, ACIF.THIS TEST WAS PERFORMED AT:[employer] [address] [id number] JEFFRIES MD 06/24/2024 11:2 0 AM EDT 06/24/2024 1:13 PM EDT Nayely Quiros MD LAB BLOOD ORDERABLES Final Result Performing Organization Address [facility] Co de Phone Number [facility] [address] [place] [phone] * Hepatitis C Antibody with Reflex to HCV, RNA, Quantitative, Real-Time PCR (04/03/2023 2:52 PM EST) [facility] Hepatitis C Antibody Nonreactive Nonreactive [facility] Comment:Antibodies to HCV no t detected; does not exclude early acuteHCV infection. Blood Venous blood specimen / Unknown 04/03/2023 2:52 PM EST 04/03/2023 2:54 PM EST Nayely Quiros MD LAB BLOOD ORDERABLES Final Result Performing Organization Address [facility] Co de Phone Number [facility] [address] [place] [phone] * HIV-1/2 Antigen and Antibodies, Fourth Generation, with Reflexes (04/03/2023 2:52 PM EST) Pathologist [facility] HIV AB/AG Nonreactive Nonreactive [facility] Comment:HIV-1 p24 Ag and/or HIV-1/HIV-2 Ab not detected.A test result that is nonreactive does not exclude thepossibility of exposure to or infection with HIV-1 and/orHIV-2. Nonreactive results in this assay for individualswith prior exposure to HIV-1 and/or HIV-2 may be due toantigen and antibody levels that are below the limit ofdetection of this assay.[employer] HIV Ag/Ab Combo assay result andsupplemental assay results should be interpreted inconjunction with the patient's clinical presentation,history and other laboratory results. If the results areinconsistent with clinical evidence, additional testing issuggested to confirm the result. Blood Venous blood specimen / Unknown 04/03/2023 2:52 PM EST 04/03/2023 2:54 PM EST Nayely Quiros MD LAB BLOOD ORDERABLES Final Result [facility] [address] [place] [phone] * HPV mRNA E6/E7 w/Reflex to HPV Genotypes 16, 18/45 (05/22/2022 11:48 AM EST) HPV nRNA E6/E7 Not Detected Not Detected [facility] Comment:Methodology: Transcr iption-Mediated AmplificationThis assay detects E6/E7 viral messenger RNA (mRNA) from 14high-risk HPV types (16,18,31,33,35,39,45,51,52,56,58,59,66,68).Cervical sources are required for HPV testing.If a vaginal source from a patient who has had atotal hysterectomy with removal of cervix wassubmitted, please contact the testing laboratoryfor alternative testing options.For additional information, please refer tohttp://education.Scientific Intake/faq/HTY140a7(This link if provided for information/educational purposes only.)THIS TEST WAS PERFORMED AT:[employer] [place] [id number] JEFFRIES MD HPV mRNA E6/E7 TNP [facility] HPV 16 RNA TNP [facility] HPV 18/45 RNA TNP [facility] 05/22/2022 11:4 8 AM EST 05/22/2022 12:00 PM EST us [facility] External Provider LAB CYT OLOGY ORDERABLES Final Result Performing Organization Address City/State/[facility] Co de Phone Number [facility] [address] [place] [phone] * Pap Smear (05/22/2022 11:48 AM EST) 05/22/2022 11:4 8 AM EST 05/22/2022 12:00 PM EST Narrative [facility] - 06/02/2022 12:55 PM EST ----- ------- Name: Mayra Alonzo ?Age/Sex: 36/F ? : 1985 Unit#: [id number] ?? Attend Dr: Marily Morales CNM ?Re05/22/22 ?Status: DEP REF ? Location: HO.LNP ?Disch: ? ----- ------- SPEC : [id number] ? RECD: 05/22/22-1200 ? STATUS: ??SOUT ? REQ NUM: [id number] ? MASOUD: 05/22/22-1148 ? SUBM DR: Marily Morales CNM ? ENTERED: ??05/22/22-8 ?SP TYPE: Pap Smr ?OTHR : Nayely Coffman MD ? ORDERED: ??Pap Smear [...] 66, 68) ? HPV testing performed by [employer], [place], [place]. ??See reference laboratory ?? portion of the EMR for entire report. ?Clinical Information LMP: 05/18/22 Previous PAP test: 03/25/19, Abnormal Other history: +HPV ? Material Received ?? ThinPrep-Cervical Copies To: ?? Nayely Coffman MD ?? [address] [facility] ?? [place] [address] ?? [phone] ?? Marily Morales CNM ?? [address] [facility] ?? [place] [address] ?? [phone] ----- ------- Signed (signature on file) Nicole Charles Sarina 06/02/22 1255 ? ----- ------- ? END OF REPORT ? [facility] External Provider LAB CYT OLOGY ORDERABLES Final Result [facility] [address] [facility] [place] [phone] from Last 3 Months or Most Recently Relevant to Health Maintenance Insurance HSN PARTIAL * Guarantor: KELECH[employer] Account Type Relation to Patient Date of Phone Billing Address [employer] Other Care Teams Finishing Area Operator Relationship Specialty Start Date End Date Nayely Coffman MD [address] [place] [address] PCP - General Family Medicine 04/13/18
== END 2024-08-31 15:35 | disposition home or self-care (01) ==
PROVIDERS: Emergency Provider Emergency Medicine; PCP Internal Medicine
DX: S61.232A Puncture wound without foreign body of right middle finger without damage to nail, initial encounter (principal); W31.89XA Contact with other specified machinery, initial encounter; Y93.E8 Activity, other personal hygiene; Y92.531 Health care provider office as the place of occurrence of the external cause; Y99.0 Civilian activity done for income or pay
CPT/HCPCS: 99282; 99283

== ENCOUNTER 2024-09-23 13:44 | Outpatient (AMB) | payer OTHER, SELFPAY ==
--- NOTE | 2024-09-23 13:47 | A.OFFVIS_ITS ---
Vital Signs 09/23/24 13:48 Height 5 ft 11 in Weight 193 lb BMI 26.9 BP 110/60 Blood Pressure Location Lt brachial Position Sitting Pulse 74 Pulse Source Monitor Intake Visit Reasons: Pre op/ Hysterotomy/clearance Allergies ibuprofen Allergy (Severe, Verified 08/31/24 15:26) Anaphylaxis Medication List - Last Reconciled 09/23/24 by Gisell Falk, AUTO BODY DETAILER-C albuterol sulfate 90 mcg/actuation 2 puffs inhalation Q4-6H PRN 30 days cholecalciferol (vitamin D3) 50 mcg PO DAILY duloxetine (Cymbalta) 30 mg PO DAILY epinephrine (EpiPen) 0.3 mg IM Q4H PRN famotidine mg PO metoprolol succinate ER 25 mg PO DAILY omeprazole 20 mg PO DAILY ondansetron HCl 4 mg PO Q8H PRN sumatriptan succinate mg PO HPI HPI Pre op/ Hysterotomy/clearance: Details: Mayra is a 39-year-old female presenting for cardiology follow-up and preoperative evaluation. History of Marfan syndrome with prior aortic root repair. Recent CTA showed no aortic aneurysms or dissections. states she has been doing well since her last visit a year ago. She has no cardiac concerns or symptoms. 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 She was able to reduce her tobacco smoking but continues to smoke and use marijuana edibles. She anticipates having a hysterectomy in the near future but no date has been given yet. [facility] Medical History CENTENO (dyspnea on exertion) Sinusitis GERD (gastroesophageal reflux disease) Colitis Marfan syndrome Surgical History H/O colonoscopy History of esophagogastroduodenoscopy (EGD) Hx of dissecting abdominal aortic aneurysm repair Hx of eye surgery Family History Father Cancer Colon cancer Social History Household Members: Family Housing: Apartment Are you a primary customer care team coach to a significant other at home: No Do you presently have visiting nurse or other home services: No Alcohol intake: former Patient Tobacco Use Status: Current someday Tobacco user Tobacco use type: Cigarette Cigarettes Per Day: 2 Years Smoked: 20 +/- Substance Use Type: Marijuana Advance Directives Date on File: 05/30/22 service: No Current occupational status: employed Female Reproductive History Menstrual Age of Menarche: 10 Review of Systems Const All systems reviewed & are unremarkable except as noted in HPI and below Card Denies chest pain, Denies chest pain at rest, Denies chest pain with activity, Denies syncope, Denies rapid heart rate, Denies leg edema, Denies lightheadedness, Denies dyspnea, Denies dyspnea on exertion and Denies orthopnea Resp Reports no additional complaints, Denies dyspnea and Denies dyspnea on exertion Musc Reports no additional complaints Neuro Denies syncope Physical Exam Vital Signs: Last Vital Signs Pulse 74 09/23/24 13:48 BP 110/60 09/23/24 13:48 BMI result Body Mass Index 26.9 Const General: cooperative, healthy appearing, comfortable and no acute distress Orientation/consciousness: patient oriented x3 Neck Neck: Yes normal visual inspection Resp Effort & Inspection: normal respiratory effort Auscultation: clear to auscultation bilaterally, no rales, no rhonchi and no wheezes Cardio Rate: regular rate Rhythm: regular rhythm Heart sounds: S1 normal heart sound present, S2 normal heart sound present, no gallops, no murmurs and no rubs Neuro General: patient oriented x3 Extrem General: Yes normal to inspection, No no pedal edema and No calf tenderness Psych Appearance: grossly normal Mental Status: mental status grossly normal Speech and movement: Normal speech and movement present Office Procedures EKG Details: Today, read by me, normal sinus rhythm, right axis deviation, rate 74, QTC 470 millisecond [id number], Complete Results Reviewed Results Reviewed: - CTA of the chest (05/05/2024): No aneurysms or dissection involving the thoracic or abdominal aorta Assessment & Plan Assessment & Plan (1) H/O aortic root repair: Code(s): Z98.890 - Other specified postprocedural states Category: Surgical Plan: History of Marfan's with aortic root repair. Last echocardiogram done 06/24/2022 showing EF 55-60% normal valves, normal RV systolic pressure. A CTA of the chest and abdomen done on 05/05/2024 shows no aneurysms or dissection involving the thoracic or abdominal aorta. She has no reported symptoms of chest discomfort or concerning shortness of breath. EKG done today shows sinus rhythm with right axis deviation, rate 74. Blood pressure is well controlled, continue metoprolol. Cardiology follow-up 1 year, sooner if needed (2) Marfan syndrome: Code(s): Q87.40 - Marfan syndrome, unspecified Category: Medical Plan: As above (3) Preop cardiovascular exam: Code(s): Z01.810 - Encounter for preprocedural cardiovascular examination Category: Medical Plan: Preop for hysterectomy at [facility], no date yet. She can proceed with low to intermediate cardiac risk. Continue metoprolol. Call/consult Cardiology if needed. Plan I discussed with the patient the importance of continuing metoprolol to manage blood pressure and reduce aortic strain. We talked about the benefits of smoking cessation and reducing marijuana use. I explained the need for cardiology clearance for her upcoming hysterectomy due to Marfan syndrome risks. The recent CTA results were reviewed, and I reassured her that no further cardiac testing is necessary at this time. Patient Instructions: - Continue taking metoprolol as prescribed. - Work on quitting smoking and reducing marijuana use. - Follow up with cardiology in one year or sooner if new symptoms arise. Patient was informed and verbally consented to the use of an ambient scribe for clinic note documentation during this visit. Visit time spent on chart review, interview, assessment, orders, documentation. Coding Level of Care Code Est Pt Level 4 (18828) Complex EM visit Add On G2211 Diagnoses H/O aortic root repair Z98.890 Marfan syndrome Q87.40 Preop cardiovascular exam Z01.810 CPT Codes EKG - CPT: 52027-[id number], Complete ([id number]) Time Spent (min) 28
[2024-09-23 13:48] VITALS: BP 110/60; PULSE 74; BMI 26.9
== END 2024-09-23 14:16 | disposition home or self-care (01) ==
LOC: HO.HCS 13:44
PROVIDERS: PCP Internal Medicine; Visit Provider Nurse Practitioner Family
DX: Z98.890 Other specified postprocedural states (principal); Q87.40 Marfan syndrome, unspecified; Z01.810 Encounter for preprocedural cardiovascular examination
CPT/HCPCS: 93010; 99214; G2211

== ENCOUNTER → 2024-09-23 13:44 | Outpatient (BNVA) | payer OTHER, SELFPAY | PROVIDERS: PCP Internal Medicine; Visit Provider Nurse Practitioner Family | DX: Z01.810 Encounter for preprocedural cardiovascular examination (principal); Q87.40 Marfan syndrome, unspecified; Z98.890 Other specified postprocedural states | CPT/HCPCS: 93005; 99212 ==

== ENCOUNTER 2024-10-20 16:56 | Emergency (ER) | payer OTHER, SELFPAY ==
[2024-10-20 16:58] VITALS: BP 129/76; PULSE 82; RESP 16; TEMP 36.5; O2SAT 98; BMI 26.6
--- NOTE | 2024-10-20 16:59 | ED.GENADULT ---
HPI - General Adult General Chief complaint: Recheck/Abnormal Lab/Rx Stated complaint: ABN lab results from Time Seen by Provider: 10/20/24 18:38 Source: patient Mode of arrival: ambulatory Limitations: no limitations History of Present Illness ED Provider: HPI narrative: Patient sent by PCP as MRI of the uterus done yesterday showed possible diverticulitis patient denied any fever any significant abdominal pain does have suprapubic pain only no nausea no vomiting no fever no chills Related Data Home Medications ?Medication ?Instructions ?Recorded ?Confirmed duloxetine 30 mg capsule,delayed 30 mg PO DAILY 03/04/23 09/23/24 release (Cymbalta) epinephrine 0.3 mg/0.3 mL 0.3 mg IM Q4H PRN severe allergy 03/04/23 09/23/24 injection, auto-injector (EpiPen) reaction famotidine 20 mg tablet mg PO 12/23/23 09/23/24 sumatriptan succinate 50 mg tablet mg PO 12/23/23 09/23/24 ondansetron HCl 4 mg tablet 4 mg PO Q8H PRN nausea/vomiting 03/23/24 09/23/24 Previous Rx's ?Medication ?Instructions ?Recorded albuterol sulfate 90 mcg/actuation 2 puff inhalation Q4-6H PRN 12/15/22 aerosol inhaler shortness of breath or wheezing 30 days #1 ea cholecalciferol (vitamin D3) 50 50 mcg PO DAILY #90 caps 04/08/23 mcg (2,000 unit) capsule metoprolol succinate 25 mg 25 mg PO DAILY #90 tabs 05/09/24 tablet,extended release 24 hr omeprazole 20 mg capsule,delayed 20 mg PO DAILY #90 caps 06/27/24 release amoxicillin 875 mg-potassium 1 tab PO BID #20 tabs 10/20/24 clavulanate 125 mg tablet Allergies Allergy/AdvReac Type Severity Reaction Status Date / Time ibuprofen Allergy Severe Anaphylaxis Verified 10/20/24 17:01 Review of Systems Review of Systems: Yes all other systems are reviewed and are negative [facility] Past Medical History Medical History CENTENO (dyspnea on exertion) Sinusitis GERD (gastroesophageal reflux disease) Colitis Marfan syndrome Surgical History H/O colonoscopy History of esophagogastroduodenoscopy (EGD) Hx of dissecting abdominal aortic aneurysm repair Hx of eye surgery Family History Family History Father Cancer Colon cancer Social History Social History Household Members: Family Housing: Apartment Are you a primary housekeeper child care to a significant other at home: No Do you presently have visiting nurse or other home services: No Alcohol intake: former Patient Tobacco Use Status: Current someday Tobacco user Tobacco use type: Cigarette Cigarettes Per Day: 2 Years Smoked: 20 +/- Substance Use Type: Marijuana Advance Directives: Yes Advance Directives on File: Yes Advance Directives Date on File: 05/30/22 Do you have a plan to hurt others: No Plan service: No Current occupational status: employed Physical Exam ED Vital Signs: BMI result Body Mass Index 26.6 Appearance: Alert. Oriented X3. No acute distress. Eyes: PERRLA, No Nystagmus ENT: Pharynx normal. Oral Mucosa moist Neck: Normal inspection. Neck supple. CVS: Normal heart rate and rhythm. Pulses normal. Respiratory: No respiratory distress. Equal air entry bilateral, no wheezing/rales/rhonchi Abdomen: Soft and mild suprapubic discomfort no rebound tenderness or guarding. Bowel sounds are present, no mass palpable, no CVA tenderness Skin: Skin warm and dry. Normal skin color. Normal skin turgor. Extremities: No lower extremity edema. No calf tenderness Neuro: Oriented X 3. No motor deficit. No sensory deficit.No cerebellar signs , cranial nerves II-XII intact Course Course Course Narrative: This is a rapid medical exam performed by Sung Lambert NP: Additional HPI, ROS, PE not included below will be deferred to primary provider. Patient is a 39-year-old female presenting to ED reporting that she had a uterine MRI yesterday and was referred to the ED, was told she has an infection. States she was planning to have a hysterectomy which is why she had the MRI. Patient complains of lower back pain, nausea. Plan: labs, [facility] MRI results: IMPRESSION: 1. Enlarged, fibroid uterus, with dominant fibroid measuring up to 6.1 cm distorting the endometrial cavity. No suspicious features. 2. Short segment of abnormal enhancement in the distal sigmoid colon with adjacent inflammatory changes, concerning for acute diverticulitis. Medications Administered Discontinued Medications Generic Name Dose Route Start Last Admin Trade Name Freq PRN Reason Stop Dose Admin Amoxicillin/Clavulanate Potassium 875 mg 10/20/24 19:07 10/20/24 19:29 Amoxicillin/Potassium Clav 875 Mg Tablet PO 10/20/24 19:08 875 mg ONCE ONE Administration Medical Decision Making Medical Decision Making [facility] Narrative: Patient with lower abdominal pain from the uterus myoma labs are stable did not any GI symptoms MRI showed possible diverticulitis will discharge patient home on Augmentin Lab Data MDM Lab Attestation statement: I reviewed the patient's lab results. 10/20/24 18:05 10/20/24 18:05 Labs: Lab Results 10/20/24 Range/Units 18:05 WBC 7.9 (4.8-10.8) X10*3/uL RBC 4.05 L (4.20-5.50) X10*6/uL Hgb 12.7 (12.0-16.0) g/dl Hct 36.8 L (37.0-47.0) % MCV 90.9 (80.0-98.0) fL MCH 31.4 (27.0-33.0) pg MCHC 34.5 (31.0-35.0) g/dl RDW 13.8 (11.0-16.0) % Plt Count 322 (160-400) X10*3/uL MPV 9.2 L (9.4-12.3) fL Immature Gran % (Auto) 0.3 (0.0-0.4) % Neut % (Auto) 57.4 (45-73) % Lymph % (Auto) 31.8 (20-40) % [place] % (Auto) 6.9 (2-11) % Eos % (Auto) 2.8 (0-4) % Baso % (Auto) 0.8 (0-2) % Lymph # (Auto) 2.5 (1.2-4.9) X10*3/uL [place] # (Auto) 0.5 (0.1-1.2) X10*3/uL Eos # (Auto) 0.2 (0.0-0.4) X10*3/uL Baso # (Auto) 0.1 (0.0-0.2) X10*3/uL Abs Immat Gran (auto) 0.02 (0.00-0.03) X10*3/uL Absolute Neuts (auto) 4.5 (2.0-8.3) x10*3/uL Absolute Nucleated RBC 0.000 (0.0-0.012) X10*3/uL Nucleated RBC % (auto) 0.0 (0.0-0.2) /100WBC Sodium 140 (135-145) mmol/L Potassium 3.7 (3.3-5.1) mmol/L Chloride 110 H (96-108) mmol/L Carbon Dioxide 24 (22-29) mmol/L Anion Gap 10 L (12-20) BUN 6 L (9-16) mg/dL Creatinine 0.64 (0.5-1.4) mg/dL Estim Creat Clear Calc 145.0 Estimated GFR > 60 Random Glucose 86 (60-115) mg/dL Calcium 8.7 D (8.4-10.2) mg/dL Magnesium 2.1 (1.6-2.6) mg/dL Total Bilirubin 0.4 (0.0-1.0) mg/dL AST 20 (5-31) U/L ALT 18 (0-31) U/L Alkaline Phosphatase 60 (39-117) U/L Total Protein 6.7 (6.5-8.0) g/dL Albumin 4.4 (3.5-5.0) g/dL Urine Color Yellow Urine Appearance Clear Urine pH 5.5 (5.0-9.0) Ur Specific [place]ker 1.025 (1.005-1.025) Urine Protein Trace (Neg-Trace) mg/dL Urine Glucose (UA) Negative (Negative) mg/dL Urine Ketones Trace (Negative) mg/dL Urine Blood Trace H (Negative) Urine Nitrite Negative (Negative) Ur Leukocyte Esterase Negative (Negative) Urine RBC 0-2 (0-2) /HPF Urine WBC 0-5 (0-5) /HPF Ur Squamous Epith Cells 3-5 (0-2) /HPF Urine Bacteria None Seen (None Seen) Hyaline Casts 0-2 (0-2) /LPF Discharge Plan Discharge Clinical Impression: Diverticulitis Patient Disposition: Home, Self-Care Instructions: Diverticulitis (ED) Additional Instructions: Drink plenty of fluids Have clear liquids slowly advanced to regular diet Take antibiotic as prescribed Report to the ER if worsening of the pain/fever Prescriptions: New amoxicillin-pot clavulanate 875-125 mg tablet 1 tab PO BID Qty: 20 0RF No Action cholecalciferol (vitamin D3) 50 mcg (2,000 unit) capsule 50 mcg PO DAILY Qty: 90 3RF metoprolol succinate 25 mg tablet extended release 24 hr 25 mg PO DAILY Qty: 90 3RF omeprazole 20 mg capsule,delayed release(DR/EC) 20 mg PO DAILY Qty: 90 0RF duloxetine [Cymbalta] 30 mg capsule,delayed release(DR/EC) 30 mg PO DAILY epinephrine [EpiPen] 0.3 mg/0.3 mL auto-injector 0.3 mg IM Q4H PRN (Reason: severe allergy reaction) sumatriptan succinate 50 mg tablet PO famotidine 20 mg tablet PO ondansetron HCl 4 mg tablet 4 mg PO Q8H PRN (Reason: nausea/vomiting) albuterol sulfate 90 mcg/actuation HFA aerosol inhaler 2 puff inhalation Q4-6H PRN (Reason: shortness of breath or wheezing) 30 Days Qty: 1 6RF Stand Alone Forms: Work/School Release Interventions: ED Discharge Assessment Last Done: 10/20/24 19:31 Discharge Date/Time: 10/20/24 19:34 Print Language: Tajik
[2024-10-20 18:10] LABS: MANUAL DIFF FLAG NO
[2024-10-20 18:12] LABS: Appearance Urine Clear; Glucose Urine UA Negative (Negative); Hematocrit 36.8 % (37.0-47.0); Hemoglobin 12.7 g/dl (12.0-16.0); Imm Gran Abs Auto 0.02 X10*3/uL (0.00-0.03); Imm Gran Pct Auto 0.3 % (0.0-0.4); Lymphocytes Absolute Auto 2.5 X10*3/uL (1.2-4.9); Mean Corpuscular HGB Conc 34.5 g/dl (31.0-35.0); Mean Corpuscular Hemoglobin 31.4 pg (27.0-33.0); Mean Corpuscular Volume 90.9 fL (80.0-98.0); NRBC Abs Auto 0.000 X10*3/uL (0.0-0.012); NRBC Pct Auto 0.0 /100WBC (0.0-0.2); PH 5.5 (5.0-9.0); Platelet Count 322 X10*3/uL (160-400); Red Blood Count 4.05 X10*6/uL (4.20-5.50); Specific Gravity - Urine 1.025 (1.005-1.025); UMIC TRIGGER UACC YES; White Blood Count 7.9 X10*3/uL (4.8-10.8)
[2024-10-20 18:24] LABS: Alanine Aminotransferase 18 U/L (0-31); Albumin Level 4.4 g/dL (3.5-5.0); Alkaline Phosphatase 60 U/L (39-117); Anion Gap 10 (12-20); Aspartate Amino Transferase 20 U/L (5-31); Blood Urea Nitrogen 6 mg/dL (9-16); Calcium 8.7 mg/dL (8.4-10.2); Carbon Dioxide 24 mmol/L (22-29); Chloride 110 mmol/L (96-108); Creatinine Clr Calc Pharmacy 145.0; Estimated Glomerular Filt Rate > 60; Magnesium 2.1 mg/dL (1.6-2.6); Potassium 3.7 mmol/L (3.3-5.1); Sodium 140 mmol/L (135-145); Total Protein 6.7 g/dL (6.5-8.0)
--- NOTE | 2024-10-20 18:34 | PC.NURSE ---
Pt states shes scheduled for a hysterectomy, consultation on of this month, MRI yesterday. Sent here today for ?diverticulitis. Pt denies abd pain, but endorses lower back pain but states thats usual since shes currently on menses
[2024-10-20 18:39] VITALS: BP 119/68; PULSE 60; RESP 18; TEMP 36.3; O2SAT 100
--- OUTSIDE RECORDS SUMMARY | 2024-10-20 18:44 | XMS_ITS | Encounter Summary ---
Author Organization [employer] Address [address] [place] [address] Care Team Providers Care Corporate Development Associate Name Role Phone Nayely Coffman MD Primary Care Provide r Reason for Visit * Reason Comments Med Refill Encounter Details Date Type Department Care Team ([facility] st Contact Info) Description 10/16/2024 Refill [facility] [address] [place], [place] [phone] Nayely Coffman MD [address] [place], [place] [phone] Migraine without status migrainosus, not intractable, unspecified migraine type Social History Tobacco Use Types Packs/Day Years [...] as of this encounter Plan of Treatment Upcoming Encounters Date Type Department Care Team (Late st Contact Info) Description 12/08/2024 1:15 PM EDT Office Visit [facility] [address] [place] [address] Nayely Coffman MD [address] [place] [address] documented as of this encounter Visit Diagnoses Diagnosis Migraine without status migrainosus, not intractable, unspecified migraine type documented in this encounter Additional Health Concerns Assessment Noted Time PHQ-9 Depression Total Score: 3 04/03/20 23 10:54 AM EST documented as of this encounter Care Teams Corporate Development Associate Relationship Specialty Start Date End Date Nayely Coffman MD [address] [place] [id number] PCP - General Family Medicine 04/13/18 documented as of this encounter
--- OUTSIDE RECORDS SUMMARY | 2024-10-20 18:44 | XMS_ITS ---
Author Name [facility] Organization Unknown Encounters Encounter Type Encounter Reason Primary Diagnosis Location Date Emergency Pain in right knee [facility] [employer] 03/11/2021 Care Team Organization Name Specialty Phone Email Start Date End Da te [facility] 03/11/2021 11/23/2023 [facility] NO PCP Primary Care 03/11/2021 03/11/2021
[2024-10-20 19:31] VITALS: BP 119/68; PULSE 60; RESP 18; TEMP 36.3; O2SAT 100
== END 2024-10-20 19:34 | disposition home or self-care (01) ==
PROVIDERS: Registered Nurse Emergency; Emergency Provider Internal Medicine
DX: K57.32 Diverticulitis of large intestine without perforation or abscess without bleeding (principal); R79.89 Other specified abnormal findings of blood chemistry; F17.210 Nicotine dependence, cigarettes, uncomplicated; Z79.899 Other long term (current) drug therapy
CPT/HCPCS: 36415; 80053; 81001; 83735; 85025; 99283

== ENCOUNTER 2025-02-01 14:37 | Emergency (ER) | payer MEDICAID, SELFPAY ==
--- NOTE | ~2025-02-01 | XR_ITS ---
EXAMINATION: XR TIBIA AND FIBULA, LEFT CLINICAL INFORMATION: Injury. COMPARISON: None available. TECHNIQUE: AP and lateral views of the left tibia and fibula were obtained. FINDINGS: No acute cortical disruption. No lytic or blastic lesions. No metallic or radiopaque foreign body. No subcutaneous emphysema. XR/XR tibia fibula LT 2V IMPRESSION: No acute fracture. EXAMINATION: XR FOOT, LEFT CLINICAL INFORMATION: fracture eval COMPARISON: None available. TECHNIQUE: AP, lateral, and oblique views of the left foot. FINDINGS: No acute cortical disruption or malalignment. No lytic or blastic lesions. No subcutaneous emphysema. No metallic or radiopaque foreign body. No joint effusion. IMPRESSION: No acute fracture or dislocation. EXAMINATION: XR ANKLE, LEFT CLINICAL INFORMATION: fracture eval COMPARISON: None available. TECHNIQUE: AP, lateral, and mortise views of the left ankle. FINDINGS: No acute cortical disruption or malalignment. No metallic or radiopaque foreign body. No joint effusion, anterior tibiotarsal bursa. No lytic or blastic lesions. No subcutaneous emphysema. No gross soft tissue contusion. IMPRESSION: No acute fracture or dislocation. Electronically signed by: Mehdi Rose MD 02/01/2025 04:02 PM EDT
--- NOTE | ~2025-02-01 | XR_ITS ---
EXAMINATION: XR TIBIA AND FIBULA, LEFT CLINICAL INFORMATION: Injury. COMPARISON: None available. TECHNIQUE: AP and lateral views of the left tibia and fibula were obtained. FINDINGS: No acute cortical disruption. No lytic or blastic lesions. No metallic or radiopaque foreign body. No subcutaneous emphysema. XR/XR foot LT min 3V IMPRESSION: No acute fracture. EXAMINATION: XR FOOT, LEFT CLINICAL INFORMATION: fracture eval COMPARISON: None available. TECHNIQUE: AP, lateral, and oblique views of the left foot. FINDINGS: No acute cortical disruption or malalignment. No lytic or blastic lesions. No subcutaneous emphysema. No metallic or radiopaque foreign body. No joint effusion. IMPRESSION: No acute fracture or dislocation. EXAMINATION: XR ANKLE, LEFT CLINICAL INFORMATION: fracture eval COMPARISON: None available. TECHNIQUE: AP, lateral, and mortise views of the left ankle. FINDINGS: No acute cortical disruption or malalignment. No metallic or radiopaque foreign body. No joint effusion, anterior tibiotarsal bursa. No lytic or blastic lesions. No subcutaneous emphysema. No gross soft tissue contusion. IMPRESSION: No acute fracture or dislocation. Electronically signed by: Mehdi Rose MD 02/01/2025 04:02 PM EDT
--- NOTE | ~2025-02-01 | XR_ITS ---
EXAMINATION: XR TIBIA AND FIBULA, LEFT CLINICAL INFORMATION: Injury. COMPARISON: None available. TECHNIQUE: AP and lateral views of the left tibia and fibula were obtained. FINDINGS: No acute cortical disruption. No lytic or blastic lesions. No metallic or radiopaque foreign body. No subcutaneous emphysema. XR/XR ankle LT min 3V IMPRESSION: No acute fracture. EXAMINATION: XR FOOT, LEFT CLINICAL INFORMATION: fracture eval COMPARISON: None available. TECHNIQUE: AP, lateral, and oblique views of the left foot. FINDINGS: No acute cortical disruption or malalignment. No lytic or blastic lesions. No subcutaneous emphysema. No metallic or radiopaque foreign body. No joint effusion. IMPRESSION: No acute fracture or dislocation. EXAMINATION: XR ANKLE, LEFT CLINICAL INFORMATION: fracture eval COMPARISON: None available. TECHNIQUE: AP, lateral, and mortise views of the left ankle. FINDINGS: No acute cortical disruption or malalignment. No metallic or radiopaque foreign body. No joint effusion, anterior tibiotarsal bursa. No lytic or blastic lesions. No subcutaneous emphysema. No gross soft tissue contusion. IMPRESSION: No acute fracture or dislocation. Electronically signed by: Mehdi Rose MD 02/01/2025 04:02 PM EDT
[2025-02-01 14:54] VITALS: BP 136/60; PULSE 69; RESP 16; TEMP 37.1; O2SAT 99; BMI 26.1
--- NOTE | 2025-02-01 14:57 | ED.GENADULT ---
HPI - General Adult General Chief complaint: Extremity Injury, Lower Stated complaint: L foot injury, painful leg Time Seen by Provider: 02/01/25 16:29 Source: patient Mode of arrival: ambulatory Limitations: no limitations History of Present Illness ED Provider: Dr. Neal HPI narrative: 39-year-old female history of Marfan disease presented hospital today for left ankle pain. Patient stated that she was moving her left ankle when she felt a sudden pop. She has been having pain on the medial aspect of her left ankle that radiates up to her leg. Is able to ambulate without any issues. Able to bear weight. However the pain has not been going away therefore she presents to the ER for further evaluation. Related Data Home Medications ?Medication ?Instructions ?Recorded ?Confirmed duloxetine 30 mg capsule,delayed 30 mg PO DAILY 03/04/23 09/23/24 release (Cymbalta) epinephrine 0.3 mg/0.3 mL 0.3 mg IM Q4H PRN severe allergy 03/04/23 09/23/24 injection, auto-injector (EpiPen) reaction famotidine 20 mg tablet mg PO 12/23/23 09/23/24 sumatriptan succinate 50 mg tablet mg PO 12/23/23 09/23/24 ondansetron HCl 4 mg tablet 4 mg PO Q8H PRN nausea/vomiting 03/23/24 09/23/24 Previous Rx's ?Medication ?Instructions ?Recorded albuterol sulfate 90 mcg/actuation 2 puff inhalation Q4-6H PRN 12/15/22 aerosol inhaler shortness of breath or wheezing 30 days #1 ea cholecalciferol (vitamin D3) 50 50 mcg PO DAILY #90 caps 04/08/23 mcg (2,000 unit) capsule metoprolol succinate 25 mg 25 mg PO DAILY #90 tabs 05/09/24 tablet,extended release 24 hr amoxicillin 875 mg-potassium 1 tab PO BID #20 tabs 10/20/24 clavulanate 125 mg tablet omeprazole 20 mg capsule,delayed 20 mg PO DAILY #90 caps 12/27/24 release acetaminophen 500 mg tablet 1,000 mg (2 x 500 mg) PO Q8H #30 02/01/25 (Acetaminophen Extra Strength) tabs lidocaine 5 % topical patch 1 patch topical DAILY #15 ea 02/01/25 Allergies Allergy/AdvReac Type Severity Reaction Status Date / Time ibuprofen Allergy Severe Anaphylaxis Verified 02/01/25 14:56 Review of Systems Review of Systems: Pertinent review of systems as mentioned in HPI. All other system otherwise negative. [facility] Past Medical History [facility] Narrative: Marfan syndrome Medical History CENTENO (dyspnea on exertion) Sinusitis GERD (gastroesophageal reflux disease) Colitis Marfan syndrome Surgical History H/O colonoscopy History of esophagogastroduodenoscopy (EGD) Hx of dissecting abdominal aortic aneurysm repair Hx of eye surgery Family History Family History Father Cancer Colon cancer Social History Social History Household Members: Family Housing: Apartment Are you a primary healthcare management consultant to a significant other at home: No Do you presently have visiting nurse or other home services: No Alcohol intake: former Patient Tobacco Use Status: Current someday Tobacco user Tobacco use type: Cigarette Cigarettes Per Day: 2 Years Smoked: 20 +/- Substance Use Type: Marijuana Advance Directives: Yes Advance Directives on File: Yes Advance Directives Date on File: 05/30/22 service: No Current occupational status: employed Physical Exam ED Exam Exam: General: Pleasant, no distress, interacting appropriately Head: Normacephalic, atraumatic Extremities: Left ankle tenderness on palpation no effusion appreciated on exam. No significant swelling of the foot appreciated Neurological: Awake and alert, no facial droop noted Skin: Warm and dry Psychiatric: Appropriate mood and thoughts Vital Signs: Vital Signs - 24 hr 02/01/25 14:54 02/01/25 16:52 Temperature 98.7 F 98.7 F Pulse Rate 69 69 Respiratory Rate 16 16 Blood Pressure 136/60 136/60 Pulse Oximetry 99 99 Oxygen Delivery Method Room Air Room Air BMI result Body Mass Index 26.1 Course Course Course Narrative: 39-year-old female presented hospital today for left ankle pain some around the medial aspect of the left ankle. She states she was crack in her left ankle and heard a pop. She has been in pain since then. She is also complaining of proximal fibula tenderness. Difficulty weight-bearing. However able to walk Rapid medical screening exam was performed. Patient stable at time of evaluation. Bhakti Neal DO 02/01/25 1723 Medical Decision Making Medical Decision Making MDM Narrative: 39-year-old female presenting to ER today for left ankle pain . X-ray of the ankle, foot, tib-fib was performed. No signs of fracture. Suspect patient may have a ligament injury versus pinching of the nerve in her foot. Discussed with the patient that this will require conservative management at this time recommended Tylenol lidocaine patch. We will wrap her ankle up with an Juan wrap. The patient will be discharged work note will be provided. Differential Diagnosis Differential Diagnoses: The differential diagnosis associated with the presentation includes Ankle sprain, foot fracture, ankle fracture Independent Interpretation I performed an independent interpretation of an: Plain X-Ray Radiology Impression Discussion of test interpretation with radiology: I have reviewed the radiologist's reading. Discharge Plan Discharge Clinical Impression: Acute leg pain Qualifiers: Laterality: left Qualified Code(s): M79.605 - Pain in left leg Patient Disposition: Home, Self-Care Instructions: Leg Pain (ED) Prescriptions: New lidocaine 5 % adhesive patch,medicated 1 patch topical DAILY Qty: 15 0RF Rx Instructions: leave on most painful area for up to 12 hrs acetaminophen [Acetaminophen Extra Strength] 500 mg tablet 1,000 mg PO Q8H Qty: 30 0RF No Action cholecalciferol (vitamin D3) 50 mcg (2,000 unit) capsule 50 mcg PO DAILY Qty: 90 3RF metoprolol succinate 25 mg tablet extended release 24 hr 25 mg PO DAILY Qty: 90 3RF omeprazole 20 mg capsule,delayed release(DR/EC) 20 mg PO DAILY Qty: 90 0RF amoxicillin-pot clavulanate 875-125 mg tablet 1 tab PO BID Qty: 20 0RF duloxetine [Cymbalta] 30 mg capsule,delayed release(DR/EC) 30 mg PO DAILY epinephrine [EpiPen] 0.3 mg/0.3 mL auto-injector 0.3 mg IM Q4H PRN (Reason: severe allergy reaction) sumatriptan succinate 50 mg tablet PO famotidine 20 mg tablet PO ondansetron HCl 4 mg tablet 4 mg PO Q8H PRN (Reason: nausea/vomiting) albuterol sulfate 90 mcg/actuation HFA aerosol inhaler 2 puff inhalation Q4-6H PRN (Reason: shortness of breath or wheezing) 30 Days Qty: 1 6RF Stand Alone Forms: Work/School Release Interventions: ED Discharge Assessment Last Done: 02/01/25 16:52 Discharge Date/Time: 02/01/25 16:53 Print Language: Scottish
[2025-02-01 16:52] VITALS: BP 136/60; PULSE 69; RESP 16; TEMP 37.1; O2SAT 99
--- OUTSIDE RECORDS SUMMARY | 2025-02-01 20:14 | XMS_ITS | Clinical Summary ---
Author Organization [employer] Address [address] [place] [address] [address] [place] [address] Care Team Providers Care Milk House Worker Name Role Phone Nayely Coffman MD Primary [...] 1 4 Active cyclobenzaprine (Flexeril) 10 MG tabletIndicatio ns:Paraspinal muscle spasm TAKE ONE TABLET BY ORAL ROUTE UP TO THREE TIMES DAILY NEEDED FOR MUSCLE SPASM 30 tablet 2 5 Active SUMAtriptan (Imitrex) 50 MG tabletIndicatio ns:Migraine without status migrainosus, not intractable, unspecified migraine type TAKE 1 TABLET BY MOUTH NEEDED FOR MIGRAINE REPEAT ONCE IN 2 HOURS IF NEEDED 2 DOSES IN 24 HOURS. 6 tablet 5 Active DULoxetine (Cymbalta) [address] capsuleIndicati ons:Anxiety with depression Take 1 capsule (30 mg) by mouth 2 times daily. Do not crush or chew. 180 capsule 3 5 Active Drospirenone (Slynd) 4 MG tablet TAKE 1 TABLET BY MOUTH EVERY DAY 84 tablet 5 Active cefdinir (Omnicef) 300 MG capsule Take 1 capsule (300 mg) by mouth 2 times daily for 7 days. 14 capsule 5 01/07/20 25 Active Problems Problem Noted Date Diagnosed Date Uterine fibroid 12/08/2024 Encounter for preventive care 12/08/2024 Assessment & Plan (12/08/2024 6:53 PM EDT): See HPI Pulmonary emphysema, unspecified emphysema type 12/08/2024 Assessment & Plan (12/08/2024 6:54 PM EDT): Continue to follow-up with pulmonology Patient unfortunately continues to smoke she reports she is not ready to quit Smoker 12/08/2024 Assessment & Plan (12/08/2024 6:54 PM EDT): Extensive counseling about smoking cessation done today, patient is not ready to quit Community acquired pneumonia of right lung 05/06 [...] Assessment & Plan (04/03/2023 12:26 PM EST): drik plenty of water and increase fiber on diet Senna prescription sent today Health care maintenance 04/03/2023 Anxiety with depression 02/18/2023 Assessment & Plan (12/08/2024 6:53 PM EDT): Stable continue with current interventions Assessment & Plan (09/02/2023 12:50 PM EDT): [...] stopped taking the cyclobenzaprine. Marfan's syndrome 03/18/2022 Assessment & Plan (12/08/2024 6:54 PM EDT): Stable patient is being followed by cardiology and ophthalmology H/O aortic aneurysm repair 03/18/2022 Assessment & [...] Encounters Date Type Department Care Team Description 02/01/2025 Orders Only [facility] External Provider, [facility] 01/16/2025 Travel 01/16/2025 Refill [facility] [address] [place] [phone] Nayely Coffman MD 01/16/2025 Telephone [facility] [address] [place] [address] [phone] Nayely Coffman MD Nurse Triage 12/30/2024 3:20 PM EDT Office Visit [facility] [address] [place] [address] [phone] Pj Mosqueda MD Other non-recurrent acute nonsuppurative otitis media of both ears (Primary Dx) 12/08/2024 1:15 PM EDT Office Visit [facility] [address] [place] [phone] Nayely Coffman MD Encounter for preventive care (Primary Dx); Uterine leiomyoma, unspecified location; Pulmonary emphysema, unspecified emphysema type (CMS/HCC); Marfan's syndrome; Dietary counseling; Exercise counseling; Anxiety with depression; Smoker 12/08/2024 Travel 12/07/2024 Telephone [facility] [address] [place] [phone] Nayely Coffman MD Chart Prep 11/29/2024 Patient Outreach [facility] [address] [place] [address] [phone] Nayely Coffman MD Pre-visit Planning ([facility] screening completed on 08/22/2024) 11/17/2024 Refill [facility] [address] [place] [address] [phone] Nayely Coffman MD Migraine without status migrainosus, not intractable, unspecified migraine type 11/13/2024 Refill [facility] [address] [place] [address] Nayely Coffman MD Paraspinal muscle spasm from Last 3 Months Immunizations Immunization Administration [...] Answer Date Recorded Patient Health Questionnaire-9 Score 0 12/08/2024 Patient Health Questionnaire-9 Score 0 12/08/2024 Last PHQ-9: Questionnaire Data Not on file 0 12/08/2024 Housing Stability Answer Date Recorded What is [...] Answer Date Recorded Patient Health Questionnaire-2 Score 0 12/08/2024 Internet Access Answer Date Recorded Internet Access Q1 Yes 08/22/2024 Internet Access Q2 Not on file 08/22/2024 Comments No Sex and Gender Information Value Date Recorded Sex Assigned at Female 02/03/2022 10:14 AM EDT Legal Sex Female 10:14 AM EDT Gender Identity Female 02/03/2022 10:14 AM EDT Sexual Orientation Choose not to disclose 2021 10:14 AM EDT Last Filed Vital Signs Vital Sign Reading Time Taken Comments Blood Pressure 130/85 12/30/2024 3:23 PM EDT Pulse 90 12/30/2024 3:23 PM EDT Temperature 36.5 C (97.7 F) 12/30/2024 3:23 PM EDT Respiratory Rate 20 12/30/2024 3:23 PM EDT Oxygen Saturation 97% 12/30/2024 3:23 PM EDT Inhaled Oxygen Concentration - - Weight 85.5 kg (188 lb 6.4 oz) 12/30/2024 3:23 P M EDT Height 180.3 cm (5' 11 ) 12/08/2024 1:06 PM EDT Body Mass Index 26.28 12/08/2024 1:06 PM EDT Plan of Treatment Health Maintenance Due Date Last Done Comments Family Planning (PISQ) 2001 Hepatitis B Vaccines (1 of 3 - 19+ 3-dose series) 2005 HPV Vaccines (2 - 3-dose series) 07/27/2006 06/29/2006 COVID-19 Vaccine ( season) 2024 02/20/2023, 03/22/2022, 12/12/2020, Additional history exists Influenza Vaccine (#1) 2024 02/20/2023, 2021 Pap Smear 05/22/2025 05/22/2022 SDOH Screening 08/22/2025 08/22/2024 Alcohol/Substance Use Screening 12/08/2025 12/08/2024 Depression Screening 12/08/2025 12/08/2024, 12/09/19 25 Disability Screening 12/08/2025 12/08/2024 Tobacco Screening 12/08/2025 12/08/2024 Cervical Cancer Screening 05/22/2027 HPV/Cotest 05/22/2027 05/22/2022 [...] Years) and At-Risk Patients (6 to 49) Years Completed 09/02/2023 HIB Vaccines Aged Out No [...] Procedure Name Priority Date/Time Associated Diagnosis Comments XR FOOT 3+ VIEWS LEFT Routine 02/01/2025 3:58 PM EDT XR TIBIA FIBULA 2 VIEWS LEFT Routine 02/01/2025 3:50 PM EDT XR ANKLE 3+ VIEWS LEFT Routine 02/01/2025 3:50 PM EDT HEPATITIS C AB W/REFL TO HCV [...] Recently Relevant to Health Maintenance Results * XR Foot 3+ Views Left (02/01/2025 3:58 PM EDT) Anatomical Region Laterality Modality Lower Extremities, Foot Left [facility] 02/01/2025 3:58 PM EDT Narrative 02/01/2025 4:06 PM EDT [place] [address] XRay Report Signed Patient: Mayra Alonzo MR#: [id number] 147 : 1985 Acct:[id number] Age/Sex: 39 / F ADM Date: 02/01/25 Loc: HO.ED Attending Dr: Ordering Physician: Bhakti Neal DO Date of Service: 02/01/25 Procedure(s): XR foot LT min 3V Accession Number(s): [id number] cc: Nayely Coffman MD; Bhakti Neal DO Reason for Exam: fracture eval EXAMINATION: XR TIBIA AND FIBULA, LEFT CLINICAL INFORMATION: Injury. COMPARISON: None available. TECHNIQUE: AP and lateral views of the left tibia and fibula were obtained. FINDINGS: No acute cortical disruption. No lytic or blastic lesions. No metallic or radiopaque foreign body. No subcutaneous emphysema. XR/XR foot LT min 3V IMPRESSION: No acute fracture. EXAMINATION: XR FOOT, LEFT CLINICAL INFORMATION: fracture eval COMPARISON: None available. TECHNIQUE: AP, lateral, and oblique views of the left foot. FINDINGS: No acute cortical disruption or malalignment. No lytic or blastic lesions. No subcutaneous emphysema. No metallic or radiopaque foreign body. No joint effusion. IMPRESSION: No acute fracture or dislocation. EXAMINATION: XR ANKLE, LEFT CLINICAL INFORMATION: fracture eval COMPARISON: None available. TECHNIQUE: AP, lateral, and mortise views of the left ankle. FINDINGS: No acute cortical disruption or malalignment. No metallic or radiopaque foreign body. No joint effusion, anterior tibiotarsal bursa. No lytic or blastic lesions. No subcutaneous emphysema. No gross soft tissue contusion. IMPRESSION: No acute fracture or dislocation. Electronically signed by: Mehdi Rose MD 02/01/2025 04:02 PM EDT Dictated By: Mehdi Cole MD Signed By: <Electronically signed by Mehdi Talamantes MD in OV> 02/01/25 1602 DD/ 1558 TD/TT: 02/01/25 1557 Batch Unloader: Procedure Note Donotuseinterpreter, Image - 02/01/2025 [place] [address] XRay Report Signed Patient: Linda Alonzo#: [id number] 147 : 1985Acct:[id number] Age/Sex: 39 / FADM Date: 02/01/25 Loc: HO.ED Attending Dr: Ordering Physician: Bhakti Neal DO Date of Service: 02/01/25 Procedure(s): XR foot LT min 3V Accession Number(s): [id number] cc: Nayely Coffman MD; Bhakti Neal DO Reason for Exam: fracture eval EXAMINATION: XR TIBIA AND FIBULA, LEFT CLINICAL INFORMATION: Injury. COMPARISON: None available. TECHNIQUE: AP and lateral views of the left tibia and fibula were obtained. FINDINGS: No acute cortical disruption. No lytic or blastic lesions. No metallic or radiopaque foreign body. No subcutaneous emphysema. XR/XR foot LT min 3V IMPRESSION: No acute fracture. EXAMINATION: XR FOOT, LEFT CLINICAL INFORMATION: fracture eval COMPARISON: None available. TECHNIQUE: AP, lateral, and oblique views of the left foot. FINDINGS: No acute cortical disruption or malalignment. No lytic or blastic lesions. No subcutaneous emphysema. No metallic or radiopaque foreign body. No joint effusion. IMPRESSION: No acute fracture or dislocation. EXAMINATION: XR ANKLE, LEFT CLINICAL INFORMATION: fracture eval COMPARISON: None available. TECHNIQUE: AP, lateral, and mortise views of the left ankle. FINDINGS: No acute cortical disruption or malalignment. No metallic or radiopaque foreign body. No joint effusion, anterior tibiotarsal bursa. No lytic or blastic lesions. No subcutaneous emphysema. No gross soft tissue contusion. IMPRESSION: No acute fracture or dislocation. Electronically signed by: Mehdi Rose MD 02/01/2025 04:02 PM EDT Dictated By: Mehdi Cole MD Signed By: <Electronically signed by Mehdi Talamantes MDin OV> 02/01/25 1602 DD/ 1558 TD/TT: 02/01/25 1557 Batch Unloader: [facility] External Provider IMG XR PROCEDURES Final Result * XR Ankle 3+ Views Left (02/01/2025 3:50 PM EDT) Anatomical Region Laterality Modality Lower Extremities, Ankle Left Radiogr [facility]ic Imaging 02/01/2025 3:50 PM EDT Narrative 02/01/2025 4:06 PM EDT [address] [address] XRay Report Signed Patient: Mayra Alonzo MR#: [id number] 147 : 1985 Acct:[id number] Age/Sex: 39 / F ADM Date: 02/01/25 Loc: HO.ED Attending Dr: Ordering Physician: Bhakti Neal DO Date of Service: 02/01/25 Procedure(s): XR ankle LT min 3V Accession Number(s): [id number] cc: Nayely Coffman MD; Bhakti Neal DO Reason for Exam: fracture eval EXAMINATION: XR TIBIA AND FIBULA, LEFT CLINICAL INFORMATION: Injury. COMPARISON: None available. TECHNIQUE: AP and lateral views of the left tibia and fibula were obtained. FINDINGS: No acute cortical disruption. No lytic or blastic lesions. No metallic or radiopaque foreign body. No subcutaneous emphysema. XR/XR ankle LT min 3V IMPRESSION: No acute fracture. EXAMINATION: XR FOOT, LEFT CLINICAL INFORMATION: fracture eval COMPARISON: None available. TECHNIQUE: AP, lateral, and oblique views of the left foot. FINDINGS: No acute cortical disruption or malalignment. No lytic or blastic lesions. No subcutaneous emphysema. No metallic or radiopaque foreign body. No joint effusion. IMPRESSION: No acute fracture or dislocation. EXAMINATION: XR ANKLE, LEFT CLINICAL INFORMATION: fracture eval COMPARISON: None available. TECHNIQUE: AP, lateral, and mortise views of the left ankle. FINDINGS: No acute cortical disruption or malalignment. No metallic or radiopaque foreign body. No joint effusion, anterior tibiotarsal bursa. No lytic or blastic lesions. No subcutaneous emphysema. No gross soft tissue contusion. IMPRESSION: No acute fracture or dislocation. Electronically signed by: Mehdi Rose MD 02/01/2025 04:02 PM EDT Dictated By: Mehdi Cole MD Signed By: <Electronically signed by Mehdi Talamantes MD in OV> 02/01/25 1602 DD/ 1550 TD/TT: 02/01/25 1557 Batch Unloader: Procedure Note Donotuseinterpreter, Image - 02/01/[address] [address] XRay Report Signed Patient: Linda Alonzo#: [id number] 147 : 1985Acct:[id number] Age/Sex: 39 / FADM Date: 02/01/25 Loc: HO.ED Attending Dr: Ordering Physician: Bhakti Neal DO Date of Service: 02/01/25 Procedure(s): XR ankle LT min 3V Accession Number(s): [id number] cc: Nayely Coffman MD; Bhakti Nael DO Reason for Exam: fracture eval EXAMINATION: XR TIBIA AND FIBULA, LEFT CLINICAL INFORMATION: Injury. COMPARISON: None available. TECHNIQUE: AP and lateral views of the left tibia and fibula were obtained. FINDINGS: No acute cortical disruption. No lytic or blastic lesions. No metallic or radiopaque foreign body. No subcutaneous emphysema. XR/XR ankle LT min 3V IMPRESSION: No acute fracture. EXAMINATION: XR FOOT, LEFT CLINICAL INFORMATION: fracture eval COMPARISON: None available. TECHNIQUE: AP, lateral, and oblique views of the left foot. FINDINGS: No acute cortical disruption or malalignment. No lytic or blastic lesions. No subcutaneous emphysema. No metallic or radiopaque foreign body. No joint effusion. IMPRESSION: No acute fracture or dislocation. EXAMINATION: XR ANKLE, LEFT CLINICAL INFORMATION: fracture eval COMPARISON: None available. TECHNIQUE: AP, lateral, and mortise views of the left ankle. FINDINGS: No acute cortical disruption or malalignment. No metallic or radiopaque foreign body. No joint effusion, anterior tibiotarsal bursa. No lytic or blastic lesions. No subcutaneous emphysema. No gross soft tissue contusion. IMPRESSION: No acute fracture or dislocation. Electronically signed by: Mehdi Rose MD 02/01/2025 04:02 PM EDT Dictated By: Mehdi Cole MD Signed By: <Electronically signed by Mehdi Talamantes MDin OV> 02/01/25 1602 DD/ 1550 TD/TT: 02/01/25 1557 Batch Unloader: [facility] External Provider IMG XR PROCEDURES Final Result * XR Tibia Fibula 2 Views Left (02/01/2025 3:50 PM EDT) Anatomical Region Laterality Modality Lower Extremities, Lower Leg Left Rad iographic Imaging 02/01/2025 3:50 PM EDT Narrative 02/01/2025 4:06 PM EDT [address] [address] XRay Report Signed Patient: Mayra Alonzo MR#: [id number] 147 : 1985 Acct:[id number] Age/Sex: 39 / F ADM Date: 02/01/25 Loc: HO.ED Attending Dr: Ordering Physician: Bhakti Neal DO Date of Service: 02/01/25 Procedure(s): XR tibia fibula LT 2V Accession Number(s): [id number] cc: Nayely Coffman MD; Bhakti Neal DO Reason for Exam: fracture eval EXAMINATION: XR TIBIA AND FIBULA, LEFT CLINICAL INFORMATION: Injury. COMPARISON: None available. TECHNIQUE: AP and lateral views of the left tibia and fibula were obtained. FINDINGS: No acute cortical disruption. No lytic or blastic lesions. No metallic or radiopaque foreign body. No subcutaneous emphysema. XR/XR tibia fibula LT 2V IMPRESSION: No acute fracture. EXAMINATION: XR FOOT, LEFT CLINICAL INFORMATION: fracture eval COMPARISON: None available. TECHNIQUE: AP, lateral, and oblique views of the left foot. FINDINGS: No acute cortical disruption or malalignment. No lytic or blastic lesions. No subcutaneous emphysema. No metallic or radiopaque foreign body. No joint effusion. IMPRESSION: No acute fracture or dislocation. EXAMINATION: XR ANKLE, LEFT CLINICAL INFORMATION: fracture eval COMPARISON: None available. TECHNIQUE: AP, lateral, and mortise views of the left ankle. FINDINGS: No acute cortical disruption or malalignment. No metallic or radiopaque foreign body. No joint effusion, anterior tibiotarsal bursa. No lytic or blastic lesions. No subcutaneous emphysema. No gross soft tissue contusion. IMPRESSION: No acute fracture or dislocation. Electronically signed by: Mehdi Rose MD 02/01/2025 04:02 PM EDT Dictated By: Mehdi Cole MD Signed By: <Electronically signed by Mehdi Talamantes MD in OV> 02/01/25 1602 DD/ 1550 TD/TT: 02/01/25 1557 Batch Unloader: Procedure Note Donotuseinterpreter, Image - 02/01/[address] [address] XRay Report Signed Patient: Linda Alonzo#: [id number] 147 : 1985Acct:[id number] Age/Sex: 39 / FADM Date: 02/01/25 Loc: HO.ED Attending Dr: Ordering Physician: Bhakti Neal DO Date of Service: 02/01/25 Procedure(s): XR tibia fibula LT 2V Accession Number(s): [id number] cc: Nayely Coffman MD; Bhakti Neal DO Reason for Exam: fracture eval EXAMINATION: XR TIBIA AND FIBULA, LEFT CLINICAL INFORMATION: Injury. COMPARISON: None available. TECHNIQUE: AP and lateral views of the left tibia and fibula were obtained. FINDINGS: No acute cortical disruption. No lytic or blastic lesions. No metallic or radiopaque foreign body. No subcutaneous emphysema. XR/XR tibia fibula LT 2V IMPRESSION: No acute fracture. EXAMINATION: XR FOOT, LEFT CLINICAL INFORMATION: fracture eval COMPARISON: None available. TECHNIQUE: AP, lateral, and oblique views of the left foot. FINDINGS: No acute cortical disruption or malalignment. No lytic or blastic lesions. No subcutaneous emphysema. No metallic or radiopaque foreign body. No joint effusion. IMPRESSION: No acute fracture or dislocation. EXAMINATION: XR ANKLE, LEFT CLINICAL INFORMATION: fracture eval COMPARISON: None available. TECHNIQUE: AP, lateral, and mortise views of the left ankle. FINDINGS: No acute cortical disruption or malalignment. No metallic or radiopaque foreign body. No joint effusion, anterior tibiotarsal bursa. No lytic or blastic lesions. No subcutaneous emphysema. No gross soft tissue contusion. IMPRESSION: No acute fracture or dislocation. Electronically signed by: Mehdi Rose MD 02/01/2025 04:02 PM EDT Dictated By: Mehdi Cole MD Signed By: <Electronically signed by Mehdi Talamantes MDin OV> 02/01/25 1602 DD/ 1550 TD/TT: 02/01/25 1557 Batch Unloader: [facility] External Provider IMG XR PROCEDURES Final Result * Hepatitis C Antibody with Reflex to HCV, RNA, Quantitative, Real-Time PCR (04/03/2023 2:52 PM EST) Hepatitis C Antibody Nonreactive Nonreactive [facility] Comment:Antibodies to HCV no t detected; does not exclude early acuteHCV infection. Blood Venous blood specimen / Unknown 04/03/2023 2:52 PM EST 04/03/2023 2:54 PM EST Nayely Quiros MD LAB BLOOD ORDERABLES Final Result [facility] [address] [place] [phone] * HIV-1/2 Antigen and Antibodies, Fourth Generation, with Reflexes (04/03/2023 2:52 PM EST) HIV AB/AG Nonreactive Nonreactive [facility] Comment:HIV-1 p24 Ag and/or HIV-1/HIV-2 Ab not detected.A test result that is nonreactive does not exclude thepossibility of exposure to or infection with HIV-1 and/orHIV-2. Nonreactive results in this assay for individualswith prior exposure to HIV-1 and/or HIV-2 may be due toantigen and antibody levels that are below the limit ofdetection of this assay.The [facility] HIV Ag/Ab Combo assay result andsupplemental assay results should be interpreted inconjunction with the patient's clinical presentation,history and other laboratory results. If the results areinconsistent with clinical evidence, additional testing issuggested to confirm the result. Blood Venous blood specimen / Unknown 04/03/2023 2:52 PM EST 04/03/2023 2:54 PM EST Nayely Quiros MD LAB BLOOD ORDERABLES Final Result [facility] [address] [place] [address] [phone] * HPV mRNA E6/E7 w/Reflex to HPV Genotypes 16, 18/45 (05/22/2022 11:48 AM EST) HPV nRNA E6/E7 Not Detected Not Detected [facility] Comment:Methodology: Transcr iption-Mediated AmplificationThis assay detects E6/E7 viral messenger RNA (mRNA) from 14high-risk HPV types (16,18,31,33,35,39,45,51,52,56,58,59,66,68).Cervical sources are required for HPV testing.If a vaginal source from a patient who has had atotal hysterectomy with removal of cervix wassubmitted, please contact the testing laboratoryfor alternative testing options.For additional information, please refer [email or web address] [email or web address] Strop/faq/WEV199g9(This link if provided for information/educational purposes only.)THIS TEST WAS PERFORMED AT:[facility] [place] [phone] JEFFRIES MD HPV mRNA E6/E7 [facility] HPV 16 RNA [facility] HPV 18/45 RNA [facility] 05/22/2022 11:4 8 AM EST 05/22/2022 12:00 PM EST us [facility] External Provider LAB CYT OLOGY ORDERABLES Final Result [facility] [address] [place] [address] [phone] * Pap Smear (05/22/2022 11:48 AM EST) 05/22/2022 11:4 8 AM EST 05/22/2022 12:00 PM EST [facility] - 06/02/2022 12:55 PM EST ----- ------- Name: Mayra Alonzo Age/Sex: 36/F : 1985 Unit#: [id number] Attend Dr: Marily Morales CNM Re05/22/22 Status: DEP REF Location: [facility] Disch: ----- ------- SPEC : [id number] RECD: 05/22/22-1200 STATUS: ELLIOTT HARVEYEileen NUM: [id number] [place]: 05/22/22-[address] [facility] [address]: Marily Morales ENTERED: 05/22/22-1238 SP TYPE: Pap Smr OTHR DR: Nayely Coffmna MD ORDERED: Pap Smear Interpretation Satisfactory for evaluation. Negative for intraepithelial lesion or malignancy. Coccobacilli consistent with shift in vaginal queta. HPV mRNA E6/E7: NOT DETECTED This assay detects E6/E7 viral messenger RNA (mRNA) from 14 high-risk HPV types (16, 18, 31, 33, 35, 39, 45, 51, 52, 56, 58, 59, 66, 68) HPV testing performed by [facility], [place], [place]. See reference laboratory portion of the EMR for entire report. Clinical Information LMP: 05/18/22 Previous PAP test: 03/25/19, Abnormal Other history: +HPV Material Received ThinPrep-Cervical Copies To: Nayely Coffman MD [address] [place] [address] Marily Morales [address] Hien Dennison [place] [address] ----- ------- Signed (signature on file) Nicole A Sarina 06/02/22 1255 ----- ------- END OF REPORT [facility] External Provider LAB [facility] ORDERABLES Final Result [facility] [address] [place] [address] [phone] from Last 3 Months or Most Recently Relevant to Health Maintenance Insurance [employer] [facility] * Guarantor: KELECHI Account Type Relation to Patient Date of Phone Billing Address [employer] Other * Guarantor: Cheri Mayra Account Type Relation to Patient Date of Phone Billing Address [employer] Self 1985 [address] [place] [address] Care Teams Milk House Worker Relationship Specialty Start Date End Date Nayely Coffman MD [address] [place] [address] PCP - General Family Medicine 04/13/18
--- OUTSIDE RECORDS SUMMARY | 2025-02-01 20:14 | XMS_ITS | Encounter Summary ---
Demographics Address [address] [place] [address] Mobile Phone Home Phone Work Phone Email Address Preferred Language Macedonian Marital Status Single Lutheran Affiliation Unknown Race Black or Marry rican Ethnic Group or Author Organization [facility] Address [facility] [address] [place] [address] Phone Support Name Relationship Address Phone Helen Alonzo Emergency Contact [address] [facility] [address] [place] [address] Unknown Unknown Personal Relationship Unknown +1- [phone] Care Team Providers Care Passenger Car Conductor Name Role Phone Nayely Zamorano MD Primary Care Provider Encounter Details Date Type Department Care Team (Late st Contact Info) Description 05/27/2024 Telephone [facility] OBGYN Gynecology Resident [address] [place] [address] Belkis Shannon [place], [place] [address] [place] [address] [email or web address] Social History Tobacco Use Types Packs/Day Years Used Date Smoking Tobacco: Never Assessed Education Answer Date Recorded Are you interested in more education? Not on zoltan e 08/06/2022 Are you concerned about learning? Not on file 08/06/2022 No 08/06/2022 No 08/06/2022 Digital Access Answer Date Recorded No 08/31/2022 No 08/31/2022 No 08/31/2022 Reliable internet access at home? Not on file 08/31/2022 Device with a working camera? Not on file Comments Unknown Sex and Gender Information Value Date Recorded Sex Assigned at Female 05/18/2024 2:47 PM EST Legal Sex Female 5:27 PM EST Gender Identity Female 05/18/2024 2:47 PM EST Sexual Orientation Straight 05/18/2024 2: 47 PM EST documented as of this encounter Plan of Treatment Not on file documented as of this encounter Visit Diagnoses Not on filedocumented in this encounter Care Teams Passenger Car Conductor Relationship Specialty Start Date End Date Nayely Zamorano MD [address] [place] [address] PCP - General Internal Medicine 05/18/24 documented as of this encounter Additional Source Comments The information contained in this document represents components of the legal health record. It is not the complete legal health record.[facility]
--- OUTSIDE RECORDS SUMMARY | 2025-02-01 20:14 | XMS_ITS | Clinical Summary ---
Demographics Address [address] [place] [address] Mobile Phone Home Phone Work Phone Email Address Preferred Language Danish Marital Status Single Shinto Affiliation Unknown Race Black or Marry rican Ethnic Group or Author Organization [facility] Address [facility] [address] [address] Phone Support Name Relationship Address Phone Helen Alonzo Emergency Contact [address] [place] [address] Unknown Unknown Personal Relationship Unknown +1- [phone] Care Team Providers Care Automation Tester Name Role Phone Nayely Zamorano MD Primary Care Provider Social History Tobacco Use Types Packs/Day Years [...] Orientation Straight 05/18/2024 2: 47 PM EST Plan of Treatment Health Maintenance Due Date Last Done Comments DEPRESSION SCREENING 1998 SMOKING Hx and SMOKELESS TOB ACCO SCREENING 08/31/1999 HEPATITIS C SCREENING 2004 HIV ONE-TIME SCREENING (18-6 5 YEARS) 2004 PAP SMEAR 08/31/2007 Adult Td,Tdap Booster 06/09/2021 06/10/2011 INFLUENZA VACCINE (#1) 2024 COVID-19 VACCINE ( - 2024-2 6 season) 2024 HEPATITIS A VACCINES Aged Out 10/27/2016 No long er eligible based on patient's age to complete this topic HIB VACCINES Aged Out No longer eligi ble based on patient's age to complete this topic MENINGOCOCCAL VACCINES (ACWY) Aged Out No longer eligible based on patient's age to complete this topic MENINGOCOCCAL VACCINES (B) Aged Out N o longer eligible based on patient's age to complete this topic PNEUMOCOCCAL VACCINES (0-49 years) Aged Out No longer eligible based on patient's age to complete this topic Medical Devices Not on file Insurance [facility] PCC [facility] NON NSPG PCP [employer] [facility] [employer] NON NSPG PCP [employer] [facility] PCC [place] NON NSPG PCP [employer] [facility] PCC [facility] NON NSPG PCP [employer] [address] [place] [phone] [facility] [address] [place] [phone] [facility] [employer] PCC [facility] NON NSPG PCP [employer] Care Teams Automation Tester Relationship Specialty Start Date End Date Nayely Zamorano MD [address] [place] [address] PCP - General Internal Medicine 05/18/24 Additional Source Comments The information contained in this document represents components of the legal health record. It is not the complete legal health record.[facility]
--- OUTSIDE RECORDS SUMMARY | 2025-02-01 20:14 | XMS_ITS | Encounter Summary ---
Author Organization [employer] Address [address] [facility] [address] [place] [address] Care Team Providers Care Pipe Manufacture Supervisor Name Role Phone Nayely Coffman MD Primary Care Provide r Encounter Details Date Type Department Care Team (Late st Contact Info) Description 02/01/2025 Orders Only External Provider, [facility] Social History Tobacco Use Types Packs/Day Years [...] is your housing situation today? I have jinsheri castillo 08/22/[address] you [...] the past 12 months, has t he [employer], gas, oil or water company threatened to [...] on file documented as of this encounter Procedures Procedure Name Priority Date/Time Associated Diagnosis Comments XR FOOT 3+ VIEWS LEFT Routine 02/01/2025 3:58 PM EDT XR ANKLE 3+ VIEWS LEFT Routine 02/01/2025 3:50 PM EDT XR TIBIA FIBULA 2 VIEWS LEFT Routine 02/01/2025 3:50 PM EDT documented in this encounter Results * XR Foot 3+ Views Left (02/01/2025 3:58 PM EDT) Anatomical Region Laterality Modality Lower Extremities, Foot Left Radiogra phic Imaging 02/01/2025 3:58 PM EDT Narrative 02/01/2025 4:06 PM EDT [place] [address] XRay Report Signed Patient: Mayra Alonzo MR#: [id number] 147 : 1985 Acct:[id number] Age/Sex: 39 / F ADM Date: 02/01/25 Loc: HO.ED Attending Dr: Ordering Physician: Bhakti Neal DO Date of Service: 02/01/25 Procedure(s): XR foot LT min 3V Accession Number(s): [id number] cc: Nayely Coffman MD; Bhakti Neal DO [...] 02/01/25 1602 DD/ 1558 TD/TT: 02/01/25 1557 Occupational Therapy Aides Teacher: Procedure Note Donotuseinterpreter, Image - 02/01/2025 [place] [address] XRay Report Signed Patient: Linda Alonzo#: [id number] 147 : 1985Acct:[id number] Age/Sex: 39 / FADM Date: 02/01/25 Loc: HO.ED Attending Dr: Ordering Physician: Bhakti Neal DO Date of Service: 02/01/25 Procedure(s): XR foot LT min 3V Accession Number(s): [id number] cc: Nayely Coffman MD; Bhakti Neal DO [...] 02/01/25 1602 DD/ 1558 TD/TT: 02/01/25 1557 Occupational Therapy Aides Teacher: [facility] External Provider IMG XR PROCEDURES Final Result * XR Tibia Fibula 2 Views Left (02/01/2025 3:50 PM EDT) Anatomical Region Laterality Modality Lower Extremities, Lower Leg Left Rad iographic Imaging 02/01/2025 3:50 PM EDT Narrative 02/01/2025 4:06 PM EDT [address] [address] XRay Report Signed Patient: Mayra Alonzo MR#: [id number] 147 : 1985 Acct:[id number] Age/Sex: 39 / F ADM Date: 02/01/25 Loc: HO.ED Attending Dr: Ordering Physician: Bhakti Neal DO Date of Service: 02/01/25 Procedure(s): XR tibia fibula LT 2V Accession Number(s): [id number] cc: Nayely Coffman MD; Bhakti Neal DO [...] 02/01/25 1602 DD/ 1550 TD/TT: 02/01/25 1557 Occupational Therapy Aides Teacher: Procedure Note Donotuseinterpreter, Image - 02/01/2025 [place] [address] XRay Report Signed Patient: Linda Alonzo#: [id number] 147 : 1985Acct:[id number] Age/Sex: 39 / FADM Date: 02/01/25 Loc: HO.ED Attending Dr: Ordering Physician: Bhakti Neal DO Date of Service: 02/01/25 Procedure(s): XR tibia fibula LT 2V Accession Number(s): [id number] cc: Nayely Coffman MD; Bhakti Neal DO [...] 02/01/25 1602 DD/ 1550 TD/TT: 02/01/25 1557 Occupational Therapy Aides Teacher: [facility] External Provider IMG XR PROCEDURES Final Result * XR Ankle 3+ Views Left (02/01/2025 3:50 PM EDT) Anatomical Region Laterality Modality Lower Extremities, Ankle Left Radiogr aphic Imaging 02/01/2025 3:50 PM EDT Narrative 02/01/2025 4:06 PM EDT [address] [address] XRay Report Signed Patient: Mayra Alonzo MR#: [id number] 147 : 1985 Acct:[id number] Age/Sex: 39 / F ADM Date: 02/01/25 Loc: HO.ED Attending Dr: Ordering Physician: Bhakti Neal DO Date of Service: 02/01/25 Procedure(s): XR ankle LT min 3V Accession Number(s): [id number] cc: Nayely Coffman MD; Bhakti Neal DO [...] 02/01/25 1602 DD/ 1550 TD/TT: 02/01/25 1557 Occupational Therapy Aides Teacher: Procedure Note Donotuseinterpreter, Image - 02/01/[address] [address] XRay Report Signed Patient: Linda Alonzo#: [id number] 147 : 1985Acct:[id number] Age/Sex: 39 / FADM Date: 02/01/25 Loc: HO.ED Attending Dr: Ordering Physician: Bhakti Neal DO Date of Service: 02/01/25 Procedure(s): XR ankle LT min 3V Accession Number(s): [id number] cc: Nayely Coffman MD; Bhakti Neal DO [...] 02/01/25 1602 DD/ 1550 TD/TT: 02/01/25 1557 Occupational Therapy Aides Teacher: [facility] External Provider IMG XR PROCEDURES Final Result documented in this encounter Visit Diagnoses Not on filedocumented in this encounter Additional Health Concerns Assessment Noted Time PHQ-9 Depression Total Score: 0 12/09/19 25 1:07 PM EDT documented as of this encounter Care Teams Pipe Manufacture Supervisor Relationship Specialty Start Date End Date Nayely Coffman MD [address] [place] [address] PCP - General Family Medicine 04/13/18 documented as of this encounter
--- OUTSIDE RECORDS SUMMARY | 2025-02-01 20:14 | XMS_ITS | Encounter Summary ---
Author Organization [employer] Address [address] [place] [address] 7 [place] [address] Care Team Providers Care Line Service Technician Name Role Phone Nayely Coffman MD Primary Care Provide r Reason for Visit * Reason Onset Date Comments Created In Error 12/08/2023 Encounter Details Date Type Department Care Team ([facility] st Contact Info) Description 12/08/2023 Telephone [facility] [address] [place], [place] [phone] Nayely Coffman MD [address] [place] [address] Created In Error Social History Tobacco Use [...] with others, in a hotel, in a mcc, living outside on the street, on a [...] documented as of this encounter Care Teams Line Service Technician Relationship Specialty Start Date End Date Nayely Coffman MD [address] [place] [address] PCP - General Family Medicine 04/13/18 documented as of this encounter
--- OUTSIDE RECORDS SUMMARY | 2025-02-01 20:14 | XMS_ITS | Encounter Summary ---
Demographics Address [address] [place] [address] Mobile Phone Home Phone Work Phone Email Address Preferred Language Cymro Marital Status Single Yazidism Affiliation Unknown Race Black or Marry rican Ethnic Group or Author Organization [facility] Address [facility] [employer] [facility] [address] [place] [address] Phone Support Name Relationship Address Phone Helen Alonzo Emergency Contact [address] [facility] [address] [place] [address] Unknown Unknown Personal Relationship Unknown [phone]- [phone] Care Team Providers Care Java Performance Engineer Name Role Phone Nayely Zamorano MD Primary Care Provider Encounter Details Date Type Department Care Team (Late st Contact Info) Description 05/17/2024 Telephone [facility] OBGYN Gynecology Resident [address] [place] [address] Belkis Shannon [place], [place] [address] [place] [address] [email or web address] Social History Tobacco Use Types Packs/Day Years [...] on filedocumented in this encounter Care Teams Java Performance Engineer Relationship Specialty Start Date End Date Nayely Zamorano MD [address] [place] [address] PCP - General Internal Medicine 05/18/24 documented as of this encounter Additional Source Comments The information contained in this document represents components of the legal health record. It is not the complete legal health record.[facility]
== END 2025-02-01 16:53 | disposition home or self-care (01) ==
PROVIDERS: Emergency Provider Student in an Organized Health Care Education/Training Program; PCP Internal Medicine
DX: M25.572 Pain in left ankle and joints of left foot (principal); M79.605 Pain in left leg; Q87.40 Marfan syndrome, unspecified; Z79.899 Other long term (current) drug therapy
CPT/HCPCS: 73590; 73610; 73630; 99282; 99283

== ENCOUNTER → 2025-02-01 14:58 | Outpatient (BNV) | payer MEDICAID, SELFPAY | PROVIDERS: Emergency Provider Student in an Organized Health Care Education/Training Program; PCP Internal Medicine; Visit Provider Radiology Diagnostic Radiology | DX: S99.912A Unspecified injury of left ankle, initial encounter (principal); S99.922A Unspecified injury of left foot, initial encounter; S89.92XA Unspecified injury of left lower leg, initial encounter | CPT/HCPCS: 73590; 73610; 73630 ==